=== PATIENT | male | born 1955 | race Caucasian/White ===

== ENCOUNTER → 2017-04-20 | Outpatient (CLI) | payer MEDICAID, OTHER ==
--- NOTE | 2017-04-20 14:36 | US ---
EXAMINATION TYPE: US extremity nonvasculr ltd LT DATE OF EXAM: 04/20/2017 COMPARISON: NONE CLINICAL HISTORY: Left Knee Pain R29.898. Left knee pain for a few months with posterior swelling at time 1.7cm fluid collection seen medially and deep within popiteal fossa. Not related to a vessel. May rep resent small Bakers cyst versus other free fluid etiology. IMPRESSION: Small Hernandez's cyst
--- NOTE | 2017-04-20 15:30 | XR ---
EXAMINATION TYPE: XR knee complete LT DATE OF EXAM: 04/20/2017 CLINICAL HISTORY: pain TECHNIQUE: Three views of the left knee are obtained. COMPARISON: None. FINDINGS: There is no acute fracture/dislocation. The tri-compartment joint spaces appear mildly na rrowed. The overlying soft tissue appears unremarkable. IMPRESSION: There is no acute fracture or dislocation ICD 10 NO FRACTURE, INITIAL EVALUATION
== END | disposition home or self-care (01) ==
LOC: RADUSWWP 14:06
PROVIDERS: ATTEND Family Medicine
DX: M71.22 Synovial cyst of popliteal space [Baker], left knee (principal); R29.898 Other symptoms and signs involving the musculoskeletal system

== ENCOUNTER 2017-10-29 18:01 | Inpatient (IN) | payer MEDICAID ==
[2017-10-29] MEDS ORDERED: SODIUM CHLORIDE 0.9% 1,000 ML IV STA (18:09)
--- NOTE | 2017-10-29 18:19 | ED ---
General Adult HPI - General Chief complaint: Arrhythmia/Palpitations Stated complaint: tachycardia Time Seen by Provider: 10/29/17 18:04 Source: EMS, RN notes reviewed, old records reviewed Mode of arrival: EMS Limitations: no limitations - History of Present Illness Initial comments: This is a 62-year-old male the ER for evaluation. Patient does say for evaluation regarding dizziness and lightheadedness. No prior history of similar. Patient states he had over shopping began to feel lightheaded and dizzy, he got home his symptoms worsened he did call EMS EMS came to patient's house. Per EMS patient was in SVT, as they're about to give treatment patient did convert back to normal sinus rhythm. Patient states he feels much better now recent tobacco chest pain or shortness of breath. No recent fevers. No drugs or alcohol use - Related Data Home Medications Medication Instructions Recorded Confirmed Atorvastatin [Lipitor] 40 mg PO QAM 06/19/17 10/29/17 Naproxen Sodium [Aleve] 220 - 440 mg PO Q6H PRN 06/19/17 10/29/17 Previous Rx's Medication Instructions Recorded Aspirin 81 mg PO DAILY chew 10/31/17 Nicotine 14Mg/24Hr Patch [Habitrol] 1 patch TRANSDERM Q24H #30 patch 10/31/17 Verapamil [Isoptin] 40 mg PO TID #90 tab 10/31/17 Allergies Allergy/AdvReac Type Severity Reaction Status Date / Time No Known Allergies Allergy Verified 10/29/17 18:45 Review of Systems ROS Statement: Those systems with pertinent positive or pertinent negative responses have been documented in the HPI. ROS Other: All systems not noted in ROS Statement are negative. Past Medical History Past Medical History: Hyperlipidemia, Osteoarthritis (OA) Additional Past Medical History / Comment(s): CURRENT: HAD BX @ [facility] OFFICE, HAD A CHANGE OF INSURANCE AND NOW WITH DR. DE GUZMAN. PAST HX: RENAL CALCULI, KIDNEY INFECTIONS History of Any Multi-Drug Resistant Organisms: None Reported Past Surgical History: No Surgical Hx Reported Past Anesthesia/Blood Transfusion Reactions: Motion Sickness Past Psychological History: No Psychological Hx Reported Smoking Status: Current every day smoker Past Alcohol Use History: Rare Past Drug Use History: None Reported - Past Family History Mother Family Medical History: No Reported History General Exam Limitations: no limitations General appearance: alert, in no apparent distress Head exam: Present: atraumatic, normocephalic, normal inspection Eye exam: Present: normal appearance, PERRL, EOMI. Absent: scleral icterus, conjunctival injection, periorbital swelling ENT exam: Present: normal exam, mucous membranes moist Neck exam: Present: normal inspection. Absent: tenderness, meningismus, lymphadenopathy Respiratory exam: Present: normal lung sounds bilaterally. Absent: respiratory distress, wheezes, rales, rhonchi, stridor Cardiovascular Exam: Present: regular rate, normal rhythm, normal heart sounds. Absent: systolic murmur, diastolic murmur, rubs, gallop, clicks GI/Abdominal exam: Present: soft, normal bowel sounds. Absent: distended, tenderness, guarding, rebound, rigid Extremities exam: Present: normal inspection, full ROM, normal capillary refill. Absent: tenderness, pedal edema, joint swelling, calf tenderness Back exam: Present: normal inspection Neurological exam: Present: alert, oriented X3, CN II-XII intact Psychiatric exam: Present: normal affect, normal mood Skin exam: Present: warm, dry, intact, normal color. Absent: rash Course Vital Signs 10/29/17 10/29/17 10/29/17 18:04 18:57 19:37 Temperature 98.3 F 97.5 F L Pulse Rate 92 84 83 Respiratory 16 16 16 Rate Blood Pressure 145/65 126/60 141/69 O2 Sat by Pulse 96 97 97 Oximetry 10/29/17 21:33 Temperature 97.8 F Pulse Rate 84 Respiratory 16 Rate Blood Pressure 112/54 O2 Sat by Pulse 96 Oximetry - Reevaluation(s) Reevaluation #1: 10/29/17 21:34 EMS paperwork is reviewed, patient with positive SVT EKG Findings - EKG Comments: EKG Findings:: EKG shows sinus rhythm rate of 88, AR 150, QRS 84, QTC 450 Medical Decision Making - Medical Decision Making 62 male the ER for evaluation of abnormal rhythm, patient found to be in SVT, does have history of heart disease. Patient spontaneous can be converted, patient for continued monitoring of heart rhythm and cardiology evaluation - Lab Data Result diagrams: 10/29/17 18:15 10/31/17 06:00 Lab Results 10/29/17 10/29/17 10/29/17 Range/Units 18:15 18:15 18:15 WBC 13.1 H (3.8-10.6) k/uL RBC 5.43 (4.30-5.90) m/uL Hgb 15.8 (13.0-17.5) gm/dL Hct 47.8 (39.0-53.0) % MCV 88.0 (80.0-100.0) fL MCH 29.1 (25.0-35.0) pg MCHC 33.0 (31.0-37.0) g/dL RDW 13.6 (11.5-15.5) % Plt Count 270 (150-450) k/uL Neutrophils % 45 % Lymphocytes % 41 % Monocytes % 7 % Eosinophils % 3 % Basophils % 1 % Neutrophils # 5.9 (1.3-7.7) k/uL Lymphocytes # 5.3 H (1.0-4.8) k/uL Monocytes # 0.9 (0-1.0) k/uL Eosinophils # 0.4 (0-0.7) k/uL Basophils # 0.2 (0-0.2) k/uL Manual Slide Review Performed Poikilocytosis (manual Present PT (9.0-12.0) sec INR (<1.2) APTT (22.0-30.0) sec D-Dimer (<0.60) mg/L FEU Sodium 141 (137-145) mmol/L Potassium 4.2 (3.5-5.1) mmol/L Chloride 106 (98-107) mmol/L Carbon Dioxide 21 L (22-30) mmol/L Anion Gap 14 mmol/L BUN 14 (9-20) mg/dL Creatinine 0.90 (0.66-1.25) mg/dL Est GFR (CKD-EPI)AfAm >90 (>60 ml/min/1.73 sqM) Est GFR (CKD-EPI)NonAf 90 (>60 ml/min/1.73 sqM) Glucose 101 H (74-99) mg/dL Calcium 9.0 (8.4-10.2) mg/dL Phosphorus 3.3 (2.5-4.5) mg/dL Magnesium 1.9 (1.6-2.3) mg/dL Total Bilirubin 0.3 (0.2-1.3) mg/dL AST 26 (17-59) U/L ALT 21 (21-72) U/L Alkaline Phosphatase 65 (38-126) U/L Total Creatine Kinase 151 (55-170) U/L CK-MB (CK-2) 1.5 (0.0-2.4) ng/mL CK-MB (CK-2) Rel Index 1.0 Troponin I <0.012 (0.000-0.034) ng/mL Total Protein 6.6 (6.3-8.2) g/dL Albumin 3.5 (3.5-5.0) g/dL TSH 1.030 (0.465-4.680) mIU/L 10/29/17 10/29/17 Range/Units 18:15 18:15 WBC (3.8-10.6) k/uL RBC (4.30-5.90) m/uL Hgb (13.0-17.5) gm/dL Hct (39.0-53.0) % MCV (80.0-100.0) fL MCH (25.0-35.0) pg MCHC (31.0-37.0) g/dL RDW (11.5-15.5) % Plt Count (150-450) k/uL Neutrophils % % Lymphocytes % % Monocytes % % Eosinophils % % Basophils % % Neutrophils # (1.3-7.7) k/uL Lymphocytes # (1.0-4.8) k/uL Monocytes # (0-1.0) k/uL Eosinophils # (0-0.7) k/uL Basophils # (0-0.2) k/uL Manual Slide Review Poikilocytosis (manual PT 9.5 (9.0-12.0) sec INR 1.0 (<1.2) APTT 23.2 (22.0-30.0) sec D-Dimer 0.64 H (<0.60) mg/L FEU Sodium (137-145) mmol/L Potassium (3.5-5.1) mmol/L Chloride (98-107) mmol/L Carbon Dioxide (22-30) mmol/L Anion Gap mmol/L BUN (9-20) mg/dL Creatinine (0.66-1.25) mg/dL Est GFR (CKD-EPI)AfAm (>60 ml/min/1.73 sqM) Est GFR (CKD-EPI)NonAf (>60 ml/min/1.73 sqM) Glucose (74-99) mg/dL Calcium (8.4-10.2) mg/dL Phosphorus (2.5-4.5) mg/dL Magnesium (1.6-2.3) mg/dL Total Bilirubin (0.2-1.3) mg/dL AST (17-59) U/L ALT (21-72) U/L Alkaline Phosphatase (38-126) U/L Total Creatine Kinase (55-170) U/L CK-MB (CK-2) (0.0-2.4) ng/mL CK-MB (CK-2) Rel Index Troponin I (0.000-0.034) ng/mL Total Protein (6.3-8.2) g/dL Albumin (3.5-5.0) g/dL TSH (0.465-4.680) mIU/L Critical Care Time Critical Care Time: Yes Total Critical Care Time: 31 Disposition Clinical Impression: Supraventricular tachycardia Disposition: ADMITTED IP TO THIS [facility] Condition: Stable Is patient prescribed a controlled substance at d/c from ED?: No If prescribed controlled substance>3 days was MAPS reviewed?: No When asked, does pt state using other controlled substances?: No
[2017-10-29 18:26] LABS: Basophils # (A) 0.2 k/uL (0-0.2); Basophils % (A) 1 %; Eosinophils # (A) 0.4 k/uL (0-0.7); Eosinophils % (A) 3 %; HCT 47.8 % (39.0-53.0); HGB 15.8 gm/dL (13.0-17.5); Lymphocytes % (A) 41 %; MCH 29.1 pg (25.0-35.0); Mean Platelet Volume 7.9; Monocytes # (A) 0.9 k/uL (0-1.0); Monocytes % (A) 7 %; Neutrophils # (A) 5.9 k/uL (1.3-7.7); Neutrophils % (A) 45 %; Platelet Count 270 k/uL (150-450); RBC 5.43 m/uL (4.30-5.90); RDW 13.6 % (11.5-15.5); WBC 13.1 k/uL (3.8-10.6)
[2017-10-29 18:33] LABS: Lymphocytes # (A) 5.3 k/uL (1.0-4.8); Partial Thromboplastin Time 23.2 sec (22.0-30.0); Prothrombin Time 9.5 sec (9.0-12.0)
[2017-10-29 18:47] LABS: Poikilocytosis (M) Present
[2017-10-29 19:06] LABS: Creatine Kinase 151 U/L (55-170)
[2017-10-29 19:07] LABS: ALT 21 U/L (21-72); AST 26 U/L (17-59); Albumin 3.5 g/dL (3.5-5.0); Alkaline Phosphatase 65 U/L (38-126); Anion Gap 14 mmol/L; Blood Urea Nitrogen 14 mg/dL (9-20); Carbon Dioxide 21 mmol/L (22-30); Chloride 106 mmol/L (98-107); Glucose 101 mg/dL (74-99); Magnesium 1.9 mg/dL (1.6-2.3); Phosphorus 3.3 mg/dL (2.5-4.5); Potassium 4.2 mmol/L (3.5-5.1); Sodium 141 mmol/L (137-145); Total Bilirubin 0.3 mg/dL (0.2-1.3); Total Protein 6.6 g/dL (6.3-8.2)
[2017-10-29 19:18] LABS: Creatine Kinase MB 1.5 ng/mL (0.0-2.4); Troponin I <0.012 ng/mL (0.000-0.034)
[2017-10-29] MEDS ORDERED: NITROGLYCERIN SL TABS 0.4 MG TAB SUBLINGUAL PRN (21:32)
[2017-10-29] MEDS ORDERED: SODIUM CHLORIDE 0.9% 1,000 ML IV SCH (21:45)
[2017-10-30 01:05] LABS: Creatine Kinase 127 U/L (55-170)
[2017-10-30 01:16] LABS: Creatine Kinase MB 1.3 ng/mL (0.0-2.4); Troponin I <0.012 ng/mL (0.000-0.034)
[2017-10-30 06:45] LABS: Creatine Kinase 123 U/L (55-170)
[2017-10-30 06:46] LABS: Cholesterol 152 mg/dL (<200); HDL Cholesterol 33 mg/dL (40-60); LDL Cholesterol,Calculated 84 mg/dL (0-99); Triglycerides 174 mg/dL (<150)
[2017-10-30 06:57] LABS: Creatine Kinase MB 1.3 ng/mL (0.0-2.4); Troponin I <0.012 ng/mL (0.000-0.034)
[2017-10-30] MEDS ORDERED: METOPROLOL TARTRATE 50 MG TAB PO SCH (09:00)
[2017-10-30] MEDS ORDERED: ASPIRIN 325 MG TAB PO SCH (09:00)
[2017-10-30] MEDS ORDERED: ATORVASTATIN 80 MG TAB PO SCH (09:00)
--- NOTE | 2017-10-30 10:27 | P.CRDCN ---
History of Present Illness Consult date: 10/30/17 Requesting physician: Gaudencio Gardner Reason for Consult (text): SVT Chief complaint: Dizziness and lightheadedness History of present illness: This is a pleasant 62-year-old gentleman with no prior documented history of hypertension, he does have borderline diabetes, hyperlipidemia, nicotine dependence, he states that he used to drink heavily in the past, now occasionally has a couple drinks here and there. Patient states that he drinks 3 cups of coffee in the morning and throughout the day drinks iced tea. Patient presents to the hospital with symptoms of dizziness and lightheadedness. He denies any palpitations or chest discomfort. According to the patient he has had these episodes in the past, however several months with cold bypass for he would experience it again. He states he has significantly dizzy and has to stop what he is doing, at times he takes a deep breath and patient waits for the symptoms to subside. Yesterday the patient was having symptoms of dizziness, he states that he just relaxed, subsequently the symptoms subsided. He then later on went out to his pole barn, was up on a ladder, symptoms again came on, he states that he had to hang onto the ladder and again wait for the symptoms to pass. He had a total of 4 of these episodes and became quite concerned that there may be an underlying problem and for this reason EMS was called. On EMS arrival patient was hooked up to the site monitor and found to be in a supraventricular tachycardia. Before any medication was administered, patient converted to a normal sinus rhythm and was brought to the hospital for further evaluation. Since this fourth and final episode, patient states he has had no further symptoms of dizziness. His EKG on arrival here showed a normal sinus rhythm with no acute changes. Blood pressure on arrival here 144/64 with a heart rate in the 90s, temperature 98.3 days 96% on room air. White blood cell count on admission 13.1, hemoglobin 15.8, platelet count 270. D-dimer 0.6. Sodium 141, potassium 4.2, BUN 14, creatinine 0.9. Magnesium level I.9, troponins negative 3. Cholesterol 152, LDL 84, triglycerides 174, HDL 33, TSH level I.03. At the time of my examination this morning, patient is free of any dizziness or lightheadedness, no palpitations or chest discomfort. Past Medical History Past Medical History: Diabetes Mellitus, Hyperlipidemia, Osteoarthritis (OA) Additional Past Medical History / Comment(s): CURRENT: HAD Biopsy @ [facility] OFFICE, HAD A CHANGE OF INSURANCE AND NOW WITH DR. DE GUZMAN- removal of basal cell carcinoma. PAST HX: RENAL CALCULI, KIDNEY INFECTIONS History of Any Multi-Drug Resistant Organisms: None Reported Past Surgical History: No Surgical Hx Reported Past Anesthesia/Blood Transfusion Reactions: No Reported Reaction Past Psychological History: No Psychological Hx Reported Smoking Status: Current every day smoker Past Alcohol Use History: Occasional Additional Past Alcohol Use History / Comment(s): SMOKES ABOUT half PPD, SINCE [address] DE GUZMAN ORDERED "[facility]", PT THINKS,TO HELP HIM QUIT SMOKING (INSTRUCTED TO BRING IN NAME AND DOSE OF MED). Past Drug Use History: None Reported - Past Family History Mother Family Medical History: No Reported History Medications and Allergies Home Medications Medication Instructions Recorded Confirmed Type Atorvastatin [Lipitor] 40 mg PO QAM 06/19/17 10/29/17 History Naproxen Sodium [Aleve] 220 - 440 mg PO Q6H PRN 06/19/17 10/29/17 History Allergies Allergy/AdvReac Type Severity Reaction Status Date / Time No Known Allergies Allergy Verified 10/29/17 18:45 Physical Exam Vitals: Vital Signs Temp Pulse Pulse Resp BP BP Pulse Ox 10/30/17 08:32 93 L 10/30/17 08:00 97.1 F L 76 14 125/69 93 L 10/30/17 04:00 97.3 F L 78 18 96/67 94 L 10/30/17 00:00 96.8 F L 82 18 123/65 95 10/29/17 22:25 96.8 F L 82 18 123/65 95 10/29/17 21:33 97.8 F 84 16 112/54 96 10/29/17 19:37 97.5 F L 83 16 141/69 97 10/29/17 18:57 84 16 126/60 97 10/29/17 18:04 98.3 F 92 16 145/65 96 Intake and Output 10/29/17 10/30/17 10/30/17 22:59 06:59 14:59 Intake Total 390 Output Total 0 Balance 0 390 Intake: Intake, IV Titration 150 Amount Sodium Chloride 0.9% 1, 150 000 ml @ 100 mls/hr IV . Q10H [facility] Rx#:[id number] Oral 240 Output: Urine 0 Other: Voiding Method Toilet # Voids 1 Weight 109.6 kg 109.6 kg PHYSICAL EXAMINATION: HEENT: Head is atraumatic, normocephalic. Pupils equal, round. Neck is supple. There is no elevated jugular venous pressure. HEART EXAMINATION: Heart S1, S2 normal. No murmur or gallop heard. CHEST EXAMINATION: Lungs are clear to auscultation and precussion. No chest wall tenderness is noted on palpation or with deep breathing. ABDOMEN: Soft, nontender. Bowel sounds are heard. No organomegaly noted. EXTREMITIES: 2+ peripheral pulses with no evidence of peripheral edema and no calf tenderness noted. NEUROLOGIC patient is awake, alert and oriented -3. . Results 10/29/17 18:15 10/29/17 18:15 Cardiac Enzymes 10/29/17 10/29/17 10/29/17 Range/Units 18:15 18:15 23:49 AST 26 (17-59) U/L CK-MB (CK-2) 1.5 1.3 (0.0-2.4) ng/mL Troponin I <0.012 <0.012 (0.000-0.034) ng/mL 10/30/17 Range/Units 05:56 AST (17-59) U/L CK-MB (CK-2) 1.3 (0.0-2.4) ng/mL Troponin I <0.012 (0.000-0.034) ng/mL Coagulation 10/29/17 Range/Units 18:15 PT 9.5 (9.0-12.0) sec APTT 23.2 (22.0-30.0) sec Lipids 10/30/17 Range/Units 05:56 Triglycerides 174 H (<150) mg/dL Cholesterol 152 (<200) mg/dL HDL Cholesterol 33 L (40-60) mg/dL CBC 10/29/17 Range/Units 18:15 WBC 13.1 H (3.8-10.6) k/uL RBC 5.43 (4.30-5.90) m/uL Hgb 15.8 (13.0-17.5) gm/dL Hct 47.8 (39.0-53.0) % Plt Count 270 (150-450) k/uL Comprehensive Metabolic Panel 10/29/17 Range/Units 18:15 Sodium 141 (137-145) mmol/L Potassium 4.2 (3.5-5.1) mmol/L Chloride 106 (98-107) mmol/L Carbon Dioxide 21 L (22-30) mmol/L BUN 14 (9-20) mg/dL Creatinine 0.90 (0.66-1.25) mg/dL Glucose 101 H (74-99) mg/dL Calcium 9.0 (8.4-10.2) mg/dL AST 26 (17-59) U/L ALT 21 (21-72) U/L Alkaline Phosphatase 65 (38-126) U/L Total Protein 6.6 (6.3-8.2) g/dL Albumin 3.5 (3.5-5.0) g/dL Current Medications Generic Name Dose Route Start Last Admin Trade Name Freq PRN Reason Stop Dose Admin Aspirin 325 mg 10/30/17 09:00 10/30/17 08:20 Aspirin PO 325 mg DAILY MARISA Administration Atorvastatin Calcium 80 mg 10/30/17 09:00 10/30/17 08:20 Lipitor PO 80 mg DAILY MARISA Administration Sodium Chloride 1,000 mls @ 100 mls/hr 10/29/17 21:45 10/29/17 21:44 Saline 0.9% IV 100 mls/hr .Q10H MARISA Administration Metoprolol Tartrate 50 mg 10/30/17 09:00 Lopressor PO BID MARISA Nitroglycerin 0.4 mg 10/29/17 21:32 Nitrostat SUBLINGUAL Q5M PRN Chest Pain Intake and Output 10/29/17 10/30/17 10/30/17 22:59 06:59 14:59 Intake Total 390 Output Total 0 Balance 0 390 Intake: Intake, IV Titration 150 Amount Sodium Chloride 0.9% 1, 150 000 ml @ 100 mls/hr IV . Q10H [facility]ISA Rx#:[id number] Oral 240 Output: Urine 0 Other: Voiding Method Toilet # Voids 1 Weight 109.6 kg 109.6 kg 10/29/17 18:15 10/29/17 18:15 EKG Interpretations (text) EKG on arrival shows a normal sinus rhythm with no acute changes. EMS EKG shows a supraventricular tachycardia Assessment and Plan Plan: Assessment and plan #1 supraventricular tachycardia, self converting to normal sinus rhythm. #2 borderline diabetes, diet controlled #3 hyperlipidemia #4 nicotine dependence Plan We will obtain an echocardiogram with Doppler study. Patient was initiated on aspirin as well as Lopressor in the emergency room. Lipitor was increased to 80 mg daily. Patient is quite eager to be discharged home, he states he does not like being in hospitals. Further recommendations to follow. DNP note has been reviewed, I agree with a documented findings and plan of care. Patient was seen and examined.
--- NOTE | 2017-10-30 11:26 | P.PN ---
Progress Note - Text This is an addendum to the dictated cardiology consultation. The patient presents with symptoms of dizziness and palpitations. He had the palpitations on and off for many years but had 5 episodes yesterday the last one he was on the ladder and felt quite dizzy. 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 Patient has a history of hyperlipidemia, chronic tobacco use and borderline diabetes. He is active usually without associated symptoms he has no history of CHF, PND or orthopnea. Physical examination his lungs are clear and he is in sinus mechanism with no evidence of fluid overload His EKG shows sinus mechanism with no conduction abnormalities. The patient presents with AV margaret reentry tachycardia. I would add to his regimen verapamil 40 mg 3 times a day, obtain an echocardiogram and a stress echocardiogram. We will obtain a consultation with Dr. Munroe for possible ablation as an outpatient. I discussed this finding with the patient. Thank you for this consult we will follow with you.
--- NOTE | 2017-10-30 11:33 | ECHOF ---
Referral Reason:svt MEASUREMENTS -------- HEIGHT: 175.3 cm WEIGHT: 109.3 kg BP: 125/69 IVSd: 1.3 cm (0.6 - 1.1) LVIDd: 4.4 cm (3.9 - 5.3) LVPWd: 1.4 cm (0.6 - 1.1) IVSs: 2.1 cm LVIDs: 2.2 cm LVPWs: 2.0 cm Ao Diam: 3.4 cm (2.0 - 3.7) AV Cusp: 1.9 cm (1.5 - 2.6) LA Diam: 3.6 cm (2.7 - 3.8) MV EXCURSION: 13.189 mm (> 18.000) MV EF SLOPE: 114 mm/s (70 - 150) EPSS: 0.6 cm MV E Kerwin: 0.90 m/s MV DecT: 187 ms MV A Kerwin: 0.63 m/s MV E/A Ratio: 1.44 RAP: 5.00 mmHg RVSP: 8.59 mmHg FINDINGS -------- Sinus rhythm. This was a technically good study. The left ventricular size is normal. There is mild concentric left ventricular hypertrophy. Overa ll left ventricular systolic function is normal with, an EF between 55 - 60 %. The right ventricle is normal in size and function. The left atrium is normal in size. The right atrium is normal in size. The aortic valve is trileaflet, and appears structurally normal. No aortic stenosis or regurgitation. There is trace mitral regurgitation. Mild tricuspid regurgitation present. The right ventricular systolic pressure, as measured by Doppl er, is 8.59mmHg. Pulmonic valve appears structurally normal. The aortic root size is normal. Normal inferior vena cava with normal inspiratory collapse consistent with estimated right atrial pre ssure of 5 mmHg. The pericardium is normal. CONCLUSIONS -------- 1. Sinus rhythm. 2. This was a technically good study. 3. The left ventricular size is normal. 4. There is mild concentric left ventricular hypertrophy. 5. The right ventricle is normal in size and function. 6. The left atrium is normal in size. 7. The right atrium is normal in size. 8. The aortic valve is trileaflet, and appears structurally normal. No aortic stenosis or regurgitati on. 9. There is trace mitral regurgitation. 10. Mild tricuspid regurgitation present. 11. The right ventricular systolic pressure, as measured by Doppler, is 8.59mmHg. 12. Pulmonic valve appears structurally normal. 13. The aortic root size is normal. 14. Normal inferior vena cava with normal inspiratory collapse consistent with estimated right atrial pressure of 5 mmHg. 15. The pericardium is normal. [employer] OPERATOR: Helen Ge RDCS
[2017-10-30] MEDS ORDERED: NICOTINE 14MG/24HR PATCH TRANSDERM SCH (17:00)
[2017-10-30] MEDS: VERAPAMIL 40 MG TAB PO SCH ×2 (17:37→21:34)
--- NOTE | 2017-10-30 18:52 | HP ---
HISTORY AND PHYSICAL DATE OF ADMISSION: 10/29/17. DATE OF SERVICE: 10/30/17. PRESENTING COMPLAINT: Recurrent dizzy spells. HISTORY OF PRESENTING COMPLAINT: Pleasant 62-year-old patient of Dr. Miramontes. Chronic stable medical conditions include diabetes, osteoarthritis, and nicotine dependence. The patient had about 5 dizzy spells yesterday and one of the episodes felt vein pulsating in the neck. There is some element of chest tightness and nearly passing out. No perspiration or shortness of breath. The patient in the ER. Per ER notes, the EMS found the patient to be in SVT and patient spontaneously reverted back. The patient otherwise is pretty active, does not get chest pain with activity. Admitted for further workup. REVIEW OF SYSTEMS: CONSTITUTIONAL: None. HEENT: None. RESPIRATORY: None. CARDIOVASCULAR: As above. GASTROINTESTINAL: None. GENITOURINARY: None. MUSCULOSKELETAL: Arthritic pain in the joints. DERMATOLOGICAL, HEMATOLOGIC, LYMPHATIC: None. PSYCHIATRY: None. NEUROLOGICAL: As above with no focal symptoms. PAST MEDICAL HISTORY: Hyperlipidemia, basal cell carcinoma, renal calculi. PAST SURGICAL HISTORY: None. SOCIAL HISTORY: The patient smokes about half a pack a day close to 50 years. Alcohol occasionally. 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 FAMILY HISTORY: Reviewed, noncontributory to presentation. HOME MEDICATIONS: 1. Aleve 220-440 mg q.6h p.r.n. 2. Lipitor 40 mg a day. ALLERGIES: None. PHYSICAL EXAMINATION: VITAL SIGNS ON PRESENTATION: Temperature 98.3, pulse 92, respiration 16, blood pressure 145/65, pulse ox 96% on room air. GENERAL APPEARANCE: Well built, BMI 35.9, sitting up comfortable. EYES: Pupils equal. Conjunctivae normal. HEENT: External nose and ears normal. Oral cavity normal. NECK: JVD not raised. Mass not palpable. RESPIRATORY: Effort, lungs slightly decreased breath sounds. CARDIOVASCULAR: 1st and 2nd sounds, no edema. ABDOMEN: Soft, nontender. Liver and spleen not palpable. LYMPHATIC: No lymph nodes palpable in neck or axillae. PSYCHIATRY: Alert and oriented x3. Mood and affect normal. NEUROLOGICAL: Pupils equal. Cranial nerves grossly intact. Power and sensation grossly intact. MUSCULOSKELETAL: Evidence of osteoarthritis especially hands and knees. INVESTIGATIONS: White count 13.1, hemoglobin 15.8, potassium 4.2. BUN and creatinine are normal. Troponin x3 negative. LDL 84. TSH 1.030. EKG shows normal sinus rhythm. 2D echocardiogram unremarkable. ASSESSMENT: 1. This patient has had recurrent episodes of what appears to be SVT with one episode documented with nearly passing out with some associated chest tightness. This very well may be underlying coronary ischemia. 2. Primary osteoarthritis of the hands. 3. Chronic nicotine dependence. Patient is a cigarette smoker. 4. Obesity, BMI 35.7. PLAN: Cardiology was consulted. Seen by Dr. Bojorquez. 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 Also consultation to Dr. Munroe from electrophysiology being done and patient will be undergoing a stress test. Also get a dietitian to see the patient for obesity. MMODL / IJN: [id number] /
--- NOTE | 2017-10-30 20:28 | CONS ---
CONSULTATION The patient referred by Dr. Bojorquez for evaluation and management of recurrent presyncope as well as near syncope associated with supraventricular tachycardia. This is a 62-year-old gentleman who was brought to the hospital by EMS with a diagnosis of recurrent presyncope and near syncope. Prior to admission, he was experiencing recurrent dizzy spells but for the most part he was able to sit down and the episodes would pass. However, the episodes would occur repeatedly to the point where he actually felt that he was going to pass out and he felt very hot and flushed. Before making a phone call to EMS, he actually felt a racing heart and he felt the palpitations in his neck. When EMS arrived, he was found to be in supraventricular tachycardia, which was documented on a rhythm strip. His rate was about 220 beats per minute and narrow QRS, but it terminated spontaneously. This is a regular supraventricular tachycardia almost 220 beats per minute. He denied any chest discomfort at that time. On arrival his blood pressure was 144/64 mmHg, heart rate was the 90s. He was afebrile. His white count was 13.1, hemoglobin 15.8, and platelet count 270,000. D-dimer was normal. Electrolytes were normal. Troponins x3 were negative. TSH was 1.03 and since he has been in the hospital he has been free of any symptoms. He has had no chest discomfort, no dizziness, lightheadedness or palpitations. No arrhythmias. Past history of diabetes. His hemoglobin A1c is 6.6, dyslipidemia, central obesity. He has had basal cell carcinoma removal, renal calculi, kidney infections. SOCIAL HISTORY: Current smoker. FAMILY HISTORY: Coronary artery disease. MEDICATIONS: At home: Atorvastatin and Naprosyn. ALLERGIES: No known drug allergies. REVIEW OF SYSTEMS: No fever, chills, or rigors. No cough or expectoration. No nausea, vomiting, diarrhea, hematuria, dysuria. No strokes, seizures or skin lesions. No musculoskeletal complaints. EXAMINATION: Head and neck examination is normal. Heart sounds S1, S2 were normal. No murmurs or gallops. No rub. Extremities are warm, no edema. Lungs are clear to auscultation. Central obesity is noted. Blood pressure is 126/60, 145/65 mmHg, pulse rate in the 80s. LABS: Reviewed and are documented in the chart. His echo shows normal LV size and systolic function without segmental wall motion abnormalities. Ejection fraction is normal. His 12-lead ECG at baseline in sinus rhythm shows narrow QRS. No delta waves noted. His current medications in the hospital include atorvastatin and verapamil. IMPRESSION: 1. Narrow complex supraventricular tachycardia associated with presyncope and near syncope. Spontaneous termination. Heart rate was 220 beats per minute. 2. He has had recurrent episodes of dizziness, but has never really complained of palpitations in the past, but this is the first time he has started experiencing such frequent symptoms that lasts long to the point of being near syncopal and for the first time he felt palpitations and rapid heartbeat in his neck. 3. History of current smoking. 4. Central obesity. 5. Diabetes. Hemoglobin A1c 6.6. 6. TSH is normal. 7. LV size and systolic function are normal. SUGGEST: Once his cardiac workup is complete, he should consider an EP study for evaluation of SVT. Since the ventricular rates are so fast at 220 beats per minute, if there is no evidence for AV margaret reentry or orthodromic reentry and there is no inducible atrial tachycardia, then this could represent atrial flutter with RVR and a flutter ablation will be performed in the event that no other arrhythmia is inducible. I will schedule the procedure for him. I had a detailed discussion with the patient. I explained the procedure in detail. I explained success rates, failure rates and complications to him. He understands that at least 3 days prior to the procedure he will stop his calcium channel fer. NICCI / RANGELN: [id number] /
[2017-10-30] MEDS ORDERED: MELATONIN 3 MG TABLET PO SCH (21:00)
[2017-10-31 06:53] VITALS: RESP 16
[2017-10-31 07:20] LABS: Anion Gap 10 mmol/L; Blood Urea Nitrogen 12 mg/dL (9-20); Calcium 9.1 mg/dL (8.4-10.2); Carbon Dioxide 25 mmol/L (22-30); Chloride 106 mmol/L (98-107); Glucose 126 mg/dL (74-99); Potassium 4.5 mmol/L (3.5-5.1); Sodium 141 mmol/L (137-145)
[2017-10-31 07:45] VITALS: TEMP 97.2
[2017-10-31] MEDS ORDERED: ASPIRIN 81 MG PO SCH (09:00)
[2017-10-31] MEDS ORDERED: ATORVASTATIN 40 MG TAB PO SCH (09:00)
[2017-10-31 09:54] VITALS: BMI 34.5
[2017-10-31] MEDS: VERAPAMIL 40 MG TAB PO SCH ×2 (12:13→15:37)
[2017-10-31 12:18] VITALS: BP 130/66; PULSE 86
--- NOTE | 2017-10-31 13:54 | ECHOS ---
STRESS ECHOCARDIOGRAM INDICATIONS: Chest pain. MEDICATIONS: Atorvastatin. BASELINE HEART RATE: 87 BASELINE BLOOD PRESSURE: 141/65 MAXIMUM HEART RATE: 124 MAXIMUM BLOOD PRESSURE: 168/43 85% MPHR: 133 100% MPHR: 156 METS: 4.6 MAXIMUM STAGE REACHED: I TOTAL EXERCISE TIME: 3:17 CLINICAL INFORMATION: Baseline EKG shows sinus rhythm, normal axis, normal intervals. Patient exercised on David protocol for a total of 3 minutes, achieving 4 METS, 79% of predicted maximal heart rate without chest pain. At this level of activity had [address]-segment depression and could not exercise any further. Baseline echo shows normal left ventricular size wall motion systolic function. Postexercise, I do not see any exercise induced wall motion abnormalities. CONCLUSIONS: 1. Limited exercise tolerance. 2. Abnormal stress test by EKG criteria. 3. Inconclusive stress echo due to inability to attain target heart rate. MMODL / IJN: [id number] /
--- NOTE | 2017-10-31 15:38 | P.PN ---
Subjective Progress Note Date: 10/31/17 Principal diagnosis: SVT This is a pleasant 62-year-old gentleman with no prior documented history of hypertension, he does have borderline diabetes, hyperlipidemia, nicotine dependence, he states that he used to drink heavily in the past, now occasionally has a couple drinks here and there. Patient states that he drinks 3 cups of coffee in the morning and throughout the day drinks iced tea. Patient presents to the hospital with symptoms of dizziness and lightheadedness. He denies any palpitations or chest discomfort. According to the patient he has had these episodes in the past, however several months with cold bypass for he would experience it again. He states he has significantly dizzy and has to stop what he is doing, at times he takes a deep breath and patient waits for the symptoms to subside. Yesterday the patient was having symptoms of dizziness, he states that he just relaxed, subsequently the symptoms subsided. He then later on went out to his pole barn, was up on a ladder, symptoms again came on, he states that he had to hang onto the ladder and again wait for the symptoms to pass. He had a total of 4 of these episodes and became quite concerned that there may be an underlying problem and for this reason EMS was called. On EMS arrival patient was hooked up to the equipment monitor phototypesetting and found to be in a supraventricular tachycardia. Before any medication was administered, patient converted to a normal sinus rhythm and was brought to the hospital for further evaluation. Since this fourth and final episode, patient states he has had no further symptoms of dizziness. His EKG on arrival here showed a normal sinus rhythm with no acute changes. Blood pressure on arrival here 144/64 with a heart rate in the 90s, temperature 98.3 days 96% on room air. White blood cell count on admission 13.1, hemoglobin 15.8, platelet count 270. D-dimer 0.6. Sodium 141, potassium 4.2, BUN 14, creatinine 0.9. Magnesium level I.9, troponins negative 3. Cholesterol 152, LDL 84, triglycerides 174, HDL 33, TSH level I.03. At the time of my examination this morning, patient is free of any dizziness or lightheadedness, no palpitations or chest discomfort. 10/31/2017 Patient seen and examined this morning, denies any chest pain, no palpitations, no dizziness or lightheadedness. No further episodes of tach arrhythmias have been noted on the monitor. Patient was seen by Dr. Munroe in consultation, he will be scheduled as an outpatient to undergo ablation. Patient underwent a stress echocardiographic study today to, revealed limited exercise tolerance, inconclusive stress echo due to inability to attain target heart rate. He did achieve 79% of predicted maximum heart rate with no evidence of exercise- induced wall motion abnormalities. Objective - Vital Signs Vital signs: Vital Signs Temp 97.2 F L 10/31/17 07:45 Pulse 86 10/31/17 12:00 Resp 16 10/31/17 12:00 BP 130/66 10/31/17 12:00 Pulse Ox 96 10/31/17 12:00 Intake & Output 10/30/17 10/31/17 10/31/17 18:59 06:59 18:59 Intake Total 630 200 Output Total 0 Balance 630 200 Weight 106.1 kg 106.1 kg Intake: Intake, IV Titration 150 0 Amount Sodium Chloride 0.9% 1, 150 0 000 ml @ 50 mls/hr IV . Q20H [facility] Rx#:[id number] Oral 480 200 Output: Urine 0 Other: Voiding Method Toilet Toilet # Voids 2 - Exam PHYSICAL EXAMINATION: HEENT: Head is atraumatic, normocephalic. Pupils equal, round. Neck is supple. There is no elevated jugular venous pressure. HEART EXAMINATION: Heart S1, S2 normal. No murmur or gallop heard. CHEST EXAMINATION: Lungs are clear to auscultation and precussion. No chest wall tenderness is noted on palpation or with deep breathing. ABDOMEN: Soft, nontender. Bowel sounds are heard. No organomegaly noted. EXTREMITIES: 2+ peripheral pulses with no evidence of peripheral edema and no calf tenderness noted. NEUROLOGIC patient is awake, alert and oriented -3. . - Labs CBC & Chem 7: 10/29/17 18:15 10/31/17 06:00 Labs: Abnormal Lab Results - Last 24 Hours (Table) 10/31/17 Range/Units 06:00 Glucose 126 H (74-99) mg/dL Assessment and Plan Plan: Assessment and plan #1 supraventricular tachycardia, self converting to normal sinus rhythm. #2 borderline diabetes, diet controlled #3 hyperlipidemia #4 nicotine dependence Plan Echocardiogram with Doppler study revealed a normal left ventricular systolic function. Stress echocardiographic study performed today did not reveal any evidence of reversible ischemia. No further tachycardia arrhythmias have been noted on the monitor. Patient was seen in consultation by Dr. Beaulieu. He will be scheduled for an outpatient ablation. He may be discharged home today from cardiology's perspective, we'll make him a two-week appointment with Dr. Bojorquez in the office. After that the ablation will be scheduled. DNP note has been reviewed, I agree with a documented findings and plan of care. Patient was seen and examined.
--- NOTE | 2017-10-31 23:42 | DS ---
DISCHARGE SUMMARY DATE OF ADMISSION: 10/29/2017. DATE OF DISCHARGE: 10/31/2017. FINAL DIAGNOSES: 1. 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 2. Primary osteoarthritis of the hands. 3. Chronic nicotine dependence, patient is a cigarette smoker. 4. Obesity, BMI 35.7. HOSPITAL COURSE: This patient presented with episodes of multiple near-syncope. [place] of AV margaret non- entry tachycardia. The patient did undergo stress echocardiogram and it was somewhat inconclusive. The patient was cleared by Cardiology to go home and follow with Dr. Munroe from Cardiology. Consultation with Dr. Bojorquez from Cardiology, Dr. Alf Munroe from Electrophysiology. Additionally, patient is asymptomatic at the time of discharge. EXAM: Lungs fair entry. Cardiovascular, 1st and 2nd sounds normal. DISCHARGE MEDICATIONS: 1. Lipitor 40 mg a day. 2. Aspirin 81 mg a day. 3. Nicotine patch #14. 4. Isoptin 40 mg p.o. t.i.d. FOLLOWUP: 1. Follow up with Dr. Bojorquez on 11/08/2017. 2. Follow up with Dr. Miramontes in 2 days. 3. Follow up with Dr. Munroe of Cardiology. MMODL / IJN: [id number] /
== END 2017-10-31 16:23 | disposition home or self-care (01) | DRG 310 ==
LOC: EC 18:01 → 6SEL 21:32
PROVIDERS: ADMIT Hospitalist; ATTEND Hospitalist
DX: I47.1 Supraventricular tachycardia (principal); E11.9 Type 2 diabetes mellitus without complications; E66.9 Obesity, unspecified; E78.5 Hyperlipidemia, unspecified; F17.210 Nicotine dependence, cigarettes, uncomplicated; M19.041 Primary osteoarthritis, right hand; M19.042 Primary osteoarthritis, left hand; Z68.35 Body mass index [BMI] 35.0-35.9, adult; Z79.82 Long term (current) use of aspirin; Z79.899 Other long term (current) drug therapy; Z82.49 Family history of ischemic heart disease and other diseases of the circulatory system; Z85.828 Personal history of other malignant neoplasm of skin; Z87.442 Personal history of urinary calculi; Z79.1 Long term (current) use of non-steroidal anti-inflammatories (NSAID); Z71.3 Dietary counseling and surveillance
CPT/HCPCS: 36415; 80048; 80053; 80061; 82550; 82553; 83735; 84100; 84443; 84484; 85025; 85379; 85610; 85730; 93005; 93017; 93306; 93350; 94760; 96360; 99291

== ENCOUNTER 2021-04-05 07:21 | Day surgery (SDC) | payer MEDICARE ==
[2021-03-31 15:56] VITALS: BMI 31.2
[~2021-04-05 07:21] MED LIST: ALPRAZolam 0.25 MG TAB PO PRN; ALPRAZolam 0.5 MG TAB PO PRN; ASPIRIN 325 MG TAB PO STA; HEPARIN SODIUM,PORCINE 10,000 UNIT in SODIUM CHLORIDE 0.9% 1,000 ML IRRIGATION PRN; HEPARIN SODIUM,PORCINE 2,500 UNIT in SODIUM CHLORIDE 0.9% 250 ML IRRIGATION PRN; NITROGLYCERIN SL TABS 0.4 MG TAB SUBLINGUAL PRN; SODIUM CHLORIDE 0.9% 1,000 ML in EMPTY BAG 1 BAG IV ONE
[2021-04-05 07:57] VITALS: RESP 18; TEMP 97.8
[2021-04-05 08:02] LABS: Basophils # (A) 0.1 k/uL (0-0.2); Basophils % (A) 1 %; Eosinophils # (A) 0.4 k/uL (0-0.7); Eosinophils % (A) 4 %; HCT 44.8 % (39.0-53.0); HGB 15.7 gm/dL (13.0-17.5); Lymphocytes % (A) 35 %; MCH 31.9 pg (25.0-35.0); Mean Platelet Volume 9.2; Monocytes # (A) 0.7 k/uL (0-1.0); Monocytes % (A) 6 %; Neutrophils # (A) 5.7 k/uL (1.3-7.7); Neutrophils % (A) 51 %; Platelet Count 242 k/uL (150-450); RBC 4.93 m/uL (4.30-5.90); RDW 13.7 % (11.5-15.5); WBC 11.2 k/uL (3.8-10.6)
[2021-04-05 08:14] LABS: African American GFR (CKD) >90 (>60 ml/min/1.73 sqM); Anion Gap 8 mmol/L; Blood Urea Nitrogen 14 mg/dL (9-20); Calcium 9.5 mg/dL (8.4-10.2); Carbon Dioxide 25 mmol/L (22-30); Chloride 106 mmol/L (98-107); Glucose 141 mg/dL (74-99); Non-African American GFR(CKD) >90 (>60 ml/min/1.73 sqM); Potassium 4.4 mmol/L (3.5-5.1); Sodium 139 mmol/L (137-145)
[2021-04-05] MEDS ORDERED: VERAPAMIL 2.5 MG/ML 2 ML AMP ONE (08:58)
[2021-04-05] MEDS ORDERED: LIDOCAINE 1% INJ 10MG/ML (20 ML MDV) ONE (08:58)
[2021-04-05] MEDS ORDERED: fentaNYL (PF) 50 MCG/ML 2 ML AMP ONE (09:17)
[2021-04-05] MEDS ORDERED: HEPARIN SODIUM 1,000 UN/ML (10ML VL) ONE (09:17)
[2021-04-05] MEDS ORDERED: fentaNYL (PF) 50 MCG/ML 2 ML AMP IV ONE (09:30)
[2021-04-05] MEDS ORDERED: LIDOCAINE 1% INJ 10MG/ML (20 ML MDV) SQ ONE (09:33)
[2021-04-05] MEDS ORDERED: VERAPAMIL SYRINGE (5 MG/10 ML) INTRAARTER ONE (09:36)
[2021-04-05] MEDS ORDERED: HEPARIN SODIUM 1,000 UN/ML (10ML VL) IV ONE (09:43)
[2021-04-05] MEDS ORDERED: IOPAMIDOL-370 125ML BTL INJ ONE (09:53)
[2021-04-05] MEDS ORDERED: RX INFO: IV CONTRAST WAS GIVEN 1 EACH MISC MISCELLANE PRN (10:08)
[2021-04-05] MEDS ORDERED: ISOSORBIDE MONONITRATE ER 30 MG TAB.ER.24H PO SCH (10:15)
[2021-04-05] MEDS ORDERED: SODIUM CHLORIDE 0.9% 1,000 ML IV SCH (10:15)
--- NOTE | 2021-04-05 11:01 | LTR ---
DATE OF SERVICE: 04/05/[address] Miramontes: I had the pleasure of performing cardiac catheterization on Mr. Skaggs at [facility] on April 05 and a full copy of procedure note will be forwarded to you. In brief, he was found to have chronically occluded right coronary artery with significant obstructive disease involving the LAD and the left circumflex. In view of those finding, I recommend proceeding with evaluation for coronary artery bypass grafting. I will keep you updated on his progress. Thank you again for allowing me to participate in his care. Please fee free to call for any questions. Sincerely, MMODL / IJN: [id number] /
--- NOTE | 2021-04-05 11:01 | CC ---
CARDIAC CATHETERIZATION REPORT Mr. Skaggs is a 65-year-old male with a known history of hypertension, hyperlipidemia, diabetes mellitus, chronic tobacco use, who has been complaining of exertional chest discomfort. He underwent a stress test that showed evidence of inferior wall ischemia. In view of that, recommendation was made regarding cardiac catheterization. The procedure as well as the risks and the complications were discussed with the patient who is in full understanding and agreement. PROCEDURE: Patient was brought to the cathode ray tube salvage processor in a fasting semisedated state after receiving fentanyl and Benadryl and achieving moderate conscious sedated state. Using Xylocaine anesthesia, and Seldinger technique a 6-Filipino sheath was introduced in the right radial artery. Selective right and left coronary angiography performed using 5-Filipino 3.5 bend right and left Wes catheter. Multiple views of the coronary arteries including hemiaxial views obtained. Following that a 5-Filipino tight pigtail catheter was introduced into the left ventricle and left ventricular end-diastolic pressure was calculated. Following that, catheter and sheaths were removed. Hemostasis was obtained with deployment of a TR band. There was no immediate complication. Patient was returned to his room in stable condition. Of note, the patient received 5000 units of intravenous heparin as well as intra-arterial verapamil. FINDINGS: FLUOROSCOPY: There was severe calcification involving all the coronary arteries. CORONARY ANGIOGRAPHY: 1. LEFT MAIN: This is a large-sized vessel trifurcating into left circumflex, left anterior descending artery and ramus intermedius. Left main coronary artery has a 30% to 40% plaque distally. 2. LEFT ANTERIOR DESCENDING ARTERY: This is a large-sized vessel reaching toward the apex with a wraparound apex segment giving rise to a moderately sized diagonal branch in the proximal segment. At the takeoff of the diagonal branch there is complex lesion with area of stenosis up to 90% involving the takeoff of the diagonal branch. The rest of the vessel has no high-grade stenosis. 3. RAMUS INTERMEDIUS: This is a moderately-sized vessel that has a 20% to 30% plaque proximally. 4. LEFT CIRCUMFLEX: This is a nondominant and vessel large in caliber giving rise to 3 obtuse marginal branch. The third is distal and largest in caliber. After the takeoff of the second obtuse marginal branch, there is 95% stenosis. The rest of the vessel has no high-grade stenosis. 5. RIGHT CORONARY ARTERY: This vessel is totally occluded proximally with no significant antegrade flow. 6. COLLATERALS: There are good collateral from the left coronary system toward the right PDA. LEFT VENTRICULOGRAM: Was not performed. HEMODYNAMICS: There was no gradient across the aortic valve. The left ventricular end-diastolic pressure was 20-24 mmHg. CONCLUSION: 1. Calcified coronary arteries. 2. Chronically occluded right coronary artery with collaterals from the left system. 3. Moderate left main disease. 4. Significant stenosis involving the LAD and left circumflex. RECOMMENDATIONS: In view of findings and anatomy, I recommend proceeding with evaluation for coronary artery bypass grafting in view of his multiple risk factors and the appearance of his anatomy. Those findings and recommendations were discussed with the patient his family and they are in full understanding and agreement. Duration of the sedation is 22 minutes. NICCI / RANGELN: [id number] /
--- NOTE | 2021-04-05 13:01 | XR ---
EXAMINATION TYPE: XR chest 2V DATE OF EXAM: 04/05/2021 COMPARISON: NONE TECHNIQUE: PA and lateral views submitted. HISTORY: Preop FINDINGS: The lungs are clear and there is no pneumothorax, pleural effusion, or focal pneumonia. Diffuse int erstitial pattern. Heart size normal. Biapical pleural thickening. Arthropathy of the shoulders. IMPRESSION: 1. Correlate for interstitial pneumonitis, chronic interstitial lung disease or bronchitis..
[2021-04-05 14:46] VITALS: BP 142/64; PULSE 56
--- NOTE | 2021-04-05 15:26 | US ---
EXAMINATION TYPE: US carotid duplex BILAT DATE OF EXAM: 04/05/2021 COMPARISON: US CLINICAL HISTORY: Pre-Op Cardiac Surgery,Ankle Brachial Index (ADRIÁN) . EXAM MEASUREMENTS: RIGHT: Peak Systolic Velocity (PSV) cm/sec ----- Right CCA: 66.0 ----- Right ICA: 256.4 bulb ----- Right ECA: 177.3 mid ICA/CCA ratio: 3.9 RIGHT: End Diastole cm/sec ----- Right CCA: 9.9 ----- Right ICA: 52.7 ----- Right ECA: 0.0 LEFT: Peak Systolic Velocity (PSV) cm/sec ----- Left CCA: 60.7 ----- Left ICA: 180.0 ----- Left ECA: 147.8 ICA/CCA ratio: 3.0 LEFT: End Diastole cm/sec ----- Left CCA: 21.9 ----- Left ICA: 34.1 ----- Left ECA: 0.0 VERTEBRALS (direction of flow): Right Vertebral: Antegrade Left Vertebral: Antegrade Rhythm: Normal Abnormally elevated PSV in bilateral ICA and ECA with significant wall changes noted at bifurcation b ilaterally. IMPRESSION: 1. Significant stenosis greater than 70% within the right internal carotid artery based on velocities . Stenosis between 50 and 69% is present within the left internal carotid artery. Correlate with symp toms. Criteria for Assigning % of Stenosis / Diameter reduction (Estimation based on the indirect measurements of the internal carotid artery velocities (ICA PSV). 1. Normal (no stenosis)=ICA PSV < 125 cm/s: ratio < 2.0: ICA EDV<40 cm/s. 2. Less than 50% stenosis=ICA PSV < 125 cm/s: ratio < 2.0: ICA EDV<40 cm/s. 3. 50 to 69% stenosis=ICA PSV of 125 to 230 cm/s: ration 2.0 ? 4.0: ICA EDV 40-100 cm/s. 4. Greater than 70% stenosis to near occlusion= ICA PSV > 230 cm/s: ratio > 4.0: ICA EDV > 100 cm/s. 5. Near occlusion= ICA PSV velocities may be low or undetectable: variable ratio and ICA EDV. 6. Total occlusion=unable to detect flow.
[2021-04-05 15:28] LABS: INR 0.9 (<1.2); Partial Thromboplastin Time 23.2 sec (22.0-30.0); Prothrombin Time 10.1 sec (9.0-12.0)
[2021-04-05 15:32] LABS: ALT 14 U/L (4-49); AST 20 U/L (17-59); African American GFR (CKD) >90 (>60 ml/min/1.73 sqM); Albumin 3.8 g/dL (3.5-5.0); Alkaline Phosphatase 54 U/L (38-126); Anion Gap 6 mmol/L; Blood Urea Nitrogen 13 mg/dL (9-20); Carbon Dioxide 26 mmol/L (22-30); Chloride 105 mmol/L (98-107); Glucose 130 mg/dL (74-99); Magnesium 2.1 mg/dL (1.6-2.3); Non-African American GFR(CKD) >90 (>60 ml/min/1.73 sqM); Potassium 4.4 mmol/L (3.5-5.1); Sodium 137 mmol/L (137-145); Total Bilirubin 0.4 mg/dL (0.2-1.3); Total Protein 6.6 g/dL (6.3-8.2)
--- NOTE | 2021-04-05 15:47 | P.GSCN ---
History of Present Illness Consult date: 04/05/21 Reason for Consult: Multivessel coronary artery disease. Requesting physician: Obie Bojorquez History of present illness: This is a 65-year-old gentleman who is followed by Dr. Alfred Miramontes on an outpatient basis for his primary care services. He also follows with Dr. Obie Bojorquez [facility] for [facility] care. He is a past medical history significant for hypertension, dyslipidemia, COPD, peripheral vascular disease with history of intermittent claudication, diet-controlled diabetes mellitus type 2, remote history of kidney stones, SVT, COPD, basal cell carcinoma to his nose status post resection and chronic ongoing tobacco abuse. Over the past few months the patient reports he has been having some tightness in his chest with activity, dyspnea on exertion and rare occasions of ligh theadedness with near syncope. The patient reports it has been almost a year since feeling dizzy to where he felt like he was going to pass out. He denies any recent fever, chills, nausea, vomiting, diarrhea, orthopnea, headache, edema, palpitations or syncope. Recently on an annual physical completed at his primary care office he mentioned to his primary care physician that he was having complaints of chest tightness and dyspnea on exertion. Subsequently he was sent to Dr. Bojorquez's office for further evaluation and workup. He underwent a Lexiscan stress test which showed an inferior wall reversible defect. For further evaluation he underwent a 2-D echocardiogram on 03/18/2021 which de monstrated an overall normal left ventricular size and function with an ejection fraction of 55%, moderate left ventricular hypertrophy, mild mitral valve regurgitation and mild tricuspid valve regurgitation. Due to the patient's symptoms, and stress test results he was recommended to undergo a heart catheterization which was completed today and it demonstrated a 30-40% stenosis to his left main coronary artery, a 90% stenosis involving the takeoff of the diagonal branch of the left anterior descending coronary artery, a 20-30% stenosis to his ramus intermedius coronary artery, a 95% stenosis to a circumflex coronary artery and a totally occluded right coronary artery proximally with no significant antegrade flow. It also demonstrated good collateral from the left coronary artery system toward the right PDA. The heart catheterization results were discussed with the patient,and the patient daughter present at his bedside by Dr. Bojorquez. Due to the findings on the heart catheterization a consult was placed to Dr. Salazar Menezes from cardiothoracic surgery for further evaluation and treatment recommendations including myocardial revascularization surgery. Review of Systems A 14 point review of systems was completed and was negative except as mentioned in the HPI. Past Medical History Past Medical History: Cancer, Chest Pain / Angina, COPD, GERD/Reflux, Hyperlipidemia, Hypertension, Osteoarthritis (OA), Vascular Disorder Additional Past Medical History / Comment(s): basal cell carcinoma-on nose removed PAST HX: RENAL CALCULI, KIDNEY INFECTIONS History of Any Multi-Drug Resistant Organisms: None Reported Past Surgical History: No Surgical Hx Reported Additional Past Surgical History / Comment(s): skin cancer removed from nose. sigifredo cataracts Past Anesthesia/Blood Transfusion Reactions: No Reported Reaction Past Psychological History: No Psychological Hx Reported Smoking Status: Current every day smoker Past Alcohol Use History: Rare Past Drug Use History: None Reported - Past Family History Mother Family Medical History: No Reported History Father Family Medical History: No Reported History Medications and Allergies Home Medications Medication Instructions Recorded Confirmed Type Naproxen Sodium [Aleve] 220 - 440 mg PO Q6H PRN 06/19/17 04/05/21 History Aspirin 81 mg PO DAILY chew 10/31/17 04/05/21 Rx Metoprolol Tartrate [Lopressor] 25 mg PO BID 03/31/21 04/05/21 History [place]-3 Fatty Acids [[place]-3] 1,000 mg PO DAILY 03/31/21 04/05/21 History Omeprazole 40 mg PO MOWEFR 03/31/21 04/05/21 History Plant Stanol Coty [Cholest Off] 450 mg PO DAILY 03/31/21 04/05/21 History Rosuvastatin [Crestor] 10 mg PO DAILY 03/31/21 04/05/21 History Vits A,C,E/Lutein/Minerals 1 each PO DAILY 03/31/21 04/05/21 History [Ocuvite with Lutein Tablet] Isosorbide Mononitrate ER [Imdur] 30 mg PO DAILY #30 tablet 04/05/21 Rx Nitroglycerin Sl Tabs [Nitrostat] 0.4 mg SUBLINGUAL Q5M PRN #25 tab 04/05/21 Rx Allergies Allergy/AdvReac Type Severity Reaction Status Date / Time No Known Allergies Allergy Verified 04/05/21 07:44 Surgical - Exam Vital Signs Temp Pulse Resp BP Pulse Ox 97.8 F 62 18 145/67 98 04/05/21 07:54 04/05/21 07:54 04/05/21 07:54 04/05/21 07:54 04/05/21 07:54 - General well developed, well nourished, no distress, no pain, obese - Eyes PERRL, normal ocular movement, no pale, no icteric - ENT normal pinna, normal nares, normal mucosa, no hearing loss, no congestion - Neck Neck is supple, no lymphadenopathy. no masses, no bruits, trachea midline, no venous distension - Respiratory Lung sounds essentially clear throughout. Respirations are symmetrical and Nonlabored. No wheezes, crackles or rhonchi. - Cardiovascular Regular rhythm and rate. S1 and S2 present, negative for S3, gallop or murmur. No edema present. Bedside telemetry showing sinus bradycardia heart rate 54 BPM. - Abdomen Abdomen: soft, no non tender, bowel sounds (Bowel sounds present all 4 abdominal quadrants.), no organomegaly, no surgical scars, no masses, no guarding, no rigid, no distended - Genitourinary Deferred - Rectum Deferred - Integumentary no rash, no growths, no abnormal pigmentation - Neurologic Cranial nerves II through XII intact. normal coordination, normal sensation - Musculoskeletal normal gait, normal posture - Psychiatric oriented to time, oriented to person, oriented to place, speech is normal, memory intact Results - Labs 04/05/21 07:45 04/05/21 15:14 Abnormal Lab Results - Last 24 Hours (Table) 04/05/21 04/05/21 Range/Units 07:45 07:45 WBC 11.2 H (3.8-10.6) k/uL Glucose 141 H (74-99) mg/dL Diabetes panel 04/05/21 Range/Units 07:45 Sodium 139 (137-145) mmol/L Potassium 4.4 (3.5-5.1) mmol/L Chloride 106 (98-107) mmol/L Carbon Dioxide 25 (22-30) mmol/L BUN 14 (9-20) mg/dL Creatinine 0.84 (0.66-1.25) mg/dL Glucose 141 H (74-99) mg/dL Calcium 9.5 (8.4-10.2) mg/dL Calcium panel 04/05/21 Range/Units 07:45 Calcium 9.5 (8.4-10.2) mg/dL Pituitary panel 04/05/21 Range/Units 07:45 Sodium 139 (137-145) mmol/L Potassium 4.4 (3.5-5.1) mmol/L Chloride 106 (98-107) mmol/L Carbon Dioxide 25 (22-30) mmol/L BUN 14 (9-20) mg/dL Creatinine 0.84 (0.66-1.25) mg/dL Glucose 141 H (74-99) mg/dL Calcium 9.5 (8.4-10.2) mg/dL Adrenal panel 04/05/21 Range/Units 07:45 Sodium 139 (137-145) mmol/L Potassium 4.4 (3.5-5.1) mmol/L Chloride 106 (98-107) mmol/L Carbon Dioxide 25 (22-30) mmol/L BUN 14 (9-20) mg/dL Creatinine 0.84 (0.66-1.25) mg/dL Glucose 141 H (74-99) mg/dL Calcium 9.5 (8.4-10.2) mg/dL - Imaging Additional studies: Cardiac catheterization and 2-D echocardiogram results reviewed. Assessment and Plan Assessment: 1. Multivessel coronary artery disease 2. Hypertension 3. Dyslipidemia 4. Diet-controlled diabetes mellitus type 2 5. History of SVT 6. Chronic ongoing tobacco abuse 7. Peripheral vascular disease with history of intermittent claudication to his bilateral lower extremities 8. Leukocytosis, cause unknown 9. History of COPD 10. Remote history of kidney stones Plan: The patient was seen and examined at his bedside in the extended stay unit. His chart and diagnostics were reviewed. His case was discussed in detail with Dr. Salazar Menezes from cardiothoracic surgery. Preoperative testing and preoperative teaching has been initiated. The patient's daughter is present at his bedside. Once the patient's preoperative testing has been completed an appointment will be made to see Dr. Salazar Menezes as an outpatient to discuss the findings on the cardiac catheterization films and review his preoperative teaching. Treatment recommendations will be discussed including myocardial revascularization surgery. Continue to optimize medical management with aspirin, statin and beta fer. Once his preoperative testing has been completed an STS risk score will be calculated and discussed with the patient. A 5 m walk test was completed with the patient time 1: 3.44 seconds, time 2: 2.53 seconds, time 3: 2.60 seconds. The patient will be scheduled to see Dr. Salazar Menezes on Sunday, 2020 at 2 PM. More recommendations to follow based on patient's clinical course. Thank you Dr. Bojorquez for this consult and we look for to work him into in the care of this patient. Time with Patient: Greater than 30
[2021-04-05] MEDS ORDERED: METOPROLOL TARTRATE 25 MG TAB PO SCH (21:00)
[2021-04-05 22:16] LABS: Hemoglobin A1C 6.2 % (4.0-6.0)
[2021-04-05 22:40] LABS: Hepatitis A Antibody IgM Non-Reactive (Non-Reactive); Hepatitis B Core IgM Non-Reactive (Non-Reactive); Hepatitis B Surface Antigen Non-Reactive (Non-Reactive); Hepatitis C IgG Antibody Non-Reactive (Non-Reactive)
[2021-04-06 07:15] LABS: Cholesterol 136 mg/dL (0-200)
[2021-04-06] MEDS ORDERED: PANTOPRAZOLE 40 MG TABLET PO SCH (07:30)
[2021-04-06] MEDS ORDERED: ATORVASTATIN 20 MG TAB PO SCH (09:00)
[2021-04-06] MEDS ORDERED: ASPIRIN 81 MG PO SCH (09:00)
--- NOTE | 2021-04-06 11:29 | P.VSCSTY ---
Greater Saphenous Vein Mapping This is bilateral lower extremity greater saphenous vein mapping. Date of service: 04/05/2021 Vein quality and ultrasound appearance: We see no intraluminal thrombus. There is also some intimal thickening at the area above the knee on the left.. Vein size groin right : 5.9 x 5.4 gr oin left: 6.4 x 5.3 High thigh right: 3.8 x 3.4 high thigh left: 5.2 x 4.6 Mid thigh right: 3.6 x 2.9 mid thigh left: 2.8 x 2.7 Above-knee right: 3.4 x 2.8 above- knee left: 3.6 x 3.0 Below knee right: 2.8 x 2.5 below-knee left: 3.1 x 2.8 Mid calf right: 3.2 x 2.7 mid calf left: 3.2 x 2.2 Ankle right: 2.6 x 2.0 ankle left: 3 x 2.6 Impression: Usable greater saphenous vein bilaterally with some tortuosity and branching below the knee on the right and some intimal thickening above the knee on the left..
== END 2021-04-05 15:28 | disposition home or self-care (01) ==
LOC: CATHCVL 07:21
PROVIDERS: ATTEND Internal Medicine Interventional Cardiology
DX: I25.10 Atherosclerotic heart disease of native coronary artery without angina pectoris (principal); I65.23 Occlusion and stenosis of bilateral carotid arteries
CPT/HCPCS: 93458; 93880; 94150; 80061; 80053; 80048; 80074; 84443; 83735; 85025; 85610; 85730; 87070; 83036; 87635; 71046; 93970; C1894; C1769; J2001; J3010; J1644; Q9967

== ENCOUNTER → 2021-05-05 | Outpatient (CLI) | payer MEDICARE ==
[2021-05-05 16:16] LABS: HCT 46.2 % (39.0-53.0); HGB 15.4 gm/dL (13.0-17.5); MCH 31.2 pg (25.0-35.0); MCHC 33.3 g/dL (31.0-37.0); MCV 93.9 fL (80.0-100.0); Mean Platelet Volume 8.6; Platelet Count 202 k/uL (150-450); RBC 4.92 m/uL (4.30-5.90); RDW 12.9 % (11.5-15.5); WBC 12.2 k/uL (3.8-10.6)
[2021-05-05 16:24] LABS: Appearance,Urine Clear (Clear); Bilirubin,Urine Negative (Negative); Blood,Urine Negative (Negative); Color,Urine Yellow; Glucose,Urine (UA) Negative (Negative); Ketones,Urine Negative (Negative); Leukocyte Esterase,Urine Negative (Negative); Nitrite,Urine Negative (Negative); PH, Urine 6.5 (5.0-8.0); Protein,Urine Negative (Negative); Specific Gravity,Urine 1.015 (1.001-1.035); Urobilinogen,Urine <2.0 mg/dL (<2.0)
[2021-05-05 16:25] LABS: INR 0.9 (<1.2); Prothrombin Time 9.7 sec (9.0-12.0)
[2021-05-05 16:26] LABS: ALT 16 U/L (4-49); AST 22 U/L (17-59); African American GFR (CKD) >90 (>60 ml/min/1.73 sqM); Albumin 4.2 g/dL (3.5-5.0); Alkaline Phosphatase 54 U/L (38-126); Anion Gap 8 mmol/L; Blood Urea Nitrogen 13 mg/dL (9-20); Calcium 9.7 mg/dL (8.4-10.2); Carbon Dioxide 28 mmol/L (22-30); Chloride 102 mmol/L (98-107); Glucose 91 mg/dL (74-99); Non-African American GFR(CKD) 90 (>60 ml/min/1.73 sqM); Potassium 4.6 mmol/L (3.5-5.1); Sodium 138 mmol/L (137-145); Total Bilirubin 0.3 mg/dL (0.2-1.3); Total Protein 7.1 g/dL (6.3-8.2)
--- NOTE | 2021-05-05 17:35 | XR ---
EXAMINATION TYPE: XR chest 2V DATE OF EXAM: 05/05/2021 COMPARISON: Chest x-ray 04/05/2021 HISTORY: Presurgical chest x-ray TECHNIQUE: Frontal and lateral views of the chest are obtained. FINDINGS: There is no focal air space opacity, pleural effusion, or pneumothorax seen. The cardiac silhouette size is within normal limits. The osseous structures are intact, there is thoracic spond ylosis. Prominence of pulmonary artery may be indicative of pulmonary artery hypertension. Interstiti um may be slightly improved. IMPRESSION: No acute cardiopulmonary process. Additional findings above.
== END | disposition home or self-care (01) ==
LOC: RADUSWWP 13:47
PROVIDERS: ATTEND Surgery
DX: Z01.810 Encounter for preprocedural cardiovascular examination (principal); I25.10 Atherosclerotic heart disease of native coronary artery without angina pectoris; J44.9 Chronic obstructive pulmonary disease, unspecified; K21.9 Gastro-esophageal reflux disease without esophagitis; E78.5 Hyperlipidemia, unspecified; I10 Essential (primary) hypertension; E11.9 Type 2 diabetes mellitus without complications; I49.8 Other specified cardiac arrhythmias; F17.200 Nicotine dependence, unspecified, uncomplicated; R94.31 Abnormal electrocardiogram [ECG] [EKG]; I99.9 Unspecified disorder of circulatory system; Z79.01 Long term (current) use of anticoagulants
CPT/HCPCS: 36415; 71046; 80053; 81003; 85027; 85610; 85730; 87070; 87086; 93005; 93922; 93923; 93930

== ENCOUNTER 2021-05-09 05:33 | Inpatient (IN) | payer MEDICARE ==
--- NOTE | 2021-04-19 11:36 | CONS ---
CONSULTATION DATE OF SERVICE: 04/05/21 I have seen, examined, and agree with the midlevel's findings. MMODL / IJN: [id number] /
[~2021-05-09 05:33] MED LIST changes: +ALBUMIN HUMAN 25% 50 ML IV ONE; +ALBUMIN HUMAN 5% 500 ML IVPB ONE; -ALPRAZolam 0.25 MG TAB PO PRN; -ALPRAZolam 0.5 MG TAB PO PRN; +ASPIRIN 325 MG TAB PO ONE; -ASPIRIN 325 MG TAB PO STA; +ATORVASTATIN 10 MG TAB PO ONE; +CALCIUM CHLORIDE 100 MG/ML 10 ML SYRINGE IV ONE; +CHLORHEXIDINE GLUCONATE 15 ML CUP MUCOUS MEM ONE; +CLEVIDIPINE BUTYRATE 25 MG in EMPTY BAG 1 BAG IV ONE; +DILTIAZEM 125 MG in SODIUM CHLORIDE 0.9% 100 ML IV ONE; +ELECTROLYTE-A SOLUTION 1,000 ML with POTASSIUM CHLORIDE 100 MEQ, MAGNESIUM SULFATE 16 M... IV ONE; +ELECTROLYTE-A SOLUTION 1,000 ML with POTASSIUM CHLORIDE 40 MEQ, MAGNESIUM SULFATE 16 ME... IV ONE; +HEPARIN SODIUM 1,000 UN/ML (10ML VL) IV ONE; -HEPARIN SODIUM,PORCINE 10,000 UNIT in SODIUM CHLORIDE 0.9% 1,000 ML IRRIGATION PRN; -HEPARIN SODIUM,PORCINE 2,500 UNIT in SODIUM CHLORIDE 0.9% 250 ML IRRIGATION PRN; +HEPARIN SODIUM,PORCINE 5,000 UNIT in SODIUM CHLORIDE 0.9% 500 ML 500 ML IV ONE; +INSULIN REGULAR 100 UNIT in SODIUM CHLORIDE 0.9% 100 ML IV ONE; +LACTATED RINGERS 1,000 ML IV ONE; +MAGNESIUM SULFATE 16.24 MEQ in EMPTY SYRINGE 1 SYR IV ONE; +MANNITOL 25% 12.5 GM/50 ML VIAL IV ONE; +METOPROLOL TARTRATE 12.5 MG TAB PO ONE; +NITROGLYCERIN SL TABS 0.4 MG TAB SUBLINGUAL ONE; -NITROGLYCERIN SL TABS 0.4 MG TAB SUBLINGUAL PRN; +NITROGLYCERIN-D5W PMX 25 MG/250 ML BTL IV ONE; +NITROGLYCERIN-D5W PMX 50 MG in DEXTROSE/WATER 1 250ML.BAG IV ONE; +NOREPINEPHRINE 4 MG in SODIUM CHLORIDE 0.9% 250 ML IV ONE; +PAPAVERINE 360 MG in SODIUM CHLORIDE 0.9% 90 ML IV ONE; +PHENYLEPHRINE 10 MG/ML VIAL IV ONE; +PHENYLEPHRINE 40 MG in SODIUM CHLORIDE 0.9% 250 ML IV ONE; +PROTAMINE SULFATE 10 MG/ML 25 ML VIAL IV ONE; +PROTAMINE SULFATE 250 MG in EMPTY BAG 1 BAG IV ONE; +SODIUM BICARB 8.4% 50 ML SYR (1 MEQ/ML) IV ONE; +SODIUM CHLORIDE 0.9% 1,000 ML IV ONE; -SODIUM CHLORIDE 0.9% 1,000 ML in EMPTY BAG 1 BAG IV ONE; +TRANEXAMIC ACID 2,000 MG in SODIUM CHLORIDE 0.9% 80 ML IV ONE; +ceFAZolin 1,000 MG in SODIUM CHLORIDE 0.9% IRRIGATIO 1,000 ML IRRIGATION ONE; +propofoL 1,000 MG/100 ML VIAL IV ONE
[2021-05-09] MEDS ORDERED: LACTATED RINGERS 1,000 ML IV SCH (05:41)
[2021-05-09] MEDS ORDERED: MIDAZOLAM 2 MG/2 ML VIAL IV PRN (05:41)
[2021-05-09 06:25] LABS: Glucose,Whole Blood 131 mg/dL (75-99)
[2021-05-09] MEDS ORDERED: INSULIN REGULAR 100 UNIT/ML VIAL (IV) ONE (07:29)
[2021-05-09] MEDS ORDERED: PROTAMINE SULFATE 10 MG/ML 25 ML VIAL IV ONE (07:29)
[2021-05-09] MEDS ORDERED: NITROGLYCERIN-D5W PMX 50 MG/250 ML BOTTLE IV ONE (07:29)
[2021-05-09] MEDS ORDERED: PROPOFOL 10 MG/ML 20 ML VIAL IV ONE (07:29)
[2021-05-09] MEDS ORDERED: ePHEDrine 50 MG/ML 1 ML AMP ONE (07:29)
[2021-05-09] MEDS ORDERED: SODIUM CHLORIDE 0.9% 100 ML BAG ONE (07:29)
[2021-05-09] MEDS ORDERED: fentaNYL (PF) 50 MCG/ML 50 ML VIAL ONE (07:29)
[2021-05-09] MEDS ORDERED: SODIUM CHLORIDE 0.9% 250 ML BAG ONE (07:29)
[2021-05-09] MEDS ORDERED: MIDAZOLAM 2 MG/2 ML VIAL ONE (07:29)
[2021-05-09] MEDS ORDERED: MAGNESIUM SULFATE 4 MEQ/ML 10ML VIAL ONE (07:29)
[2021-05-09] MEDS ORDERED: SODIUM CHLORIDE 0.9% IRRIG 1,000 ML BTL IRRIGATION ONE (07:29)
[2021-05-09] MEDS ORDERED: ceFAZolin 1,000 MG VIAL ONE (07:29)
[2021-05-09] MEDS ORDERED: LIDOCAINE 2% SYG (PF) 100 MG/5 ML ONE (07:29)
[2021-05-09] MEDS ORDERED: SUCCINYLCHOLINE CHLORIDE 100 MG/5 ML SYR IV ONE (07:29)
[2021-05-09] MEDS ORDERED: ELECTROLYTE-R (PH 7.4) 1,000 ML IV.SOLN IV ONE (07:29)
[2021-05-09] MEDS ORDERED: HEPARIN SODIUM,PORCINE 10,000 UNIT/ML 1 ML VIAL ONE (07:29)
[2021-05-09] MEDS ORDERED: TRANEXAMIC ACID 1,000 MG/10 ML VIAL ONE (07:29)
[2021-05-09] MEDS ORDERED: PHENYLEPHRINE-0.9% NACL SYG 1,000 MCG/10 ML SYRINGE ONE (07:29)
[2021-05-09] MEDS ORDERED: VECURONIUM 10 MG VIAL IV ONE (07:29)
[2021-05-09 08:15] LABS: ABG Glucose Whole Blood 126 mg/dL (75-99); ABG HCO3 26 mmol/L (21-25); ABG Hematocrit 46 % (34.0-46.0); ABG Ionized Calcium 4.8 mg/dL (4.5-5.3); ABG Oxygen Saturation 92.8 % (94-97); ABG PCO2 44 mmHg (35-45); ABG PH 7.37 (7.35-7.45); ABG PO2 64 mmHg (83-108); ABG Potassium Whole Blood 4.4 mmol/L (3.4-4.5); ABG Sodium Whole Blood 140 mmol/L (135-146); ABG TCO2 27 mmol/L (19-24)
--- NOTE | 2021-05-09 09:55 | P.ANPRN ---
Procedure Note - Anesthesia - Invasive Line Right Central Line Time Out Performed: Yes ([id number]) Date of Procedure: 05/09/21 Time of Procedure: 07:05 Location of Patient: Phase I Preparation: Sterile Prep, Sterile Dressing Arterial Line Location: Radial (RIGHT) Ultrasound Used: Yes Purpose - Visualization and Identification of Vasculature: Yes Needle Guage: +LOCAL +ANGIO +CVP +Jwire +uneventful dilation and introduction right IJ Image Stored and Saved: Yes Narrative: Central line placement per sterile protocol utilized.
[2021-05-09 10:48] LABS: ABG Base Excess -1.8 mmol/L; ABG Glucose Whole Blood 163 mg/dL (75-99); ABG HCO3 26 mmol/L (21-25); ABG Hematocrit 43 % (34.0-46.0); ABG Ionized Calcium 4.7 mg/dL (4.5-5.3); ABG Lactic Acid Whole Blood 0.9 mmol/L (0.5-1.6); ABG Oxygen Saturation 99.8 % (94-97); ABG PCO2 53 mmHg (35-45); ABG PH 7.29 (7.35-7.45); ABG PO2 396 mmHg (83-108); ABG Potassium Whole Blood 4.9 mmol/L (3.4-4.5); ABG Sodium Whole Blood 138 mmol/L (135-146); ABG TCO2 27 mmol/L (19-24)
[2021-05-09 11:38] LABS: ABG Base Excess -3.2 mmol/L; ABG Glucose Whole Blood 151 mg/dL (75-99); ABG HCO3 23 mmol/L (21-25); ABG Hematocrit 33 % (34.0-46.0); ABG Lactic Acid Whole Blood 1.1 mmol/L (0.5-1.6); ABG PCO2 43 mmHg (35-45); ABG PH 7.33 (7.35-7.45); ABG PO2 405 mmHg (83-108); ABG Potassium Whole Blood 4.6 mmol/L (3.4-4.5); ABG Sodium Whole Blood 133 mmol/L (135-146); ABG TCO2 24 mmol/L (19-24)
[2021-05-09 12:25] LABS: ABG Glucose Whole Blood 183 mg/dL (75-99); ABG HCO3 24 mmol/L (21-25); ABG Hematocrit 34 % (34.0-46.0); ABG Ionized Calcium 4.2 mg/dL (4.5-5.3); ABG Lactic Acid Whole Blood 1.7 mmol/L (0.5-1.6); ABG Oxygen Saturation 99.6 % (94-97); ABG PCO2 43 mmHg (35-45); ABG PH 7.35 (7.35-7.45); ABG PO2 221 mmHg (83-108); ABG Potassium Whole Blood 5.3 mmol/L (3.4-4.5); ABG Sodium Whole Blood 136 mmol/L (135-146); ABG TCO2 25 mmol/L (19-24)
[2021-05-09] MEDS ORDERED: METOCLOPRAMIDE 5 MG/ML 2 ML VIAL IVP PRN (14:42)
[2021-05-09] MEDS ORDERED: AMIODARONE 360 MG in DEXTROSE 5% IN WATER 200 ML IV PRN ×2 (14:42)
[2021-05-09] MEDS ORDERED: Phosphorus Replacement Protoco 1 EACH MISC MISCELLANE PRN (14:42)
[2021-05-09] MEDS ORDERED: Magnesium Replacement Protocol 1 EACH MISC MISCELLANE PRN (14:42)
[2021-05-09] MEDS ORDERED: CALCIUM GLUCONATE 2 GM in SODIUM CHLORIDE 0.9% 100 ML IVPB PRN (14:42)
[2021-05-09] MEDS ORDERED: ALBUMIN HUMAN 5% 250 ML in EMPTY BAG 1 BAG IVPB PRN (14:42)
[2021-05-09] MEDS ORDERED: DEXTROSE 5% IN WATER 100 ML with AMIODARONE 150 MG IV PRN (14:42)
[2021-05-09] MEDS ORDERED: IPRATROPIUM-ALBUTEROL 3 ML NEB INHALATION PRN (14:42)
[2021-05-09] MEDS ORDERED: Potassium Replacement Protocol 1 EACH MISC MISCELLANE PRN (14:42)
[2021-05-09] MEDS ORDERED: ONDANSETRON 4 MG/2 ML VIAL IVP PRN (14:42)
[2021-05-09] MEDS ORDERED: ALBUMIN HUMAN 5% 250 ML IVPB ONE (15:10)
[2021-05-09] MEDS ORDERED: CLEVIDIPINE BUTYRATE 25 MG in EMPTY BAG 1 BAG IV SCH (16:00)
[2021-05-09] MEDS ORDERED: HEPARIN SODIUM,PORCINE/PF 5,000 UNIT/0.5 ML SYRINGE SQ SCH (16:00)
[2021-05-09] MEDS ORDERED: NITROGLYCERIN-D5W PMX 50 MG in DEXTROSE/WATER 1 250ML.BAG IV SCH (16:15)
[2021-05-09 16:28] LABS: Glucose,Whole Blood 128 mg/dL (75-99)
--- NOTE | 2021-05-09 16:41 | XR ---
EXAMINATION TYPE: XR chest 1V portable DATE OF EXAM: 05/09/2021 COMPARISON: Chest x-ray 05/05/2021 HISTORY: Postop cardiac surgery TECHNIQUE: Single frontal view of the chest is obtained. FINDINGS: Patient is status post sternotomy, endotracheal tube, NG tube, right jugular central venou s catheter, left chest tube, sternal drain are overlying appropriate position. There is no sizable pn eumothorax. Minimal basilar densities present on the left with blunting of the left gastric angle. He art size is partially obscured and may appear more prominent due to rotation. Bandlike areas of incre ased attenuation present in the perihilar locations. Exam is expiratory. IMPRESSION: Expiratory rotated exam, basilar atelectasis, difficult to exclude small effusion. Overa ll satisfactory postoperative chest x-ray.
[2021-05-09 16:44] LABS: Ionized Calcium 4.9 mg/dL (4.5-5.3)
--- NOTE | 2021-05-09 16:45 | OP ---
OPERATIVE REPORT DATE OF THE SURGERY: 05/09/2021. SURGEON: Dr. Salazar Menezes. ASSISTANTS: 1. Dr. Humphrey Ross. 2. GLORIA Boateng. PREOPERATIVE DIAGNOSES: 1. Triple-vessel coronary artery disease. 2. Preserved systolic function. 3. Hyperlipidemia. 4. Diabetes. 5. Hypertension. 6. Peripheral vascular disease. 7. Chronic obstructive pulmonary disease with current tobacco abuse. POSTOPERATIVE DIAGNOSES: 1. Triple-vessel coronary artery disease. 2. Preserved systolic function. 3. Hyperlipidemia. 4. Diabetes. 5. Hypertension. 6. Peripheral vascular disease. 7. Chronic obstructive pulmonary disease with current tobacco abuse. PROCEDURE: 1. Quadruple coronary artery bypass grafting using the left internal mammary artery to the left anterior descending artery, left radial artery from the aorta to the second obtuse marginal artery, reverse saphenous vein graft from the aorta to the ramus intermedius artery, reverse saphenous vein graft from the aorta to the right coronary artery. 2. Exclusion of left atrial appendage using a 35 mm AtriClip. 3. Intraoperative graft flow measurements using the WireImage system. 4. Endoscopic harvesting of the left radial artery. 5. Endoscopic harvesting of the left greater saphenous vein. 6. Intraoperative transesophageal echocardiogram and epiaortic scanning. INDICATION FOR SURGERY: Patient is a 65-year-old gentleman who has been complaining of dyspnea on exertion. Stress test was positive for inferior ischemia. Echo showed preserved systolic function and no significant valvular abnormalities. Cardiac catheterization followed, and that showed triple-vessel disease with a totally occluded collateralized right coronary artery. Patient is a heavy smoker and he was asked to stop smoking as a prelude for surgery. The STS risk was discussed with him. He understood it and agreed to proceed. DESCRIPTION OF THE PROCEDURE: With the patient in supine position in the preoperative holding area, right internal jugular [place] catheter and right radial arterial line were placed. Patient had a cardiac index of 2.5, PA pressure of 29/11. Subsequently he was brought to the operating room, where general endotracheal anesthesia was induced uneventfully. [place] catheter was inserted. He received 2 grams of cefazolin intravenously. The chest, abdomen, both lower extremities and the left upper extremity were prepped and draped using ChloraPrep. Ioban was used to cover the skin. Transesophageal echocardiogram confirmed the preoperative finding of left ventricular hypertrophy, normal systolic function, no significant valvular abnormalities. Midline sternotomy was performed and the bone was quite dense. No bone wax was used, but only Ostene. The left hemisternum was elevated. The left internal mammary artery was harvested in a semi-skeletonized fashion. The left pleura was intentionally opened in this process and was drained with a 19-Japanese Beck drain. Patient was given 5000 units of heparin and the mammary artery was double-clipped distally and transected. There was excellent pulsatile flow in it and it was around 2 mm in diameter. In the same setting, the left radial artery was initially exposed at the wrist and a clamping trial revealed preserved signal in the left index O2 saturation probe. Subsequently the radial artery was harvested endoscopically. The forearm incisions were closed over a drain. The left radial artery was prepared by incising the fascia all along its volar aspect and clipping all its branches. It was of good quality, around 2.5 to 3 mm in diameter. Also in the same setting, the left greater saphenous vein was harvested endoscopically from groin to above ankle level. All the branches were tied. The segment of vein that we used was of good quality, around 4 mm in diameter. Ankeney retractor was used. Mediastinal fat was transected between two ties and epiaortic scanning revealed concentric intimal thickening but no protruding atheroma in the ascending aorta. Pericardium was opened in an inverted T-fashion and a pericardial cradle was created. Findings included a normal soft aorta and a hypertrophied heart. After systemic heparinization and after placement of respective pledgeted pursestrings, aortic cannulation with a 21-Japanese Soft flow cannula in the proximal arch, venous cannulation with a 3-stage 29-Japanese cannula via the right atrial appendage was performed. Antegrade as well as retrograde cardioplegia catheters were placed. Cardiopulmonary bypass was initiated and patient's temperature was allowed to drift down to 34 degrees Celsius. With the heart empty and beating, we looked at the target. It appeared that the mid to distal LAD, the ramus intermedius artery before it went into myocardial, the second obtuse marginal artery before it bifurcated, and the right coronary artery just at the takeoff of the posterior descending artery would be the sites for bypass. Aorta was clamped and during aortic clamping myocardial protection was achieved with an initial dose of 1 L of antegrade cold blood cardioplegia followed by 300 mL of retrograde cold blood cardioplegia. All subsequent doses were given retrograde at 15- to 20-minute intervals. The first distal anastomosis was between the left radial artery and the second obtuse marginal artery before it bifurcated, where it was around 2 mm in diameter, using Prolene 7-0 in continuous fashion. The second distal anastomosis was between a segment of vein and the right coronary artery, which was around 2 mm in diameter, thin- walled, using Prolene 7-0 in continuous fashion. The third distal anastomosis was between another segment of vein and the ramus intermedius artery, which was around 1.75 mm in diameter, thin-walled, before it went into myocardial using Prolene 7-0 in a continuous fashion. The anatomic configuration was not amenable to sequential RA-Ramus. The fourth and last distal anastomosis was between the left internal mammary artery that passed in a deep groove created in the left pleuropericardial fat and anastomosed to the mid to distal LAD which was around 1.5 mm in diameter using Prolene 7-0 in continuous fashion. The mammary pedicle was affixed to the epicardium with a Prolene 6-0 suture. At this point we excluded the left atrial appendage by deploying a 35 mm AtriClip at its base. Satisfied with the distal anastomoses, rewarming was started as we punched out 3 buttons of the ascending aorta and performed the 3 proximal anastomoses of the 2 vein grafts and the radial artery separately using running Prolene. Warm blood was given retrograde during the construction of the last anastomosis. Patient was given lidocaine and magnesium, was placed in Trendelenburg position, and after de- airing maneuvers were completed, the aorta was unclamped. The patient regained spontaneous sinus rhythm. All anastomoses appeared to be patent and hemostatic. After around 15 minutes of reperfusion, we were able to wean off cardiopulmonary bypass without the need of any inotropic or vasopressor support. Cardiac index was 2.4. TRINY showed good LV function. At this point we selected a 4 mm probe and proceeded with graft flow measurements using the WireImage system. The flow into the vein graft to the right coronary artery was 56 mL/minute, pulsatility index of 0.9, diastolic filling of 61%, showing an excellent functioning graft. The flow into the vein to the ramus was 28 mL/minute, pulsatility index of 2.2, diastolic filling of 70%, showing an excellent functioning graft. The flow into the radial artery to the second obtuse marginal artery was 38 mL/minute, pulsatility index of 2, diastolic filling of 60%, again showing an excellent functioning graft. The flow into the [place] to the LAD was 39 mL/minute, pulsatility index of 2.2, diastolic filling 68%, showing an excellent functioning graft. With that, all pump suckers were stopped. Test-dose, then full-dose protamine was given. Decannulation followed. The venous cannulation site was reinforced with a pledgeted 4-0 Prolene. Two monopolar atrial pacing wires were affixed to the respective pursestrings of the right atrium and no ventricular pacing wires were placed. Two 19-Japanese Beck drains were left substernally. Pericardial fat was approximated over the graft and the aorta and the heart. After ensuring adequate hemostasis and hemodynamics and after correct sponge, instrument and needle counts, the sternum was closed using 5 [id number] pionneer cables after interposing Fibrillar between the sternal edges. Thorough irrigation with cefazolin followed. The rest of the closure proceeded in layers. Skin glue was applied. Patient did not receive any blood bank product but received 700 mL of Cell Saver blood. He was transferred to the ICU on low-dose nitroglycerin with an EKG showing a sinus rhythm at 86, mean arterial pressure of 70, PA pressure of 30/14 and a cardiac index of 2.4. MMODL / IJN: [id number] / MTDD
[2021-05-09 16:46] LABS: ABG Base Excess -2.4 mmol/L; ABG HCO3 24 mmol/L (21-25); ABG Oxygen Saturation 99.2 % (94-97); ABG PCO2 53 mmHg (35-45); ABG PH 7.29 (7.35-7.45); ABG PO2 181 mmHg (83-108); Allen Test Performed? Yes
[2021-05-09 16:49] LABS: Partial Thromboplastin Time 25.3 sec (22.0-30.0); Prothrombin Time 10.8 sec (9.0-12.0)
[2021-05-09 16:51] LABS: ALT 15 U/L (4-49); AST 56 U/L (17-59); African American GFR (CKD) >90 (>60 ml/min/1.73 sqM); Albumin 2.8 g/dL (3.5-5.0); Alkaline Phosphatase 33 U/L (38-126); Anion Gap 3 mmol/L; Blood Urea Nitrogen 14 mg/dL (9-20); Carbon Dioxide 25 mmol/L (22-30); Chloride 109 mmol/L (98-107); Glucose 122 mg/dL (74-99); Magnesium 2.7 mg/dL (1.6-2.3); Non-African American GFR(CKD) >90 (>60 ml/min/1.73 sqM); Potassium 4.5 mmol/L (3.5-5.1); Sodium 137 mmol/L (137-145); Total Bilirubin 0.6 mg/dL (0.2-1.3); Total Protein 5.2 g/dL (6.3-8.2)
[2021-05-09 16:54] LABS: Basophils # (A) 0.1 k/uL (0-0.2); Basophils % (A) 0 %; Eosinophils # (A) 0.1 k/uL (0-0.7); Eosinophils % (A) 0 %; HCT 39.4 % (39.0-53.0); Lymphocytes # (A) 2.4 k/uL (1.0-4.8); Lymphocytes % (A) 10 %; MCH 30.7 pg (25.0-35.0); MCHC 32.9 g/dL (31.0-37.0); MCV 93.2 fL (80.0-100.0); Mean Platelet Volume 8.6; Monocytes # (A) 1.7 k/uL (0-1.0); Monocytes % (A) 7 %; Neutrophils # (A) 20.2 k/uL (1.3-7.7); Neutrophils % (A) 82 %; Platelet Count 145 k/uL (150-450); RBC 4.22 m/uL (4.30-5.90); RDW 13.2 % (11.5-15.5); WBC 24.6 k/uL (3.8-10.6)
[2021-05-09] MEDS ORDERED: INSULIN REGULAR 100 UNIT in SODIUM CHLORIDE 0.9% 100 ML IV SCH (17:00)
[2021-05-09] MEDS: IPRATROPIUM-ALBUTEROL 3 ML NEB INHALATION SCH ×2 (17:17→23:17)
[2021-05-09 17:26] LABS: Glucose,Whole Blood 148 mg/dL (75-99)
[2021-05-09] MEDS: HEPARIN SODIUM,PORCINE/PF 5,000 UNIT/0.5 ML SYRINGE SQ SCH ×2 (17:44→23:21)
[2021-05-09 17:56] LABS: Glucose,Whole Blood 158 mg/dL (75-99)
[2021-05-09] MEDS: ACETAMINOPHEN IV (For NPO) 1,000 MG in EMPTY BAG 1 BAG IVPB SCH ×2 (18:06→23:20)
--- NOTE | 2021-05-09 18:07 | P.CNPUL ---
History of Present Illness Consult date: 05/09/21 Requesting physician: Salazar Menezes Reason for consult: other (Status post CABG.) Chief complaint: dyspnea on exertion and chest tightness. History of present illness: This is a 65-year-old white male with history of multiple medical problems including hypertension, COPD, dyslipidemia, peripheral vessel occlusive disease, type 2 diabetes, patient was evaluated in the last few months by cardiology for intermittent episodes of dyspnea on exertion, intermittent lightheadedness and near syncope. Patient also had intermittent tightness in the chest. Patient had initially a Lexiscan stress test, which showed an inferior wall reversible defect. Echocardiogram showed normal LV function. Mild mitral valve regurgitation, and he underwent cardiac catheterization showed 90% stenosis involving the takeoff of the diagonal of the LAD coronary artery 95% stenosis of the circumflex coronary artery and a totally occluded right coronary artery. Patient underwent myocardial revascularization today, postoperatively he was on mechanical ventilation, and we were asked to see him on consultation. Patient is now on tidal volume of 500, assist control rate of 16 PEEP of 8, FiO2 of 100%. However his ABG total hip pO2 of 181 pCO2 53 pH of 7.29, and his rate was increased to 20 and his FiO2 was cut down to 50%, and chest x-ray showed basilar atelectasis, otherwise overall satisfactory postoperative chest x-ray. Review of Systems ROS unobtainable: due to endotracheal tube Past Medical History Past Medical History: Coronary Artery Disease (CAD), Cancer, Chest Pain / Angina, COPD, GERD/Reflux, Hyperlipidemia, Hypertension, Osteoarthritis (OA), Vascular Disorder Additional Past Medical History / Comment(s): basal cell carcinoma-on nose removed PAST HX: RENAL CALCULI & KIDNEY INFECTIONS 1990s History of Any Multi-Drug Resistant Organisms: None Reported Past Surgical History: Heart Catheterization Additional Past Surgical History / Comment(s): skin cancer removed from nose. sigifredo cataracts Past Anesthesia/Blood Transfusion Reactions: No Reported Reaction Smoking Status: Current every day smoker - Past Family History Mother Family Medical History: No Reported History Father Family Medical History: No Reported History Medications and Allergies Home Medications Medication Instructions Recorded Confirmed Type Naproxen Sodium [Aleve] 220 - 440 mg PO Q6H PRN 06/19/17 05/05/21 History Aspirin 81 mg PO DAILY chew 10/31/17 05/05/21 Rx Metoprolol Tartrate [Lopressor] 25 mg PO BID 03/31/21 05/05/21 History [place]-3 Fatty Acids [[place]-3] 1,000 mg PO DAILY 03/31/21 05/05/21 History Omeprazole 40 mg PO MOWEFR 03/31/21 05/05/21 History Plant Stanol Coty [Cholest Off] 450 mg PO DAILY 03/31/21 05/05/21 History Rosuvastatin [Crestor] 10 mg PO DAILY 03/31/21 05/05/21 History Vits A,C,E/Lutein/Minerals 1 each PO DAILY 03/31/21 05/05/21 History [Ocuvite with Lutein Tablet] Isosorbide Mononitrate ER [Imdur] 30 mg PO DAILY #30 tablet 04/05/21 05/05/21 Rx Nitroglycerin Sl Tabs [Nitrostat] 0.4 mg SUBLINGUAL Q5M PRN #25 tab 04/05/21 05/05/21 Rx Umeclidinium Brm/Vilanterol Tr 1 puff INHALATION HS 05/06/21 05/06/21 History [Anoro Ellipta 62.5-25 Mcg INH] Allergies Allergy/AdvReac Type Severity Reaction Status Date / Time No Known Allergies Allergy Verified 05/05/21 16:04 Physical Exam Vitals: Vital Signs Temp Pulse Pulse Pulse Resp BP BP 05/09/21 17:15 84 20 05/09/21 17:00 97.9 F 87 20 05/09/21 16:45 85 12 05/09/21 16:30 84 16 05/09/21 16:20 97.9 F 86 16 05/09/21 16:13 87 16 05/09/21 06:30 97.2 F L 49 L 63 16 111/49 129/67 Pulse Ox 05/09/21 17:15 97 05/09/21 17:00 98 05/09/21 16:45 100 05/09/21 16:30 99 05/09/21 16:20 99 05/09/21 16:13 05/09/21 06:30 96 Intake and Output 05/09/21 05/09/21 05/09/21 06:59 14:59 22:59 Intake Total 200 54 108.642 Output Total 2155 Balance 200 54 -2046.358 Intake: IV 200 54 29 .9NS Cardiac Output 20 0.9NS Pressure Bag 9 Intake, IV Titration 79.642 Amount Insulin Regular 100 unit 1.448 In Sodium Chloride 0.9% 100 ml @ Per Protocol IV .Q0M [facility] Rx#:[id number] Lactated Ringers 1,000 ml 50 @ Per Protocol IV ONCE ONE Rx#:[id number] propofoL 1,000 mg In 28.194 Empty Bag 1 bag @ Titrate IV .Q0M [facility] Rx#: [id number] Output: Chest Tube Drainage 345 Left Chest Tube 180 Mediastinal Chest Tube X 165 2 Urine 810 Estimated Blood Loss 1000 Other: Weight 99.1 kg ABP, PAP, CO, CI - Last 8 Hours Arterial Blood Pressure 105/46 Arterial Blood Pressure 126/55 Arterial Blood Pressure 111/48 Arterial Blood Pressure 110/48 Arterial Blood Pressure 123/84 Pulmonary Artery Pressure 32/15 Pulmonary Artery Pressure 33/16 Pulmonary Artery Pressure 31/15 Pulmonary Artery Pressure 29/12 Pulmonary Artery Pressure 29/12 Cardiac Output 5.7 Cardiac Output 5.7 Cardiac Output 5.7 Cardiac Index 2.6 Cardiac Index 2.6 Cardiac Index 2.6 Physical Exam: Revealed a 65-year-old white male intubated, mechanically ventilated, sedated, Head: Atraumatic, normocephalic. HEENT:[Neck is supple.] [No neck masses.] [No thyromegaly.] [No JVD.] Endotracheal tube and orogastric tubes are intact. Chest: [Symmetrical chest expansion, crackles at the bases, chest tubes were noted. Cardiac Exam: [Normal S1 and S2, no S3 gallop, no murmur. Positive pericardial rub.] Abdomen: [Soft, nontender, no megaly, no rebound, no guarding, normal bowel sounds.] Extremities: [No clubbing, no edema, no cyanosis.] Neurological Exam: Not assess, patient is sedated, this came up to the ICU from the OR. Psychiatric: Could not assess. Skin: No rashes Results - Laboratory Findings CBC and BMP: 05/09/21 16:25 05/09/21 16:25 ABG ABG pH 7.29 (7.35-7.45) L 05/09/21 16:40 ABG pCO2 53 mmHg (35-45) H 05/09/21 16:40 ABG pO2 181 mmHg (83-108) H 05/09/21 16:40 ABG O2 Saturation 99.2 % (94-97) H 05/09/21 16:40 PT/INR, D-dimer PT 10.8 sec (9.0-12.0) 05/09/21 16:25 INR 1.0 (<1.2) 05/09/21 16:25 Abnormal lab findings: Abnormal Labs 05/05/21 05/09/21 05/09/21 15:00 06:22 08:19 WBC RBC Plt Count Neutrophils # Monocytes # ABG pH ABG pCO2 ABG pO2 64 L ABG HCO3 26 H ABG Total CO2 27 H ABG O2 Saturation 92.8 L ABG Hematocrit ABG Sodium ABG Potassium ABG Ionized Calcium ABG Glucose 126 H ABG Lactic Acid Hemoglobin Chloride Glucose POC Glucose (mg/dL) 131 H Calcium Magnesium Alkaline Phosphatase Total Protein Albumin Arterial Blood Potassium Arterial Blood Glucose 126 H Crossmatch See Detail 05/09/21 05/09/21 05/09/21 10:53 11:43 12:30 WBC RBC Plt Count Neutrophils # Monocytes # ABG pH 7.29 L 7.33 L ABG pCO2 53 H ABG pO2 396 H 405 H 221 H ABG HCO3 26 H ABG Total CO2 27 H 25 H ABG O2 Saturation 99.8 H 100.0 H 99.6 H ABG Hematocrit 33 L ABG Sodium 133 L ABG Potassium 4.9 H 4.6 H 5.3 H ABG Ionized Calcium 4.0 L 4.2 L ABG Glucose 163 H 151 H 183 H ABG Lactic Acid 1.7 H Hemoglobin 10.8 L 11.0 L Chloride Glucose POC Glucose (mg/dL) Calcium Magnesium Alkaline Phosphatase Total Protein Albumin Arterial Blood Potassium 4.9 H 4.6 H 5.3 H Arterial Blood Glucose 163 H 151 H 183 H Crossmatch 05/09/21 05/09/21 05/09/21 16:21 16:25 16:25 WBC 24.6 H RBC 4.22 L Plt Count 145 L Neutrophils # 20.2 H Monocytes # 1.7 H ABG pH ABG pCO2 ABG pO2 ABG HCO3 ABG Total CO2 ABG O2 Saturation ABG Hematocrit ABG Sodium ABG Potassium ABG Ionized Calcium ABG Glucose ABG Lactic Acid Hemoglobin Chloride 109 H Glucose 122 H POC Glucose (mg/dL) 128 H Calcium 8.0 L Magnesium 2.7 H Alkaline Phosphatase 33 L Total Protein 5.2 L Albumin 2.8 L Arterial Blood Potassium Arterial Blood Glucose Crossmatch 05/09/21 05/09/21 05/09/21 16:40 17:23 17:54 WBC RBC Plt Count Neutrophils # Monocytes # ABG pH 7.29 L ABG pCO2 53 H ABG pO2 181 H ABG HCO3 ABG Total CO2 ABG O2 Saturation 99.2 H ABG Hematocrit ABG Sodium ABG Potassium ABG Ionized Calcium ABG Glucose ABG Lactic Acid Hemoglobin Chloride Glucose POC Glucose (mg/dL) 148 H 158 H Calcium Magnesium Alkaline Phosphatase Total Protein Albumin Arterial Blood Potassium Arterial Blood Glucose Crossmatch - Diagnostic Findings Chest x-ray: image reviewed (As noted in HPI.) Assessment and Plan Assessment: Impression: Status post quadruple coronary artery bypass grafting using the ARTEAGA to LAD, left radial artery to second obtuse marginal artery reverse saphenous vein graft to ramus intermedius, reverse saphenous graft to right coronary artery. Postoperative day #0. Multivessel coronary artery disease Hypertension. Dyslipidemia. Peripheral vessel occlusive disease with intermittent claudication. History of COPD. Remote history of nephrolithiasis. Recommendation: Continue present supportive care measures. Continue ventilatory support. Continue pressors, patient is on a small dose of norepinephrine at present. 0.04 mcg/kg/m. Suggested ventilator settings accordingly, repeat ABG is pending. We will address possibly weaning and extubation in the next few hours. We'll continue to follow. Time with Patient: Greater than 30
[2021-05-09] MEDS: LACTATED RINGERS 1,000 ML IV SCH (18:19)
[2021-05-09 19:00] LABS: Glucose,Whole Blood 164 mg/dL (75-99)
[2021-05-09] MEDS ORDERED: NOREPINEPHRINE 4 MG in SODIUM CHLORIDE 0.9% 250 ML IV SCH (19:00)
[2021-05-09 19:09] LABS: Basophils # (A) 0.1 k/uL (0-0.2); Basophils % (A) 0 %; Eosinophils % (A) 0 %; HGB 13.2 gm/dL (13.0-17.5); Lymphocytes # (A) 1.6 k/uL (1.0-4.8); Lymphocytes % (A) 8 %; MCH 31.8 pg (25.0-35.0); MCV 93.6 fL (80.0-100.0); Monocytes # (A) 1.3 k/uL (0-1.0); Monocytes % (A) 6 %; Neutrophils # (A) 17.3 k/uL (1.3-7.7); Neutrophils % (A) 85 %; Platelet Count 150 k/uL (150-450); RBC 4.16 m/uL (4.30-5.90); RDW 13.1 % (11.5-15.5); WBC 20.4 k/uL (3.8-10.6)
[2021-05-09 20:03] LABS: Glucose,Whole Blood 158 mg/dL (75-99)
[2021-05-09 21:04] LABS: Glucose,Whole Blood 151 mg/dL (75-99)
--- NOTE | 2021-05-09 21:14 | P.CONS ---
History of Present Illness - Reason for Consult Consult date: 05/09/21 Medical management Requesting physician: Salazar Menezes - Chief Complaint Coronary bypass - History of Present Illness This is a 65-year-old patient, follows with Dr. Miramontes. Chronic stable medical conditions include diabetes, osteoarthritis, hyperlipidemia, renal calculi, GERD, COPD. RU today patient underwent four-vessel quadruple bypass. Estimated blood loss was thousand cc with Cell Saver of 700 mL. Postprocedure patient with ICU. On the ventilator intubated. FiO2 50 and a PEEP of 8. Telemetry shows sinus rhythm. Patient has 3 chest use. 2 mediastinal and one left pleural. Current drips include norepinephrine, propofol, insulin, nitroglycerin and lactated Ringer's. Patient sedated. Stallworth catheter. Review of systems: Patient intubated Past medical history to include: Diabetes, or strep throat is, hyperlipidemia, CAD, renal calculi, COPD, GERD, Social history: Smokes half a pack a day for close to 53 years. Alcohol occasionally. CBD [employer]. 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 Family history: Reviewed, noncontributory to presentation Physical examination: VITAL SIGNS: Afebrile, 88, 19, 1 25 x 55, 99% on the ventilator GENERAL: BMI 31.3, laying in bed, intubated. 3 chest tubes Stallworth catheter. EYES: Pupils equal. Conjunctiva normal. HEENT: External appearance of nose and ears normal, oral cavity endotracheal tube. NECK: JVD unable to assess; masses not palpable. HEART: First and second heart sounds are normal; no edema. LUNGS: Respiratory rate normal; decreased breath sounds. ABDOMEN: Soft, nontender, liver spleen not palpable, no masses palpable. PSYCH: Unable to assess patient sedatedl. NEUROLOGICAL: [Cranial nerves grossly intact; no facial asymmetry, LYMPHATICS: No lymph nodes palpable in the axilla and neck INVESTIGATIONS, reviewed in the clinical context: White count 20.4 hemoglobin 13.2 platelets 150 Accu-Cheks 164, 158, 151 Labs from 05/05/2021: Hemoglobin 15.4 platelets 12.9 potassium 4.6 creatinine 0.87 Assessment and plan: -Quadruple coronary bypass Currently on norepinephrine, propofol, insulin, nitroglycerin drip. -CAD per recent cardiac catheterization triple-vessel Aspirin, Lipitor, Lopressor -Diabetes mellitus type 2 Currently on insulin drip. Follow Accu-Cheks -Primary osteoarthritis Pain medications as needed -Hyperlipidemia Lipitor 40 mg daily -COPD in a current smoker DuoNeb -Chronic debility dependence cigarette smoker Nicotine patch GERD Omeprazole Patient currently intubated on the ventilator assistance. Estimated blood loss was thousand cc with Cell Saver of 700 mL. Current drips include norepinephrine, propofol, insulin, nitroglycerin. IV fluids. Follow closely. Follow labs. Thank you Dr. Menezes Past Medical History Past Medical History: Coronary Artery Disease (CAD), Cancer, Chest Pain / Angina, COPD, GERD/Reflux, Hyperlipidemia, Hypertension, Osteoarthritis (OA), Vascular Disorder Additional Past Medical History / Comment(s): basal cell carcinoma-on nose removed PAST HX: RENAL CALCULI & KIDNEY INFECTIONS 1990s History of Any Multi-Drug Resistant Organisms: None Reported Past Surgical History: Heart Catheterization Additional Past Surgical History / Comment(s): skin cancer removed from nose. sigifredo cataracts Past Anesthesia/Blood Transfusion Reactions: No Reported Reaction Smoking Status: Current every day smoker - Past Family History Mother Family Medical History: No Reported History Father Family Medical History: No Reported History Medications and Allergies Home Medications Medication Instructions Recorded Confirmed Type Naproxen Sodium [Aleve] 220 - 440 mg PO Q6H PRN 06/19/17 05/05/21 History Aspirin 81 mg PO DAILY chew 10/31/17 05/05/21 Rx Metoprolol Tartrate [Lopressor] 25 mg PO BID 03/31/21 05/05/21 History [place]-3 Fatty Acids [[place]-3] 1,000 mg PO DAILY 03/31/21 05/05/21 History Omeprazole 40 mg PO MOWEFR 03/31/21 05/05/21 History Plant Stanol Coty [Cholest Off] 450 mg PO DAILY 03/31/21 05/05/21 History Rosuvastatin [Crestor] 10 mg PO DAILY 03/31/21 05/05/21 History Vits A,C,E/Lutein/Minerals 1 each PO DAILY 03/31/21 05/05/21 History [Ocuvite with Lutein Tablet] Isosorbide Mononitrate ER [Imdur] 30 mg PO DAILY #30 tablet 04/05/21 05/05/21 Rx Nitroglycerin Sl Tabs [Nitrostat] 0.4 mg SUBLINGUAL Q5M PRN #25 tab 04/05/21 05/05/21 Rx Umeclidinium Brm/Vilanterol Tr 1 puff INHALATION HS 05/06/21 05/06/21 History [Anoro Ellipta 62.5-25 Mcg INH] Allergies Allergy/AdvReac Type Severity Reaction Status Date / Time No Known Allergies Allergy Verified 05/05/21 16:04 Physical Exam Vitals: Vital Signs Temp Pulse Pulse Pulse Resp BP BP 05/09/21 20:00 88 19 05/09/21 19:30 87 16 05/09/21 19:00 90 23 05/09/21 18:30 90 21 05/09/21 18:00 85 20 05/09/21 17:30 87 20 05/09/21 17:15 84 20 05/09/21 17:00 97.9 F 87 20 05/09/21 16:45 85 12 05/09/21 16:30 84 16 05/09/21 16:20 97.9 F 86 16 05/09/21 16:13 87 16 05/09/21 06:30 97.2 F L 49 L 63 16 111/49 129/67 Pulse Ox 05/09/21 20:00 99 05/09/21 19:30 99 05/09/21 19:00 98 05/09/21 18:30 98 05/09/21 18:00 98 05/09/21 17:30 97 05/09/21 17:15 97 05/09/21 17:00 98 05/09/21 16:45 100 05/09/21 16:30 99 05/09/21 16:20 99 05/09/21 16:13 05/09/21 06:30 96 Intake and Output 05/09/21 05/09/21 05/09/21 06:59 14:59 22:59 Intake Total 200 54 475.158 Output Total 2481 Balance 200 54 -2005.842 Intake: IV 200 54 267.5 .9NS Cardiac Output 80 0.9NS Pressure Bag 36 ACETAMINOPHEN IV (For NPO 100 ) 1,000 mg In Empty Bag 1 bag @ 400 mls/hr IVPB Q6HR [facility] Rx#:[id number] Lactated Ringers 50 Nitroglycerine 1.5 Intake, IV Titration 207.658 Amount Insulin Regular 100 unit 13.459 In Sodium Chloride 0.9% 100 ml @ Per Protocol IV .Q0M [facility] Rx#:[id number] Lactated Ringers 1,000 ml 50 @ 50 mls/hr IV .Q20H [facility] Rx#:[id number] Lactated Ringers 1,000 ml 100 @ Per Protocol IV ONCE ONE Rx#:[id number] propofoL 1,000 mg In 44.199 Empty Bag 1 bag @ Titrate IV .Q0M [facility] Rx#: [id number] Output: Chest Tube Drainage 481 Left Chest Tube 196 Mediastinal Chest Tube X 285 2 Urine 1000 Estimated Blood Loss 1000 Other: Voiding Method Indwelling Catheter Weight 99.1 kg ABP, PAP, CO, CI - Last 8 Hours Arterial Blood Pressure 134/58 Arterial Blood Pressure 121/56 Arterial Blood Pressure 110/51 Arterial Blood Pressure 109/50 Arterial Blood Pressure 105/49 Arterial Blood Pressure 122/54 Arterial Blood Pressure 105/46 Arterial Blood Pressure 126/55 Arterial Blood Pressure 111/48 Arterial Blood Pressure 110/48 Arterial Blood Pressure 123/84 Pulmonary Artery Pressure 36/18 Pulmonary Artery Pressure 32/16 Pulmonary Artery Pressure 31/16 Pulmonary Artery Pressure 33/16 Pulmonary Artery Pressure 31/17 Pulmonary Artery Pressure 36/17 Pulmonary Artery Pressure 32/15 Pulmonary Artery Pressure 33/16 Pulmonary Artery Pressure 31/15 Pulmonary Artery Pressure 29/12 Pulmonary Artery Pressure 29/12 Cardiac Output 5.3 Cardiac Output 6.4 Cardiac Output 5.4 Cardiac Output 5.4 Cardiac Output 5.7 Cardiac Output 5.7 Cardiac Output 5.7 Cardiac Index 2.4 Cardiac Index 2.9 Cardiac Index 2.5 Cardiac Index 2.5 Cardiac Index 2.6 Cardiac Index 2.6 Cardiac Index 2.6 Results CBC & Chem 7: 05/09/21 18:57 05/09/21 16:25 Labs: Abnormal Lab Results - Last 24 Hours (Table) 05/05/21 05/09/21 05/09/21 Range/Units 15:00 06:22 08:19 WBC (3.8-10.6) k/uL RBC (4.30-5.90) m/uL Plt Count (150-450) k/uL Neutrophils # (1.3-7.7) k/uL Monocytes # (0-1.0) k/uL ABG pH (7.35-7.45) ABG pCO2 (35-45) mmHg ABG pO2 64 L (83-108) mmHg ABG HCO3 26 H (21-25) mmol/L ABG Total CO2 27 H (19-24) mmol/L ABG O2 Saturation 92.8 L (94-97) % ABG Hematocrit (34.0-46.0) % ABG Sodium (135-146) mmol/L ABG Potassium (3.4-4.5) mmol/L ABG Ionized Calcium (4.5-5.3) mg/dL ABG Glucose 126 H (75-99) mg/dL ABG Lactic Acid (0.5-1.6) mmol/L Hemoglobin (13.0-17.5) gm/dL Chloride (98-107) mmol/L Glucose (74-99) mg/dL POC Glucose (mg/dL) 131 H (75-99) mg/dL Calcium (8.4-10.2) mg/dL Magnesium (1.6-2.3) mg/dL Alkaline Phosphatase (38-126) U/L Total Protein (6.3-8.2) g/dL Albumin (3.5-5.0) g/dL Arterial Blood Potassium (3.4-4.5) mmol/L Arterial Blood Glucose 126 H (75-99) mg/dL Crossmatch See Detail 05/09/21 05/09/21 05/09/21 Range/Units 10:53 11:43 12:30 WBC (3.8-10.6) k/uL RBC (4.30-5.90) m/uL Plt Count (150-450) k/uL Neutrophils # (1.3-7.7) k/uL Monocytes # (0-1.0) k/uL ABG pH 7.29 L 7.33 L (7.35-7.45) ABG pCO2 53 H (35-45) mmHg ABG pO2 396 H 405 H 221 H (83-108) mmHg ABG HCO3 26 H (21-25) mmol/L ABG Total CO2 27 H 25 H (19-24) mmol/L ABG O2 Saturation 99.8 H 100.0 H 99.6 H (94-97) % ABG Hematocrit 33 L (34.0-46.0) % ABG Sodium 133 L (135-146) mmol/L ABG Potassium 4.9 H 4.6 H 5.3 H (3.4-4.5) mmol/L ABG Ionized Calcium 4.0 L 4.2 L (4.5-5.3) mg/dL ABG Glucose 163 H 151 H 183 H (75-99) mg/dL ABG Lactic Acid 1.7 H (0.5-1.6) mmol/L Hemoglobin 10.8 L 11.0 L (13.0-17.5) gm/dL Chloride (98-107) mmol/L Glucose (74-99) mg/dL POC Glucose (mg/dL) (75-99) mg/dL Calcium (8.4-10.2) mg/dL Magnesium (1.6-2.3) mg/dL Alkaline Phosphatase (38-126) U/L Total Protein (6.3-8.2) g/dL Albumin (3.5-5.0) g/dL Arterial Blood Potassium 4.9 H 4.6 H 5.3 H (3.4-4.5) mmol/L Arterial Blood Glucose 163 H 151 H 183 H (75-99) mg/dL Crossmatch 05/09/21 05/09/21 05/09/21 Range/Units 16:21 16:25 16:25 WBC 24.6 H (3.8-10.6) k/uL RBC 4.22 L (4.30-5.90) m/uL Plt Count 145 L (150-450) k/uL Neutrophils # 20.2 H (1.3-7.7) k/uL Monocytes # 1.7 H (0-1.0) k/uL ABG pH (7.35-7.45) ABG pCO2 (35-45) mmHg ABG pO2 (83-108) mmHg ABG HCO3 (21-25) mmol/L ABG Total CO2 (19-24) mmol/L ABG O2 Saturation (94-97) % ABG Hematocrit (34.0-46.0) % ABG Sodium (135-146) mmol/L ABG Potassium (3.4-4.5) mmol/L ABG Ionized Calcium (4.5-5.3) mg/dL ABG Glucose (75-99) mg/dL ABG Lactic Acid (0.5-1.6) mmol/L Hemoglobin (13.0-17.5) gm/dL Chloride 109 H (98-107) mmol/L Glucose 122 H (74-99) mg/dL POC Glucose (mg/dL) 128 H (75-99) mg/dL Calcium 8.0 L (8.4-10.2) mg/dL Magnesium 2.7 H (1.6-2.3) mg/dL Alkaline Phosphatase 33 L (38-126) U/L Total Protein 5.2 L (6.3-8.2) g/dL Albumin 2.8 L (3.5-5.0) g/dL Arterial Blood Potassium (3.4-4.5) mmol/L Arterial Blood Glucose (75-99) mg/dL Crossmatch 05/09/21 05/09/21 05/09/21 Range/Units 16:40 17:23 17:54 WBC (3.8-10.6) k/uL RBC (4.30-5.90) m/uL Plt Count (150-450) k/uL Neutrophils # (1.3-7.7) k/uL Monocytes # (0-1.0) k/uL ABG pH 7.29 L (7.35-7.45) ABG pCO2 53 H (35-45) mmHg ABG pO2 181 H (83-108) mmHg ABG HCO3 (21-25) mmol/L ABG Total CO2 (19-24) mmol/L ABG O2 Saturation 99.2 H (94-97) % ABG Hematocrit (34.0-46.0) % ABG Sodium (135-146) mmol/L ABG Potassium (3.4-4.5) mmol/L ABG Ionized Calcium (4.5-5.3) mg/dL ABG Glucose (75-99) mg/dL ABG Lactic Acid (0.5-1.6) mmol/L Hemoglobin (13.0-17.5) gm/dL Chloride (98-107) mmol/L Glucose (74-99) mg/dL POC Glucose (mg/dL) 148 H 158 H (75-99) mg/dL Calcium (8.4-10.2) mg/dL Magnesium (1.6-2.3) mg/dL Alkaline Phosphatase (38-126) U/L Total Protein (6.3-8.2) g/dL Albumin (3.5-5.0) g/dL Arterial Blood Potassium (3.4-4.5) mmol/L Arterial Blood Glucose (75-99) mg/dL Crossmatch 05/09/21 05/09/21 05/09/21 Range/Units 18:57 18:57 20:02 WBC 20.4 H (3.8-10.6) k/uL RBC 4.16 L (4.30-5.90) m/uL Plt Count (150-450) k/uL Neutrophils # 17.3 H (1.3-7.7) k/uL Monocytes # 1.3 H (0-1.0) k/uL ABG pH (7.35-7.45) ABG pCO2 (35-45) mmHg ABG pO2 (83-108) mmHg ABG HCO3 (21-25) mmol/L ABG Total CO2 (19-24) mmol/L ABG O2 Saturation (94-97) % ABG Hematocrit (34.0-46.0) % ABG Sodium (135-146) mmol/L ABG Potassium (3.4-4.5) mmol/L ABG Ionized Calcium (4.5-5.3) mg/dL ABG Glucose (75-99) mg/dL ABG Lactic Acid (0.5-1.6) mmol/L Hemoglobin (13.0-17.5) gm/dL Chloride (98-107) mmol/L Glucose (74-99) mg/dL POC Glucose (mg/dL) 164 H 158 H (75-99) mg/dL Calcium (8.4-10.2) mg/dL Magnesium (1.6-2.3) mg/dL Alkaline Phosphatase (38-126) U/L Total Protein (6.3-8.2) g/dL Albumin (3.5-5.0) g/dL Arterial Blood Potassium (3.4-4.5) mmol/L Arterial Blood Glucose (75-99) mg/dL Crossmatch 05/09/21 Range/Units 21:00 WBC (3.8-10.6) k/uL RBC (4.30-5.90) m/uL Plt Count (150-450) k/uL Neutrophils # (1.3-7.7) k/uL Monocytes # (0-1.0) k/uL ABG pH (7.35-7.45) ABG pCO2 (35-45) mmHg ABG pO2 (83-108) mmHg ABG HCO3 (21-25) mmol/L ABG Total CO2 (19-24) mmol/L ABG O2 Saturation (94-97) % ABG Hematocrit (34.0-46.0) % ABG Sodium (135-146) mmol/L ABG Potassium (3.4-4.5) mmol/L ABG Ionized Calcium (4.5-5.3) mg/dL ABG Glucose (75-99) mg/dL ABG Lactic Acid (0.5-1.6) mmol/L Hemoglobin (13.0-17.5) gm/dL Chloride (98-107) mmol/L Glucose (74-99) mg/dL POC Glucose (mg/dL) 151 H (75-99) mg/dL Calcium (8.4-10.2) mg/dL Magnesium (1.6-2.3) mg/dL Alkaline Phosphatase (38-126) U/L Total Protein (6.3-8.2) g/dL Albumin (3.5-5.0) g/dL Arterial Blood Potassium (3.4-4.5) mmol/L Arterial Blood Glucose (75-99) mg/dL Crossmatch
[2021-05-09] MEDS ORDERED: DEXMEDETOMIDINE/0.9% NACL(PMX) 400 MCG in EMPTY BAG 1 BAG IV SCH (21:30)
[2021-05-09 22:04] LABS: Glucose,Whole Blood 135 mg/dL (75-99)
[2021-05-09 22:12] LABS: Basophils % (A) 0 %; Eosinophils % (A) 0 %; HCT 38.1 % (39.0-53.0); HGB 12.8 gm/dL (13.0-17.5); Lymphocytes # (A) 1.7 k/uL (1.0-4.8); Lymphocytes % (A) 9 %; MCH 31.2 pg (25.0-35.0); MCHC 33.6 g/dL (31.0-37.0); Mean Platelet Volume 9.5; Monocytes % (A) 6 %; Neutrophils % (A) 84 %; Platelet Count 150 k/uL (150-450); RDW 13.1 % (11.5-15.5); WBC 17.9 k/uL (3.8-10.6)
[2021-05-09 23:01] LABS: Glucose,Whole Blood 127 mg/dL (75-99)
[2021-05-09 23:30] LABS: Allen Test Performed? Yes
[2021-05-09 23:33] LABS: ABG Base Excess -2.9 mmol/L; ABG HCO3 22 mmol/L (21-25); ABG Oxygen Saturation 97.8 % (94-97); ABG PCO2 40 mmHg (35-45); ABG PH 7.36 (7.35-7.45); ABG PO2 93 mmHg (83-108)
[2021-05-10 00:01] LABS: Glucose,Whole Blood 117 mg/dL (75-99)
[2021-05-10 01:02] LABS: Glucose,Whole Blood 120 mg/dL (75-99)
[2021-05-10 02:04] LABS: Glucose,Whole Blood 114 mg/dL (75-99)
[2021-05-10 03:11] LABS: Glucose,Whole Blood 153 mg/dL (75-99)
[2021-05-10 04:02] LABS: Glucose,Whole Blood 146 mg/dL (75-99)
[2021-05-10 04:11] LABS: Basophils % (A) 0 %; Eosinophils % (A) 0 %; HCT 36.6 % (39.0-53.0); HGB 12.2 gm/dL (13.0-17.5); Lymphocytes # (A) 1.8 k/uL (1.0-4.8); Lymphocytes % (A) 10 %; MCH 31.3 pg (25.0-35.0); MCHC 33.4 g/dL (31.0-37.0); MCV 93.5 fL (80.0-100.0); Mean Platelet Volume 9.9; Monocytes # (A) 0.9 k/uL (0-1.0); Monocytes % (A) 5 %; Neutrophils # (A) 15.8 k/uL (1.3-7.7); Neutrophils % (A) 85 %; Platelet Count 137 k/uL (150-450); RBC 3.91 m/uL (4.30-5.90); RDW 13.3 % (11.5-15.5); WBC 18.7 k/uL (3.8-10.6)
[2021-05-10 04:31] LABS: Ionized Calcium 4.8 mg/dL (4.5-5.3)
[2021-05-10] MEDS: HYDROcodone/APAP 5-325MG 1 EACH TAB PO PRN ×5 (04:41→21:12)
[2021-05-10 04:58] LABS: Glucose,Whole Blood 138 mg/dL (75-99)
[2021-05-10 06:01] LABS: Glucose,Whole Blood 129 mg/dL (75-99)
[2021-05-10 06:24] LABS: ALT 15 U/L (4-49); AST 55 U/L (17-59); African American GFR (CKD) >90 (>60 ml/min/1.73 sqM); Albumin 2.7 g/dL (3.5-5.0); Alkaline Phosphatase 36 U/L (38-126); Anion Gap 6 mmol/L; Blood Urea Nitrogen 14 mg/dL (9-20); Calcium 8.1 mg/dL (8.4-10.2); Carbon Dioxide 21 mmol/L (22-30); Chloride 109 mmol/L (98-107); Glucose 146 mg/dL (74-99); Magnesium 2.1 mg/dL (1.6-2.3); Non-African American GFR(CKD) >90 (>60 ml/min/1.73 sqM); Potassium 4.2 mmol/L (3.5-5.1); Sodium 136 mmol/L (137-145); Total Bilirubin 0.4 mg/dL (0.2-1.3); Total Protein 5.1 g/dL (6.3-8.2)
[2021-05-10 07:07] LABS: Glucose,Whole Blood 115 mg/dL (75-99)
[2021-05-10 08:06] LABS: Glucose,Whole Blood 103 mg/dL (75-99)
[2021-05-10] MEDS: KETOROLAC 15 MG/ML 1 ML VIAL IVP SCH ×4 (08:29→23:05)
[2021-05-10 08:43] LABS: Glucose,Whole Blood 111 mg/dL (75-99)
[2021-05-10] MEDS: CLOPIDOGREL 75 MG TAB PO SCH (08:48)
[2021-05-10] MEDS: ASPIRIN 325 MG TAB PO SCH (08:48)
[2021-05-10] MEDS: ATORVASTATIN 40 MG TAB PO SCH (08:48)
[2021-05-10] MEDS: HEPARIN SODIUM,PORCINE/PF 5,000 UNIT/0.5 ML SYRINGE SQ SCH ×3 (08:48→23:05)
[2021-05-10] MEDS: METOPROLOL TARTRATE 12.5 MG TAB PO SCH ×2 (08:48→21:12)
[2021-05-10] MEDS ORDERED: PANTOPRAZOLE 40 MG/10 ML VIAL IVP SCH (09:00)
[2021-05-10] MEDS ORDERED: bisacodyL 10 MG SUPP RECTAL PRN (09:00)
[2021-05-10] MEDS ORDERED: FUROSEMIDE 10 MG/ML 2 ML VIAL IV ONE (09:07)
[2021-05-10 09:11] LABS: Glucose,Whole Blood 107 mg/dL (75-99)
--- NOTE | 2021-05-10 09:26 | XR ---
EXAMINATION TYPE: XR chest 1V portable DATE OF EXAM: 05/10/2021 COMPARISON: Chest x-ray 05/09/2021 HISTORY: Postop cardiac surgery, extubated TECHNIQUE: Single frontal view of the chest is obtained. FINDINGS: Endotracheal tube and NG tube have been removed. Central venous catheter, left chest tube, median sternal drains remain in place. No evident pneumothorax. Bibasilar increased attenuation pers ists, the interstitium is increased although exam is expiratory and slightly rotated. Cardiac mediast inal silhouette also appears somewhat more prominently than on prior exam. IMPRESSION: Expiratory rotated exam, interval extubation. Difficult to exclude a component of volume overload, interstitial edema. There is likely basilar atelectasis, difficult to exclude minimal effu regino.
[2021-05-10] MEDS: IPRATROPIUM-ALBUTEROL 3 ML NEB INHALATION SCH ×4 (09:29→19:38)
--- NOTE | 2021-05-10 09:49 | P.PN ---
Subjective Progress Note Date: 05/10/21 Principal diagnosis: Triple-vessel coronary artery disease with preserved left ventricular systolic function. Past medical history significant for hypertension, hyperlipidemia, di et-controlled diabetes mellitus type 2, peripheral vascular disease with preoperative ABIs showing 0.67 on the right and 0.66 on the left, remote history of kidney stones, history of SVT, and chronic obstructive pulmonary disease with chronic ongoing tobacco abuse. POD #1 quadruple coronary artery bypass grafting using the left internal mammary artery to left anterior descending coronary artery, left radial artery from the aorta to the second obtuse marginal coronary artery, a reverse greater saphenous vein graft from the aorta to the ramus intermedius coronary artery, a reverse greater saphenous vein graft from the aorta to the right coronary artery. Exclusion of the left atrial appendage using a 35 mm Atriclip, endoscopic harvesting of the left radial artery, endoscopic harvesting of the left greater saphenous vein, intraoperative graft flow measurements using the ImmuVenstim system, intraoperative transesophageal echocardiogram and epi-aortic scanning. Postoperative acute blood loss anemia, expected due to cardiopulmonary bypass and hemodilution. The patient was seen in follow-up today 05/10/2021 at his bedside in the intensive care unit. Currently he is sitting up to the bedside chair, is awake, alert and oriented 3 and is in no acute apparent distress. This morning he de nies any complaints of shortness of breath although his complaining of some surgical type pain to his chest tube insertion sites. He is rating his pain 6 out of 10 on the pain scale at this time. He was successfully extubated at 11:43 PM last night and is currently on 5 L nasal cannula with oxygen saturations 92%. He is achieving 750 mL on his incentive spirometry with much encouragement. He remained hemodynamically stable and is currently on no inotropic or pressor support, although he was on a norepinephrine drip for blood pressure support which was shut off around 7 AM. Bedside telemetry showing normal sinus rhythm heart rate 87 BPM. Right IJ Cordis [place]-Helder catheter remains in place with current hemodynamic showing a cardiac output of 5.4, cardiac index 2.5, PA pressures 28/7 and CVP 8 mmHg. He has been afebrile since surgery. Mediastinal and left pleural chest tubes remain in place to low continuous wall suction -20 cm H2O. No air leak is present. Draining thin serosanguineous drainage. Mediastinal chest tubes drained 150 mL output in the last 8 hours and 450 mL since surgery. Left pleural chest tube drained 95 mL output in the last 8 hours and 310 mL output since surgery. Objective - Vital Signs Vital signs: Vital Signs Temp 98.4 F 05/10/21 08:00 Pulse 81 05/10/21 09:00 Resp 14 05/10/21 09:00 BP 111/49 05/09/21 06:30 Pulse Ox 91 L 05/10/21 09:00 Intake & Output 05/09/21 05/10/21 05/10/21 18:59 06:59 18:59 Intake Total 985.309 9737.206 550.434 Output Total 2355 721 185 Balance -2004.660 1089.206 365.434 Weight 102.6 kg Intake: IV 202 1424.5 511.5 .9NS Cardiac Output 30 350 40 0.9NS Pressure Bag 18 108 27 ACETAMINOPHEN IV (For NPO 100 100 ) 1,000 mg In Empty Bag 1 bag @ 400 mls/hr IVPB Q6HR MARISA Rx#:[id number] Albumin 5% 250 250 Kefzol IVPB 50 50 Lactated Ringers 550 140 Nitroglycerine 16.5 4.5 Intake, IV Titration 148.340 335.706 38.934 Amount Dexmedetomidine/0.9% NaCl 29.876 (Pmx) 400 mcg In Empty Bag 1 bag @ 0.2 MCG/KG/HR 4.955 mls/hr IV .[id number] MARISA Rx#:[id number] Insulin Regular 100 unit 4.141 43.431 18.357 In Sodium Chloride 0.9% 100 ml @ Per Protocol IV .Q0M MARISA Rx#:[id number] Lactated Ringers 1,000 ml 50 @ 50 mls/hr IV .Q20H MARISA Rx#:[id number] Lactated Ringers 1,000 ml 100 @ Per Protocol IV ONCE ONE Rx#:[id number] Norepinephrine 4 mg In 187.277 20.577 Sodium Chloride 0.9% 250 ml @ 0.03 MCG/KG/MIN 11. 327 mls/hr IV .[id number] MARSIA Rx#:[id number] propofoL 1,000 mg In 44.199 25.122 Empty Bag 1 bag @ Titrate IV .Q0M MARISA Rx#: [id number] Oral 50 Output: Chest Tube Drainage 445 306 90 Left Chest Tube 180 116 80 Mediastinal Chest Tube X 265 190 10 2 Drainage 10 Left Forearm 10 Urine 910 405 95 Estimated Blood Loss 1000 Other: Voiding Method Indwelling Catheter Indwelling Catheter ABP, PAP, CO, CI - Last Documented Arterial Blood Pressure 107/36 Pulmonary Artery Pressure 27/8 Cardiac Output 6.3 Cardiac Index 2.9 - Exam CONSTITUTIONAL: Sitting up to the bedside chair in the intensive care unit, appears comfortable, cooperative, no apparent acute distress. HEENT: Neck is supple, no JVD, no lymphadenopathy. Right IJ Cordis and [place]- Helder catheter in place and functioning. RESPIRATORY: Lungs sounds essentially clear throughout, diminished to his bilateral bases. Respirations are symmetrical and nonlabored. Currently on 5 L nasal cannula with oxygen saturations 92%. Able to achieve 750 mL on his incentive spirometry. Strong cough. CARDIOVASCULAR: Regular rhythm and rate. S1 and S2 present, negative for S3, gallop or murmur. Sternum is stable. Palpable peripheral pulses bilaterally, no edema present. No calf pain or tenderness noted. Heart hugger in place with patient demonstrating appropriate use. Knee-high REMI hose and sequential compression devices in place to his bilateral lower extremities. GASTROINTESTINAL: Abdomen soft, nontender, nondistended. Hypoactive bowel sounds present 4 quadrants. Tolerating diet. Passing flatus. No guarding or rigidity. GENITOURINARY: Stallworth present draining clear, yellow urine. Output 225 mL in the last 8 hours INTEGUMENTARY: Skin is warm and dry with no evidence of clubbing or cyanosis. Midline sternal incision clean dry and well approximated, covered with dry intact dressing. Left lower extremity EVH site well approximated without rednes s or drainage. Left arm radial artery harvest sites clean, dry and approximated. No drainage or redness is present. NEUROLOGIC: Cranial nerves II through XII intact. No focal deficits. MUSKULOSKELETAL: Able to move all extremities, strength equal bilaterally, generalized weakness. PSYCHIATRIC: Alert and oriented to person place and time, appropriate affect, intact judgment and insight. INVASIVE LINES AND TUBES: Mediastinal/left pleural chest tubes present and connected to low continuous wall suction, no air leaks present. Mediastinal tubes with 150 mL of thin serosanguineous drainage overnight, 450 mL output in the last 24 hours. Left pleural chest tube with 95 mL of thin serosanguineous drainage overnight, 310 mL output in the last 24 hours. Atrial epicardial pacemaker wires present, connected to generator, AAI backup rate 50 bpm. Right internal jugular [place]/Cordis, right radial arterial line present. Last CO 5.4, CI 2.5, PA 28/7 and CVP 8 mmHg. Left arm DANIELLE drain in place with scant thin serosanguineous drainage, 10 mL output in the last 8 hours. - Allied health notes Allied health notes reviewed: nursing - Labs CBC & Chem 7: 05/10/21 04:00 05/10/21 04:00 Labs: Abnormal Lab Results - Last 24 Hours (Table) 05/05/21 05/09/21 05/09/21 Range/Units 15:00 08:19 10:53 WBC (3.8-10.6) k/uL RBC (4.30-5.90) m/uL Hgb (13.0-17.5) gm/dL Hct (39.0-53.0) % Plt Count (150-450) k/uL Neutrophils # (1.3-7.7) k/uL Monocytes # (0-1.0) k/uL ABG pH 7.29 L (7.35-7.45) ABG pCO2 53 H (35-45) mmHg ABG pO2 64 L 396 H (83-108) mmHg ABG HCO3 26 H 26 H (21-25) mmol/L ABG Total CO2 27 H 27 H (19-24) mmol/L ABG O2 Saturation 92.8 L 99.8 H (94-97) % ABG Hematocrit (34.0-46.0) % ABG Sodium (135-146) mmol/L ABG Potassium 4.9 H (3.4-4.5) mmol/L ABG Ionized Calcium (4.5-5.3) mg/dL ABG Glucose 126 H 163 H (75-99) mg/dL ABG Lactic Acid (0.5-1.6) mmol/L Hemoglobin (13.0-17.5) gm/dL Sodium (137-145) mmol/L Chloride (98-107) mmol/L Carbon Dioxide (22-30) mmol/L Glucose (74-99) mg/dL POC Glucose (mg/dL) (75-99) mg/dL Calcium (8.4-10.2) mg/dL Magnesium (1.6-2.3) mg/dL Alkaline Phosphatase (38-126) U/L Total Protein (6.3-8.2) g/dL Albumin (3.5-5.0) g/dL Arterial Blood Potassium 4.9 H (3.4-4.5) mmol/L Arterial Blood Glucose 126 H 163 H (75-99) mg/dL Crossmatch See Detail 05/09/21 05/09/21 05/09/21 Range/Units 11:43 12:30 16:21 WBC (3.8-10.6) k/uL RBC (4.30-5.90) m/uL Hgb (13.0-17.5) gm/dL Hct (39.0-53.0) % Plt Count (150-450) k/uL Neutrophils # (1.3-7.7) k/uL Monocytes # (0-1.0) k/uL ABG pH 7.33 L (7.35-7.45) ABG pCO2 (35-45) mmHg ABG pO2 405 H 221 H (83-108) mmHg ABG HCO3 (21-25) mmol/L ABG Total CO2 25 H (19-24) mmol/L ABG O2 Saturation 100.0 H 99.6 H (94-97) % ABG Hematocrit 33 L (34.0-46.0) % ABG Sodium 133 L (135-146) mmol/L ABG Potassium 4.6 H 5.3 H (3.4-4.5) mmol/L ABG Ionized Calcium 4.0 L 4.2 L (4.5-5.3) mg/dL ABG Glucose 151 H 183 H (75-99) mg/dL ABG Lactic Acid 1.7 H (0.5-1.6) mmol/L Hemoglobin 10.8 L 11.0 L (13.0-17.5) gm/dL Sodium (137-145) mmol/L Chloride (98-107) mmol/L Carbon Dioxide (22-30) mmol/L Glucose (74-99) mg/dL POC Glucose (mg/dL) 128 H (75-99) mg/dL Calcium (8.4-10.2) mg/dL Magnesium (1.6-2.3) mg/dL Alkaline Phosphatase (38-126) U/L Total Protein (6.3-8.2) g/dL Albumin (3.5-5.0) g/dL Arterial Blood Potassium 4.6 H 5.3 H (3.4-4.5) mmol/L Arterial Blood Glucose 151 H 183 H (75-99) mg/dL Crossmatch 05/09/21 05/09/21 05/09/21 Range/Units 16:25 16:25 16:40 WBC 24.6 H (3.8-10.6) k/uL RBC 4.22 L (4.30-5.90) m/uL Hgb (13.0-17.5) gm/dL Hct (39.0-53.0) % Plt Count 145 L (150-450) k/uL Neutrophils # 20.2 H (1.3-7.7) k/uL Monocytes # 1.7 H (0-1.0) k/uL ABG pH 7.29 L (7.35-7.45) ABG pCO2 53 H (35-45) mmHg ABG pO2 181 H (83-108) mmHg ABG HCO3 (21-25) mmol/L ABG Total CO2 (19-24) mmol/L ABG O2 Saturation 99.2 H (94-97) % ABG Hematocrit (34.0-46.0) % ABG Sodium (135-146) mmol/L ABG Potassium (3.4-4.5) mmol/L ABG Ionized Calcium (4.5-5.3) mg/dL ABG Glucose (75-99) mg/dL ABG Lactic Acid (0.5-1.6) mmol/L Hemoglobin (13.0-17.5) gm/dL Sodium (137-145) mmol/L Chloride 109 H (98-107) mmol/L Carbon Dioxide (22-30) mmol/L Glucose 122 H (74-99) mg/dL POC Glucose (mg/dL) (75-99) mg/dL Calcium 8.0 L (8.4-10.2) mg/dL Magnesium 2.7 H (1.6-2.3) mg/dL Alkaline Phosphatase 33 L (38-126) U/L Total Protein 5.2 L (6.3-8.2) g/dL Albumin 2.8 L (3.5-5.0) g/dL Arterial Blood Potassium (3.4-4.5) mmol/L Arterial Blood Glucose (75-99) mg/dL Crossmatch 05/09/21 05/09/21 05/09/21 Range/Units 17:23 17:54 18:57 WBC 20.4 H (3.8-10.6) k/uL RBC 4.16 L (4.30-5.90) m/uL Hgb (13.0-17.5) gm/dL Hct (39.0-53.0) % Plt Count (150-450) k/uL Neutrophils # 17.3 H (1.3-7.7) k/uL Monocytes # 1.3 H (0-1.0) k/uL ABG pH (7.35-7.45) ABG pCO2 (35-45) mmHg ABG pO2 (83-108) mmHg ABG HCO3 (21-25) mmol/L ABG Total CO2 (19-24) mmol/L ABG O2 Saturation (94-97) % ABG Hematocrit (34.0-46.0) % ABG Sodium (135-146) mmol/L ABG Potassium (3.4-4.5) mmol/L ABG Ionized Calcium (4.5-5.3) mg/dL ABG Glucose (75-99) mg/dL ABG Lactic Acid (0.5-1.6) mmol/L Hemoglobin (13.0-17.5) gm/dL Sodium (137-145) mmol/L Chloride (98-107) mmol/L Carbon Dioxide (22-30) mmol/L Glucose (74-99) mg/dL POC Glucose (mg/dL) 148 H 158 H (75-99) mg/dL Calcium (8.4-10.2) mg/dL Magnesium (1.6-2.3) mg/dL Alkaline Phosphatase (38-126) U/L Total Protein (6.3-8.2) g/dL Albumin (3.5-5.0) g/dL Arterial Blood Potassium (3.4-4.5) mmol/L Arterial Blood Glucose (75-99) mg/dL Crossmatch 05/09/21 05/09/21 05/09/21 Range/Units 18:57 20:02 21:00 WBC (3.8-10.6) k/uL RBC (4.30-5.90) m/uL Hgb (13.0-17.5) gm/dL Hct (39.0-53.0) % Plt Count (150-450) k/uL Neutrophils # (1.3-7.7) k/uL Monocytes # (0-1.0) k/uL ABG pH (7.35-7.45) ABG pCO2 (35-45) mmHg ABG pO2 (83-108) mmHg ABG HCO3 (21-25) mmol/L ABG Total CO2 (19-24) mmol/L ABG O2 Saturation (94-97) % ABG Hematocrit (34.0-46.0) % ABG Sodium (135-146) mmol/L ABG Potassium (3.4-4.5) mmol/L ABG Ionized Calcium (4.5-5.3) mg/dL ABG Glucose (75-99) mg/dL ABG Lactic Acid (0.5-1.6) mmol/L Hemoglobin (13.0-17.5) gm/dL Sodium (137-145) mmol/L Chloride (98-107) mmol/L Carbon Dioxide (22-30) mmol/L Glucose (74-99) mg/dL POC Glucose (mg/dL) 164 H 158 H 151 H (75-99) mg/dL Calcium (8.4-10.2) mg/dL Magnesium (1.6-2.3) mg/dL Alkaline Phosphatase (38-126) U/L Total Protein (6.3-8.2) g/dL Albumin (3.5-5.0) g/dL Arterial Blood Potassium (3.4-4.5) mmol/L Arterial Blood Glucose (75-99) mg/dL Crossmatch 05/09/21 05/09/21 05/09/21 Range/Units 22:02 22:03 22:59 WBC 17.9 H (3.8-10.6) k/uL RBC 4.10 L (4.30-5.90) m/uL Hgb 12.8 L (13.0-17.5) gm/dL Hct 38.1 L (39.0-53.0) % Plt Count (150-450) k/uL Neutrophils # 15.0 H (1.3-7.7) k/uL Monocytes # (0-1.0) k/uL ABG pH (7.35-7.45) ABG pCO2 (35-45) mmHg ABG pO2 (83-108) mmHg ABG HCO3 (21-25) mmol/L ABG Total CO2 (19-24) mmol/L ABG O2 Saturation (94-97) % ABG Hematocrit (34.0-46.0) % ABG Sodium (135-146) mmol/L ABG Potassium (3.4-4.5) mmol/L ABG Ionized Calcium (4.5-5.3) mg/dL ABG Glucose (75-99) mg/dL ABG Lactic Acid (0.5-1.6) mmol/L Hemoglobin (13.0-17.5) gm/dL Sodium (137-145) mmol/L Chloride (98-107) mmol/L Carbon Dioxide (22-30) mmol/L Glucose (74-99) mg/dL POC Glucose (mg/dL) 135 H 127 H (75-99) mg/dL Calcium (8.4-10.2) mg/dL Magnesium (1.6-2.3) mg/dL Alkaline Phosphatase (38-126) U/L Total Protein (6.3-8.2) g/dL Albumin (3.5-5.0) g/dL Arterial Blood Potassium (3.4-4.5) mmol/L Arterial Blood Glucose (75-99) mg/dL Crossmatch 05/09/21 05/09/21 05/10/21 Range/Units 23:25 23:59 01:01 WBC (3.8-10.6) k/uL RBC (4.30-5.90) m/uL Hgb (13.0-17.5) gm/dL Hct (39.0-53.0) % Plt Count (150-450) k/uL Neutrophils # (1.3-7.7) k/uL Monocytes # (0-1.0) k/uL ABG pH (7.35-7.45) ABG pCO2 (35-45) mmHg ABG pO2 (83-108) mmHg ABG HCO3 (21-25) mmol/L ABG Total CO2 (19-24) mmol/L ABG O2 Saturation 97.8 H (94-97) % ABG Hematocrit (34.0-46.0) % ABG Sodium (135-146) mmol/L ABG Potassium (3.4-4.5) mmol/L ABG Ionized Calcium (4.5-5.3) mg/dL ABG Glucose (75-99) mg/dL ABG Lactic Acid (0.5-1.6) mmol/L Hemoglobin (13.0-17.5) gm/dL Sodium (137-145) mmol/L Chloride (98-107) mmol/L Carbon Dioxide (22-30) mmol/L Glucose (74-99) mg/dL POC Glucose (mg/dL) 117 H 120 H (75-99) mg/dL Calcium (8.4-10.2) mg/dL Magnesium (1.6-2.3) mg/dL Alkaline Phosphatase (38-126) U/L Total Protein (6.3-8.2) g/dL Albumin (3.5-5.0) g/dL Arterial Blood Potassium (3.4-4.5) mmol/L Arterial Blood Glucose (75-99) mg/dL Crossmatch 05/10/21 05/10/21 05/10/21 Range/Units 02:02 03:07 03:59 WBC (3.8-10.6) k/uL RBC (4.30-5.90) m/uL Hgb (13.0-17.5) gm/dL Hct (39.0-53.0) % Plt Count (150-450) k/uL Neutrophils # (1.3-7.7) k/uL Monocytes # (0-1.0) k/uL ABG pH (7.35-7.45) ABG pCO2 (35-45) mmHg ABG pO2 (83-108) mmHg ABG HCO3 (21-25) mmol/L ABG Total CO2 (19-24) mmol/L ABG O2 Saturation (94-97) % ABG Hematocrit (34.0-46.0) % ABG Sodium (135-146) mmol/L ABG Potassium (3.4-4.5) mmol/L ABG Ionized Calcium (4.5-5.3) mg/dL ABG Glucose (75-99) mg/dL ABG Lactic Acid (0.5-1.6) mmol/L Hemoglobin (13.0-17.5) gm/dL Sodium (137-145) mmol/L Chloride (98-107) mmol/L Carbon Dioxide (22-30) mmol/L Glucose (74-99) mg/dL POC Glucose (mg/dL) 114 H 153 H 146 H (75-99) mg/dL Calcium (8.4-10.2) mg/dL Magnesium (1.6-2.3) mg/dL Alkaline Phosphatase (38-126) U/L Total Protein (6.3-8.2) g/dL Albumin (3.5-5.0) g/dL Arterial Blood Potassium (3.4-4.5) mmol/L Arterial Blood Glucose (75-99) mg/dL Crossmatch 05/10/21 05/10/21 05/10/21 Range/Units 04:00 04:00 04:55 WBC 18.7 H (3.8-10.6) k/uL RBC 3.91 L (4.30-5.90) m/uL Hgb 12.2 L (13.0-17.5) gm/dL Hct 36.6 L (39.0-53.0) % Plt Count 137 L (150-450) k/uL Neutrophils # 15.8 H (1.3-7.7) k/uL Monocytes # (0-1.0) k/uL ABG pH (7.35-7.45) ABG pCO2 (35-45) mmHg ABG pO2 (83-108) mmHg ABG HCO3 (21-25) mmol/L ABG Total CO2 (19-24) mmol/L ABG O2 Saturation (94-97) % ABG Hematocrit (34.0-46.0) % ABG Sodium (135-146) mmol/L ABG Potassium (3.4-4.5) mmol/L ABG Ionized Calcium (4.5-5.3) mg/dL ABG Glucose (75-99) mg/dL ABG Lactic Acid (0.5-1.6) mmol/L Hemoglobin (13.0-17.5) gm/dL Sodium 136 L (137-145) mmol/L Chloride 109 H (98-107) mmol/L Carbon Dioxide 21 L (22-30) mmol/L Glucose 146 H (74-99) mg/dL POC Glucose (mg/dL) 138 H (75-99) mg/dL Calcium 8.1 L (8.4-10.2) mg/dL Magnesium (1.6-2.3) mg/dL Alkaline Phosphatase 36 L (38-126) U/L Total Protein 5.1 L (6.3-8.2) g/dL Albumin 2.7 L (3.5-5.0) g/dL Arterial Blood Potassium (3.4-4.5) mmol/L Arterial Blood Glucose (75-99) mg/dL Crossmatch 05/10/21 05/10/21 05/10/21 Range/Units 05:59 07:05 08:04 WBC (3.8-10.6) k/uL RBC (4.30-5.90) m/uL Hgb (13.0-17.5) gm/dL Hct (39.0-53.0) % Plt Count (150-450) k/uL Neutrophils # (1.3-7.7) k/uL Monocytes # (0-1.0) k/uL ABG pH (7.35-7.45) ABG pCO2 (35-45) mmHg ABG pO2 (83-108) mmHg ABG HCO3 (21-25) mmol/L ABG Total CO2 (19-24) mmol/L ABG O2 Saturation (94-97) % ABG Hematocrit (34.0-46.0) % ABG Sodium (135-146) mmol/L ABG Potassium (3.4-4.5) mmol/L ABG Ionized Calcium (4.5-5.3) mg/dL ABG Glucose (75-99) mg/dL ABG Lactic Acid (0.5-1.6) mmol/L Hemoglobin (13.0-17.5) gm/dL Sodium (137-145) mmol/L Chloride (98-107) mmol/L Carbon Dioxide (22-30) mmol/L Glucose (74-99) mg/dL POC Glucose (mg/dL) 129 H 115 H 103 H (75-99) mg/dL Calcium (8.4-10.2) mg/dL Magnesium (1.6-2.3) mg/dL Alkaline Phosphatase (38-126) U/L Total Protein (6.3-8.2) g/dL Albumin (3.5-5.0) g/dL Arterial Blood Potassium (3.4-4.5) mmol/L Arterial Blood Glucose (75-99) mg/dL Crossmatch 05/10/21 05/10/21 Range/Units 08:38 09:09 WBC (3.8-10.6) k/uL RBC (4.30-5.90) m/uL Hgb (13.0-17.5) gm/dL Hct (39.0-53.0) % Plt Count (150-450) k/uL Neutrophils # (1.3-7.7) k/uL Monocytes # (0-1.0) k/uL ABG pH (7.35-7.45) ABG pCO2 (35-45) mmHg ABG pO2 (83-108) mmHg ABG HCO3 (21-25) mmol/L ABG Total CO2 (19-24) mmol/L ABG O2 Saturation (94-97) % ABG Hematocrit (34.0-46.0) % ABG Sodium (135-146) mmol/L ABG Potassium (3.4-4.5) mmol/L ABG Ionized Calcium (4.5-5.3) mg/dL ABG Glucose (75-99) mg/dL ABG Lactic Acid (0.5-1.6) mmol/L Hemoglobin (13.0-17.5) gm/dL Sodium (137-145) mmol/L Chloride (98-107) mmol/L Carbon Dioxide (22-30) mmol/L Glucose (74-99) mg/dL POC Glucose (mg/dL) 111 H 107 H (75-99) mg/dL Calcium (8.4-10.2) mg/dL Magnesium (1.6-2.3) mg/dL Alkaline Phosphatase (38-126) U/L Total Protein (6.3-8.2) g/dL Albumin (3.5-5.0) g/dL Arterial Blood Potassium (3.4-4.5) mmol/L Arterial Blood Glucose (75-99) mg/dL Crossmatch - Imaging and Cardiology Chest x-ray: report reviewed, image reviewed Assessment and Plan Assessment: 1. Triple-vessel coronary artery disease with preserved left ventricular systolic function, status post quadruple coronary artery bypass grafting surgery 2. History of hypertension 3. Hyperlipidemia 4. Diet-controlled diabetes mellitus type 2 5. Peripheral vascular disease with preoperative ABIs showing 0.67 on the right and 0.66 on the left, with history of intermittent claudication 6. Remote history of kidney stones 7. History of SVT 8. Chronic obstructive pulmonary disease with chronic ongoing tobacco abuse 9. Postoperative acute blood loss anemia, expected Plan: 1. Continue aspirin, statin, Plavix, and beta fer. Will increase beta fer as tolerated. Currently on metoprolol tartrate 12.5 mg by mouth twice a day. 2. Wean O2 as tolerated. Encourage incentive spirometry 10 times every hour while awake. Bronchodilators per pulmonology management. 3. Increase activity, ambulate as tolerated. PT/OT/cardiac rehab consulted. 4. Will monitor daily labs and chest x-rays. Electrolyte replacement per protocol. 5. GI/DVT prophylaxis. 6. Insulin management per primary care service. Patient needs tight blood sugar control to promote sternal union and prevent infection, preoperative hemoglobin A1c was 6.2%. 7. Pain control is current medication regimen. Toradol 15 mg IV every 6 hours was added for additional pain control. 8. Discontinue [place] Cordis to continue CVP monitoring. 9. Lasix 20 mg IV 1 now. 10. Keep mediastinal/left pleural chest tubes for another 24 hours 11. Continue Stallworth catheter for another 24 hours for strict accurate intake and output. Daily weights 12. Start Norvasc 2.5 mg by mouth daily for radial artery spasm prophylaxis. Please do not discontinue unless speaking with cardiothoracic surgery prior. 13. Discontinue nitroglycerin drip. 14. More recommendations to follow based on the patient's clinical course. Time with Patient: Greater than 30
[2021-05-10] MEDS: amLODIPine 2.5 MG TAB PO SCH (09:51)
[2021-05-10 10:12] LABS: Glucose,Whole Blood 130 mg/dL (75-99)
[2021-05-10 11:23] LABS: Glucose,Whole Blood 122 mg/dL (75-99)
--- NOTE | 2021-05-10 11:34 | CONS ---
CONSULTATION Mr. Skaggs is a 65-year-old male who presented yesterday and underwent coronary artery bypass grafting. Last month, because of abnormal myocardial perfusion imaging and evidence of chest discomfort, he underwent cardiac catheterization. This cardiac catheterization showed calcified coronary arteries; chronically occluded right coronary artery, moderate left main disease and significant disease involving the LAD and the left circumflex. Prior to his intervention, his stress test showed an ejection fraction of 50%. The patient is extubated and sitting up in the chair. Yesterday he underwent coronary artery bypass grafting by Dr. Menezes and received a ARTEAGA to LAD, radial to obtuse marginal branch, saphenous vein graft to the ramus intermedius, saphenous vein graft to the right coronary artery with closure of the left atrial appendage. He continues to be in sinus mechanism. Hemodynamically he is stable. There is no evidence of malignant arrhythmia. His coronary risk factors are positive for hypertension, hyperlipidemia. He is a smoker. His medications as an outpatient included metoprolol tartrate 25 mg twice a day, isosorbide mononitrate 30 mg daily, rosuvastatin 10 mg daily and aspirin once a day. REVIEW OF SYSTEMS: RESPIRATORY SYSTEM: He had dyspnea on exertion. No recent wheezing. GI SYSTEM: No nausea. No vomiting. No GI bleeding. SYSTEM: No dysuria or hematuria. NERVOUS SYSTEM: No history of stroke or seizure. PHYSICAL EXAMINATION: He is a 65-year-old male, alert, sitting up in the chair. Complaining of soreness in the chest. Blood pressure running in the high 90s to 120s to 130s with a heart rate in the 70s. Afebrile. His PA pressures were running 39/19, dropped when he sat up. HEAD: Normocephalic. EYES: Sclerae anicteric. NECK: No bruit. [place] catheter noted on the right side. LUNGS: Mild decrease in breath sounds. No wheezes. HEART: Regular rate and rhythm. S1, S2. No rub appreciated. No gallop. ABDOMEN: Soft, nontender. Positive bowel sounds. No organomegaly. EXTREMITIES: No edema. Chest x-ray revealed small effusion. Lab data revealed a hemoglobin of 12.2. IMPRESSION: 1. Status post coronary artery bypass grafting, stable, with 4-way bypass. 2. History of hypertension. 3. Hyperlipidemia. 4. History of chronic tobacco use. RECOMMENDATIONS: Will continue present therapy. Continue incentive spirometry. Follow his respiratory status. Depending on his blood pressure, the dose of his beta fer will be adjusted. Thank you for this consult. Will follow with you. NICCI / JENNIFER: [id number] / [id number]
[2021-05-10 12:34] LABS: Glucose,Whole Blood 115 mg/dL (75-99)
[2021-05-10 13:13] VITALS: BMI 32.4
[2021-05-10] MEDS: INSULIN ASPART (NovoLOG) 100 UNIT/ML VIAL SQ SCH ×4 (13:37→23:02)
[2021-05-10] MEDS: INSULIN DETEMIR (LEVEMIR) 100 UNIT/ML SYR SQ SCH (13:38)
[2021-05-10] MEDS: LACTATED RINGERS 1,000 ML IV SCH (13:38)
[2021-05-10 14:04] LABS: Glucose,Whole Blood 200 mg/dL (75-99)
--- NOTE | 2021-05-10 15:16 | P.PN ---
Subjective Progress Note Date: 05/10/21 Principal diagnosis: Status post CABG, postoperative day #1 Patient was reevaluated today on 05/10/21, patient is Status post quadruple coronary artery bypass grafting using the ARTEAGA to LAD, left radial artery to second obtuse marginal artery reverse saphenous vein graft to ramus intermedius, reverse saphenous graft to right coronary artery. Postoperative day #1. Agent was extubated around midnight last night, tolerated the extubation well, he is still in the ICU today. On 5 L nasal cannula, resting at a bedside recliner, not in any distress. Patient is on IV fluid at 50 mL per hour, he is also on nitroglycerin drip. Chest x-ray this morning showed minimal basilar atelectasis which is expected. His cardiac output is 6.3, cardiac index is 2.9. CVP is 7. Continues to have his mediastinal and left pleural chest tubes. His pulmonary artery pressure 31/11. And his heart rate is 86. Clinically the patient is doing great, relatively asymptomatic. Beginning to use his incentive spirometry early this morning,Mediastinal and left pleural chest tubes remain in place to low continuous wall suction -20 cm H2O. No air leak is present. Draining thin serosanguineous drainage. Mediastinal chest tubes drained 150 mL output in the last 8 hours and 450 mL since surgery. Left pleural chest tube drained 95 mL output in the last 8 hours and 310 mL output since surgery. Objective - Vital Signs Vital signs: Vital Signs Temp 97.3 F L 05/10/21 13:00 Pulse 82 05/10/21 13:00 Resp 19 05/10/21 13:00 BP 111/49 05/09/21 06:30 Pulse Ox 92 L 05/10/21 13:00 Intake & Output 05/09/21 05/10/21 05/10/21 18:59 06:59 18:59 Intake Total 525.204 8491.206 672.215 Output Total 2355 721 570 Balance -2004.660 1089.206 102.215 Weight 102.6 kg 102.6 kg Intake: IV 202 1424.5 628.5 .9NS Cardiac Output 30 350 40 0.9NS Pressure Bag 18 108 54 ACETAMINOPHEN IV (For NPO 100 100 ) 1,000 mg In Empty Bag 1 bag @ 400 mls/hr IVPB Q6HR [facility] Rx#:[id number] Albumin 5% 250 250 Kefzol IVPB 50 50 Lactated Ringers 550 230 Nitroglycerine 16.5 4.5 Intake, IV Titration 148.340 335.706 43.715 Amount Dexmedetomidine/0.9% NaCl 29.876 (Pmx) 400 mcg In Empty Bag 1 bag @ 0.2 MCG/KG/HR 4.955 mls/hr IV .[id number] [facility] Rx#:[id number] Insulin Regular 100 unit 4.141 43.431 23.138 In Sodium Chloride 0.9% 100 ml @ Per Protocol IV .Q0M [facility] Rx#:[id number] Lactated Ringers 1,000 ml 50 @ 50 mls/hr IV .Q20H [facility] Rx#:[id number] Lactated Ringers 1,000 ml 100 @ Per Protocol IV ONCE ONE Rx#:[id number] Norepinephrine 4 mg In 187.277 20.577 Sodium Chloride 0.9% 250 ml @ 0.03 MCG/KG/MIN 11. 327 mls/hr IV .[id number] [facility] Rx#:[id number] propofoL 1,000 mg In 44.199 25.122 Empty Bag 1 bag @ Titrate IV .Q0M [facility] Rx#: [id number] Oral 50 Output: Chest Tube Drainage 445 306 140 Left Chest Tube 180 116 110 Mediastinal Chest Tube X 265 190 30 2 Drainage 10 Left Forearm 10 Urine 910 405 430 Estimated Blood Loss 1000 Other: Voiding Method Indwelling Catheter Indwelling Catheter Indwelling Catheter ABP, PAP, CO, CI - Last Documented Arterial Blood Pressure 121/45 Pulmonary Artery Pressure 33/11 Cardiac Output 6.3 Cardiac Index 2.9 - Exam General: Revealed a 65-year-old white male in no distress, on 5 L nasal cannula. HEENT: IJ Cordis is noted, otherwise negative findings. Lungs:: Symmetrical chest expansion, diminished breath sounds at the bases no rhonchi and no wheezes. CARDIOVASCULAR: Normal S1 and S2, no S3 gallop, sternum is stable. GASTROINTESTINAL: Soft nontender no megaly no rebound no guarding. INTEGUMENTARY: No rashes. NEUROLOGIC: Alert and oriented 3 no focal deficit MUSKULOSKELETAL: No deformities noted limitation range of motion. PSYCHIATRIC: Normal mood affect and normal mental status examination. - Labs CBC & Chem 7: 05/10/21 04:00 05/10/21 04:00 Labs: Abnormal Lab Results - Last 24 Hours (Table) 05/05/21 05/09/21 05/09/21 Range/Units 15:00 16:21 16:25 WBC 24.6 H (3.8-10.6) k/uL RBC 4.22 L (4.30-5.90) m/uL Hgb (13.0-17.5) gm/dL Hct (39.0-53.0) % Plt Count 145 L (150-450) k/uL Neutrophils # 20.2 H (1.3-7.7) k/uL Monocytes # 1.7 H (0-1.0) k/uL ABG pH (7.35-7.45) ABG pCO2 (35-45) mmHg ABG pO2 (83-108) mmHg ABG O2 Saturation (94-97) % Sodium (137-145) mmol/L Chloride (98-107) mmol/L Carbon Dioxide (22-30) mmol/L Glucose (74-99) mg/dL POC Glucose (mg/dL) 128 H (75-99) mg/dL Calcium (8.4-10.2) mg/dL Magnesium (1.6-2.3) mg/dL Alkaline Phosphatase (38-126) U/L Total Protein (6.3-8.2) g/dL Albumin (3.5-5.0) g/dL Crossmatch See Detail 05/09/21 05/09/21 05/09/21 Range/Units 16:25 16:40 17:23 WBC (3.8-10.6) k/uL RBC (4.30-5.90) m/uL Hgb (13.0-17.5) gm/dL Hct (39.0-53.0) % Plt Count (150-450) k/uL Neutrophils # (1.3-7.7) k/uL Monocytes # (0-1.0) k/uL ABG pH 7.29 L (7.35-7.45) ABG pCO2 53 H (35-45) mmHg ABG pO2 181 H (83-108) mmHg ABG O2 Saturation 99.2 H (94-97) % Sodium (137-145) mmol/L Chloride 109 H (98-107) mmol/L Carbon Dioxide (22-30) mmol/L Glucose 122 H (74-99) mg/dL POC Glucose (mg/dL) 148 H (75-99) mg/dL Calcium 8.0 L (8.4-10.2) mg/dL Magnesium 2.7 H (1.6-2.3) mg/dL Alkaline Phosphatase 33 L (38-126) U/L Total Protein 5.2 L (6.3-8.2) g/dL Albumin 2.8 L (3.5-5.0) g/dL Crossmatch 05/09/21 05/09/21 05/09/21 Range/Units 17:54 18:57 18:57 WBC 20.4 H (3.8-10.6) k/uL RBC 4.16 L (4.30-5.90) m/uL Hgb (13.0-17.5) gm/dL Hct (39.0-53.0) % Plt Count (150-450) k/uL Neutrophils # 17.3 H (1.3-7.7) k/uL Monocytes # 1.3 H (0-1.0) k/uL ABG pH (7.35-7.45) ABG pCO2 (35-45) mmHg ABG pO2 (83-108) mmHg ABG O2 Saturation (94-97) % Sodium (137-145) mmol/L Chloride (98-107) mmol/L Carbon Dioxide (22-30) mmol/L Glucose (74-99) mg/dL POC Glucose (mg/dL) 158 H 164 H (75-99) mg/dL Calcium (8.4-10.2) mg/dL Magnesium (1.6-2.3) mg/dL Alkaline Phosphatase (38-126) U/L Total Protein (6.3-8.2) g/dL Albumin (3.5-5.0) g/dL Crossmatch 05/09/21 05/09/21 05/09/21 Range/Units 20:02 21:00 22:02 WBC (3.8-10.6) k/uL RBC (4.30-5.90) m/uL Hgb (13.0-17.5) gm/dL Hct (39.0-53.0) % Plt Count (150-450) k/uL Neutrophils # (1.3-7.7) k/uL Monocytes # (0-1.0) k/uL ABG pH (7.35-7.45) ABG pCO2 (35-45) mmHg ABG pO2 (83-108) mmHg ABG O2 Saturation (94-97) % Sodium (137-145) mmol/L Chloride (98-107) mmol/L Carbon Dioxide (22-30) mmol/L Glucose (74-99) mg/dL POC Glucose (mg/dL) 158 H 151 H 135 H (75-99) mg/dL Calcium (8.4-10.2) mg/dL Magnesium (1.6-2.3) mg/dL Alkaline Phosphatase (38-126) U/L Total Protein (6.3-8.2) g/dL Albumin (3.5-5.0) g/dL Crossmatch 05/09/21 05/09/21 05/09/21 Range/Units 22:03 22:59 23:25 WBC 17.9 H (3.8-10.6) k/uL RBC 4.10 L (4.30-5.90) m/uL Hgb 12.8 L (13.0-17.5) gm/dL Hct 38.1 L (39.0-53.0) % Plt Count (150-450) k/uL Neutrophils # 15.0 H (1.3-7.7) k/uL Monocytes # (0-1.0) k/uL ABG pH (7.35-7.45) ABG pCO2 (35-45) mmHg ABG pO2 (83-108) mmHg ABG O2 Saturation 97.8 H (94-97) % Sodium (137-145) mmol/L Chloride (98-107) mmol/L Carbon Dioxide (22-30) mmol/L Glucose (74-99) mg/dL POC Glucose (mg/dL) 127 H (75-99) mg/dL Calcium (8.4-10.2) mg/dL Magnesium (1.6-2.3) mg/dL Alkaline Phosphatase (38-126) U/L Total Protein (6.3-8.2) g/dL Albumin (3.5-5.0) g/dL Crossmatch 05/09/21 05/10/21 05/10/21 Range/Units 23:59 01:01 02:02 WBC (3.8-10.6) k/uL RBC (4.30-5.90) m/uL Hgb (13.0-17.5) gm/dL Hct (39.0-53.0) % Plt Count (150-450) k/uL Neutrophils # (1.3-7.7) k/uL Monocytes # (0-1.0) k/uL ABG pH (7.35-7.45) ABG pCO2 (35-45) mmHg ABG pO2 (83-108) mmHg ABG O2 Saturation (94-97) % Sodium (137-145) mmol/L Chloride (98-107) mmol/L Carbon Dioxide (22-30) mmol/L Glucose (74-99) mg/dL POC Glucose (mg/dL) 117 H 120 H 114 H (75-99) mg/dL Calcium (8.4-10.2) mg/dL Magnesium (1.6-2.3) mg/dL Alkaline Phosphatase (38-126) U/L Total Protein (6.3-8.2) g/dL Albumin (3.5-5.0) g/dL Crossmatch 05/10/21 05/10/21 05/10/21 Range/Units 03:07 03:59 04:00 WBC 18.7 H (3.8-10.6) k/uL RBC 3.91 L (4.30-5.90) m/uL Hgb 12.2 L (13.0-17.5) gm/dL Hct 36.6 L (39.0-53.0) % Plt Count 137 L (150-450) k/uL Neutrophils # 15.8 H (1.3-7.7) k/uL Monocytes # (0-1.0) k/uL ABG pH (7.35-7.45) ABG pCO2 (35-45) mmHg ABG pO2 (83-108) mmHg ABG O2 Saturation (94-97) % Sodium (137-145) mmol/L Chloride (98-107) mmol/L Carbon Dioxide (22-30) mmol/L Glucose (74-99) mg/dL POC Glucose (mg/dL) 153 H 146 H (75-99) mg/dL Calcium (8.4-10.2) mg/dL Magnesium (1.6-2.3) mg/dL Alkaline Phosphatase (38-126) U/L Total Protein (6.3-8.2) g/dL Albumin (3.5-5.0) g/dL Crossmatch 05/10/21 05/10/21 05/10/21 Range/Units 04:00 04:55 05:59 WBC (3.8-10.6) k/uL RBC (4.30-5.90) m/uL Hgb (13.0-17.5) gm/dL Hct (39.0-53.0) % Plt Count (150-450) k/uL Neutrophils # (1.3-7.7) k/uL Monocytes # (0-1.0) k/uL ABG pH (7.35-7.45) ABG pCO2 (35-45) mmHg ABG pO2 (83-108) mmHg ABG O2 Saturation (94-97) % Sodium 136 L (137-145) mmol/L Chloride 109 H (98-107) mmol/L Carbon Dioxide 21 L (22-30) mmol/L Glucose 146 H (74-99) mg/dL POC Glucose (mg/dL) 138 H 129 H (75-99) mg/dL Calcium 8.1 L (8.4-10.2) mg/dL Magnesium (1.6-2.3) mg/dL Alkaline Phosphatase 36 L (38-126) U/L Total Protein 5.1 L (6.3-8.2) g/dL Albumin 2.7 L (3.5-5.0) g/dL Crossmatch 05/10/21 05/10/21 05/10/21 Range/Units 07:05 08:04 08:38 WBC (3.8-10.6) k/uL RBC (4.30-5.90) m/uL Hgb (13.0-17.5) gm/dL Hct (39.0-53.0) % Plt Count (150-450) k/uL Neutrophils # (1.3-7.7) k/uL Monocytes # (0-1.0) k/uL ABG pH (7.35-7.45) ABG pCO2 (35-45) mmHg ABG pO2 (83-108) mmHg ABG O2 Saturation (94-97) % Sodium (137-145) mmol/L Chloride (98-107) mmol/L Carbon Dioxide (22-30) mmol/L Glucose (74-99) mg/dL POC Glucose (mg/dL) 115 H 103 H 111 H (75-99) mg/dL Calcium (8.4-10.2) mg/dL Magnesium (1.6-2.3) mg/dL Alkaline Phosphatase (38-126) U/L Total Protein (6.3-8.2) g/dL Albumin (3.5-5.0) g/dL Crossmatch 05/10/21 05/10/21 05/10/21 Range/Units 09:09 10:10 11:22 WBC (3.8-10.6) k/uL RBC (4.30-5.90) m/uL Hgb (13.0-17.5) gm/dL Hct (39.0-53.0) % Plt Count (150-450) k/uL Neutrophils # (1.3-7.7) k/uL Monocytes # (0-1.0) k/uL ABG pH (7.35-7.45) ABG pCO2 (35-45) mmHg ABG pO2 (83-108) mmHg ABG O2 Saturation (94-97) % Sodium (137-145) mmol/L Chloride (98-107) mmol/L Carbon Dioxide (22-30) mmol/L Glucose (74-99) mg/dL POC Glucose (mg/dL) 107 H 130 H 122 H (75-99) mg/dL Calcium (8.4-10.2) mg/dL Magnesium (1.6-2.3) mg/dL Alkaline Phosphatase (38-126) U/L Total Protein (6.3-8.2) g/dL Albumin (3.5-5.0) g/dL Crossmatch 05/10/21 05/10/21 Range/Units 12:33 14:02 WBC (3.8-10.6) k/uL RBC (4.30-5.90) m/uL Hgb (13.0-17.5) gm/dL Hct (39.0-53.0) % Plt Count (150-450) k/uL Neutrophils # (1.3-7.7) k/uL Monocytes # (0-1.0) k/uL ABG pH (7.35-7.45) ABG pCO2 (35-45) mmHg ABG pO2 (83-108) mmHg ABG O2 Saturation (94-97) % Sodium (137-145) mmol/L Chloride (98-107) mmol/L Carbon Dioxide (22-30) mmol/L Glucose (74-99) mg/dL POC Glucose (mg/dL) 115 H 200 H (75-99) mg/dL Calcium (8.4-10.2) mg/dL Magnesium (1.6-2.3) mg/dL Alkaline Phosphatase (38-126) U/L Total Protein (6.3-8.2) g/dL Albumin (3.5-5.0) g/dL Crossmatch Assessment and Plan Assessment: Impression: Status post quadruple coronary artery bypass grafting using the ARTEAGA to LAD, left radial artery to second obtuse marginal artery reverse saphenous vein graft to ramus intermedius, reverse saphenous graft to right coronary artery. Postoperative day #1. Multivessel coronary artery disease Hypertension. Dyslipidemia. Peripheral vessel occlusive disease with intermittent claudication. History of COPD. Remote history of nephrolithiasis. Recommendation: Continue present supportive care measures. Continue aspirin statins and Plavix and beta blockers. Wean oxygen as tolerated. Increase activity as tolerated Continue GI and DVT prophylaxis. Continue insulin as per protocol. Incentive spirometry. Discontinue unnecessary catheters and lines. Wean and discontinue nitroglycerin drip. We'll continue to follow Time with Patient: Less than 30
--- NOTE | 2021-05-10 16:48 | P.PN ---
Progress Note - Text Progress Note Date: 05/10/21 - Chief Complaint Coronary bypass This is a 65-year-old patient, follows with Dr. Miramontes. Chronic stable medical conditions include diabetes, osteoarthritis, hyperlipidemia, renal calculi, GERD, COPD. RU today patient underwent four-vessel quadruple bypass. Estimated blood loss was thousand cc with Cell Saver of 700 mL. Postprocedure patient with ICU. On the ventilator intubated. FiO2 50 and a PEEP of 8. Telemetry shows sinus rhythm. Patient has 3 chest use. 2 mediastinal and one left pleural. Current drips include norepinephrine, propofol, insulin, nitroglycerin and lactated Ringer's. Patient sedated. Stallworth catheter. 05/10/2021: Sore the patient earlier today. Extubated. Awake. Tired. Sinus rhythm. On insulin drip. Chest tubes in place. Stallworth catheter. Review of systems: Was done for constitutional, cardiovascular, GI, pulmonary. relevant finding as above Active Medications Acetaminophen (Acetaminophen Tab 325 Mg Tab) 650 mg PO Q6HR PRN PRN Reason: Mild Pain or Fever > 38.3 C Hydrocodone Bitart/Acetaminophen (Hydrocodone/Apap 5-325mg 1 Each Tab) 2 each PO Q4HR PRN PRN Reason: Severe Pain Last Admin: 05/10/21 12:48 Dose: 2 each Documented by: Hydrocodone Bitart/Acetaminophen (Hydrocodone/Apap 5-325mg 1 Each Tab) 1 each PO Q4HR PRN PRN Reason: Moderate Pain Albuterol/Ipratropium (Ipratropium-Albuterol 3 Ml Neb) 3 ml INHALATION RT-Q2H PRN PRN Reason: Shortness Of Breath Or Wheezing Albuterol/Ipratropium (Ipratropium-Albuterol 3 Ml Neb) 3 ml INHALATION RT-QID [facility] Last Admin: 05/10/21 15:13 Dose: Not Given Documented by: Amlodipine Besylate (Amlodipine 2.5 Mg Tab) 2.5 mg PO DAILY [facility] Last Admin: 05/10/21 09:51 Dose: 2.5 mg Documented by: Aspirin (Aspirin 325 Mg Tab) 325 mg PO DAILY [facility] Last Admin: 05/10/21 08:48 Dose: 325 mg Documented by: Atorvastatin Calcium (Atorvastatin 40 Mg Tab) 40 mg PO DAILY [facility] Last Admin: 05/10/21 08:48 Dose: 40 mg Documented by: Bisacodyl (Bisacodyl 10 Mg Supp) 10 mg RECTAL DAILY PRN PRN Reason: Constipation Budesonide/Formoterol Fumarate (Symbicort 160-4.5 Mcg Inhaler) 2 puff INHALATION RT-BID [facility] Clopidogrel Bisulfate (Clopidogrel 75 Mg Tab) 75 mg PO DAILY [facility] Last Admin: 05/10/21 08:48 Dose: 75 mg Documented by: Heparin Sodium (Porcine) (Heparin Sodium,Porcine/Pf 5,000 Unit/0.5 Ml Syringe) 5,000 unit SQ Q8HR [facility] Last Admin: 05/10/21 16:09 Dose: 5,000 unit Documented by: Amiodarone HCl 150 mg/ (Dextrose/Water) 103 mls @ 618 mls/hr IV .Q10M PRN; Protocol PRN Reason: A.FIB/FLUTTER Amiodarone HCl 360 mg/ (Dextrose/Water) 207.2 mls @ 34.533 mls/hr IV .Q6H PRN; Protocol PRN Reason: A.FIB/FLUTTER Amiodarone HCl 450 mg/ (Dextrose/Water) 250 mls @ 16.667 mls/hr IV .Q15H PRN; Protocol PRN Reason: A.FIB/FLUTTER Albumin Human 250 ml/ IV (Solution) 250 mls @ 250 mls/hr IVPB Q1HR PRN; Protocol PRN Reason: For Volume Stop: 05/11/21 14:43 Last Admin: 05/10/21 06:00 Dose: 250 mls/hr Documented by: Lactated Ringer's (Lactated Ringers) 1,000 mls @ 20 mls/hr IV .Q24H [facility] Last Admin: 05/10/21 13:38 Dose: Not Given Documented by: Calcium Gluconate 2 gm/ Sodium (Chloride) 120 mls @ 100 mls/hr IVPB ONCE PRN PRN Reason: Ionized Calcium less than 4.4 Stop: 05/10/21 20:00 Insulin Aspart (Insulin Aspart (Novolog) 100 Unit/Ml Vial) 0 unit SQ ACHS [facility]; Protocol Last Admin: 05/10/21 14:07 Dose: 5 unit Documented by: Insulin Detemir (Insulin Detemir (Levemir) 100 Unit/Ml Syr) 15 unit SQ DAILY@0 700 [facility] Last Admin: 05/10/21 13:38 Dose: 15 unit Documented by: Ketorolac Tromethamine (Ketorolac 15 Mg/Ml 1 Ml Vial) 15 mg IVP Q6HR [facility] Stop: 05/13/21 07:59 Last Admin: 05/10/21 11:25 Dose: 15 mg Documented by: Magnesium Hydroxide (Magnesium Hydroxide 2,400 Mg/10 Ml Cup) 2,400 mg PO BID PRN PRN Reason: Constipation Metoclopramide HCl (Metoclopramide 5 Mg/Ml 2 Ml Vial) 10 mg IVP Q4H PRN PRN Reason: Nausea And Vomiting Metoprolol Tartrate (Metoprolol Tartrate 12.5 Mg Tab) 12.5 mg PO BID [facility] Last Admin: 05/10/21 08:48 Dose: 12.5 mg Documented by: Miscellaneous Information (Potassium Replacement Protocol 1 Each Misc) 1 each MISCELLANE DAILY PRN; Protocol PRN Reason: Per Protocol Miscellaneous Information (Magnesium Replacement Protocol 1 Each Misc) 1 each MISCELLANE DAILY PRN; Protocol PRN Reason: Per Protocol Miscellaneous Information (Phosphorus Replacement Protoco 1 Each Misc) 1 each MISCELLANE DAILY PRN; Protocol PRN Reason: Per Protocol Ondansetron HCl (Ondansetron 4 Mg/2 Ml Vial) 4 mg IVP Q6HR PRN PRN Reason: Nausea And Vomiting Pantoprazole Sodium (Pantoprazole 40 Mg Tablet) 40 mg PO AC-BRKFST [facility] Senna/Docusate Sodium (Sennosides-Docusate Sodium 1 Each Tab) 2 each PO HS [facility] Sodium Chloride (Sodium Chloride 0.9% Flush 10 Ml Syringe) 10 ml IV BID [facility] Last Admin: 05/10/21 09:40 Dose: 10 ml Documented by: Past medical history to include: Diabetes, or strep throat is, hyperlipidemia, CAD, renal calculi, COPD, GERD, Social history: Smokes half a pack a day for close to 53 years. Alcohol occasionally. CBD Gummi's. 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 Family history: Reviewed, noncontributory to presentation Physical examination: VITAL SIGNS: 98.5, 83, 12, 109/40, 90% on 5 L GENERAL: Laying in bed, awake, tired. Chest tubes, Stallworth catheter. EYES: Pupils equal. Conjunctiva normal. HEENT: External appearance of nose and ears normal, oral cavity dry NECK: JVD unable to assess; masses not palpable. HEART: First and second heart sounds are normal; no edema. LUNGS: Respiratory rate increased; decreased breath sounds. ABDOMEN: Soft, nontender, liver spleen not palpable, no masses palpable. PSYCH: Answering simple questions NEUROLOGICAL: [Cranial nerves grossly intact; no facial asymmetry, moving limbs INVESTIGATIONS, reviewed in the clinical context: May 10: White count 18.7 hemoglobin 12.2 platelets 137 potassium 4.2 creatinine 14 and 0.76 albumin 2.7 White count 20.4 hemoglobin 13.2 platelets 150 Accu-Cheks 164, 158, 151 Labs from 05/05/2021: Hemoglobin 15.4 platelets 12.9 potassium 4.6 creatinine 0.87 Assessment and plan: -Quadruple coronary bypass Currently on norepinephrine, propofol, insulin, nitroglycerin drip. -CAD per recent cardiac catheterization triple-vessel Aspirin, Lipitor, Lopressor -Acute postprocedure blood loss anemia, expected from surgery Follow H&H -Reactive leukocytosis from surgery regular evidence of infection -Dilutional thrombocytopenia Follow CBC -Diabetes mellitus type 2 DC insulin drip. Start Levemir 14 units.. Follow Accu-Cheks -Primary osteoarthritis Pain medications as needed -Hyperlipidemia Lipitor 40 mg daily -COPD in a current smoker DuoNeb -Chronic debility dependence cigarette smoker Nicotine patch GERD Omeprazole DC insulin drip. Start Levemir 14 units per sliding scale. Diet to be addressed with surgery. Other medications to continue. Thank you Dr. Menezes
[2021-05-10 17:08] LABS: Glucose,Whole Blood 145 mg/dL (75-99)
[2021-05-10] MEDS ORDERED: ALBUMIN HUMAN 5% 250 ML in EMPTY BAG 1 BAG IVPB ONE (19:05)
[2021-05-10] MEDS: SYMBICORT 160-4.5 MCG INHALER INHALATION SCH (19:38)
[2021-05-10] MEDS: SENNOSIDES-DOCUSATE SODIUM 1 EACH TAB PO SCH (21:12)
[2021-05-10 22:01] LABS: Glucose,Whole Blood 114 mg/dL (75-99)
[2021-05-11] MEDS: HYDROcodone/APAP 5-325MG 1 EACH TAB PO PRN ×4 (03:38→22:13)
[2021-05-11] MEDS ORDERED: HYDROmorphone 1 MG/ML 1 ML SYRINGE IVP STA (03:51)
--- NOTE | 2021-05-11 04:30 | XR ---
EXAMINATION TYPE: XR chest 1V portable DATE OF EXAM: 05/11/2021 COMPARISON: Yesterday HISTORY: Chest pain TECHNIQUE: Single view FINDINGS: There is some atelectasis and mild infiltrate left lung base. There is no gross heart failu re. There are sternal wires. There are drains over the heart. There are chest leads. IMPRESSION: There is some mild atelectasis and pleural reaction left lung base that is slightly impro malvin compared to yesterday. No heart failure seen.
[2021-05-11 04:35] LABS: Basophils # (A) 0.1 k/uL (0-0.2); Basophils % (A) 0 %; Eosinophils # (A) 0.1 k/uL (0-0.7); Eosinophils % (A) 0 %; HCT 32.1 % (39.0-53.0); HGB 10.5 gm/dL (13.0-17.5); Lymphocytes # (A) 4.2 k/uL (1.0-4.8); Lymphocytes % (A) 19 %; MCHC 32.8 g/dL (31.0-37.0); MCV 94.5 fL (80.0-100.0); Mean Platelet Volume 9.7; Monocytes # (A) 1.2 k/uL (0-1.0); Monocytes % (A) 6 %; Neutrophils # (A) 15.7 k/uL (1.3-7.7); Neutrophils % (A) 72 %; Platelet Count 118 k/uL (150-450); RDW 13.6 % (11.5-15.5); WBC 21.7 k/uL (3.8-10.6)
[2021-05-11 05:00] LABS: Ionized Calcium 4.8 mg/dL (4.5-5.3)
[2021-05-11 05:12] LABS: ALT 15 U/L (4-49); AST 47 U/L (17-59); African American GFR (CKD) >90 (>60 ml/min/1.73 sqM); Albumin 3.2 g/dL (3.5-5.0); Alkaline Phosphatase 42 U/L (38-126); Anion Gap 6 mmol/L; Blood Urea Nitrogen 18 mg/dL (9-20); Calcium 8.5 mg/dL (8.4-10.2); Carbon Dioxide 24 mmol/L (22-30); Chloride 105 mmol/L (98-107); Glucose 177 mg/dL (74-99); Non-African American GFR(CKD) >90 (>60 ml/min/1.73 sqM); Potassium 4.1 mmol/L (3.5-5.1); Sodium 135 mmol/L (137-145); Total Bilirubin 0.4 mg/dL (0.2-1.3); Total Protein 5.6 g/dL (6.3-8.2)
[2021-05-11] MEDS: KETOROLAC 15 MG/ML 1 ML VIAL IVP SCH ×3 (06:24→17:27)
[2021-05-11] MEDS: AMIODARONE 450 MG in DEXTROSE 5% IN WATER 250 ML IV PRN ×4 (06:39→17:45)
[2021-05-11] MEDS ORDERED: METOCLOPRAMIDE 5 MG/ML 2 ML VIAL IVP STA (07:28)
[2021-05-11 07:30] LABS: Glucose,Whole Blood 169 mg/dL (75-99)
[2021-05-11] MEDS: SYMBICORT 160-4.5 MCG INHALER INHALATION SCH ×2 (07:39→21:11)
[2021-05-11] MEDS: IPRATROPIUM-ALBUTEROL 3 ML NEB INHALATION SCH ×4 (07:39→21:10)
[2021-05-11] MEDS: INSULIN DETEMIR (LEVEMIR) 100 UNIT/ML SYR SQ SCH (07:59)
[2021-05-11] MEDS: INSULIN ASPART (NovoLOG) 100 UNIT/ML VIAL SQ SCH ×6 (08:00→21:05)
[2021-05-11] MEDS: PANTOPRAZOLE 40 MG TABLET PO SCH (08:01)
[2021-05-11] MEDS: CLOPIDOGREL 75 MG TAB PO SCH (08:01)
[2021-05-11] MEDS: ATORVASTATIN 40 MG TAB PO SCH (08:01)
[2021-05-11] MEDS: ASPIRIN 325 MG TAB PO SCH (08:02)
[2021-05-11] MEDS: MAGNESIUM HYDROXIDE 2,400 MG/10 ML CUP PO PRN ×2 (08:02→18:02)
[2021-05-11] MEDS: HEPARIN SODIUM,PORCINE/PF 5,000 UNIT/0.5 ML SYRINGE SQ SCH ×2 (08:02→16:07)
[2021-05-11] MEDS ORDERED: METOPROLOL TARTRATE 50 MG TAB PO SCH (09:00)
[2021-05-11] MEDS ORDERED: METOPROLOL TARTRATE 25 MG TAB PO SCH (09:00)
[2021-05-11] MEDS ORDERED: FUROSEMIDE 10 MG/ML 2 ML VIAL IV ONE (09:25)
[2021-05-11] MEDS: ACETYLCYSTEINE 800 MG/4 ML VIAL INHALATION SCH ×4 (09:29→21:04)
--- NOTE | 2021-05-11 09:35 | P.PN ---
"Subjective Progress Note Date: 05/11/21 Principal diagnosis: Triple-vessel coronary artery disease with preserved left ventricular systolic function. Previous medical history of hypertension, hyperlipidemia, diet-contro lled diabetes mellitus type 2, peripheral vascular disease, remote history of kidney stones, history of SVT, and chronic obstructive pulmonary disease with chronic ongoing tobacco abuse. POD #2 quadruple coronary artery bypass grafting using the left internal mammary artery to left anterior descending coronary artery, left radial artery from the aorta to the second obtuse marginal coronary artery, a reverse greater saphenous vein graft from the aorta to the ramus intermedius coronary artery, a reverse greater saphenous vein graft from the aorta to the right coronary artery. Exclusion of the left atrial appendage using a 35 mm Atriclip, endoscopic harvesting of the left radial artery, endoscopic harvesting of the left greater saphenous vein, intraoperative graft flow measurements using the Traveler | VIPstim system, intraoperative transesophageal echocardiogram and epi-aortic scanning. Postoperative acute blood loss anemia, expected due to cardiopulmonary bypass and hemodilution. Postoperative atrial fibrillation, known common occurrence after open heart surgery The patient was seen and examined at the bedside in the intensive care unit this morning. He did have an episode of severe abdominal pain last night, was shallow breathing due to pain, was given IV Dilaudid with some cessation of his pain. Oxygen saturation tended down in his FiO2 was increased. Patient refused to get out of bed, refused to cough and deep breathe. This morning he was strongly encouraged to get up and did quite well getting into the chair with assistance. He was noted to be in A. fib RVR this morning and started on IV amiodarone protocol. Right internal jugular Cordis, right radial arterial line, mediastinal/left pleural chest tubes all remaining in place. Remains hemodynamically stable on no inotropes or pressors. Objective - Vital Signs Vital signs: Vital Signs Temp 96.9 F L 05/11/21 08:00 Pulse 111 H 05/11/21 08:00 Resp 16 05/11/21 08:00 BP 92/53 05/10/21 17:00 Pulse Ox 94 L 05/11/21 08:00 Intake & Output 05/10/21 05/11/21 05/11/21 18:59 06:59 18:59 Intake Total 772.215 690 46 Output Total 815 765 85 Balance -42.785 -75 -39 Weight 102.6 kg 101.3 kg Intake: IV 728.5 490 46 .9NS Cardiac Output 40 0.9NS Pressure Bag 54 6 Albumin 5% 250 Albumin Human 5% 250 ml 250 In Empty Bag 1 bag @ 250 mls/hr IVPB ONCE ONE Rx#: [id number] Kefzol IVPB 50 Lactated Ringers 330 240 40 Nitroglycerine 4.5 Intake, IV Titration 43.715 Amount Insulin Regular 100 unit 23.138 In Sodium Chloride 0.9% 100 ml @ Per Protocol IV .Q0M [facility] Rx#:[id number] Norepinephrine 4 mg In 20.577 Sodium Chloride 0.9% 250 ml @ 0.03 MCG/KG/MIN 11. 327 mls/hr IV .[id number] [facility] Rx#:[id number] Oral 200 Output: Chest Tube Drainage 240 390 40 Left Chest Tube 190 370 20 Mediastinal Chest Tube X 50 20 20 2 Urine 575 375 45 Other: Voiding Method Indwelling Catheter Indwelling Catheter Indwelling Catheter ABP, PAP, CO, CI - Last Documented Arterial Blood Pressure 108/49 Pulmonary Artery Pressure 33/11 Cardiac Output 6.3 Cardiac Index 2.9 - Exam CONSTITUTIONAL: Appears cooperative, no acute distress RESPIRATORY: Lungs sounds diminished bilaterally. Respirations even, nonlabored. Currently on 15 L high flow nasal cannula with oxygen saturation 91%. Able to achieve 1000 mL on incentive spirometry. Strong cough. CARDIOVASCULAR: S1, S2 present. Irregular rate and rhythm, uncontrolled atrial fibrillation on telemetry. Sternum stable. Palpable peripheral pulses bilaterally. Trace generalized edema present. No calf pain or tenderness noted. Heart hugger in place with patient demonstrating appropriate use. Antiembolism stockings, SCDs present. GASTROINTESTINAL: Abdomen soft, nontender, nondistended. Active bowel sounds present 4 quadrants. Tolerating diet. Positive flatus GENITOURINARY: Stallworth present draining clear, yellow urine. Output overnight 20-30 mL per hour, 950 mL in the last 24 hours INTEGUMENTARY: Skin is warm and dry with evidence of good perfusion. Anterior chest incision well approximated and covered with dry intact dressing. Left lower extremity EVH site well approximated without redness or drainage. Left radial artery harvest site well approximated without redness or drainage NEUROLOGIC: Cranial nerves II through XII intact MUSKULOSKELETAL: Able to move all extremities, strength equal bilaterally, gait normal PSYCHIATRIC: Alert and oriented to person place and time, appropriate affect, intact judgment and insight INVASIVE LINES AND TUBES: Mediastinal/left pleural chest tubes present and connected to wall suction, no air leaks present. Mediastinal tube with 10 mL serosanguineous drainage overnight, 50 mL in the last 24 hours. Left pleural chest tube with 250 mL serosanguineous drainage overnight, 450 mL in the last 24 hours. A/V epicardial pacemaker wires present, connected to generator, backup rate 50 bpm. Right internal jugular Cordis, right radial arterial line present. - Allied health notes Allied health notes reviewed: nursing - Labs CBC & Chem 7: 05/11/21 04:20 05/11/21 04:20 Labs: Abnormal Lab Results - Last 24 Hours (Table) 05/10/21 05/10/21 05/10/21 Range/Units 09:09 10:10 11:22 WBC (3.8-10.6) k/uL RBC (4.30-5.90) m/uL Hgb (13.0-17.5) gm/dL Hct (39.0-53.0) % Plt Count (150-450) k/uL Neutrophils # (1.3-7.7) k/uL Monocytes # (0-1.0) k/uL Sodium (137-145) mmol/L Glucose (74-99) mg/dL POC Glucose (mg/dL) 107 H 130 H 122 H (75-99) mg/dL Total Protein (6.3-8.2) g/dL Albumin (3.5-5.0) g/dL 05/10/21 05/10/21 05/10/21 Range/Units 12:33 14:02 17:07 WBC (3.8-10.6) k/uL RBC (4.30-5.90) m/uL Hgb (13.0-17.5) gm/dL Hct (39.0-53.0) % Plt Count (150-450) k/uL Neutrophils # (1.3-7.7) k/uL Monocytes # (0-1.0) k/uL Sodium (137-145) mmol/L Glucose (74-99) mg/dL POC Glucose (mg/dL) 115 H 200 H 145 H (75-99) mg/dL Total Protein (6.3-8.2) g/dL Albumin (3.5-5.0) g/dL 05/10/21 05/11/21 05/11/21 Range/Units 21:59 04:20 04:20 WBC 21.7 H (3.8-10.6) k/uL RBC 3.40 L (4.30-5.90) m/uL Hgb 10.5 L (13.0-17.5) gm/dL Hct 32.1 L (39.0-53.0) % Plt Count 118 L (150-450) k/uL Neutrophils # 15.7 H (1.3-7.7) k/uL Monocytes # 1.2 H (0-1.0) k/uL Sodium 135 L (137-145) mmol/L Glucose 177 H (74-99) mg/dL POC Glucose (mg/dL) 114 H (75-99) mg/dL Total Protein 5.6 L (6.3-8.2) g/dL Albumin 3.2 L (3.5-5.0) g/dL 05/11/21 Range/Units 07:29 WBC (3.8-10.6) k/uL RBC (4.30-5.90) m/uL Hgb (13.0-17.5) gm/dL Hct (39.0-53.0) % Plt Count (150-450) k/uL Neutrophils # (1.3-7.7) k/uL Monocytes # (0-1.0) k/uL Sodium (137-145) mmol/L Glucose (74-99) mg/dL POC Glucose (mg/dL) 169 H (75-99) mg/dL Total Protein (6.3-8.2) g/dL Albumin (3.5-5.0) g/dL - Imaging and Cardiology Chest x-ray: report reviewed, image reviewed Assessment and Plan Assessment: 1. Triple-vessel coronary artery disease with preserved left ventricular systolic function, status post four-vessel CABG 2. History of hypertension 3. Hyperlipidemia, treated, cholesterol 136, LDL 59, triglycerides 215 4. Diet-controlled diabetes mellitus type 2, preoperative hemoglobin A1c 6.2% 5. Peripheral vascular disease, preoperative ABIs 0.67 on the right and 0.66 on the left, history of intermittent claudication 6. Bilateral carotid artery stenosis, right ICA greater than 70%, left ICA 50- 69% 7. Remote history of kidney stones 8. History of SVT 9. Moderate COPD with chronic ongoing tobacco abuse, preoperative FEV1 58% of predicted 10. Postoperative acute blood loss anemia, expected 11. Postoperative atrial fibrillation, known common occurrence after open heart surgery, status post left atrial appendage ligation Plan: 1. Continue aspirin, statin, Plavix, and beta fer. Will increase beta fer as tolerated, increased 25 mg twice daily today. Stop Norvasc, start oral Cardizem for radial artery spasm prophylaxis, do not discontinue CCB without discussed with cardiothoracic surgery 2. Continue amiodarone for A. fib prophylaxis, will transition to oral amiodarone. No anticoagulation necessary unless in atrial fibrillation greater than 24 hours 3. Wean O2 as tolerated. Encourage incentive spirometry 10 times every hour while awake. Bronchodilators per pulmonology management. 4. Increase activity, ambulate as tolerated. PT/OT/cardiac rehab following, patient needs encouragement to get up and move 5. Will monitor daily labs and chest x-rays. Electrolyte replacement per protocol. Will give 20 mg IV push Lasix today 6. GI/DVT prophylaxis. 7. Insulin management per primary care service. Patient needs tight blood sugar control to promote sternal union and prevent infection, preoperative hemoglobin A1c was 6.2%. 8. Pain control is current medication regimen. Toradol 15 mg IV every 6 hours was added for additional pain control. 9. Will discontinue mediastinal chest tube, keep left pleural chest tubes for another 24 hours 10. Discontinue Stallworth catheter after IV diuresis 11. Strict accurate intake and output. Daily weights 12. More recommendations to follow based on the patient's clinical course. Time with Patient: Greater than 30"
[2021-05-11] MEDS ORDERED: DEXTROSE 5% IN WATER 100 ML with AMIODARONE 150 MG IV ONE (10:00)
--- NOTE | 2021-05-11 11:17 | PN ---
PROGRESS NOTE Mr. Skaggs is a 65-year-old male who has undergone coronary bypass grafting with 4-way bypass. He is awake, alert, sitting up in the chair, in atrial fibrillation. He has mild dyspnea, has some soreness in the chest. He denies any dizziness. He denies any palpitations. He is in atrial fibrillation. He was started on IV amiodarone. He continues to be otherwise on amlodipine 2.5 mg daily, aspirin once a day, Lipitor 40 mg daily, Plavix 75 mg daily, metoprolol tartrate 25 mg twice a day. PHYSICAL EXAMINATION: Blood pressure is running in the 140s with a heart rate in the 110s to 120s. LUNGS: Decreased breath sounds at the bases. No wheezes. HEART: Irregularly irregular. S1, S2. No S3. No rub. ABDOMEN: Soft, nontender. EXTREMITIES: No edema. LAB DATA: BUN and creatinine of 18 and 0.84. Potassium 4.1, white blood cells of 21.7. Chest x-ray shows no infiltrate. IMPRESSION: 1. Status post coronary artery bypass grafting. 2. Atrial fibrillation postoperatively. 3. History of hypertension. 4. Hyperlipidemia. 5. History of chronic obstructive lung disease. RECOMMENDATIONS: From the cardiac standpoint, I will increase the dose of his beta fer, continue the rest of his medical regimen. Will follow his rhythm closely. If needed, anticoagulation will be initiated if he has persistent atrial fibrillation. Otherwise, depending on his progress, further recommendations will be made. MMODL / IJN: [id number] /
[2021-05-11 11:24] LABS: Glucose,Whole Blood 247 mg/dL (75-99)
[2021-05-11 11:46] LABS: Glucose,Whole Blood 229 mg/dL (75-99)
[2021-05-11] MEDS: DILTIAZEM ORAL 30 MG TAB PO SCH ×2 (11:58→17:27)
--- NOTE | 2021-05-11 15:03 | P.PN ---
Subjective Progress Note Date: 05/11/21 Principal diagnosis: Status post CABG, postoperative day #2 Patient was reevaluated today on 05/10/21, patient is Status post quadruple coronary artery bypass grafting using the ARTEAGA to LAD, left radial artery to second obtuse marginal artery reverse saphenous vein graft to ramus intermedius, reverse saphenous graft to right coronary artery. Postoperative day #1. Agent was extubated around midnight last night, tolerated the extubation well, he is still in the ICU today. On 5 L nasal cannula, resting at a bedside recliner, not in any distress. Patient is on IV fluid at 50 mL per hour, he is also on nitroglycerin drip. Chest x-ray this morning showed minimal basilar atelectasis which is expected. His cardiac output is 6.3, cardiac index is 2.9. CVP is 7. Continues to have his mediastinal and left pleural chest tubes. His pulmonary artery pressure 31/11. And his heart rate is 86. Clinically the patient is doing great, relatively asymptomatic. Beginning to use his incentive spirometry early this morning,Mediastinal and left pleural chest tubes remain in place to low continuous wall suction -20 cm H2O. No air leak is present. Draining thin serosanguineous drainage. Mediastinal chest tubes drained 150 mL output in the last 8 hours and 450 mL since surgery. Left pleural chest tube drained 95 mL output in the last 8 hours and 310 mL output since surgery. Reevaluated today on 05/11/21, patient remains in the ICU, he is however requiring more oxygen, he is now on 15 L high flow nasal cannula, his O2 sats is 93%, he is in atrial fibrillation, but seems to be better controlled with amiodarone presently at 0.5 mg/m. Patient did develop abdominal pain last night, and had some shallow breathing with the pain, given IV Dilaudid that seemed to help. Again his FiO2 requirement has increased, patient is not doing much deep coughing and deep breathing. He was encouraged to use his incentive spirometer. Mediastinal/left pleural chest tubes all remain in place, patient is not requiring any inotropes or process. He is hemodynamically stable. Chest x-ray this morning showed minimal atelectasis and pleural reaction of the left lung base, not significant explain his drop in his O2 saturation WBC count today is 21.7, hemoglobin is 10.5. Electrodes are normal renal profile is normal. And the patient is on appropriate bronchodilators for his underlying history of COPD. Objective - Vital Signs Vital signs: Vital Signs Temp 96.9 F L 05/11/21 08:00 Pulse 64 05/11/21 14:00 Resp 24 05/11/21 14:00 BP 92/53 05/10/21 17:00 Pulse Ox 95 05/11/21 14:00 Intake & Output 05/10/21 05/11/21 05/11/21 18:59 06:59 18:59 Intake Total 772.215 690 413 Output Total 815 765 438 Balance -42.785 -75 -25 Weight 102.6 kg 101.3 kg Intake: IV 728.5 490 193 .9NS Cardiac Output 40 0.9NS Pressure Bag 54 33 Albumin 5% 250 Albumin Human 5% 250 ml 250 In Empty Bag 1 bag @ 250 mls/hr IVPB ONCE ONE Rx#: [id number] Kefzol IVPB 50 Lactated Ringers 330 240 160 Nitroglycerine 4.5 Intake, IV Titration 43.715 Amount Insulin Regular 100 unit 23.138 In Sodium Chloride 0.9% 100 ml @ Per Protocol IV .Q0M [facility] Rx#:[id number] Norepinephrine 4 mg In 20.577 Sodium Chloride 0.9% 250 ml @ 0.03 MCG/KG/MIN 11. 327 mls/hr IV .[id number] [facility] Rx#:[id number] Oral 200 220 Output: Chest Tube Drainage 240 390 190 Left Chest Tube 190 370 170 Mediastinal Chest Tube X 50 20 20 2 Urine 575 375 248 Other: Voiding Method Indwelling Catheter Indwelling Catheter Indwelling Catheter ABP, PAP, CO, CI - Last Documented Arterial Blood Pressure 101/40 Pulmonary Artery Pressure 33/11 Cardiac Output 6.3 Cardiac Index 2.9 - Exam General: Revealed a 65-year-old white male in no distress, on 15 L high flow nasal cannula HEENT: Neck supple no neck masses no JVD. Lungs:: Symmetrical chest expansion, diminished breath sounds at the bases no rhonchi and no wheezes. CARDIOVASCULAR: Irregular irregular rhythm. Normal S1 and S2, no S3 gallop, sternum is stable. GASTROINTESTINAL: Soft nontender no megaly no rebound no guarding. INTEGUMENTARY: No rashes. NEUROLOGIC: Alert and oriented 3 no focal deficit MUSKULOSKELETAL: No deformities noted limitation range of motion. PSYCHIATRIC: Normal mood affect and normal mental status examination. - Labs CBC & Chem 7: 05/11/21 04:20 05/11/21 04:20 Labs: Abnormal Lab Results - Last 24 Hours (Table) 05/10/21 05/10/21 05/11/21 Range/Units 17:07 21:59 04:20 WBC 21.7 H (3.8-10.6) k/uL RBC 3.40 L (4.30-5.90) m/uL Hgb 10.5 L (13.0-17.5) gm/dL Hct 32.1 L (39.0-53.0) % Plt Count 118 L (150-450) k/uL Neutrophils # 15.7 H (1.3-7.7) k/uL Monocytes # 1.2 H (0-1.0) k/uL Sodium (137-145) mmol/L Glucose (74-99) mg/dL POC Glucose (mg/dL) 145 H 114 H (75-99) mg/dL Total Protein (6.3-8.2) g/dL Albumin (3.5-5.0) g/dL 05/11/21 05/11/21 05/11/21 Range/Units 04:20 07:29 11:22 WBC (3.8-10.6) k/uL RBC (4.30-5.90) m/uL Hgb (13.0-17.5) gm/dL Hct (39.0-53.0) % Plt Count (150-450) k/uL Neutrophils # (1.3-7.7) k/uL Monocytes # (0-1.0) k/uL Sodium 135 L (137-145) mmol/L Glucose 177 H (74-99) mg/dL POC Glucose (mg/dL) 169 H 247 H (75-99) mg/dL Total Protein 5.6 L (6.3-8.2) g/dL Albumin 3.2 L (3.5-5.0) g/dL 05/11/21 Range/Units 11:44 WBC (3.8-10.6) k/uL RBC (4.30-5.90) m/uL Hgb (13.0-17.5) gm/dL Hct (39.0-53.0) % Plt Count (150-450) k/uL Neutrophils # (1.3-7.7) k/uL Monocytes # (0-1.0) k/uL Sodium (137-145) mmol/L Glucose (74-99) mg/dL POC Glucose (mg/dL) 229 H (75-99) mg/dL Total Protein (6.3-8.2) g/dL Albumin (3.5-5.0) g/dL Assessment and Plan Assessment: Impression: Status post quadruple coronary artery bypass grafting using the ARTEAGA to LAD, left radial artery to second obtuse marginal artery reverse saphenous vein graft to ramus intermedius, reverse saphenous graft to right coronary artery. Postoperative day #2 Postoperative atelectasis, expected. Multivessel coronary artery disease Hypertension. Dyslipidemia. Peripheral vessel occlusive disease with intermittent claudication. Acute hypoxic respiratory failure, multifactorial, secondary to postoperative atelectasis which is expected, atrial fibrillation, and possibly some component of COPD exacerbation. Remote history of nephrolithiasis. Recommendation: Continue bronchodilators. Continue present supportive care measures. Continue aspirin statins and Plavix and beta blockers. Continue oxygen and titrate accordingly. Continue amiodarone. Increase activity as tolerated Continue GI and DVT prophylaxis. Incentive spirometry. We'll continue to follow Time with Patient: Less than 30
--- NOTE | 2021-05-11 15:16 | P.PN ---
Progress Note - Text Progress Note Date: 05/11/21 - Chief Complaint Coronary bypass This is a 65-year-old patient, follows with Dr. Miramontes. Chronic stable medical conditions include diabetes, osteoarthritis, hyperlipidemia, renal calculi, GERD, COPD. RU today patient underwent four-vessel quadruple bypass. Estimated blood loss was thousand cc with Cell Saver of 700 mL. Postprocedure patient with ICU. On the ventilator intubated. FiO2 50 and a PEEP of 8. Telemetry shows sinus rhythm. Patient has 3 chest use. 2 mediastinal and one left pleural. Current drips include norepinephrine, propofol, insulin, nitroglycerin and lactated Ringer's. Patient sedated. Stallworth catheter. 05/10/2021: Sore the patient earlier today. Extubated. Awake. Tired. Sinus rhythm. On insulin drip. Chest tubes in place. Stallworth catheter. 05/11/2021: Sitting up in a recliner. Breathing better. One chest tube taken out. Sinus rhythm. Accu-Cheks running a bit high. On IV amiodarone in D5. Does of Levemir increased. 3 units of NovoLog added with each meal. Discussed with patient. Started to eat better. Review of systems: Was done for constitutional, cardiovascular, GI, pulmonary. relevant finding as above Active Medications Acetaminophen (Acetaminophen Tab 325 Mg Tab) 650 mg PO Q6HR PRN PRN Reason: Mild Pain or Fever > 38.3 C Hydrocodone Bitart/Acetaminophen (Hydrocodone/Apap 5-325mg 1 Each Tab) 2 each PO Q4HR PRN PRN Reason: Severe Pain Last Admin: 05/11/21 03:38 Dose: 2 each Documented by: Hydrocodone Bitart/Acetaminophen (Hydrocodone/Apap 5-325mg 1 Each Tab) 1 each PO Q4HR PRN PRN Reason: Moderate Pain Last Admin: 05/11/21 10:19 Dose: 1 each Documented by: Acetylcysteine (Acetylcysteine 800 Mg/4 Ml Vial) 200 mg INHALATION RT-QID MARISA Last Admin: 05/11/21 15:04 Dose: 200 mg Documented by: Albuterol/Ipratropium (Ipratropium-Albuterol 3 Ml Neb) 3 ml INHALATION RT-Q2H PRN PRN Reason: Shortness Of Breath Or Wheezing Albuterol/Ipratropium (Ipratropium-Albuterol 3 Ml Neb) 3 ml INHALATION RT-QID [facility] Last Admin: 05/11/21 15:04 Dose: 3 ml Documented by: Amiodarone HCl (Amiodarone 200 Mg Tab) 400 mg PO BID [facility] Aspirin (Aspirin 325 Mg Tab) 325 mg PO DAILY [facility] Last Admin: 05/11/21 08:02 Dose: 325 mg Documented by: Atorvastatin Calcium (Atorvastatin 40 Mg Tab) 40 mg PO DAILY [facility] Last Admin: 05/11/21 08:01 Dose: 40 mg Documented by: Bisacodyl (Bisacodyl 10 Mg Supp) 10 mg RECTAL DAILY PRN PRN Reason: Constipation Budesonide/Formoterol Fumarate (Symbicort 160-4.5 Mcg Inhaler) 2 puff INHALATION RT-BID [facility] Last Admin: 05/11/21 07:39 Dose: Not Given Documented by: Clopidogrel Bisulfate (Clopidogrel 75 Mg Tab) 75 mg PO DAILY [facility] Last Admin: 05/11/21 08:01 Dose: 75 mg Documented by: Diltiazem HCl (Diltiazem Oral 30 Mg Tab) 30 mg PO Q6HR [facility] Last Admin: 05/11/21 11:58 Dose: 30 mg Documented by: Heparin Sodium (Porcine) (Heparin Sodium,Porcine/Pf 5,000 Unit/0.5 Ml Syringe) 5,000 unit SQ Q8HR [facility] Last Admin: 05/11/21 08:02 Dose: 5,000 unit Documented by: Amiodarone HCl 150 mg/ (Dextrose/Water) 103 mls @ 618 mls/hr IV .Q10M PRN; Protocol PRN Reason: A.FIB/FLUTTER Last Admin: 05/10/21 23:14 Dose: 618 mls/hr Documented by: Amiodarone HCl 450 mg/ (Dextrose/Water) 250 mls @ 16.667 mls/hr IV .Q15H PRN; Protocol PRN Reason: A.FIB/FLUTTER Last Admin: 05/11/21 06:39 Dose: 0.5 mg/min, 16.667 mls/hr Documented by: Lactated Ringer's (Lactated Ringers) 1,000 mls @ 20 mls/hr IV .Q24H [facility] Last Admin: 05/10/21 13:38 Dose: Not Given Documented by: Insulin Aspart (Insulin Aspart (Novolog) 100 Unit/Ml Vial) 0 unit SQ ACHS [facility]; Protocol Last Admin: 05/11/21 11:59 Dose: 8 unit Documented by: Insulin Aspart (Insulin Aspart (Novolog) 100 Unit/Ml Vial) 3 unit SQ AC-TID [facility] Last Admin: 05/11/21 13:09 Dose: 3 unit Documented by: Insulin Detemir (Insulin Detemir (Levemir) 100 Unit/Ml Syr) 20 unit SQ DAILY@0700 [facility] Ketorolac Tromethamine (Ketorolac 15 Mg/Ml 1 Ml Vial) 15 mg IVP Q6HR [facility] Stop: 05/13/21 07:59 Last Admin: 05/11/21 11:57 Dose: 15 mg Documented by: Magnesium Hydroxide (Magnesium Hydroxide 2,400 Mg/10 Ml Cup) 2,400 mg PO BID PRN PRN Reason: Constipation Last Admin: 05/11/21 08:02 Dose: 2,400 mg Documented by: Metoclopramide HCl (Metoclopramide 5 Mg/Ml 2 Ml Vial) 10 mg IVP Q4H PRN PRN Reason: Nausea And Vomiting Metoprolol Tartrate (Metoprolol Tartrate 25 Mg Tab) 25 mg PO BID [facility] Miscellaneous Information (Potassium Replacement Protocol 1 Each Misc) 1 each MISCELLANE DAILY PRN; Protocol PRN Reason: Per Protocol Miscellaneous Information (Magnesium Replacement Protocol 1 Each Misc) 1 each MISCELLANE DAILY PRN; Protocol PRN Reason: Per Protocol Miscellaneous Information (Phosphorus Replacement Protoco 1 Each Misc) 1 each MISCELLANE DAILY PRN; Protocol PRN Reason: Per Protocol Ondansetron HCl (Ondansetron 4 Mg/2 Ml Vial) 4 mg IVP Q6HR PRN PRN Reason: Nausea And Vomiting Pantoprazole Sodium (Pantoprazole 40 Mg Tablet) 40 mg PO AC-BRKFST [facility] Last Admin: 05/11/21 08:01 Dose: 40 mg Documented by: Senna/Docusate Sodium (Sennosides-Docusate Sodium 1 Each Tab) 2 each PO HS [facility] Last Admin: 05/10/21 21:12 Dose: 2 each Documented by: Sodium Chloride (Sodium Chloride 0.9% Flush 10 Ml Syringe) 10 ml IV BID [facility] Last Admin: 05/11/21 09:00 Dose: 10 ml Documented by: Past medical history to include: Diabetes, or strep throat is, hyperlipidemia, CAD, renal calculi, COPD, GERD, Social history: Smokes half a pack a day for close to 53 years. Alcohol occasionally. CBD Gummi's. 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 Family history: Reviewed, noncontributory to presentation Physical examination: VITAL SIGNS: 65, 16, 99/38, 92% on 10 L GENERAL: Up in a recliner, chest tubes, some shortness of breath EYES: Pupils equal. Conjunctiva normal. HEENT: External appearance of nose and ears normal, oral cavity normal NECK: JVD unable to assess; masses not palpable. HEART: First and second heart sounds are normal; no edema. LUNGS: Respiratory rate increased; decreased breath sounds. ABDOMEN: Soft, nontender, liver spleen not palpable, no masses palpable. PSYCH: AO 3, mood and affect normal NEUROLOGICAL: [Cranial nerves grossly intact; no facial asymmetry, moving limbs INVESTIGATIONS, reviewed in the clinical context: May 11: WBC 21.7 hemoglobin 10.5 platelets 118 potassium 4.1 creatinine 0.84 May 10: White count 18.7 hemoglobin 12.2 platelets 137 potassium 4.2 creatinine 14 and 0.76 albumin 2.7 White count 20.4 hemoglobin 13.2 platelets 150 Accu-Cheks 164, 158, 151 Labs from 05/05/2021: Hemoglobin 15.4 platelets 12.9 potassium 4.6 creatinine 0.87 Assessment and plan: -Quadruple coronary bypass Currently on norepinephrine, propofol, insulin, nitroglycerin drip. -CAD per recent cardiac catheterization triple-vessel Aspirin, Lipitor, Lopressor -Acute hypoxic respiratory failure, on 10 L of nasal cannula -Acute postprocedure blood loss anemia, expected from surgery Follow H&H -Reactive leukocytosis from surgery No evidence of infection -Dilutional thrombocytopenia Follow CBC -Diabetes mellitus type 2, uncontrolled with hyperglycemia. DC insulin drip. Increase Levemir to 20 units daily. Also 3 units scheduled with each meal of NovoLog. -Primary osteoarthritis Pain medications as needed -Hyperlipidemia Lipitor 40 mg daily -COPD in a current smoker DuoNeb -Chronic debility dependence cigarette smoker Nicotine patch GERD Omeprazole Increase Levemir to 20 units daily. Also 3 units of NovoLog with each meal. 2 DC the scheduled NovoLog once patient is off the D5 with amiodarone. Other medications to continue. Thank you Dr. Menezes
[2021-05-11 16:41] LABS: Glucose,Whole Blood 108 mg/dL (75-99)
[2021-05-11] MEDS: LACTATED RINGERS 1,000 ML IV SCH (20:16)
[2021-05-11 20:47] LABS: Glucose,Whole Blood 104 mg/dL (75-99)
[2021-05-11] MEDS: MELATONIN 3 MG TABLET PO SCH (21:05)
[2021-05-11] MEDS: AMIODARONE 200 MG TAB PO SCH (21:05)
[2021-05-11] MEDS: METOPROLOL TARTRATE 25 MG TAB PO SCH (21:06)
[2021-05-11] MEDS: SENNOSIDES-DOCUSATE SODIUM 1 EACH TAB PO SCH (21:06)
[2021-05-12] MEDS: KETOROLAC 15 MG/ML 1 ML VIAL IVP SCH ×5 (00:01→23:39)
[2021-05-12] MEDS: DILTIAZEM ORAL 30 MG TAB PO SCH ×5 (00:01→23:39)
[2021-05-12] MEDS: HEPARIN SODIUM,PORCINE/PF 5,000 UNIT/0.5 ML SYRINGE SQ SCH ×4 (00:02→23:39)
[2021-05-12] MEDS: HYDROcodone/APAP 5-325MG 1 EACH TAB PO PRN (04:12)
[2021-05-12 04:38] LABS: Basophils # (A) 0.1 k/uL (0-0.2); Basophils % (A) 1 %; Eosinophils # (A) 0.2 k/uL (0-0.7); Eosinophils % (A) 1 %; HCT 31.7 % (39.0-53.0); HGB 10.7 gm/dL (13.0-17.5); Lymphocytes # (A) 4.7 k/uL (1.0-4.8); Lymphocytes % (A) 25 %; MCH 31.6 pg (25.0-35.0); MCHC 33.9 g/dL (31.0-37.0); MCV 93.2 fL (80.0-100.0); Mean Platelet Volume 9.3; Monocytes % (A) 5 %; Neutrophils # (A) 12.7 k/uL (1.3-7.7); Neutrophils % (A) 67 %; Platelet Count 139 k/uL (150-450); RDW 14.1 % (11.5-15.5)
[2021-05-12 04:54] LABS: ALT 16 U/L (4-49); AST 38 U/L (17-59); African American GFR (CKD) >90 (>60 ml/min/1.73 sqM); Albumin 3.2 g/dL (3.5-5.0); Alkaline Phosphatase 39 U/L (38-126); Anion Gap 6 mmol/L; Blood Urea Nitrogen 28 mg/dL (9-20); Calcium 8.6 mg/dL (8.4-10.2); Carbon Dioxide 23 mmol/L (22-30); Chloride 103 mmol/L (98-107); Glucose 129 mg/dL (74-99); Magnesium 2.8 mg/dL (1.6-2.3); Non-African American GFR(CKD) 90 (>60 ml/min/1.73 sqM); Potassium 4.5 mmol/L (3.5-5.1); Sodium 132 mmol/L (137-145); Total Bilirubin 0.4 mg/dL (0.2-1.3); Total Protein 5.6 g/dL (6.3-8.2)
[2021-05-12 06:47] LABS: Glucose,Whole Blood 119 mg/dL (75-99)
[2021-05-12] MEDS: INSULIN ASPART (NovoLOG) 100 UNIT/ML VIAL SQ SCH ×5 (06:49→20:04)
[2021-05-12] MEDS: PANTOPRAZOLE 40 MG TABLET PO SCH (06:49)
[2021-05-12] MEDS ORDERED: INSULIN DETEMIR (LEVEMIR) 100 UNIT/ML SYR SQ SCH (07:00)
--- NOTE | 2021-05-12 08:15 | P.PN ---
Subjective Progress Note Date: 05/12/21 Principal diagnosis: Triple-vessel coronary artery disease with preserved left ventricular systolic function. Previous medical history of hypertension, hyperlipidemia, diet-contro lled diabetes mellitus type 2, peripheral vascular disease, remote history of kidney stones, history of SVT, and chronic obstructive pulmonary disease with chronic ongoing tobacco abuse. POD #3 quadruple coronary artery bypass grafting using the left internal mammary artery to left anterior descending coronary artery, left radial artery from the aorta to the second obtuse marginal coronary artery, a reverse greater saphenous vein graft from the aorta to the ramus intermedius coronary artery, a reverse greater saphenous vein graft from the aorta to the right coronary artery. Exclusion of the left atrial appendage using a 35 mm Atriclip, endoscopic harvesting of the left radial artery, endoscopic harvesting of the left greater saphenous vein, intraoperative graft flow measurements using the Modacruzstim system, intraoperative transesophageal echocardiogram and epi-aortic scanning. Postoperative acute blood loss anemia, expected due to cardiopulmonary bypass and hemodilution. Postoperative atrial fibrillation, known common occurrence after open heart surgery The patient was seen and examined at the bedside in the intensive care unit this morning. States pain is controlled on current medication regimen, does complain of shortness of breath with activity. Patient needs much encouragement to participate in his care, cough and deep breathe. Has been up in the recliner for a very short time and requesting to go back to bed to take a nap. Currently in sinus rhythm, hemodynamically stable. Right internal jugular Cordis, right radial arterial line, left pleural chest tubes all remaining in place. Objective - Vital Signs Vital signs: Vital Signs Temp 98.4 F 05/12/21 04:00 Pulse 71 05/12/21 07:00 Resp 26 H 05/12/21 07:00 BP 122/60 05/12/21 07:00 Pulse Ox 95 05/12/21 07:00 Intake & Output 05/11/21 05/12/21 05/12/21 18:59 06:59 18:59 Intake Total 720.004 366.168 26 Output Total 738 340 Balance -17.996 26.168 26 Weight 103.2 kg Intake: IV 265 312 26 0.9NS Pressure Bag 45 72 6 Lactated Ringers 220 240 20 Intake, IV Titration 185.004 54.168 Amount Amiodarone 450 mg In 185.004 54.168 Dextrose 5% in Water 250 ml @ 0.5 MG/MIN 16.667 mls/hr IV .Q15H PRN Rx#: [id number] Oral 270 Output: Chest Tube Drainage 190 90 Left Chest Tube 170 90 Mediastinal Chest Tube X 20 2 Urine 548 250 Other: Voiding Method Bedside Commode Bedside Commode Urinal Urinal # Voids 1 # Bowel Movements 1 ABP, PAP, CO, CI - Last Documented Arterial Blood Pressure 96/77 Pulmonary Artery Pressure 33/11 Cardiac Output 6.3 Cardiac Index 2.9 - Exam CONSTITUTIONAL: Appears cooperative, no acute distress RESPIRATORY: Lungs sounds diminished bilaterally. Respirations even, nonlabored. Currently on 10 L high flow nasal cannula with oxygen saturation 94%. Able to achieve 1000 mL on incentive spirometry. Strong cough. CARDIOVASCULAR: S1, S2 present. Regular rate and rhythm, sinus rhythm on telemetry. Sternum stable. Palpable peripheral pulses bilaterally. No edema present. No calf pain or tenderness noted. Heart hugger in place with patient demonstrating appropriate use. Antiembolism stockings, SCDs present. GASTROINTESTINAL: Abdomen soft, nontender, nondistended. Active bowel sounds present 4 quadrants. Tolerating diet. Positive bowel movement GENITOURINARY: Stallworth discontinued yesterday. He continues to void, 798 mL in the last 24 hours INTEGUMENTARY: Skin is warm and dry with evidence of good perfusion. Anterior chest incision well approximated and covered with dry intact dressing. Left lower extremity EVH site well approximated without redness or drainage. Left radial artery harvest site well approximated without redness or drainage NEUROLOGIC: Cranial nerves II through XII intact MUSKULOSKELETAL: Able to move all extremities, strength equal bilaterally, gait normal PSYCHIATRIC: Alert and oriented to person place and time, appropriate affect, intact judgment and insight INVASIVE LINES AND TUBES: Left pleural chest tubes present and connected to wall suction, no air leaks present, 70 mL serosanguineous drainage overnight, 600 mL in the last 24 hours. Atrial epicardial pacemaker wires present, ground. Right internal jugular Cordis, right radial arterial line present. - Allied health notes Allied health notes reviewed: nursing - Labs CBC & Chem 7: 05/12/21 04:15 05/12/21 04:15 Labs: Abnormal Lab Results - Last 24 Hours (Table) 05/11/21 05/11/21 05/11/21 Range/Units 11:22 11:44 16:40 WBC (3.8-10.6) k/uL RBC (4.30-5.90) m/uL Hgb (13.0-17.5) gm/dL Hct (39.0-53.0) % Plt Count (150-450) k/uL Neutrophils # (1.3-7.7) k/uL Sodium (137-145) mmol/L BUN (9-20) mg/dL Glucose (74-99) mg/dL POC Glucose (mg/dL) 247 H 229 H 108 H (75-99) mg/dL Magnesium (1.6-2.3) mg/dL Total Protein (6.3-8.2) g/dL Albumin (3.5-5.0) g/dL 05/11/21 05/12/21 05/12/21 Range/Units 20:45 04:15 04:15 WBC 19.0 H (3.8-10.6) k/uL RBC 3.40 L (4.30-5.90) m/uL Hgb 10.7 L (13.0-17.5) gm/dL Hct 31.7 L (39.0-53.0) % Plt Count 139 L (150-450) k/uL Neutrophils # 12.7 H (1.3-7.7) k/uL Sodium 132 L (137-145) mmol/L BUN 28 H (9-20) mg/dL Glucose 129 H (74-99) mg/dL POC Glucose (mg/dL) 104 H (75-99) mg/dL Magnesium 2.8 H (1.6-2.3) mg/dL Total Protein 5.6 L (6.3-8.2) g/dL Albumin 3.2 L (3.5-5.0) g/dL 05/12/21 Range/Units 06:46 WBC (3.8-10.6) k/uL RBC (4.30-5.90) m/uL Hgb (13.0-17.5) gm/dL Hct (39.0-53.0) % Plt Count (150-450) k/uL Neutrophils # (1.3-7.7) k/uL Sodium (137-145) mmol/L BUN (9-20) mg/dL Glucose (74-99) mg/dL POC Glucose (mg/dL) 119 H (75-99) mg/dL Magnesium (1.6-2.3) mg/dL Total Protein (6.3-8.2) g/dL Albumin (3.5-5.0) g/dL - Imaging and Cardiology Chest x-ray: image reviewed Assessment and Plan Assessment: 1. Triple-vessel coronary artery disease with preserved left ventricular systolic function, status post four-vessel CABG 2. History of hypertension 3. Hyperlipidemia, treated, cholesterol 136, LDL 59, triglycerides 215 4. Diet-controlled diabetes mellitus type 2, preoperative hemoglobin A1c 6.2% 5. Peripheral vascular disease, preoperative ABIs 0.67 on the right and 0.66 on the left, history of intermittent claudication 6. Bilateral carotid artery stenosis, right ICA greater than 70%, left ICA 50- 69% 7. Remote history of kidney stones 8. History of SVT 9. Moderate COPD with chronic ongoing tobacco abuse, preoperative FEV1 58% of predicted 10. Postoperative acute blood loss anemia, expected 11. Postoperative atrial fibrillation, known common occurrence after open heart surgery, status post left atrial appendage ligation Plan: 1. Continue aspirin, statin, Plavix, and beta fer. Will increase beta fer as tolerated. Continue oral Cardizem for radial artery spasm prophylaxis, do not discontinue CCB without discussed with cardiothoracic surgery 2. Continue amiodarone for A. fib prophylaxis. No anticoagulation necessary unless in atrial fibrillation greater than 24 hours 3. Wean O2 as tolerated. Encourage incentive spirometry 10 times every hour while awake. Bronchodilators per pulmonology management. 4. Increase activity, ambulate as tolerated. PT/OT/cardiac rehab following, patient needs encouragement to get up and move 5. Will monitor daily labs and chest x-rays. Electrolyte replacement per protocol. No Lasix today 6. GI/DVT prophylaxis. 7. Insulin management per primary care service. Patient needs tight blood sugar control to promote sternal union and prevent infection, preoperative hemoglobin A1c was 6.2%. 8. Pain control is current medication regimen. 9. Possibly will discontinue left pleural chest tubes later today dependent on drainage amount 10. Strict accurate intake and output. Daily weights 11. Discontinue Cordis. Discontinue arterial line 12. Will place transfer orders for [address] [place] [address] cardiac stepdown unit. May transfer bed available 13. More recommendations to follow based on the patient's clinical course. Time with Patient: Greater than 30
--- NOTE | 2021-05-12 08:24 | XR ---
EXAMINATION TYPE: XR chest 1V portable DATE OF EXAM: 05/12/2021 COMPARISON: Chest x-ray 05/11/2021 HISTORY: Postop cardiac surgery TECHNIQUE: Single frontal view of the chest is obtained. FINDINGS: Lung volumes are low. Patient is post median sternotomy and left atrial appendage clip ada cement. Right jugular central venous sheath is in place. Left sided chest tube is present as on prior . Median sternal drains are no longer seen. Cardiac mediastinal silhouette not significantly changed. No sizable pneumothorax or pleural effusion. Patchy groundglass opacity, prominence interstitium is noted, patchy basilar density noted. Aorta is dense. IMPRESSION: Expiratory exam. Difficult to exclude a component of interstitial edema. There is likely basilar atelectasis.
[2021-05-12] MEDS: IPRATROPIUM-ALBUTEROL 3 ML NEB INHALATION SCH ×4 (08:57→20:33)
[2021-05-12] MEDS: ACETYLCYSTEINE 800 MG/4 ML VIAL INHALATION SCH ×4 (08:57→20:32)
[2021-05-12] MEDS: SYMBICORT 160-4.5 MCG INHALER INHALATION SCH ×2 (08:59→20:33)
[2021-05-12] MEDS: AMIODARONE 200 MG TAB PO SCH ×2 (08:59→21:36)
[2021-05-12] MEDS: ASPIRIN 325 MG TAB PO SCH (08:59)
[2021-05-12] MEDS: CLOPIDOGREL 75 MG TAB PO SCH (08:59)
[2021-05-12] MEDS: ATORVASTATIN 40 MG TAB PO SCH (08:59)
[2021-05-12] MEDS: METOPROLOL TARTRATE 25 MG TAB PO SCH ×2 (09:00→19:42)
--- NOTE | 2021-05-12 10:49 | P.PN ---
Progress Note - Text Progress Note Date: 05/12/21 - Chief Complaint Coronary bypass This is a 65-year-old patient, follows with Dr. Miramontes. Chronic stable medical conditions include diabetes, osteoarthritis, hyperlipidemia, renal calculi, GERD, COPD. RU today patient underwent four-vessel quadruple bypass. Estimated blood loss was thousand cc with Cell Saver of 700 mL. Postprocedure patient with ICU. On the ventilator intubated. FiO2 50 and a PEEP of 8. Telemetry shows sinus rhythm. Patient has 3 chest use. 2 mediastinal and one left pleural. Current drips include norepinephrine, propofol, insulin, nitroglycerin and lactated Ringer's. Patient sedated. Stallworth catheter. 05/10/2021: Sore the patient earlier today. Extubated. Awake. Tired. Sinus rhythm. On insulin drip. Chest tubes in place. Stallworth catheter. 05/11/2021: Sitting up in a recliner. Breathing better. One chest tube taken out. Sinus rhythm. Accu-Cheks running a bit high. On IV amiodarone in D5. Does of Levemir increased. 3 units of NovoLog added with each meal. Discussed with patient. Started to eat better. 05/12/2021: Sitting up in a recliner. Some shortness of breath. On nasal cannula. One chest tube in place. Will be removed later this afternoon. Sinus rhythm. Changed to oral amiodarone. Scheduled NovoLog decreased. We'll cut back Levemir to 14 units. Check HbA1c. Eating about 50% Review of systems: Was done for constitutional, cardiovascular, GI, pulmonary. relevant finding as above Active Medications Acetaminophen (Acetaminophen Tab 325 Mg Tab) 650 mg PO Q6HR PRN PRN Reason: Mild Pain or Fever > 38.3 C Hydrocodone Bitart/Acetaminophen (Hydrocodone/Apap 5-325mg 1 Each Tab) 1 each PO Q4HR PRN PRN Reason: Moderate Pain Last Admin: 05/12/21 04:12 Dose: 1 each Documented by: Acetylcysteine (Acetylcysteine 800 Mg/4 Ml Vial) 200 mg INHALATION RT-QID MARISA Last Admin: 05/12/21 08:57 Dose: 200 mg Documented by: Albuterol/Ipratropium (Ipratropium-Albuterol 3 Ml Neb) 3 ml INHALATION RT-Q2H PRN PRN Reason: Shortness Of Breath Or Wheezing Albuterol/Ipratropium (Ipratropium-Albuterol 3 Ml Neb) 3 ml INHALATION RT-QID [facility] Last Admin: 05/12/21 08:57 Dose: 3 ml Documented by: Amiodarone HCl (Amiodarone 200 Mg Tab) 400 mg PO BID [facility] Last Admin: 05/12/21 08:59 Dose: 400 mg Documented by: Aspirin (Aspirin 325 Mg Tab) 325 mg PO DAILY [facility] Last Admin: 05/12/21 08:59 Dose: 325 mg Documented by: Atorvastatin Calcium (Atorvastatin 40 Mg Tab) 40 mg PO DAILY [facility] Last Admin: 05/12/21 08:59 Dose: 40 mg Documented by: Bisacodyl (Bisacodyl 10 Mg Supp) 10 mg RECTAL DAILY PRN PRN Reason: Constipation Budesonide/Formoterol Fumarate (Symbicort 160-4.5 Mcg Inhaler) 2 puff INHALATION RT-BID [facility] Last Admin: 05/12/21 08:59 Dose: 2 puff Documented by: Clopidogrel Bisulfate (Clopidogrel 75 Mg Tab) 75 mg PO DAILY [facility] Last Admin: 05/12/21 08:59 Dose: 75 mg Documented by: Diltiazem HCl (Diltiazem Oral 30 Mg Tab) 30 mg PO Q6HR [facility] Last Admin: 05/12/21 06:49 Dose: 30 mg Documented by: Heparin Sodium (Porcine) (Heparin Sodium,Porcine/Pf 5,000 Unit/0.5 Ml Syringe) 5,000 unit SQ Q8HR [facility] Last Admin: 05/12/21 08:59 Dose: 5,000 unit Documented by: Amiodarone HCl 150 mg/ (Dextrose/Water) 103 mls @ 618 mls/hr IV .Q10M PRN; Protocol PRN Reason: A.FIB/FLUTTER Last Admin: 05/10/21 23:14 Dose: 618 mls/hr Documented by: Insulin Aspart (Insulin Aspart (Novolog) 100 Unit/Ml Vial) 0 unit SQ ACHS [facility]; Protocol Last Admin: 05/12/21 06:49 Dose: Not Given Documented by: Insulin Detemir (Insulin Detemir (Levemir) 100 Unit/Ml Syr) 14 unit SQ DAILY@0700 [facility] Ketorolac Tromethamine (Ketorolac 15 Mg/Ml 1 Ml Vial) 15 mg IVP Q6HR [facility] Stop: 05/13/21 07:59 Last Admin: 05/12/21 06:49 Dose: 15 mg Documented by: Magnesium Hydroxide (Magnesium Hydroxide 2,400 Mg/10 Ml Cup) 2,400 mg PO BID PRN PRN Reason: Constipation Last Admin: 05/11/21 18:02 Dose: 2,400 mg Documented by: Melatonin (Melatonin 3 Mg Tablet) 3 mg PO HS [facility] Last Admin: 05/11/21 21:05 Dose: 3 mg Documented by: Metoclopramide HCl (Metoclopramide 5 Mg/Ml 2 Ml Vial) 10 mg IVP Q4H PRN PRN Reason: Nausea And Vomiting Last Admin: 05/11/21 18:02 Dose: 10 mg Documented by: Metoprolol Tartrate (Metoprolol Tartrate 25 Mg Tab) 25 mg PO BID [facility] Last Admin: 05/12/21 09:00 Dose: 25 mg Documented by: Miscellaneous Information (Potassium Replacement Protocol 1 Each Misc) 1 each MISCELLANE DAILY PRN; Protocol PRN Reason: Per Protocol Miscellaneous Information (Magnesium Replacement Protocol 1 Each Misc) 1 each MISCELLANE DAILY PRN; Protocol PRN Reason: Per Protocol Miscellaneous Information (Phosphorus Replacement Protoco 1 Each Misc) 1 each MISCELLANE DAILY PRN; Protocol PRN Reason: Per Protocol Ondansetron HCl (Ondansetron 4 Mg/2 Ml Vial) 4 mg IVP Q6HR PRN PRN Reason: Nausea And Vomiting Pantoprazole Sodium (Pantoprazole 40 Mg Tablet) 40 mg PO -BRKFST [facility] Last Admin: 05/12/21 06:49 Dose: 40 mg Documented by: Senna/Docusate Sodium (Sennosides-Docusate Sodium 1 Each Tab) 2 each PO HS [facility] Last Admin: 05/11/21 21:06 Dose: 2 each Documented by: Sodium Chloride (Sodium Chloride 0.9% Flush 10 Ml Syringe) 10 ml IV BID [facility] Last Admin: 05/12/21 09:00 Dose: 10 ml Documented by: Past medical history to include: Diabetes, or strep throat is, hyperlipidemia, CAD, renal calculi, COPD, GERD, Social history: Smokes half a pack a day for close to 53 years. Alcohol occasionally. CBD Gummi's. 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 Family history: Reviewed, noncontributory to presentation Physical examination: VITAL SIGNS: 98.2, 74, 22, 120/52, 93% on 10 L GENERAL: Up in a recliner, one chest tube, some shortness of breath EYES: Pupils equal. Conjunctiva normal. HEENT: External appearance of nose and ears normal, oral cavity normal NECK: JVD unable to assess; masses not palpable. HEART: First and second heart sounds are normal; no edema. LUNGS: Respiratory rate increased; decreased breath sounds. ABDOMEN: Soft, nontender, liver spleen not palpable, no masses palpable. PSYCH: AO 3, mood and affect normal NEUROLOGICAL: [Cranial nerves grossly intact; no facial asymmetry, moving limbs INVESTIGATIONS, reviewed in the clinical context: May 12: WBC 19 units globin 10.7 platelets 139 potassium 4.5 creatinine 0.87 Accu-Cheks 119 May 11: WBC 21.7 hemoglobin 10.5 platelets 118 potassium 4.1 creatinine 0.84 May 10: White count 18.7 hemoglobin 12.2 platelets 137 potassium 4.2 creatinine 14 and 0.76 albumin 2.7 White count 20.4 hemoglobin 13.2 platelets 150 Accu-Cheks 164, 158, 151 Labs from 05/05/2021: Hemoglobin 15.4 platelets 12.9 potassium 4.6 creatinine 0.87 Assessment and plan: -Quadruple coronary bypass Currently on norepinephrine, propofol, insulin, nitroglycerin drip. -CAD per cardiac catheterization triple-vessel Aspirin, Lipitor, Lopressor -Acute hypoxic respiratory failure, on 10 L of nasal cannula -Acute postprocedure blood loss anemia, expected from surgery Follow H&H -Reactive leukocytosis from surgery No evidence of infection -Dilutional thrombocytopenia Follow CBC -Diabetes mellitus type 2, uncontrolled with hyperglycemia. DC insulin drip. Decrease Levemir to 14 units daily. DC scheduled NovoLog -Primary osteoarthritis Pain medications as needed -Hyperlipidemia Lipitor 40 mg daily -COPD in a current smoker DuoNeb -Chronic debility dependence cigarette smoker Nicotine patch GERD Omeprazole Patient is off the amiodarone drip that was in D5W. Diabetic Levemir to 40 units. Stop scheduled NovoLog. Follow Accu-Cheks. Check glycosylated hemoglobin. Other medications to continue. Thank you Dr. Menezes
[2021-05-12 11:31] LABS: Glucose,Whole Blood 132 mg/dL (75-99)
--- NOTE | 2021-05-12 11:34 | PN ---
PROGRESS NOTE Mr. Skaggs is a 65-year-old male who underwent coronary artery bypass grafting. He is doing well this morning. He is back in sinus mechanism. Hemodynamically he is stable. He is on no vasopressor. He is denying any chest pain. His breathing is stable. He denies any dizziness or palpitations. He denies any nausea. He has no cough or fever. He continues to be at this time on amiodarone 400 mg orally twice a day. He is on aspirin once a day, Lipitor 40 mg daily, Plavix 75 mg daily, diltiazem 30 mg q.6 hours. His metoprolol was cut back to 25 mg twice a day because of a lower blood pressure. PHYSICAL EXAMINATION: Blood pressure today is 122/60 with a heart rate of 70. LUNGS: No wheezes appreciated. HEART: Regular rate and rhythm. S1, S2. No S3, with rub. No gallop. ABDOMEN: Soft, nontender. EXTREMITIES: No significant edema. LAB DATA: BUN and creatinine of 28 and 0.87. Potassium 4.5. Hemoglobin 10.7. IMPRESSION: 1. Status post coronary artery bypass grafting, stable. 2. Paroxysmal atrial fibrillation, back in sinus mechanism. 3. Hyperlipidemia. 4. History of chronic obstructive lung disease. 5. History of hypertension. RECOMMENDATIONS: Will continue present therapy, continue incentive spirometry, increase his physical activity. Depending on his heart rate, further adjustment of his beta fer will be done. MMODL / IJN: [id number] /
--- NOTE | 2021-05-12 14:29 | P.PN ---
Subjective Progress Note Date: 05/12/21 Principal diagnosis: Status post CABG, postoperative day #3 Patient was reevaluated today on 05/10/21, patient is Status post quadruple coronary artery bypass grafting using the ARTEAGA to LAD, left radial artery to second obtuse marginal artery reverse saphenous vein graft to ramus intermedius, reverse saphenous graft to right coronary artery. Postoperative day #1. Agent was extubated around midnight last night, tolerated the extubation well, he is still in the ICU today. On 5 L nasal cannula, resting at a bedside recliner, not in any distress. Patient is on IV fluid at 50 mL per hour, he is also on nitroglycerin drip. Chest x-ray this morning showed minimal basilar atelectasis which is expected. His cardiac output is 6.3, cardiac index is 2.9. CVP is 7. Continues to have his mediastinal and left pleural chest tubes. His pulmonary artery pressure 31/11. And his heart rate is 86. Clinically the patient is doing great, relatively asymptomatic. Beginning to use his incentive spirometry early this morning,Mediastinal and left pleural chest tubes remain in place to low continuous wall suction -20 cm H2O. No air leak is present. Draining thin serosanguineous drainage. Mediastinal chest tubes drained 150 mL output in the last 8 hours and 450 mL since surgery. Left pleural chest tube drained 95 mL output in the last 8 hours and 310 mL output since surgery. Reevaluated today on 05/11/21, patient remains in the ICU, he is however requiring more oxygen, he is now on 15 L high flow nasal cannula, his O2 sats is 93%, he is in atrial fibrillation, but seems to be better controlled with amiodarone presently at 0.5 mg/m. Patient did develop abdominal pain last night, and had some shallow breathing with the pain, given IV Dilaudid that seemed to help. Again his FiO2 requirement has increased, patient is not doing much deep coughing and deep breathing. He was encouraged to use his incentive spirometer. Mediastinal/left pleural chest tubes all remain in place, patient is not requiring any inotropes or process. He is hemodynamically stable. Chest x-ray this morning showed minimal atelectasis and pleural reaction of the left lung base, not significant explain his drop in his O2 saturation WBC count today is 21.7, hemoglobin is 10.5. Electrodes are normal renal profile is normal. And the patient is on appropriate bronchodilators for his underlying history of COPD. Reevaluated today on 05/12/21, remains in the ICU, patient is now postoperative day #3. Patient is sitting at a bedside recliner, down to 8 L nasal cannula of oxygen, O2 saturation is in the mid 90s. Patient is feeling better today, seems to be more cooperative and more active using his incentive spirometer. Pain seems to be fairly well controlled. He converted to normal sinus rhythm yesterday, continues to have right IJ Cordis, right radial arterial line and le ft pleural chest tube. Chest x-ray showed no evidence of congestive heart failure or pneumonia minimal basilar atelectasis is noted. WBC count today is 19 hemoglobin 10.7 and electrolytes are normal renal profile is normal Objective - Vital Signs Vital signs: Vital Signs Temp 98.1 F 05/12/21 12:00 Pulse 79 05/12/21 12:07 Resp 25 H 05/12/21 12:07 BP 126/62 05/12/21 12:00 Pulse Ox 97 05/12/21 12:00 Intake & Output 05/11/21 05/12/21 05/12/21 18:59 06:59 18:59 Intake Total 720.004 366.168 109 Output Total 738 340 110 Balance -17.996 26.168 -1 Weight 103.2 kg Intake: IV 265 312 49 0.9NS Pressure Bag 45 72 9 Lactated Ringers 220 240 40 Intake, IV Titration 185.004 54.168 Amount Amiodarone 450 mg In 185.004 54.168 Dextrose 5% in Water 250 ml @ 0.5 MG/MIN 16.667 mls/hr IV .Q15H PRN Rx#: [id number] Oral 270 60 Output: Chest Tube Drainage 190 90 110 Left Chest Tube 170 90 110 Mediastinal Chest Tube X 20 2 Urine 548 250 0 Other: Voiding Method Bedside Commode Bedside Commode Toilet Urinal Urinal Urinal # Voids 1 1 # Bowel Movements 1 ABP, PAP, CO, CI - Last Documented Arterial Blood Pressure 96/77 Pulmonary Artery Pressure 33/11 Cardiac Output 6.3 Cardiac Index 2.9 - Exam General: Revealed a 65-year-old white male in no distress, on 8 L nasal cannula. HEENT: Neck supple no neck masses no JVD. Lungs:: Symmetrical chest expansion, slightly diminished breath sounds at the bases CARDIOVASCULAR: Regular rate and rhythm. Normal S1 and S2, no S3 gallop, sternum is stable. GASTROINTESTINAL: Soft nontender no megaly no rebound no guarding. INTEGUMENTARY: No rashes. NEUROLOGIC: Alert and oriented 3 no focal deficit MUSKULOSKELETAL: No deformities noted limitation range of motion. PSYCHIATRIC: Normal mood affect and normal mental status examination. - Labs CBC & Chem 7: 05/12/21 04:15 05/12/21 04:15 Labs: Abnormal Lab Results - Last 24 Hours (Table) 05/11/21 05/11/21 05/12/21 Range/Units 16:40 20:45 04:15 WBC 19.0 H (3.8-10.6) k/uL RBC 3.40 L (4.30-5.90) m/uL Hgb 10.7 L (13.0-17.5) gm/dL Hct 31.7 L (39.0-53.0) % Plt Count 139 L (150-450) k/uL Neutrophils # 12.7 H (1.3-7.7) k/uL Sodium (137-145) mmol/L BUN (9-20) mg/dL Glucose (74-99) mg/dL POC Glucose (mg/dL) 108 H 104 H (75-99) mg/dL Magnesium (1.6-2.3) mg/dL Total Protein (6.3-8.2) g/dL Albumin (3.5-5.0) g/dL 05/12/21 05/12/21 05/12/21 Range/Units 04:15 06:46 11:30 WBC (3.8-10.6) k/uL RBC (4.30-5.90) m/uL Hgb (13.0-17.5) gm/dL Hct (39.0-53.0) % Plt Count (150-450) k/uL Neutrophils # (1.3-7.7) k/uL Sodium 132 L (137-145) mmol/L BUN 28 H (9-20) mg/dL Glucose 129 H (74-99) mg/dL POC Glucose (mg/dL) 119 H 132 H (75-99) mg/dL Magnesium 2.8 H (1.6-2.3) mg/dL Total Protein 5.6 L (6.3-8.2) g/dL Albumin 3.2 L (3.5-5.0) g/dL Assessment and Plan Assessment: Impression: Status post quadruple coronary artery bypass grafting using the ARTEAGA to LAD, left radial artery to second obtuse marginal artery reverse saphenous vein graft to ramus intermedius, reverse saphenous graft to right coronary artery. Postoperative day #3 Postoperative atelectasis, expected. Multivessel coronary artery disease Hypertension. Dyslipidemia. Peripheral vessel occlusive disease with intermittent claudication. Acute hypoxic respiratory failure, multifactorial, secondary to postoperative atelectasis which is expected, and some component of COPD exacerbation. Remote history of nephrolithiasis. Recommendation: Encourage ambulation. Continue bronchodilators. Continue present supportive care measures. Continue aspirin statins and Plavix and beta blockers. Continue oxygen and titrate accordingly. Continue GI and DVT prophylaxis. Incentive spirometry. We'll continue to follow Time with Patient: Less than 30
[2021-05-12 16:52] LABS: Glucose,Whole Blood 127 mg/dL (75-99)
[2021-05-12] MEDS ORDERED: DEXTROSE 5% IN WATER 100 ML with AMIODARONE 150 MG IV ONE (20:00)
[2021-05-12 20:02] LABS: Glucose,Whole Blood 143 mg/dL (75-99)
[2021-05-12] MEDS: SENNOSIDES-DOCUSATE SODIUM 1 EACH TAB PO SCH (21:36)
[2021-05-12] MEDS: MELATONIN 3 MG TABLET PO SCH (21:36)
[2021-05-13] MEDS ORDERED: DEXTROSE 5% IN WATER 100 ML with AMIODARONE 150 MG IV ONE (04:00)
[2021-05-13 06:25] LABS: HCT 29.2 % (39.0-53.0); HGB 10.4 gm/dL (13.0-17.5); MCH 33.1 pg (25.0-35.0); MCHC 35.7 g/dL (31.0-37.0); MCV 92.8 fL (80.0-100.0); Mean Platelet Volume 8.8; Platelet Count 186 k/uL (150-450); RBC 3.15 m/uL (4.30-5.90); RDW 14.1 % (11.5-15.5)
[2021-05-13] MEDS: KETOROLAC 15 MG/ML 1 ML VIAL IVP SCH (06:38)
[2021-05-13] MEDS: DILTIAZEM ORAL 30 MG TAB PO SCH ×2 (06:38→12:00)
[2021-05-13] MEDS: PANTOPRAZOLE 40 MG TABLET PO SCH (06:39)
[2021-05-13 06:53] LABS: African American GFR (CKD) >90 (>60 ml/min/1.73 sqM); Anion Gap 5 mmol/L; Blood Urea Nitrogen 21 mg/dL (9-20); Calcium 8.4 mg/dL (8.4-10.2); Carbon Dioxide 26 mmol/L (22-30); Chloride 104 mmol/L (98-107); Glucose 120 mg/dL (74-99); Non-African American GFR(CKD) >90 (>60 ml/min/1.73 sqM); Potassium 4.3 mmol/L (3.5-5.1); Sodium 135 mmol/L (137-145)
[2021-05-13] MEDS: METOPROLOL TARTRATE 50 MG TAB PO SCH ×2 (07:00→19:59)
[2021-05-13 07:07] LABS: Glucose,Whole Blood 114 mg/dL (75-99)
[2021-05-13] MEDS: INSULIN ASPART (NovoLOG) 100 UNIT/ML VIAL SQ SCH ×4 (07:07→19:51)
[2021-05-13] MEDS: SYMBICORT 160-4.5 MCG INHALER INHALATION SCH ×2 (07:28→20:06)
[2021-05-13] MEDS: ACETYLCYSTEINE 800 MG/4 ML VIAL INHALATION SCH ×4 (07:28→20:05)
[2021-05-13] MEDS: IPRATROPIUM-ALBUTEROL 3 ML NEB INHALATION SCH ×4 (07:28→20:05)
--- NOTE | 2021-05-13 08:10 | P.PN ---
Subjective Progress Note Date: 05/13/21 Principal diagnosis: Triple-vessel coronary artery disease with preserved left ventricular systolic function. Previous medical history of hypertension, hyperlipidemia, diet-contro lled diabetes mellitus type 2, peripheral vascular disease, remote history of kidney stones, history of SVT, and chronic obstructive pulmonary disease with chronic ongoing tobacco abuse. POD #4 quadruple coronary artery bypass grafting using the left internal mammary artery to left anterior descending coronary artery, left radial artery from the aorta to the second obtuse marginal coronary artery, a reverse greater saphenous vein graft from the aorta to the ramus intermedius coronary artery, a reverse greater saphenous vein graft from the aorta to the right coronary artery. Exclusion of the left atrial appendage using a 35 mm Atriclip, endoscopic harvesting of the left radial artery, endoscopic harvesting of the left greater saphenous vein, intraoperative graft flow measurements using the AgentPiggystim system, intraoperative transesophageal echocardiogram and epi-aortic scanning. Postoperative acute blood loss anemia, expected due to cardiopulmonary bypass and hemodilution. Postoperative atrial fibrillation, known common occurrence after open heart surgery The patient was seen and examined at the bedside in the intensive care unit this morning. States pain is controlled on current medication regimen, does complain of shortness of breath with activity. Patient needs much encouragement to participate in his care, cough and deep breathe. He did ambulate in the hallway yesterday with PT/OT. Went back into uncontrolled afib last night, was given 4th bolus amio and beta fer given early. Remains in afib this morning, beta fer increased, remains on oral amio and cardizem. Oxygen has been weaned down to 5 LPM NC with patient's saturations in the mid 90s. Objective - Vital Signs Vital signs: Vital Signs Temp 98 F 05/13/21 07:00 Pulse 112 H 05/13/21 07:47 Resp 23 05/13/21 07:00 BP 125/78 05/13/21 07:00 Pulse Ox 94 L 05/13/21 07:00 Intake & Output 05/12/21 05/13/21 05/13/21 18:59 06:59 18:59 Intake Total 309 Output Total 410 700 Balance -101 -700 Weight 103.7 kg Intake: IV 49 0.9NS Pressure Bag 9 Lactated Ringers 40 Oral 260 Output: Chest Tube Drainage 110 Left Chest Tube 110 Urine 300 700 Other: Voiding Method Toilet Toilet Urinal Urinal # Voids 1 1 ABP, PAP, CO, CI - Last Documented Arterial Blood Pressure 96/77 Pulmonary Artery Pressure 33/11 Cardiac Output 6.3 Cardiac Index 2.9 - Exam CONSTITUTIONAL: Appears cooperative, no acute distress RESPIRATORY: Lungs sounds diminished bilaterally. Respirations even, nonlabored. Currently on 5 L high flow nasal cannula with oxygen saturation 94%. Able to achieve 1250 mL on incentive spirometry. Strong non-productive cough. CARDIOVASCULAR: S1, S2 present. Irregular rate and rhythm, uncontrilled atrial fibrillation on telemetry. Sternum stable. Palpable peripheral pulses bilaterally. No edema present. No calf pain or tenderness noted. Heart hugger in place with patient demonstrating appropriate use. Antiembolism stockings, SCDs present. GASTROINTESTINAL: Abdomen soft, nontender, nondistended. Active bowel sounds present 4 quadrants. Tolerating diet. Positive bowel movement GENITOURINARY: Continues to void, 1000 mL in the last 24 hours INTEGUMENTARY: Skin is warm and dry with evidence of good perfusion. Anterior chest incision well approximated and covered with dry intact dressing. Left lower extremity EVH site well approximated without redness or drainage. Left radial artery harvest site well approximated without redness or drainage NEUROLOGIC: Cranial nerves II through XII intact MUSKULOSKELETAL: Able to move all extremities, strength equal bilaterally, gait normal PSYCHIATRIC: Alert and oriented to person place and time, appropriate affect, intact judgment and insight INVASIVE LINES AND TUBES: Atrial epicardial pacemaker wires present, grounded. - Allied health notes Allied health notes reviewed: nursing - Labs CBC & Chem 7: 05/13/21 05:49 05/13/21 05:49 Labs: Abnormal Lab Results - Last 24 Hours (Table) 05/12/21 05/12/21 05/12/21 Range/Units 04:15 11:30 16:50 WBC (3.8-10.6) k/uL RBC (4.30-5.90) m/uL Hgb (13.0-17.5) gm/dL Hct (39.0-53.0) % Sodium (137-145) mmol/L BUN (9-20) mg/dL Glucose (74-99) mg/dL POC Glucose (mg/dL) 132 H 127 H (75-99) mg/dL Hemoglobin A1c 6.2 H (4.0-6.0) % 05/12/21 05/13/21 05/13/21 Range/Units 20:01 05:49 05:49 WBC 13.0 H (3.8-10.6) k/uL RBC 3.15 L (4.30-5.90) m/uL Hgb 10.4 L (13.0-17.5) gm/dL Hct 29.2 L (39.0-53.0) % Sodium 135 L (137-145) mmol/L BUN 21 H (9-20) mg/dL Glucose 120 H (74-99) mg/dL POC Glucose (mg/dL) 143 H (75-99) mg/dL Hemoglobin A1c (4.0-6.0) % 05/13/21 Range/Units 07:06 WBC (3.8-10.6) k/uL RBC (4.30-5.90) m/uL Hgb (13.0-17.5) gm/dL Hct (39.0-53.0) % Sodium (137-145) mmol/L BUN (9-20) mg/dL Glucose (74-99) mg/dL POC Glucose (mg/dL) 114 H (75-99) mg/dL Hemoglobin A1c (4.0-6.0) % - Imaging and Cardiology Chest x-ray: image reviewed Assessment and Plan Assessment: 1. Triple-vessel coronary artery disease with preserved left ventricular systolic function, status post four-vessel CABG 2. History of hypertension 3. Hyperlipidemia, treated, cholesterol 136, LDL 59, triglycerides 215 4. Diet-controlled diabetes mellitus type 2, preoperative hemoglobin A1c 6.2% 5. Peripheral vascular disease, preoperative ABIs 0.67 on the right and 0.66 on the left, history of intermittent claudication 6. Bilateral carotid artery stenosis, right ICA greater than 70%, left ICA 50- 69% 7. Remote history of kidney stones 8. History of SVT 9. Moderate COPD with chronic ongoing tobacco abuse, preoperative FEV1 58% of predicted 10. Postoperative acute blood loss anemia, expected 11. Postoperative atrial fibrillation, known common occurrence after open heart surgery, status post left atrial appendage ligation Plan: 1. Continue low dose aspirin, statin, Plavix, and beta fer. Will increase beta fer as tolerated, increased to 50 mg BID today. Continue oral Cardizem for radial artery spasm prophylaxis, do not discontinue CCB without discussed with cardiothoracic surgery 2. Continue amiodarone for A. fib prophylaxis. Will start anticoagulation today after pacemaker wires discontinued 3. Wean O2 as tolerated. Encourage incentive spirometry 10 times every hour while awake. Bronchodilators per pulmonology management. 4. Increase activity, ambulate as tolerated. PT/OT/cardiac rehab following, patient needs encouragement to get up and move 5. Will monitor daily labs and chest x-rays. Electrolyte replacement per protocol. No Lasix today 6. GI/DVT prophylaxis. 7. Insulin management per primary care service. Patient needs tight blood sugar control to promote sternal union and prevent infection, preoperative hemoglobin A1c was 6.2%. 8. Pain control is current medication regimen. 9. Will discontinue epicardial pacemaker wires this morning, patient to remain on bedrest for 1 hour post wire removal 10. Strict accurate intake and output. Daily weights 11. Transfer orders placed yesterday for 3 [facility] cardiac stepdown unit, no bed available. May transfer bed available 12. More recommendations to follow based on the patient's clinical course. Time with Patient: Greater than 30
[2021-05-13] MEDS: HEPARIN SODIUM,PORCINE/PF 5,000 UNIT/0.5 ML SYRINGE SQ SCH ×2 (08:57→16:55)
[2021-05-13] MEDS: ATORVASTATIN 40 MG TAB PO SCH (08:58)
[2021-05-13] MEDS: AMIODARONE 200 MG TAB PO SCH ×2 (08:58→19:58)
[2021-05-13] MEDS: INSULIN DETEMIR (LEVEMIR) 100 UNIT/ML SYR SQ SCH (08:58)
[2021-05-13] MEDS: ASPIRIN 81 MG PO SCH (08:58)
[2021-05-13] MEDS: CLOPIDOGREL 75 MG TAB PO SCH (08:58)
--- NOTE | 2021-05-13 09:11 | XR ---
EXAMINATION TYPE: XR chest 2V DATE OF EXAM: 05/13/2021 COMPARISON: Chest x-ray 05/12/2021 HISTORY: Status post cardiac surgery TECHNIQUE: Frontal and lateral views of the chest are obtained. FINDINGS: Central venous sheath has been removed. Patient is post median sternotomy and left atrial appendage clip placement. Bibasilar patchy density persists, there are overlying artifacts. Perihilar atelectatic change suspected on the left. There is no evident pneumothorax. Left costophrenic angle is blunted. Cardiac mediastinal silhouette shows a similar appearance. Aorta is dense. IMPRESSION: Atelectatic changes, there may be minimal left pleural effusion.
[2021-05-13] MEDS ORDERED: FUROSEMIDE 10 MG/ML 2 ML VIAL IV ONE (10:30)
--- NOTE | 2021-05-13 11:41 | PN ---
PROGRESS NOTE Mr. Skaggs is a 65-year-old male who is status post coronary artery bypass grafting. He is feeling better today. He is sitting up in the chair. Hemodynamically, he is in atrial fibrillation with controlled ventricular response. He denies any chest pain. No dizziness. He is doing better with the incentive spirometry. His chest tube has been removed but he still has the atrial wire. He continues to be on amiodarone 400 mg twice a day orally, aspirin once a day, Lipitor 40 mg daily, Plavix 75 mg daily, diltiazem 30 mg q.6 hours, metoprolol tartrate 50 mg twice a day. PHYSICAL EXAMINATION: Blood pressure in the 120s with a heart rate in the 90s. LUNGS: A few crackles at the bases. No wheezes. HEART: Irregularly irregular. S1, S2. No S3. No rub appreciated, with a systolic murmur. ABDOMEN: Soft, nontender. EXTREMITIES: No significant edema. LAB DATA: BUN and creatinine 21 and 0.85. Potassium 4.3, hemoglobin 10.4. His chest x-ray shows a left pleural effusion. IMPRESSION: 1. Status post coronary artery bypass grafting. 2. Atrial fibrillation, persistent for the last almost 24 hours. 3. Hyperlipidemia. 4. History of chronic obstructive lung disease. 5. History of hypertension. RECOMMENDATIONS: Will continue present therapy. Once his wires are removed, then I will recommend to initiate treatment with anticoagulation because of the persistent atrial fibrillation; and if he remains in atrial fibrillation as an outpatient, then he can be admitted electively to undergo cardioversion. In the meantime, will continue incentive spirometry, continue to increase his level of activity, and depending on his progress, further recommendations will be made. MMODL / IJN: [id number] /
[2021-05-13 11:48] LABS: Glucose,Whole Blood 137 mg/dL (75-99)
--- NOTE | 2021-05-13 14:05 | P.PN ---
Subjective Progress Note Date: 05/13/21 Principal diagnosis: Status post CABG, postoperative day #4 Patient was reevaluated today on 05/10/21, patient is Status post quadruple coronary artery bypass grafting using the ARTEAGA to LAD, left radial artery to second obtuse marginal artery reverse saphenous vein graft to ramus intermedius, reverse saphenous graft to right coronary artery. Postoperative day #1. Agent was extubated around midnight last night, tolerated the extubation well, he is still in the ICU today. On 5 L nasal cannula, resting at a bedside recliner, not in any distress. Patient is on IV fluid at 50 mL per hour, he is also on nitroglycerin drip. Chest x-ray this morning showed minimal basilar atelectasis which is expected. His cardiac output is 6.3, cardiac index is 2.9. CVP is 7. Continues to have his mediastinal and left pleural chest tubes. His pulmonary artery pressure 31/11. And his heart rate is 86. Clinically the patient is doing great, relatively asymptomatic. Beginning to use his incentive spirometry early this morning,Mediastinal and left pleural chest tubes remain in place to low continuous wall suction -20 cm H2O. No air leak is present. Draining thin serosanguineous drainage. Mediastinal chest tubes drained 150 mL output in the last 8 hours and 450 mL since surgery. Left pleural chest tube drained 95 mL output in the last 8 hours and 310 mL output since surgery. Reevaluated today on 05/11/21, patient remains in the ICU, he is however requiring more oxygen, he is now on 15 L high flow nasal cannula, his O2 sats is 93%, he is in atrial fibrillation, but seems to be better controlled with amiodarone presently at 0.5 mg/m. Patient did develop abdominal pain last night, and had some shallow breathing with the pain, given IV Dilaudid that seemed to help. Again his FiO2 requirement has increased, patient is not doing much deep coughing and deep breathing. He was encouraged to use his incentive spirometer. Mediastinal/left pleural chest tubes all remain in place, patient is not requiring any inotropes or process. He is hemodynamically stable. Chest x-ray this morning showed minimal atelectasis and pleural reaction of the left lung base, not significant explain his drop in his O2 saturation WBC count today is 21.7, hemoglobin is 10.5. Electrodes are normal renal profile is normal. And the patient is on appropriate bronchodilators for his underlying history of COPD. Reevaluated today on 05/12/21, remains in the ICU, patient is now postoperative day #3. Patient is sitting at a bedside recliner, down to 8 L nasal cannula of oxygen, O2 saturation is in the mid 90s. Patient is feeling better today, seems to be more cooperative and more active using his incentive spirometer. Pain seems to be fairly well controlled. He converted to normal sinus rhythm yesterday, continues to have right IJ Cordis, right radial arterial line and le ft pleural chest tube. Chest x-ray showed no evidence of congestive heart failure or pneumonia minimal basilar atelectasis is noted. WBC count today is 19 hemoglobin 10.7 and electrolytes are normal renal profile is normal Reevaluated today on 05/13/21, patient is now postoperative day #4. Yesterday he was in sinus rhythm, however he is back today in atrial fibrillation, with relatively controlled rate. Otherwise the patient is doing great, asymptomatic, he is on room air, he did ambulate in the hallway yesterday with physical therapy and occupational therapy. At night he went into atrial fibrillation required amiodarone, and beta blockers given. He is in atrial fibrillation this morning, he is on amiodarone and Cardizem. Overall the patient is doing great, he chest x-ray continues to show minimal bibasilar atelectasis. Objective - Vital Signs Vital signs: Vital Signs Temp 98 F 05/13/21 07:00 Pulse 122 H 05/13/21 12:04 Resp 22 05/13/21 11:00 BP 120/87 05/13/21 11:00 Pulse Ox 92 L 05/13/21 11:00 Intake & Output 05/12/21 05/13/21 05/13/21 18:59 06:59 18:59 Intake Total 309 120 Output Total 410 700 Balance -101 -700 120 Weight 103.7 kg Intake: IV 49 0.9NS Pressure Bag 9 Lactated Ringers 40 Oral 260 120 Output: Chest Tube Drainage 110 Left Chest Tube 110 Urine 300 700 Other: Voiding Method Toilet Toilet Toilet Urinal Urinal # Voids 1 1 1 # Bowel Movements 1 ABP, PAP, CO, CI - Last Documented Arterial Blood Pressure 96/77 Pulmonary Artery Pressure 33/11 Cardiac Output 6.3 Cardiac Index 2.9 - Exam General: Revealed a 65-year-old white male in no distress, on room air. HEENT: Neck supple no neck masses no JVD. Lungs:: Symmetrical chest expansion, slightly diminished breath sounds at the bases CARDIOVASCULAR: Regular rate and rhythm. Normal S1 and S2, no S3 gallop, sternum is stable. GASTROINTESTINAL: Soft nontender no megaly no rebound no guarding. INTEGUMENTARY: No rashes. NEUROLOGIC: Alert and oriented 3 no focal deficit MUSKULOSKELETAL: No deformities noted limitation range of motion. PSYCHIATRIC: Normal mood affect and normal mental status examination. - Labs CBC & Chem 7: 05/13/21 05:49 05/13/21 05:49 Labs: Abnormal Lab Results - Last 24 Hours (Table) 05/12/21 05/12/21 05/12/21 Range/Units 04:15 16:50 20:01 WBC (3.8-10.6) k/uL RBC (4.30-5.90) m/uL Hgb (13.0-17.5) gm/dL Hct (39.0-53.0) % Sodium (137-145) mmol/L BUN (9-20) mg/dL Glucose (74-99) mg/dL POC Glucose (mg/dL) 127 H 143 H (75-99) mg/dL Hemoglobin A1c 6.2 H (4.0-6.0) % 05/13/21 05/13/21 05/13/21 Range/Units 05:49 05:49 07:06 WBC 13.0 H (3.8-10.6) k/uL RBC 3.15 L (4.30-5.90) m/uL Hgb 10.4 L (13.0-17.5) gm/dL Hct 29.2 L (39.0-53.0) % Sodium 135 L (137-145) mmol/L BUN 21 H (9-20) mg/dL Glucose 120 H (74-99) mg/dL POC Glucose (mg/dL) 114 H (75-99) mg/dL Hemoglobin A1c (4.0-6.0) % 05/13/21 Range/Units 11:46 WBC (3.8-10.6) k/uL RBC (4.30-5.90) m/uL Hgb (13.0-17.5) gm/dL Hct (39.0-53.0) % Sodium (137-145) mmol/L BUN (9-20) mg/dL Glucose (74-99) mg/dL POC Glucose (mg/dL) 137 H (75-99) mg/dL Hemoglobin A1c (4.0-6.0) % Assessment and Plan Assessment: Impression: Status post quadruple coronary artery bypass grafting using the ARTEAGA to LAD, left radial artery to second obtuse marginal artery reverse saphenous vein graft to ramus intermedius, reverse saphenous graft to right coronary artery. Po stoperative day #4 Postoperative atelectasis, expected. Atrial fibrillation with RVR, postoperative, expected Multivessel coronary artery disease Hypertension. Dyslipidemia. Peripheral vessel occlusive disease with intermittent claudication. Acute hypoxic respiratory failure, multifactorial, secondary to postoperative atelectasis which is expected, and some component of COPD exacerbation. Resolve d, patient is now on room air Remote history of nephrolithiasis. Recommendation: Encourage ambulation. Continue bronchodilators. Continue present supportive care measures. Continue aspirin statins and Plavix and beta blockers. Continue Cardizem, continue amiodarone. Continue GI and DVT prophylaxis. Incentive spirometry. We'll continue to follow Time with Patient: Less than 30
--- NOTE | 2021-05-13 16:57 | P.PN ---
Progress Note - Text Progress Note Date: 05/13/21 - Chief Complaint Coronary bypass This is a 65-year-old patient, follows with Dr. Miramontes. Chronic stable medical conditions include diabetes, osteoarthritis, hyperlipidemia, renal calculi, GERD, COPD. RU today patient underwent four-vessel quadruple bypass. Estimated blood loss was thousand cc with Cell Saver of 700 mL. Postprocedure patient with ICU. On the ventilator intubated. FiO2 50 and a PEEP of 8. Telemetry shows sinus rhythm. Patient has 3 chest use. 2 mediastinal and one left pleural. Current drips include norepinephrine, propofol, insulin, nitroglycerin and lactated Ringer's. Patient sedated. Stallworth catheter. 05/10/2021: Sore the patient earlier today. Extubated. Awake. Tired. Sinus rhythm. On insulin drip. Chest tubes in place. Stallworth catheter. 05/11/2021: Sitting up in a recliner. Breathing better. One chest tube taken out. Sinus rhythm. Accu-Cheks running a bit high. On IV amiodarone in D5. Does of Levemir increased. 3 units of NovoLog added with each meal. Discussed with patient. Started to eat better. 05/12/2021: Sitting up in a recliner. Some shortness of breath. On nasal cannula. One chest tube in place. Will be removed later this afternoon. Sinus rhythm. Changed to oral amiodarone. Scheduled NovoLog decreased. We'll cut back Levemir to 14 units. Check HbA1c. Eating about 50% 05/13/2031: Patient doing better. Oxygen requirement on room air. Oral intake improving. Did walk. Had a bowel movement. Eating Arby sandwich. Does not like hospital food. Patient has been in atrial fibrillation. Review of systems: Was done for constitutional, cardiovascular, GI, pulmonary. relevant finding as above Active Medications Acetaminophen (Acetaminophen Tab 325 Mg Tab) 650 mg PO Q6HR PRN PRN Reason: Mild Pain or Fever > 38.3 C Hydrocodone Bitart/Acetaminophen (Hydrocodone/Apap 5-325mg 1 Each Tab) 1 each PO Q4HR PRN PRN Reason: Moderate Pain Last Admin: 05/12/21 04:12 Dose: 1 each Documented by: Acetylcysteine (Acetylcysteine 800 Mg/4 Ml Vial) 200 mg INHALATION RT-QID [facility] Last Admin: 05/13/21 16:05 Dose: 200 mg Documented by: Albuterol/Ipratropium (Ipratropium-Albuterol 3 Ml Neb) 3 ml INHALATION RT-Q2H PRN PRN Reason: Shortness Of Breath Or Wheezing Albuterol/Ipratropium (Ipratropium-Albuterol 3 Ml Neb) 3 ml INHALATION RT-QID [facility] Last Admin: 05/13/21 16:05 Dose: 3 ml Documented by: Amiodarone HCl (Amiodarone 200 Mg Tab) 400 mg PO BID [facility] Last Admin: 05/13/21 08:58 Dose: 400 mg Documented by: Apixaban (Apixaban 5 Mg Tab) 5 mg PO BID [facility]; Protocol Aspirin (Aspirin 81 Mg) 81 mg PO DAILY [facility] Last Admin: 05/13/21 08:58 Dose: 81 mg Documented by: Atorvastatin Calcium (Atorvastatin 40 Mg Tab) 40 mg PO DAILY [facility] Last Admin: 05/13/21 08:58 Dose: 40 mg Documented by: Bisacodyl (Bisacodyl 10 Mg Supp) 10 mg RECTAL DAILY PRN PRN Reason: Constipation Budesonide/Formoterol Fumarate (Symbicort 160-4.5 Mcg Inhaler) 2 puff INHALATION RT-BID [facility] Last Admin: 05/13/21 07:28 Dose: 2 puff Documented by: Diltiazem HCl (Diltiazem Oral 60 Mg Tab) 60 mg PO Q8HR [facility] Heparin Sodium (Porcine) (Heparin Sodium,Porcine/Pf 5,000 Unit/0.5 Ml Syringe) 5,000 unit SQ Q8HR [facility] Stop: 05/13/21 20:00 Last Admin: 05/13/21 08:57 Dose: 5,000 unit Documented by: Amiodarone HCl 150 mg/ (Dextrose/Water) 103 mls @ 618 mls/hr IV .Q10M PRN; Protocol PRN Reason: A.FIB/FLUTTER Last Admin: 05/10/21 23:14 Dose: 618 mls/hr Documented by: Insulin Aspart (Insulin Aspart (Novolog) 100 Unit/Ml Vial) 0 unit SQ ACHS [facility]; Protocol Last Admin: 05/13/21 12:00 Dose: 1 unit Documented by: Insulin Detemir (Insulin Detemir (Levemir) 100 Unit/Ml Syr) 14 unit SQ DAILY@0700 [facility] Last Admin: 05/13/21 08:58 Dose: Not Given Documented by: Magnesium Hydroxide (Magnesium Hydroxide 2,400 Mg/10 Ml Cup) 2,400 mg PO BID PRN PRN Reason: Constipation Last Admin: 05/11/21 18:02 Dose: 2,400 mg Documented by: Melatonin (Melatonin 3 Mg Tablet) 3 mg PO [facility] Last Admin: 05/12/21 21:36 Dose: 3 mg Documented by: Metoclopramide HCl (Metoclopramide 5 Mg/Ml 2 Ml Vial) 10 mg IVP Q4H PRN PRN Reason: Nausea And Vomiting Last Admin: 05/11/21 18:02 Dose: 10 mg Documented by: Metoprolol Tartrate (Metoprolol Tartrate 50 Mg Tab) 50 mg PO BID [facility] Last Admin: 05/13/21 07:00 Dose: 50 mg Documented by: Miscellaneous Information (Potassium Replacement Protocol 1 Each Misc) 1 each MISCELLANE DAILY PRN; Protocol PRN Reason: Per Protocol Miscellaneous Information (Magnesium Replacement Protocol 1 Each Misc) 1 each MISCELLANE DAILY PRN; Protocol PRN Reason: Per Protocol Miscellaneous Information (Phosphorus Replacement Protoco 1 Each Misc) 1 each MISCELLANE DAILY PRN; Protocol PRN Reason: Per Protocol Ondansetron HCl (Ondansetron 4 Mg/2 Ml Vial) 4 mg IVP Q6HR PRN PRN Reason: Nausea And Vomiting Pantoprazole Sodium (Pantoprazole 40 Mg Tablet) 40 mg PO AC-BRKFST [facility] Last Admin: 05/13/21 06:39 Dose: 40 mg Documented by: Senna/Docusate Sodium (Sennosides-Docusate Sodium 1 Each Tab) 2 each PO HS [facility] Last Admin: 05/12/21 21:36 Dose: 2 each Documented by: Sodium Chloride (Sodium Chloride 0.9% Flush 10 Ml Syringe) 10 ml IV BID [facility] Last Admin: 05/13/21 09:02 Dose: 10 ml Documented by: Past medical history to include: Diabetes, or strep throat is, hyperlipidemia, CAD, renal calculi, COPD, GERD, Social history: Smokes half a pack a day for close to 53 years. Alcohol occasionally. CBD Gummi's. 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 Family history: Reviewed, noncontributory to presentation Physical examination: VITAL SIGNS: 98.6, 98, 11, 131/61, 92% room air GENERAL: Up in a recliner, breathing improved EYES: Pupils equal. Conjunctiva normal. HEENT: External appearance of nose and ears normal, oral cavity normal NECK: JVD unable to assess; masses not palpable. HEART: First and second heart sounds are normal; no edema. LUNGS: Respiratory rate increased; decreased breath sounds. ABDOMEN: Soft, nontender, liver spleen not palpable, no masses palpable. PSYCH: AO 3, mood and affect normal INVESTIGATIONS, reviewed in the clinical context: May 13: WBC 13 hemoglobin 10.4 potassium 4.3 creatinine 0.85 HbA1c 6.2 May 12: WBC 19 units globin 10.7 platelets 139 potassium 4.5 creatinine 0.87 Accu-Cheks 119 May 11: WBC 21.7 hemoglobin 10.5 platelets 118 potassium 4.1 creatinine 0.84 May 10: White count 18.7 hemoglobin 12.2 platelets 137 potassium 4.2 creatinine 14 and 0.76 albumin 2.7 White count 20.4 hemoglobin 13.2 platelets 150 Accu-Cheks 164, 158, 151 Labs from 05/05/2021: Hemoglobin 15.4 platelets 12.9 potassium 4.6 creatinine 0.87 Assessment and plan: -Quadruple coronary bypass Patient was on: norepinephrine, propofol, insulin, nitroglycerin drip. -CAD per cardiac catheterization triple-vessel Aspirin, Lipitor, Lopressor -Acute hypoxic respiratory failure,: Corrected -Acute postprocedure blood loss anemia, expected from surgery Follow H&H -Reactive leukocytosis from surgery No evidence of infection -Dilutional thrombocytopenia Follow CBC -Patient does not have diabetes. [ Patient's HbA1c is 6.2. Fasting glucose this morning is 119.] -Hyperglycemia, operative stress related. Continue with current Levemir and sliding scale. -Primary osteoarthritis Pain medications as needed -Hyperlipidemia Lipitor 40 mg daily -COPD in a current smoker DuoNeb -Chronic debility dependence cigarette smoker Nicotine patch GERD Omeprazole -New onset of atrial fibrillation On oral amiodarone Oral amiodarone. Continue sliding scale. Other medications to continue. Increase activity as tolerated. Thank you Dr. Menezes
[2021-05-13] MEDS: DILTIAZEM ORAL 60 MG TAB PO SCH (17:48)
[2021-05-13 17:51] LABS: Glucose,Whole Blood 165 mg/dL (75-99)
[2021-05-13 19:52] LABS: Glucose,Whole Blood 112 mg/dL (75-99)
[2021-05-13] MEDS: SENNOSIDES-DOCUSATE SODIUM 1 EACH TAB PO SCH (19:58)
[2021-05-13] MEDS: MELATONIN 3 MG TABLET PO SCH (19:58)
[2021-05-13] MEDS: APIXABAN 5 MG TAB PO SCH (19:58)
[2021-05-14] MEDS: DILTIAZEM ORAL 60 MG TAB PO SCH ×5 (00:45→23:52)
[2021-05-14 06:46] LABS: HCT 32.3 % (39.0-53.0); HGB 10.7 gm/dL (13.0-17.5); MCH 31.4 pg (25.0-35.0); MCHC 33.2 g/dL (31.0-37.0); MCV 94.8 fL (80.0-100.0); Mean Platelet Volume 8.1; Platelet Count 235 k/uL (150-450); RBC 3.41 m/uL (4.30-5.90); RDW 13.5 % (11.5-15.5); WBC 13.2 k/uL (3.8-10.6)
[2021-05-14 06:58] LABS: African American GFR (CKD) >90 (>60 ml/min/1.73 sqM); Anion Gap 7 mmol/L; Blood Urea Nitrogen 17 mg/dL (9-20); Calcium 8.5 mg/dL (8.4-10.2); Carbon Dioxide 24 mmol/L (22-30); Chloride 104 mmol/L (98-107); Glucose 145 mg/dL (74-99); Non-African American GFR(CKD) >90 (>60 ml/min/1.73 sqM); Potassium 3.8 mmol/L (3.5-5.1); Sodium 135 mmol/L (137-145)
[2021-05-14] MEDS: ACETYLCYSTEINE 800 MG/4 ML VIAL INHALATION SCH ×4 (07:23→20:04)
[2021-05-14] MEDS: IPRATROPIUM-ALBUTEROL 3 ML NEB INHALATION SCH ×4 (07:23→20:04)
[2021-05-14] MEDS: SYMBICORT 160-4.5 MCG INHALER INHALATION SCH ×2 (07:23→20:04)
[2021-05-14 07:44] LABS: Glucose,Whole Blood 188 mg/dL (75-99)
[2021-05-14] MEDS: INSULIN ASPART (NovoLOG) 100 UNIT/ML VIAL SQ SCH ×4 (07:47→21:07)
[2021-05-14] MEDS: INSULIN DETEMIR (LEVEMIR) 100 UNIT/ML SYR SQ SCH (07:47)
[2021-05-14] MEDS ORDERED: POTASSIUM CHLORIDE ER 20 MEQ TAB.ER PO SCH (08:00)
--- NOTE | 2021-05-14 08:19 | P.PN ---
Subjective Progress Note Date: 05/14/21 Principal diagnosis: Triple-vessel coronary artery disease with preserved left ventricular systolic function. Previous medical history of hypertension, hyperlipidemia, diet-contro lled diabetes mellitus type 2, peripheral vascular disease, remote history of kidney stones, history of SVT, and chronic obstructive pulmonary disease with chronic ongoing tobacco abuse. POD #5 quadruple coronary artery bypass grafting using the left internal mammary artery to left anterior descending coronary artery, left radial artery from the aorta to the second obtuse marginal coronary artery, a reverse greater saphenous vein graft from the aorta to the ramus intermedius coronary artery, a reverse greater saphenous vein graft from the aorta to the right coronary artery. Exclusion of the left atrial appendage using a 35 mm Atriclip, endoscopic harvesting of the left radial artery, endoscopic harvesting of the left greater saphenous vein, intraoperative graft flow measurements using the [email or web address] system, intraoperative transesophageal echocardiogram and epi-aortic scanning. Postoperative acute blood loss anemia, expected due to cardiopulmonary bypass and hemodilution. Postoperative atrial fibrillation, known common occurrence after open heart surgery The patient was seen and examined at the bedside in the intensive care unit this morning. States pain is controlled on current medication regimen, denies shortness of breath. Remains in persistent atrial fibrillation with heart rate in the low 100s despite escalated doses of metoprolol and cardizem, anticoagulation started yesterday. He did ambulate in the hallway yesterday with PT/OT without difficulty. Was on room air most of the day yesterday, saturations 89-91% at night so he was placed back on 2LPM NC, able to acheive 1250 mL on his incentive spirometry. Labs, CXR reviewed. Objective - Vital Signs Vital signs: Vital Signs Temp 98.7 F 05/14/21 06:00 Pulse 122 H 05/14/21 07:45 Resp 16 05/14/21 06:00 BP 127/70 05/14/21 06:00 Pulse Ox 92 L 05/14/21 06:00 Intake & Output 05/13/21 05/14/21 05/14/21 18:59 06:59 18:59 Intake Total 370 480 Output Total 1 Balance 369 480 Weight 100.4 kg Intake: Oral 120 480 Tube Feeding 250 Output: Stool 1 Other: Voiding Method Toilet # Voids 1 2 # Bowel Movements 1 2 ABP, PAP, CO, CI - Last Documented Arterial Blood Pressure 96/77 Pulmonary Artery Pressure 33/11 Cardiac Output 6.3 Cardiac Index 2.9 - Exam CONSTITUTIONAL: Appears calm, cooperative, no acute distress RESPIRATORY: Lungs sounds diminished bilaterally. Respirations even, nonlabo red. Currently on 2 L high flow nasal cannula with oxygen saturation 92%. Able to achieve 1250 mL on incentive spirometry. Strong productive cough with clear to white sputum per patient. CARDIOVASCULAR: S1, S2 present. Irregular rate and rhythm, uncontrilled atrial fibrillation on telemetry. Sternum stable. Palpable peripheral pulses bilaterally. No edema present. No calf pain or tenderness noted. Heart hugger in place with patient demonstrating appropriate use. Antiembolism stockings, SCDs present. GASTROINTESTINAL: Abdomen soft, nontender, nondistended. Active bowel sounds present 4 quadrants. Tolerating diet. Positive bowel movement GENITOURINARY: Continues to void, not using urinal INTEGUMENTARY: Skin is warm and dry with evidence of good perfusion. Anterior chest incision well approximated. Left lower extremity EVH site well approximated without redness or drainage. Left radial artery harvest site well approximated without redness or drainage NEUROLOGIC: Cranial nerves II through XII intact MUSKULOSKELETAL: Able to move all extremities, strength equal bilaterally, gait normal PSYCHIATRIC: Alert and oriented to person place and time, appropriate affect, intact judgment and insight - Allied health notes Allied health notes reviewed: nursing - Labs CBC & Chem 7: 05/14/21 06:01 05/14/21 06:01 Labs: Abnormal Lab Results - Last 24 Hours (Table) 05/13/21 05/13/21 05/13/21 Range/Units 11:46 17:50 19:50 WBC (3.8-10.6) k/uL RBC (4.30-5.90) m/uL Hgb (13.0-17.5) gm/dL Hct (39.0-53.0) % Sodium (137-145) mmol/L Glucose (74-99) mg/dL POC Glucose (mg/dL) 137 H 165 H 112 H (75-99) mg/dL 05/14/21 05/14/21 05/14/21 Range/Units 06:01 06:01 07:43 WBC 13.2 H (3.8-10.6) k/uL RBC 3.41 L (4.30-5.90) m/uL Hgb 10.7 L (13.0-17.5) gm/dL Hct 32.3 L (39.0-53.0) % Sodium 135 L (137-145) mmol/L Glucose 145 H (74-99) mg/dL POC Glucose (mg/dL) 188 H (75-99) mg/dL - Imaging and Cardiology Chest x-ray: image reviewed Assessment and Plan Assessment: 1. Triple-vessel coronary artery disease with preserved left ventricular systolic function, status post four-vessel CABG 2. History of hypertension 3. Hyperlipidemia, treated, cholesterol 136, LDL 59, triglycerides 215 4. Diet-controlled diabetes mellitus type 2, preoperative hemoglobin A1c 6.2% 5. Peripheral vascular disease, preoperative ABIs 0.67 on the right and 0.66 on the left, history of intermittent claudication 6. Bilateral carotid artery stenosis, right ICA greater than 70%, left ICA 50- 69% 7. Remote history of kidney stones 8. History of SVT 9. Moderate COPD with chronic ongoing tobacco abuse, preoperative FEV1 58% of predicted 10. Postoperative acute blood loss anemia, expected 11. Postoperative atrial fibrillation, known common occurrence after open heart surgery, status post left atrial appendage ligation Plan: 1. Continue low dose aspirin, statin, and beta fer. Will increase beta fer as tolerated. Continue oral Cardizem for radial artery spasm prophylaxis, will increase to 60 mg every 6 hours, do not discontinue CCB jasmeet womack discussed with cardiothoracic surgery 2. Continue amiodarone for A. fib prophylaxis. Continue Eliquis for anticoagulation. Consider digitalization, defer judgment to cardiology 3. Wean O2 as tolerated. Encourage incentive spirometry 10 times every hour while awake. Bronchodilators per pulmonology management. 4. Increase activity, ambulate as tolerated. PT/OT/cardiac rehab following. F irst post-op shower today 5. Will monitor daily labs and chest x-rays. Electrolyte replacement per protocol. Will give 20 mg IVP lasix today 6. GI/DVT prophylaxis. 7. Insulin management per primary care service. Patient needs tight blood sugar control to promote sternal union and prevent infection, preoperative hemoglobin A1c was 6.2%. 8. Pain control is current medication regimen. 9. Strict accurate intake and output. Daily weights 10. Transfer orders placed for [address] [place] [id number] cardiac stepdown unit. May transfer when bed available 11. More recommendations to follow based on the patient's clinical course. Time with Patient: Greater than 30
--- NOTE | 2021-05-14 08:24 | XR ---
EXAMINATION TYPE: XR chest 2V DATE OF EXAM: 05/14/2021 COMPARISON: Chest x-ray 05/13/2021 HISTORY: Post cardiac surgery TECHNIQUE: Frontal and lateral views of the chest are obtained. FINDINGS: Patient is post median sternotomy. Left atrial appendage clip placement is noted. Patchy d ensity persists within the lungs similar to prior exam. No evident pneumothorax. There is blunting th e left costophrenic angle. Cardiac mediastinal silhouette shows a stable appearance. There are overly ing artifacts. IMPRESSION: Probable postoperative atelectatic changes, there may be minimal effusion
[2021-05-14] MEDS ORDERED: FUROSEMIDE 10 MG/ML 2 ML VIAL IV ONE (08:38)
[2021-05-14] MEDS: AMIODARONE 200 MG TAB PO SCH ×2 (10:36→21:23)
[2021-05-14] MEDS: PANTOPRAZOLE 40 MG TABLET PO SCH (10:36)
[2021-05-14] MEDS: APIXABAN 5 MG TAB PO SCH ×2 (10:37→21:23)
[2021-05-14] MEDS: ASPIRIN 81 MG PO SCH (10:37)
[2021-05-14] MEDS: ATORVASTATIN 40 MG TAB PO SCH (10:37)
[2021-05-14] MEDS: METOPROLOL TARTRATE 50 MG TAB PO SCH ×4 (10:37→21:24)
--- NOTE | 2021-05-14 12:03 | PN ---
PROGRESS NOTE Mr. Skaggs is a 65-year-old male who is status post coronary artery bypass grafting. He continues to be in atrial fibrillation. Otherwise he feels well. His heart rate is rapid at times. He denies any chest pain. No dizziness. He is ambulating. He denies any nausea or cough. He continues to be on amiodarone 400 mg twice a day, Cardizem that was increased to 60 mg q.6 hours, aspirin once a day, Eliquis 5 mg twice a day, metoprolol tartrate 50 mg twice a day. PHYSICAL EXAMINATION: Blood pressure running in the 120s with a heart rate in the 110s. LUNGS: Mild decrease in the breath sounds at the bases. No wheezes. HEART: Irregularly irregular. S1, S2. No S3. No rub. ABDOMEN: Soft, nontender. EXTREMITIES: No edema. LAB DATA: Hemoglobin 10.7. BUN and creatinine 17 and 0.79. IMPRESSION: 1. Status post coronary artery bypass grafting. 2. Atrial fibrillation, persistent, with episodes of rapid ventricular response. 3. History of hypertension. 4. Hyperlipidemia. RECOMMENDATIONS: I will increase the dose of his metoprolol tartrate to 50 mg three times a day. I would not favor adding digoxin because of the fact that he is on amiodarone, which will increase his toxicity, and the benefit from the digoxin is limited. Depending on his response to the new regimen, further recommendations will be made. Thank you for this consult. Will follow with you. NICCI / RANGELN: [id number] /
[2021-05-14] MEDS: amLODIPine 2.5 MG TAB PO SCH (14:01)
[2021-05-14] MEDS: LACTATED RINGERS 1,000 ML IV SCH (14:01)
--- NOTE | 2021-05-14 15:02 | P.DS ---
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 Miramontes. Chronic stable medical conditions include diabetes, osteoarthritis, hyperlipidemia, renal calculi, GERD, COPD. RU today patient underwent four-vessel quadruple bypass. Estimated blood loss was thousand cc with Cell Saver of 700 mL. Postprocedure patient with ICU. On the ventilator intubated. FiO2 50 and a PEEP of 8. Telemetry shows sinus rhythm. Patient has 3 chest use. 2 mediastinal and one left pleural. Current drips include norepinephrine, propofol, insulin, nitroglycerin and lactated Ringer's. Patient sedated. Stallowrth catheter. 05/10/2021: Sore the patient earlier today. Extubated. Awake. Tired. Sinus rhythm. On insulin drip. Chest tubes in place. Stallworth catheter. 05/11/2021: Sitting up in a recliner. Breathing better. One chest tube taken out. Sinus rhythm. Accu-Cheks running a bit high. On IV amiodarone in D5. Does of Levemir increased. 3 units of NovoLog added with each meal. Discussed with patient. Started to eat better. 05/12/2021: Sitting up in a recliner. Some shortness of breath. On nasal cannula. One chest tube in place. Will be removed later this afternoon. Sinus rhythm. Changed to oral amiodarone. Scheduled NovoLog decreased. We'll cut back Levemir to 14 units. Check HbA1c. Eating about 50% 05/13/2031: Patient doing better. Oxygen requirement on room air. Oral intake improving. Did walk. Had a bowel movement. Eating Arby sandwich. Does not like hospital food. Patient has been in atrial fibrillation. 05/14/2021: ICU: Patient remains in atrial fibrillation. In 1 teens. Eating well. On room air. Did walk. Had a bowel movement. Good oral intake. Lopressor increased to 50 mg 3 times a day. Review of systems: Was done for constitutional, cardiovascular, GI, pulmonary. relevant finding as above Past medical history to include: Diabetes, or strep throat is, hyperlipidemia, CAD, renal calculi, COPD, GERD, Social history: Smokes half a pack a day for close to 53 years. Alcohol occasionally. CBD [employer]. 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 Family history: Reviewed, noncontributory to presentation Physical examination: VITAL SIGNS: 98.6, 98, 11, 131/61, 92% room air GENERAL: Up in a recliner, breathing improved EYES: Pupils equal. Conjunctiva normal. HEENT: External appearance of nose and ears normal, oral cavity normal NECK: JVD unable to assess; masses not palpable. HEART: First and second heart sounds are normal; no edema. LUNGS: Respiratory rate increased; decreased breath sounds. ABDOMEN: Soft, nontender, liver spleen not palpable, no masses palpable. PSYCH: AO 3, mood and affect normal INVESTIGATIONS, reviewed in the clinical context: May 14: WBC 13.2 hemoglobin 10.7 potassium 3.8 creatinine 0.79 May 13: WBC 13 hemoglobin 10.4 potassium 4.3 creatinine 0.85 HbA1c 6.2 May 12: WBC 19 units globin 10.7 platelets 139 potassium 4.5 creatinine 0.87 Accu-Cheks 119 May 11: WBC 21.7 hemoglobin 10.5 platelets 118 potassium 4.1 creatinine 0.84 May 10: White count 18.7 hemoglobin 12.2 platelets 137 potassium 4.2 creatinine 14 and 0.76 albumin 2.7 White count 20.4 hemoglobin 13.2 platelets 150 Accu-Cheks 164, 158, 151 Labs from 05/05/2021: Hemoglobin 15.4 platelets 12.9 potassium 4.6 creatinine 0.87 Assessment and plan: -Quadruple coronary bypass Patient was on: norepinephrine, propofol, insulin, nitroglycerin drip. -CAD per cardiac catheterization triple-vessel Aspirin, Lipitor, Lopressor -Acute hypoxic respiratory failure,: Corrected -Acute postprocedure blood loss anemia, expected from surgery Follow H&H -Reactive leukocytosis from surgery No evidence of infection -Dilutional thrombocytopenia Follow CBC -Patient does not have diabetes. [ Patient's HbA1c is 6.2. Fasting glucose this morning is 119.] -Hyperglycemia, operative stress related. Increase Levemir to 18 units daily. Sliding scale -Primary osteoarthritis Pain medications as needed -Hyperlipidemia Lipitor 40 mg daily -COPD in a current smoker DuoNeb 4 times a day -Chronic debility dependence cigarette smoker Nicotine patch GERD Omeprazole -New onset of atrial fibrillation, uncontrolled On oral amiodarone. Lopressor increased to 50 mg 3 times a day Oral amiodarone. Lopressor increased to 3 times a day. Decreased DuoNeb to 3 times a day. Other medications to continue.. Increase Levemir to [address] Menezes Plan - Discharge Summary Discharge Rx Participant: No New Discharge Prescriptions: No Action Naproxen Sodium [Aleve] 220 - 440 mg PO Q6H PRN PRN Reason: Pain Aspirin 81 mg PO DAILY chew Plant Stanol Coty [Cholest Off] 450 mg PO DAILY Metoprolol Tartrate [Lopressor] 25 mg PO BID [place]-3 Fatty Acids [[place]-3] 1,000 mg PO DAILY Omeprazole 40 mg PO MOWEFR Rosuvastatin [Crestor] 10 mg PO DAILY Vits A,C,E/Lutein/Minerals [Ocuvite with Lutein Tablet] 1 each PO DAILY Isosorbide Mononitrate ER [Imdur] 30 mg PO DAILY #30 tablet Nitroglycerin Sl Tabs [Nitrostat] 0.4 mg SUBLINGUAL Q5M PRN #25 tab PRN Reason: Chest Pain Umeclidinium Brm/Vilanterol Tr [Anoro Ellipta 62.5-25 Mcg INH] 1 puff INHALATION HS Discharge Medication List Naproxen Sodium [Aleve] 220 - 440 mg PO Q6H PRN 06/19/17 [History] Aspirin 81 mg PO DAILY chew 10/31/17 [Rx] Metoprolol Tartrate [Lopressor] 25 mg PO BID 03/31/21 [History] [place]-3 Fatty Acids [[place]-3] 1,000 mg PO DAILY 03/31/21 [History] Omeprazole 40 mg PO MOWEFR 03/31/21 [History] Plant Stanol Coty [Cholest Off] 450 mg PO DAILY 03/31/21 [History] Rosuvastatin [Crestor] 10 mg PO DAILY 03/31/21 [History] Vits A,C,E/Lutein/Minerals [Ocuvite with Lutein Tablet] 1 each PO DAILY 03/31/21 [History] Isosorbide Mononitrate ER [Imdur] 30 mg PO DAILY #30 tablet 04/05/21 [Rx] Nitroglycerin Sl Tabs [Nitrostat] 0.4 mg SUBLINGUAL Q5M PRN #25 tab 04/05/21 [Rx] Umeclidinium Brm/Vilanterol Tr [Anoro Ellipta 62.5-25 Mcg INH] 1 puff INHALATION HS 05/06/21 [History] Follow up Appointment(s)/Referral(s): [facility], [NON-STAFF] - 1-2 Days
--- NOTE | 2021-05-14 15:48 | P.PN ---
Subjective Progress Note Date: 05/14/21 Principal diagnosis: Status post CABG, postoperative day #5 Patient was reevaluated today on 05/10/21, patient is Status post quadruple coronary artery bypass grafting using the ARTEAGA to LAD, left radial artery to second obtuse marginal artery reverse saphenous vein graft to ramus intermedius, reverse saphenous graft to right coronary artery. Postoperative day #1. Agent was extubated around midnight last night, tolerated the extubation well, he is still in the ICU today. On 5 L nasal cannula, resting at a bedside recliner, not in any distress. Patient is on IV fluid at 50 mL per hour, he is also on nitroglycerin drip. Chest x-ray this morning showed minimal basilar atelectasis which is expected. His cardiac output is 6.3, cardiac index is 2.9. CVP is 7. Continues to have his mediastinal and left pleural chest tubes. His pulmonary artery pressure 31/11. And his heart rate is 86. Clinically the patient is doing great, relatively asymptomatic. Beginning to use his incentive spirometry early this morning,Mediastinal and left pleural chest tubes remain in place to low continuous wall suction -20 cm H2O. No air leak is present. Draining thin serosanguineous drainage. Mediastinal chest tubes drained 150 mL output in the last 8 hours and 450 mL since surgery. Left pleural chest tube drained 95 mL output in the last 8 hours and 310 mL output since surgery. Reevaluated today on 05/11/21, patient remains in the ICU, he is however requiring more oxygen, he is now on 15 L high flow nasal cannula, his O2 sats is 93%, he is in atrial fibrillation, but seems to be better controlled with amiodarone presently at 0.5 mg/m. Patient did develop abdominal pain last night, and had some shallow breathing with the pain, given IV Dilaudid that seemed to help. Again his FiO2 requirement has increased, patient is not doing much deep coughing and deep breathing. He was encouraged to use his incentive spirometer. Mediastinal/left pleural chest tubes all remain in place, patient is not requiring any inotropes or process. He is hemodynamically stable. Chest x-ray this morning showed minimal atelectasis and pleural reaction of the left lung base, not significant explain his drop in his O2 saturation WBC count today is 21.7, hemoglobin is 10.5. Electrodes are normal renal profile is normal. And the patient is on appropriate bronchodilators for his underlying history of COPD. Reevaluated today on 05/12/21, remains in the ICU, patient is now postoperative day #3. Patient is sitting at a bedside recliner, down to 8 L nasal cannula of oxygen, O2 saturation is in the mid 90s. Patient is feeling better today, seems to be more cooperative and more active using his incentive spirometer. Pain seems to be fairly well controlled. He converted to normal sinus rhythm yesterday, continues to have right IJ Cordis, right radial arterial line and le ft pleural chest tube. Chest x-ray showed no evidence of congestive heart failure or pneumonia minimal basilar atelectasis is noted. WBC count today is 19 hemoglobin 10.7 and electrolytes are normal renal profile is normal Reevaluated today on 05/13/21, patient is now postoperative day #4. Yesterday he was in sinus rhythm, however he is back today in atrial fibrillation, with relatively controlled rate. Otherwise the patient is doing great, asymptomatic, he is on room air, he did ambulate in the hallway yesterday with physical therapy and occupational therapy. At night he went into atrial fibrillation required amiodarone, and beta blockers given. He is in atrial fibrillation this morning, he is on amiodarone and Cardizem. Overall the patient is doing great, he chest x-ray continues to show minimal bibasilar atelectasis. Patient was reevaluated today on 05/14/21, he is now postoperative day #5, patient is doing well, relatively asymptomatic, no cough no wheezing no shortness of breath, he has sinus tachycardia, and beta fer dose was increased by cardiology. Pulmonary-wolf the patient is doing well, chest x-ray showed minimal atelectasis, no infiltrate, no evidence of congestive heart failure. CBC count is 13.2 hemoglobin 10.7 and lites was are normal renal profile is normal Objective - Vital Signs Vital signs: Vital Signs Temp 98.6 F 05/14/21 08:00 Pulse 114 H 05/14/21 15:30 Resp 22 05/14/21 10:00 BP 121/64 05/14/21 08:00 Pulse Ox 96 05/14/21 08:00 Intake & Output 05/13/21 05/14/21 05/14/21 18:59 06:59 18:59 Intake Total 370 480 Output Total 1 801 Balance 369 480 -801 Weight 100.4 kg Intake: Oral 120 480 Tube Feeding 250 Output: Urine 800 Stool 1 1 Other: Voiding Method Toilet Toilet # Voids 1 2 # Bowel Movements 1 2 ABP, PAP, CO, CI - Last Documented Arterial Blood Pressure 96/77 Pulmonary Artery Pressure 33/11 Cardiac Output 6.3 Cardiac Index 2.9 - Exam General: Revealed a 65-year-old white male in no distress, on room air. HEENT: Neck supple no neck masses no JVD. Lungs:: Symmetrical chest expansion, clear bilaterally. No rhonchi and no wheezes. CARDIOVASCULAR: Regular rate and rhythm. Normal S1 and S2, no S3 gallop, sternum is stable. GASTROINTESTINAL: Soft nontender no megaly no rebound no guarding. INTEGUMENTARY: No rashes. NEUROLOGIC: Alert and oriented 3 no focal deficit MUSKULOSKELETAL: No deformities noted limitation range of motion. PSYCHIATRIC: Normal mood affect and normal mental status examination. - Labs CBC & Chem 7: 05/14/21 06:01 05/14/21 06:01 Labs: Abnormal Lab Results - Last 24 Hours (Table) 05/13/21 05/13/21 05/14/21 Range/Units 17:50 19:50 06:01 WBC 13.2 H (3.8-10.6) k/uL RBC 3.41 L (4.30-5.90) m/uL Hgb 10.7 L (13.0-17.5) gm/dL Hct 32.3 L (39.0-53.0) % Sodium (137-145) mmol/L Glucose (74-99) mg/dL POC Glucose (mg/dL) 165 H 112 H (75-99) mg/dL 05/14/21 05/14/21 Range/Units 06:01 07:43 WBC (3.8-10.6) k/uL RBC (4.30-5.90) m/uL Hgb (13.0-17.5) gm/dL Hct (39.0-53.0) % Sodium 135 L (137-145) mmol/L Glucose 145 H (74-99) mg/dL POC Glucose (mg/dL) 188 H (75-99) mg/dL Microbiology - Last 24 Hours (Table) 05/14/21 08:30 Sputum Culture - Preliminary Sputum Assessment and Plan Assessment: Impression: Status post quadruple coronary artery bypass grafting using the ARTEAGA to LAD, left radial artery to second obtuse marginal artery reverse saphenous vein graft to ramus intermedius, reverse saphenous graft to right coronary artery. Postoperative day #5. Postoperative atelectasis, expected. Atrial fibrillation with RVR, postoperative, expected Multivessel coronary artery disease Hypertension. Dyslipidemia. Peripheral vessel occlusive disease with intermittent claudication. Acute hypoxic respiratory failure, multifactorial, secondary to postoperative atelectasis which is expected, and some component of COPD exacerbation. Resolved, patient is now on room air Remote history of nephrolithiasis. Recommendation: Encourage ambulation. Continue bronchodilators. Continue present supportive care measures. Continue aspirin statins and Plavix and beta blockers. Continue GI and DVT prophylaxis. Incentive spirometry. discharge planning if cleared by other consultants Follow-up on outpatient basis We'll continue to follow Time with Patient: Less than 30
[2021-05-14 17:00] LABS: Glucose,Whole Blood 117 mg/dL (75-99)
[2021-05-14 20:22] LABS: Glucose,Whole Blood 126 mg/dL (75-99)
[2021-05-14] MEDS: ACETAMINOPHEN TAB 325 MG TAB PO PRN (21:22)
[2021-05-14] MEDS: SENNOSIDES-DOCUSATE SODIUM 1 EACH TAB PO SCH (21:23)
[2021-05-14] MEDS: MELATONIN 3 MG TABLET PO SCH (21:23)
[2021-05-15 06:20] LABS: Glucose,Whole Blood 121 mg/dL (75-99)
[2021-05-15] MEDS: INSULIN ASPART (NovoLOG) 100 UNIT/ML VIAL SQ SCH ×4 (06:25→21:14)
[2021-05-15] MEDS: DILTIAZEM ORAL 60 MG TAB PO SCH ×4 (06:29→23:12)
[2021-05-15] MEDS: INSULIN DETEMIR (LEVEMIR) 100 UNIT/ML SYR SQ SCH (06:29)
[2021-05-15] MEDS: PANTOPRAZOLE 40 MG TABLET PO SCH (06:33)
[2021-05-15] MEDS: IPRATROPIUM-ALBUTEROL 3 ML NEB INHALATION SCH ×3 (07:46→19:40)
[2021-05-15] MEDS: ACETYLCYSTEINE 800 MG/4 ML VIAL INHALATION SCH ×4 (07:46→19:40)
[2021-05-15] MEDS: SYMBICORT 160-4.5 MCG INHALER INHALATION SCH ×2 (07:46→19:40)
[2021-05-15] MEDS: METOPROLOL TARTRATE 50 MG TAB PO SCH (08:10)
[2021-05-15] MEDS: AMIODARONE 200 MG TAB PO SCH ×2 (08:10→21:14)
[2021-05-15] MEDS: ATORVASTATIN 40 MG TAB PO SCH (08:10)
[2021-05-15] MEDS: ASPIRIN 81 MG PO SCH (08:10)
[2021-05-15] MEDS: APIXABAN 5 MG TAB PO SCH ×2 (08:10→21:14)
[2021-05-15 08:13] LABS: HCT 34.7 % (39.0-53.0); HGB 11.4 gm/dL (13.0-17.5); MCH 30.8 pg (25.0-35.0); MCHC 32.8 g/dL (31.0-37.0); MCV 93.7 fL (80.0-100.0); Platelet Count 303 k/uL (150-450); RBC 3.71 m/uL (4.30-5.90); RDW 13.4 % (11.5-15.5); WBC 14.8 k/uL (3.8-10.6)
[2021-05-15 08:22] LABS: African American GFR (CKD) >90 (>60 ml/min/1.73 sqM); Anion Gap 7 mmol/L; Blood Urea Nitrogen 13 mg/dL (9-20); Calcium 8.7 mg/dL (8.4-10.2); Carbon Dioxide 24 mmol/L (22-30); Chloride 105 mmol/L (98-107); Glucose 155 mg/dL (74-99); Non-African American GFR(CKD) >90 (>60 ml/min/1.73 sqM); Sodium 136 mmol/L (137-145)
--- NOTE | 2021-05-15 08:23 | XR ---
EXAMINATION TYPE: XR chest 2V DATE OF EXAM: 05/15/2021 COMPARISON: Chest x-ray 05/14/2021 HISTORY: Postop TECHNIQUE: Frontal and lateral views of the chest are obtained. FINDINGS: Findings are similar to prior exam. There is some improvement in aeration. Patient is post median sternotomy and left atrial appendage clip placement. Basilar density persists on the left. No evident pneumothorax. IMPRESSION: Some improvement in patient's atelectasis.
--- NOTE | 2021-05-15 08:47 | P.PN ---
Subjective Progress Note Date: 05/15/21 Principal diagnosis: Triple-vessel coronary artery disease with preserved left ventricular systolic function. Previous medical history of hypertension, hyperlipidemia, diet-contro lled diabetes mellitus type 2, peripheral vascular disease, remote history of kidney stones, history of SVT, and chronic obstructive pulmonary disease with chronic ongoing tobacco abuse. POD #6 quadruple coronary artery bypass grafting using the left internal mammary artery to left anterior descending coronary artery, left radial artery from the aorta to the second obtuse marginal coronary artery, a reverse greater saphenous vein graft from the aorta to the ramus intermedius coronary artery, a reverse greater saphenous vein graft from the aorta to the right coronary artery. Exclusion of the left atrial appendage using a 35 mm Atriclip, endoscopic harvesting of the left radial artery, endoscopic harvesting of the left greater saphenous vein, intraoperative graft flow measurements using the Medistim system, intraoperative transesophageal echocardiogram and epi-aortic scanning. Postoperative acute blood loss anemia, expected due to cardiopulmonary bypass and hemodilution. Postoperative atrial fibrillation, known common occurrence after open heart surgery The patient was seen and examined at the bedside on the cardiac step down unit this morning. States pain is controlled on current medication regimen, denies shortness of breath. Remains in persistent atrial fibrillation with heart rate in the low 100s-120s , despite escalated doses of metoprolol and cardizem, anticoagulation started yesterday. He has ambulated in the hallway without difficulty, received first postoperative shower yesterday. Currently on room air with oxygen saturation in the low to mid 90s, able to acheive 1000 mL on his incentive spirometry. Labs, CXR reviewed, WBC 14.8 this morning, remains afebrile, sputum culture sent yesterday, pending but preliminary gram stain reporting moderate gram negative bacilli and moderate gram positive cocci. Patient is anxious to go home. Objective - Vital Signs Vital signs: Vital Signs Temp 98.6 F 05/15/21 08:00 Pulse 122 H 05/15/21 08:00 Resp 18 05/15/21 08:00 BP 99/61 05/15/21 08:00 Pulse Ox 93 L 05/15/21 08:00 Intake & Output 05/14/21 05/15/21 05/15/21 18:59 06:59 18:59 Intake Total 180 250 Output Total 1351 Balance -1171 250 Weight 99.8 kg Intake: IV 10 Invasive Line 5 10 Oral 180 240 Output: Urine 1350 Stool 1 Other: Voiding Method Toilet Toilet Toilet # Voids 1 1 ABP, PAP, CO, CI - Last Documented Arterial Blood Pressure 96/77 Pulmonary Artery Pressure 33/11 Cardiac Output 6.3 Cardiac Index 2.9 - Exam CONSTITUTIONAL: Appears calm, cooperative, no acute distress RESPIRATORY: Lungs sounds diminished bilaterally. Respirations even, nonlabored. Currently on room air with oxygen saturation 92%. Able to achieve 1000 mL on incentive spirometry. Strong productive cough with clear to white sputum per patient. CARDIOVASCULAR: S1, S2 present. Irregular rate and rhythm, uncontrilled atrial fibrillation on telemetry. Sternum stable. Palpable peripheral pulses bilaterally. No edema present. No calf pain or tenderness noted. Heart hugger in place with patient demonstrating appropriate use. Antiembolism stockings, SCDs present. GASTROINTESTINAL: Abdomen soft, nontender, nondistended. Active bowel sounds present 4 quadrants. Tolerating diet. Positive bowel movement GENITOURINARY: Continues to void INTEGUMENTARY: Skin is warm and dry with evidence of good perfusion. Anterior chest incision well approximated. Left lower extremity EVH site well approximated without redness or drainage. Left radial artery harvest site well approximated without redness or drainage NEUROLOGIC: Cranial nerves II through XII intact MUSKULOSKELETAL: Able to move all extremities, strength equal bilaterally, gait normal PSYCHIATRIC: Alert and oriented to person place and time, appropriate affect, intact judgment and insight - Allied health notes Allied health notes reviewed: nursing - Labs CBC & Chem 7: 05/15/21 07:54 05/15/21 07:54 Labs: Abnormal Lab Results - Last 24 Hours (Table) 05/14/21 05/14/21 05/15/21 Range/Units 16:58 20:20 06:18 WBC (3.8-10.6) k/uL RBC (4.30-5.90) m/uL Hgb (13.0-17.5) gm/dL Hct (39.0-53.0) % Sodium (137-145) mmol/L Glucose (74-99) mg/dL POC Glucose (mg/dL) 117 H 126 H 121 H (75-99) mg/dL 05/15/21 05/15/21 Range/Units 07:54 07:54 WBC 14.8 H (3.8-10.6) k/uL RBC 3.71 L (4.30-5.90) m/uL Hgb 11.4 L (13.0-17.5) gm/dL Hct 34.7 L (39.0-53.0) % Sodium 136 L (137-145) mmol/L Glucose 155 H (74-99) mg/dL POC Glucose (mg/dL) (75-99) mg/dL Microbiology - Last 24 Hours (Table) 05/14/21 08:30 Sputum Culture - Preliminary Sputum - Imaging and Cardiology Chest x-ray: report reviewed, image reviewed Assessment and Plan Assessment: 1. Triple-vessel coronary artery disease with preserved left ventricular systolic function, status post four-vessel CABG 2. History of hypertension 3. Hyperlipidemia, treated, cholesterol 136, LDL 59, triglycerides 215 4. Diet-controlled diabetes mellitus type 2, preoperative hemoglobin A1c 6.2% 5. Peripheral vascular disease, preoperative ABIs 0.67 on the right and 0.66 on the left, history of intermittent claudication 6. Bilateral carotid artery stenosis, right ICA greater than 70%, left ICA 50- 69% 7. Remote history of kidney stones 8. History of SVT 9. Moderate COPD with chronic ongoing tobacco abuse, preoperative FEV1 58% of predicted 10. Postoperative acute blood loss anemia, expected 11. Postoperative atrial fibrillation, known common occurrence after open heart surgery, status post left atrial appendage ligation Plan: 1. Continue low dose aspirin, statin, and beta fer. Will increase beta fer as tolerated, increased to 50 MG TID yesterday by cardiology. Continue oral Cardizem for radial artery spasm prophylaxis, increased to 60 mg every 6 hours yesterday, do not discontinue CCB without discussed with cardiothoracic surgery 2. Continue amiodarone for A. fib prophylaxis. Continue Eliquis for anticoagulation. 3. Encourage incentive spirometry 10 times every hour while awake. Bronchodilators per pulmonology management. 4. Increase activity, ambulate as tolerated. PT/OT/cardiac rehab following. 5. Will monitor daily labs and chest x-rays. Electrolyte replacement per protocol. Will give lasix 20 mg IVP today 6. GI/DVT prophylaxis. 7. Insulin management per primary care service. Patient needs tight blood sugar control to promote sternal union and prevent infection, preoperative hemoglobin A1c was 6.2%. 8. Pain control is current medication regimen. 9. Strict accurate intake and output. Daily weights 10. Sputum culture sent, pending results, preliminary gram stain reporting moderate gram neg bacilli, moderate gram positive cocci, will defer to pulmonology for possible antibiotics 11. More recommendations to follow based on the patient's clinical course. Time with Patient: Greater than 30
[2021-05-15] MEDS ORDERED: FUROSEMIDE 10 MG/ML 2 ML VIAL IV ONE (09:47)
--- NOTE | 2021-05-15 11:13 | PN ---
PROGRESS NOTE Mr. Skaggs is a 65-year-old male who is status post coronary artery bypass grafting with postoperative atrial fibrillation. He is doing well this morning. He continues to have some episodes of atrial fibrillation. His breathing is stable. He is denying any dizziness or palpitations. He is feeling stronger overall. He denies any nausea or vomiting. He continues to be at this time on amiodarone 400 mg twice a day, Eliquis 5 mg twice a day, aspirin 81 mg daily, Lipitor 40 mg daily, diltiazem 60 mg q.6 hours and metoprolol tartrate 50 mg three times a day. PHYSICAL EXAMINATION: Blood pressure is running in the 100s with a heart rate in the low 100s. LUNGS: Mild decrease in breath sounds. No wheezes. HEART: Irregularly irregular. S1, S2. No S3. No rub. ABDOMEN: Soft, nontender. EXTREMITIES: No edema. LAB DATA: BUN and creatinine of 13 and 0.78. Potassium 4.0. IMPRESSION: 1. Status post coronary artery bypass grafting. 2. Persistent atrial fibrillation for the last 72 hours with episodes of rapid ventricular response. 3. Hyperlipidemia. 4. Hypertension. RECOMMENDATIONS: I will increase the dose of his beta fer, continue the rest of his medical regimen. If his rate is stable, he may be able to be discharged home and followed as an outpatient to see if he has persistent atrial fibrillation; then he will be readmitted in 4 to 6 weeks to undergo cardioversion with attempt to restore sinus mechanism. MMARI / RANGELN: [id number] /
[2021-05-15 12:19] LABS: Glucose,Whole Blood 105 mg/dL (75-99)
--- NOTE | 2021-05-15 14:41 | P.PN ---
Progress Note - Text Progress Note Date: 05/14/21 Hospital Course: - Chief Complaint Coronary bypass This is a 65-year-old patient, follows with Dr. Miramontes. Chronic stable medical conditions include diabetes, osteoarthritis, hyperlipidemia, renal calculi, GERD, COPD. RU today patient underwent four-vessel quadruple bypass. Estimated blood loss was thousand cc with Cell Saver of 700 mL. Postprocedure patient with ICU. On the ventilator intubated. FiO2 50 and a PEEP of 8. Telemetry shows sinus rhythm. Patient has 3 chest use. 2 mediastinal and one left pleural. Current drips include norepinephrine, propofol, insulin, nitroglycerin and lactated Ringer's. Patient sedated. Stallworth catheter. 05/10/2021: Sore the patient earlier today. Extubated. Awake. Tired. Sinus rhythm. On insulin drip. Chest tubes in place. Stallworth catheter. 05/11/2021: Sitting up in a recliner. Breathing better. One chest tube taken out. Sinus rhythm. Accu-Cheks running a bit high. On IV amiodarone in D5. Does of Levemir increased. 3 units of NovoLog added with each meal. Discussed with patient. Started to eat better. 05/12/2021: Sitting up in a recliner. Some shortness of breath. On nasal cannula. One chest tube in place. Will be removed later this afternoon. Sinus rhythm. Changed to oral amiodarone. Scheduled NovoLog decreased. We'll cut back Levemir to 14 units. Check HbA1c. Eating about 50% 05/13/2031: Patient doing better. Oxygen requirement on room air. Oral intake improving. Did walk. Had a bowel movement. Eating Arby sandwich. Does not like hospital food. Patient has been in atrial fibrillation. 05/14/2021: ICU: Patient remains in atrial fibrillation. In 1 teens. Eating well. On room air. Did walk. Had a bowel movement. Good oral intake. Lopressor increased to 50 mg 3 times a day. Review of systems: Was done for constitutional, cardiovascular, GI, pulmonary. relevant finding as above Past medical history to include: Diabetes, or strep throat is, hyperlipidemia, CAD, renal calculi, COPD, GERD, Social history: Smokes half a pack a day for close to 53 years. Alcohol occasionally. CBD Gummi's. 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 Family history: Reviewed, noncontributory to presentation Physical examination: VITAL SIGNS: 98.6, 98, 11, 131/61, 92% room air GENERAL: Up in a recliner, breathing improved EYES: Pupils equal. Conjunctiva normal. HEENT: External appearance of nose and ears normal, oral cavity normal NECK: JVD unable to assess; masses not palpable. HEART: First and second heart sounds are normal; no edema. LUNGS: Respiratory rate increased; decreased breath sounds. ABDOMEN: Soft, nontender, liver spleen not palpable, no masses palpable. PSYCH: AO 3, mood and affect normal INVESTIGATIONS, reviewed in the clinical context: May 14: WBC 13.2 hemoglobin 10.7 potassium 3.8 creatinine 0.79 May 13: WBC 13 hemoglobin 10.4 potassium 4.3 creatinine 0.85 HbA1c 6.2 May 12: WBC 19 units globin 10.7 platelets 139 potassium 4.5 creatinine 0.87 Accu-Cheks 119 May 11: WBC 21.7 hemoglobin 10.5 platelets 118 potassium 4.1 creatinine 0.84 May 10: White count 18.7 hemoglobin 12.2 platelets 137 potassium 4.2 creatinine 14 and 0.76 albumin 2.7 White count 20.4 hemoglobin 13.2 platelets 150 Accu-Cheks 164, 158, 151 Labs from 05/05/2021: Hemoglobin 15.4 platelets 12.9 potassium 4.6 creatinine 0.87 Assessment and plan: -Quadruple coronary bypass Patient was on: norepinephrine, propofol, insulin, nitroglycerin drip. -CAD per cardiac catheterization triple-vessel Aspirin, Lipitor, Lopressor -Acute hypoxic respiratory failure,: Corrected -Acute postprocedure blood loss anemia, expected from surgery Follow H&H -Reactive leukocytosis from surgery No evidence of infection -Dilutional thrombocytopenia Follow CBC -Patient does not have diabetes. [ Patient's HbA1c is 6.2. Fasting glucose this morning is 119.] -Hyperglycemia, operative stress related. Increase Levemir to 18 units daily. Sliding scale -Primary osteoarthritis Pain medications as needed -Hyperlipidemia Lipitor 40 mg daily -COPD in a current smoker DuoNeb 4 times a day -Chronic debility dependence cigarette smoker Nicotine patch GERD Omeprazole -New onset of atrial fibrillation, uncontrolled On oral amiodarone. Lopressor increased to 50 mg 3 times a day Oral amiodarone. Lopressor increased to 3 times a day. Decreased DuoNeb to 3 times a day. Other medications to continue.. Increase Levemir to [address] you [address] Menezes
--- NOTE | 2021-05-15 14:47 | P.PN ---
Progress Note - Text Progress Note Date: 05/15/21 Hospital Course: - Chief Complaint Coronary bypass This is a 65-year-old patient, follows with Dr. Miramontes. Chronic stable medical conditions include diabetes, osteoarthritis, hyperlipidemia, renal calculi, GERD, COPD. RU today patient underwent four-vessel quadruple bypass. Estimated blood loss was thousand cc with Cell Saver of 700 mL. Postprocedure patient with ICU. On the ventilator intubated. FiO2 50 and a PEEP of 8. Telemetry shows sinus rhythm. Patient has 3 chest use. 2 mediastinal and one left pleural. Current drips include norepinephrine, propofol, insulin, nitroglycerin and lactated Ringer's. Patient sedated. Stallworth catheter. 05/10/2021: Sore the patient earlier today. Extubated. Awake. Tired. Sinus rhythm. On insulin drip. Chest tubes in place. Stallworth catheter. 05/11/2021: Sitting up in a recliner. Breathing better. One chest tube taken out. Sinus rhythm. Accu-Cheks running a bit high. On IV amiodarone in D5. Does of Levemir increased. 3 units of NovoLog added with each meal. Discussed with patient. Started to eat better. 05/12/2021: Sitting up in a recliner. Some shortness of breath. On nasal cannula. One chest tube in place. Will be removed later this afternoon. Sinus rhythm. Changed to oral amiodarone. Scheduled NovoLog decreased. We'll cut back Levemir to 14 units. Check HbA1c. Eating about 50% 05/13/2031: Patient doing better. Oxygen requirement on room air. Oral intake improving. Did walk. Had a bowel movement. Eating Arby sandwich. Does not like hospital food. Patient has been in atrial fibrillation. 05/14/2021: ICU: Patient remains in atrial fibrillation. In 1 teens. Eating well. On room air. Did walk. Had a bowel movement. Good oral intake. Lopressor increased to 50 mg 3 times a day. 05/15/2021: We'll Dr. the telemetry floor. Atrial fibrillation. Rate and 1 teens. Oral intake code. Had a bowel movement. Breathing stable. present. Some yellow-brown sputum Review of systems: Was done for constitutional, cardiovascular, GI, pulmonary. relevant finding as above Active Medications Acetaminophen (Acetaminophen Tab 325 Mg Tab) 650 mg PO Q6HR PRN PRN Reason: Mild Pain or Fever > 38.3 C Last Admin: 05/14/21 21:22 Dose: 650 mg Documented by: Acetylcysteine (Acetylcysteine 800 Mg/4 Ml Vial) 200 mg INHALATION RT-QID [facility] Last Admin: 05/15/21 11:17 Dose: 200 mg Documented by: Albuterol/Ipratropium (Ipratropium-Albuterol 3 Ml Neb) 3 ml INHALATION RT-Q2H PRN PRN Reason: Shortness Of Breath Or Wheezing Albuterol/Ipratropium (Ipratropium-Albuterol 3 Ml Neb) 3 ml INHALATION TID [facility] Last Admin: 05/15/21 11:17 Dose: 3 ml Documented by: Amiodarone HCl (Amiodarone 200 Mg Tab) 400 mg PO BID [facility] Last Admin: 05/15/21 08:10 Dose: 400 mg Documented by: Apixaban (Apixaban 5 Mg Tab) 5 mg PO BID [facility]; Protocol Last Admin: 05/15/21 08:10 Dose: 5 mg Documented by: Aspirin (Aspirin 81 Mg) 81 mg PO DAILY [facility] Last Admin: 05/15/21 08:10 Dose: 81 mg Documented by: Atorvastatin Calcium (Atorvastatin 40 Mg Tab) 40 mg PO DAILY [facility] Last Admin: 05/15/21 08:10 Dose: 40 mg Documented by: Bisacodyl (Bisacodyl 10 Mg Supp) 10 mg RECTAL DAILY PRN PRN Reason: Constipation Budesonide/Formoterol Fumarate (Symbicort 160-4.5 Mcg Inhaler) 2 puff INHALATION RT-BID [facility] Last Admin: 05/15/21 07:46 Dose: Not Given Documented by: Diltiazem HCl (Diltiazem Oral 60 Mg Tab) 60 mg PO Q6HR [facility] Last Admin: 05/15/21 12:24 Dose: 60 mg Documented by: Insulin Aspart (Insulin Aspart (Novolog) 100 Unit/Ml Vial) 0 unit SQ [facility]; Protocol Last Admin: 05/15/21 12:24 Dose: Not Given Documented by: Insulin Detemir (Insulin Detemir (Levemir) 100 Unit/Ml Syr) 18 unit SQ DAILY@0700 [facility] Last Admin: 05/15/21 06:29 Dose: 18 unit Documented by: Magnesium Hydroxide (Magnesium Hydroxide 2,400 Mg/10 Ml Cup) 2,400 mg PO BID PRN PRN Reason: Constipation Last Admin: 05/11/21 18:02 Dose: 2,400 mg Documented by: Melatonin (Melatonin 3 Mg Tablet) 3 mg PO [facility] Last Admin: 05/14/21 21:23 Dose: 3 mg Documented by: Metoclopramide HCl (Metoclopramide 5 Mg/Ml 2 Ml Vial) 10 mg IVP Q4H PRN PRN Reason: Nausea And Vomiting Last Admin: 05/11/21 18:02 Dose: 10 mg Documented by: Metoprolol Tartrate (Metoprolol Tartrate 25 Mg Tab) 75 mg PO TID [facility] Miscellaneous Information (Potassium Replacement Protocol 1 Each Misc) 1 each MISCELLANE DAILY PRN; Protocol PRN Reason: Per Protocol Miscellaneous Information (Magnesium Replacement Protocol 1 Each Misc) 1 each MISCELLANE DAILY PRN; Protocol PRN Reason: Per Protocol Miscellaneous Information (Phosphorus Replacement Protoco 1 Each Misc) 1 each MISCELLANE DAILY PRN; Protocol PRN Reason: Per Protocol Ondansetron HCl (Ondansetron 4 Mg/2 Ml Vial) 4 mg IVP Q6HR PRN PRN Reason: Nausea And Vomiting Pantoprazole Sodium (Pantoprazole 40 Mg Tablet) 40 mg PO -BRKT [facility] Last Admin: 05/15/21 06:33 Dose: 40 mg Documented by: Senna/Docusate Sodium (Sennosides-Docusate Sodium 1 Each Tab) 2 each PO [facility] Last Admin: 05/14/21 21:23 Dose: 2 each Documented by: Sodium Chloride (Sodium Chloride 0.9% Flush 10 Ml Syringe) 10 ml IV BID [facility] Last Admin: 05/15/21 08:10 Dose: 10 ml Documented by: Past medical history to include: Diabetes, or strep throat is, hyperlipidemia, CAD, renal calculi, COPD, GERD, Social history: Smokes half a pack a day for close to 53 years. Alcohol occasionally. CBD Gummi's. 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 Family history: Reviewed, noncontributory to presentation Physical examination: VITAL SIGNS: 98, 115, 18, 120/70, 96% room air GENERAL: Up in a recliner, comfortable EYES: Pupils equal. Conjunctiva normal. HEENT: External appearance of nose and ears normal, oral cavity normal NECK: JVD unable to assess; masses not palpable. HEART: Heart sounds irregular; no edema. LUNGS: Respiratory rate increased; decreased breath sounds. ABDOMEN: Soft, nontender, liver spleen not palpable, no masses palpable. PSYCH: AO 3, mood and affect normal INVESTIGATIONS, reviewed in the clinical context: May 15: White count 14.8 hemoglobin 11.4 platelets 303 potassium 4 creatinine 0.78 Chest x-ray film personally reviewed by me-left basal infiltrate May 14: WBC 13.2 hemoglobin 10.7 potassium 3.8 creatinine 0.79 May 13: WBC 13 hemoglobin 10.4 potassium 4.3 creatinine 0.85 HbA1c 6.2 May 12: WBC 19 units globin 10.7 platelets 139 potassium 4.5 creatinine 0.87 Accu-Cheks 119 May 11: WBC 21.7 hemoglobin 10.5 platelets 118 potassium 4.1 creatinine 0.84 May 10: White count 18.7 hemoglobin 12.2 platelets 137 potassium 4.2 creatinine 14 and 0.76 albumin 2.7 White count 20.4 hemoglobin 13.2 platelets 150 Accu-Cheks 164, 158, 151 Labs from 05/05/2021: Hemoglobin 15.4 platelets 12.9 potassium 4.6 creatinine 0.87 Assessment and plan: -Quadruple coronary bypass Patient was on: norepinephrine, propofol, insulin, nitroglycerin drip. -CAD per cardiac catheterization triple-vessel Aspirin, Lipitor, Lopressor -Acute hypoxic respiratory failure,: Corrected -Acute postprocedure blood loss anemia, expected from surgery Follow H&H -Reactive leukocytosis from surgery No evidence of infection -Dilutional thrombocytopenia Follow CBC -Patient does not have diabetes. [ Patient's HbA1c is 6.2. Fasting glucose this morning is 119.] -Hyperglycemia, operative stress related. Increase Levemir to 18 units daily. Sliding scale -Primary osteoarthritis Pain medications as needed -Hyperlipidemia Lipitor 40 mg daily -COPD in a current smoker DuoNeb 4 times a day -Chronic debility dependence cigarette smoker Nicotine patch GERD Omeprazole -New onset of atrial fibrillation, uncontrolled On oral amiodarone. Lopressor increased to 75 mg 3 times a day. Cardizem 60 mg every 6 Continue current medication treatment plan. No antibiotics per pulmonary. Increase activity as tolerated. Lopressor increased to [address] you [address] Menezes
[2021-05-15] MEDS: METOPROLOL TARTRATE 25 MG TAB PO SCH ×2 (16:35→21:15)
[2021-05-15 17:01] LABS: Glucose,Whole Blood 111 mg/dL (75-99)
[2021-05-15 20:16] LABS: Glucose,Whole Blood 132 mg/dL (75-99)
[2021-05-15] MEDS: SENNOSIDES-DOCUSATE SODIUM 1 EACH TAB PO SCH (21:14)
[2021-05-15] MEDS: ZOLPIDEM 5 MG TAB PO PRN (21:15)
[2021-05-16 06:13] LABS: Glucose,Whole Blood 94 mg/dL (75-99)
[2021-05-16] MEDS: INSULIN ASPART (NovoLOG) 100 UNIT/ML VIAL SQ SCH ×4 (06:23→21:06)
[2021-05-16] MEDS: DILTIAZEM ORAL 60 MG TAB PO SCH ×4 (06:30→23:13)
[2021-05-16] MEDS: PANTOPRAZOLE 40 MG TABLET PO SCH (06:30)
[2021-05-16] MEDS: INSULIN DETEMIR (LEVEMIR) 100 UNIT/ML SYR SQ SCH (07:04)
[2021-05-16 07:25] LABS: HGB 11.1 gm/dL (13.0-17.5); MCH 31.1 pg (25.0-35.0); MCHC 32.7 g/dL (31.0-37.0); MCV 94.9 fL (80.0-100.0); Mean Platelet Volume 7.8; Platelet Count 338 k/uL (150-450); RBC 3.58 m/uL (4.30-5.90); RDW 13.4 % (11.5-15.5); WBC 16.6 k/uL (3.8-10.6)
[2021-05-16 07:37] LABS: African American GFR (CKD) >90 (>60 ml/min/1.73 sqM); Anion Gap 8 mmol/L; Blood Urea Nitrogen 14 mg/dL (9-20); Calcium 8.8 mg/dL (8.4-10.2); Carbon Dioxide 25 mmol/L (22-30); Chloride 103 mmol/L (98-107); Glucose 91 mg/dL (74-99); Magnesium 2.1 mg/dL (1.6-2.3); Non-African American GFR(CKD) 89 (>60 ml/min/1.73 sqM); Potassium 4.2 mmol/L (3.5-5.1); Sodium 136 mmol/L (137-145)
[2021-05-16] MEDS ORDERED: FUROSEMIDE 10 MG/ML 2 ML VIAL IV ONE (08:00)
[2021-05-16] MEDS: IPRATROPIUM-ALBUTEROL 3 ML NEB INHALATION SCH ×3 (08:20→20:36)
[2021-05-16] MEDS: SYMBICORT 160-4.5 MCG INHALER INHALATION SCH ×2 (08:20→20:36)
[2021-05-16] MEDS: ACETYLCYSTEINE 800 MG/4 ML VIAL INHALATION SCH ×4 (08:20→20:36)
--- NOTE | 2021-05-16 08:31 | XR ---
EXAMINATION TYPE: XR chest 2V DATE OF EXAM: 05/16/2021 COMPARISON: 05/15/2020 TECHNIQUE: PA and lateral views submitted. HISTORY: Postop FINDINGS: Left-sided consolidation pleural effusion with postsurgical change. No pneumothorax. Right lung clear . Mild interstitial prominence and cardiomegaly. IMPRESSION: 1. Left lower lobe infiltrate and small effusion correlate for mild central venous congestion.
--- NOTE | 2021-05-16 08:55 | P.PN ---
Subjective Progress Note Date: 05/16/21 Principal diagnosis: Triple-vessel coronary artery disease with preserved left ventricular systolic function. Previous medical history of hypertension, hyperlipidemia, diet-contro lled diabetes mellitus type 2, peripheral vascular disease, remote history of kidney stones, history of SVT, and chronic obstructive pulmonary disease with chronic ongoing tobacco abuse. POD #7 quadruple coronary artery bypass grafting using the left internal mammary artery to left anterior descending coronary artery, left radial artery from the aorta to the second obtuse marginal coronary artery, a reverse greater saphenous vein graft from the aorta to the ramus intermedius coronary artery, a reverse greater saphenous vein graft from the aorta to the right coronary artery. Exclusion of the left atrial appendage using a 35 mm Atriclip, endoscopic harvesting of the left radial artery, endoscopic harvesting of the left greater saphenous vein, intraoperative graft flow measurements using the Medistim system, intraoperative transesophageal echocardiogram and epi-aortic scanning. Postoperative acute blood loss anemia, expected due to cardiopulmonary bypass and hemodilution. Postoperative atrial fibrillation, known common occurrence after open heart surgery The patient was seen and examined at the bedside on the cardiac step down unit this morning. States pain is controlled on current medication regimen, denies shortness of breath. Remains in persistent atrial fibrillation with heart rate in the low 100s-120s despite escalated doses of metoprolol and cardizem, anticoagulation continues with Eliquis. He has ambulated in the hallway without difficulty, showers daily without difficulty. Remains on room air with oxygen saturation in the mid 90s, able to acheive 1250 mL on his incentive spirometry. Labs, CXR reviewed, WBC 16.6 this morning, was 14.8 yesterday, remains afebrile, sputum culture sent yesterday, pending but preliminary gram stain reporting moderate gram negative bacilli and moderate gram positive cocci. Patient is anxious to go home, understands waiting for heart rate to be better controlled. Objective - Vital Signs Vital signs: Vital Signs Temp 98 F 05/16/21 03:13 Pulse 110 H 05/16/21 08:32 Resp 18 05/16/21 03:13 BP 131/66 05/16/21 03:13 Pulse Ox 93 L 05/16/21 08:21 Intake & Output 05/15/21 05/16/21 05/16/21 18:59 06:59 18:59 Intake Total 610 120 240 Output Total 275 1235 Balance 335 -1115 240 Weight 100.1 kg Intake: IV 10 20 Invasive Line 5 10 20 Oral 600 100 240 Output: Urine 275 1235 Other: Voiding Method Toilet Toilet # Voids 1 3 ABP, PAP, CO, CI - Last Documented Arterial Blood Pressure 96/77 Pulmonary Artery Pressure 33/11 Cardiac Output 6.3 Cardiac Index 2.9 - Exam CONSTITUTIONAL: Appears calm, cooperative, no acute distress RESPIRATORY: Lungs sounds diminished in the bases bilaterally. Respirations even, nonlabored. Currently on room air with oxygen saturation 96%. Able to achieve 1250 mL on incentive spirometry. Strong productive cough. CARDIOVASCULAR: S1, S2 present. Irregular rate and rhythm, uncontrilled atrial fibrillation on telemetry. Sternum stable. Palpable peripheral pulses sigifredo aterally. No edema present. No calf pain or tenderness noted. Heart hugger in place with patient demonstrating appropriate use. Antiembolism stockings, SCDs present. GASTROINTESTINAL: Abdomen soft, nontender, nondistended. Active bowel sounds present 4 quadrants. Tolerating diet. Positive bowel movement GENITOURINARY: Continues to void INTEGUMENTARY: Skin is warm and dry with evidence of good perfusion. Anterior chest incision well approximated. Left lower extremity EVH site well ap proximated without redness or drainage. Left radial artery harvest site well approximated without redness or drainage NEUROLOGIC: Cranial nerves II through XII intact MUSKULOSKELETAL: Able to move all extremities, strength equal bilaterally, gait normal PSYCHIATRIC: Alert and oriented to person place and time, appropriate affect, intact judgment and insight - Allied health notes Allied health notes reviewed: nursing - Labs CBC & Chem 7: 05/16/21 06:06 05/16/21 06:06 Labs: Abnormal Lab Results - Last 24 Hours (Table) 05/15/21 05/15/21 05/15/21 Range/Units 12:17 16:58 20:15 WBC (3.8-10.6) k/uL RBC (4.30-5.90) m/uL Hgb (13.0-17.5) gm/dL Hct (39.0-53.0) % Sodium (137-145) mmol/L POC Glucose (mg/dL) 105 H 111 H 132 H (75-99) mg/dL 05/16/21 05/16/21 Range/Units 06:06 06:06 WBC 16.6 H (3.8-10.6) k/uL RBC 3.58 L (4.30-5.90) m/uL Hgb 11.1 L (13.0-17.5) gm/dL Hct 34.0 L (39.0-53.0) % Sodium 136 L (137-145) mmol/L POC Glucose (mg/dL) (75-99) mg/dL Microbiology - Last 24 Hours (Table) 05/14/21 08:30 Gram Stain - Preliminary Sputum Sputum Culture - Preliminary - Imaging and Cardiology Chest x-ray: report reviewed, image reviewed Assessment and Plan Assessment: 1. Triple-vessel coronary artery disease with preserved left ventricular systolic function, status post four-vessel CABG 2. History of hypertension 3. Hyperlipidemia, treated, cholesterol 136, LDL 59, triglycerides 215 4. Diet-controlled diabetes mellitus type 2, preoperative hemoglobin A1c 6.2% 5. Peripheral vascular disease, preoperative ABIs 0.67 on the right and 0.66 on the left, history of intermittent claudication 6. Bilateral carotid artery stenosis, right ICA greater than 70%, left ICA 50- 69% 7. Remote history of kidney stones 8. History of SVT 9. Moderate COPD with chronic ongoing tobacco abuse, preoperative FEV1 58% of predicted 10. Postoperative acute blood loss anemia, expected 11. Postoperative atrial fibrillation, known common occurrence after open heart surgery, status post left atrial appendage ligation Plan: 1. Continue low dose aspirin, statin, and beta fer. Will increase beta fer as tolerated, increased to 75 MG TID yesterday by cardiology. Continue oral Cardizem for radial artery spasm prophylaxis, do not discontinue CCB without discussed with cardiothoracic surgery 2. Continue amiodarone for A. fib prophylaxis, will taper dose on discharge. Continue Eliquis for anticoagulation. 3. Encourage incentive spirometry 10 times every hour while awake. Bronchodilators per pulmonology management. 4. Increase activity, ambulate as tolerated. PT/OT/cardiac rehab following. 5. Will monitor daily labs and chest x-rays. Electrolyte replacement per protocol. Will give lasix 20 mg IVP today 6. GI/DVT prophylaxis. 7. Insulin management per primary care service. Patient needs tight blood sugar control to promote sternal union and prevent infection, preoperative hemoglobin A1c was 6.2%. 8. Pain control is current medication regimen. 9. Strict accurate intake and output. Daily weights 10. Sputum culture sent, pending results, preliminary gram stain reporting moderate gram neg bacilli, moderate gram positive cocci, will defer to pulmonology for possible antibiotics 11. Discharge planning in progress. Anticipate discharge to home with home care soon. Awaiting for heart rate to be better controlled 12. More recommendations to follow based on the patient's clinical course. Time with Patient: Greater than 30
[2021-05-16] MEDS: ATORVASTATIN 40 MG TAB PO SCH (09:34)
[2021-05-16] MEDS: METOPROLOL TARTRATE 25 MG TAB PO SCH ×3 (09:34→20:16)
[2021-05-16] MEDS: ASPIRIN 81 MG PO SCH (09:34)
[2021-05-16] MEDS: APIXABAN 5 MG TAB PO SCH ×2 (09:35→20:16)
[2021-05-16] MEDS: AMIODARONE 200 MG TAB PO SCH ×2 (09:35→20:16)
[2021-05-16 11:49] LABS: Glucose,Whole Blood 108 mg/dL (75-99)
--- NOTE | 2021-05-16 14:30 | P.PN ---
Subjective Progress Note Date: 05/16/21 HISTORY OF PRESENT ILLNESS: This is a 65-year-old male, patient of Dr. Bojorquez, who underwent CABG 4. Patient developed atrial fibrillation postoperatively. Patient remains in atria l fibrillation with a heart rate ranging between [id number]. Patient's blood pressures have been on the lower side with systolic near 100. He denies chest pain or pressure. He denies shortness of breath. He is anxious to be discharged home. PHYSICAL EXAM: VITAL SIGNS: Reviewed. GENERAL: Well-developed in no acute distress. NECK: Supple. No JVD or thyromegaly LUNGS: Respirations even and unlabored. Lungs diminished to auscultation bilaterally. HEART: Tachycardic. Irregular rate and rhythm. S1 and S2 heard. Heart hugger noted. EXTREMITIES: Normal range of motion. No clubbing or cyanosis. Peripheral pulses intact. No lower extremity edema ASSESSMENT: Coronary artery disease, s/p CABG x 4 Postoperative persistent atrial fibrillation, with uncontrolled ventricular rates Hypertension Hyperlipidemia Diabetes mellitus Peripheral vascular disease Bilateral carotid artery stenosis History of SVT COPD PLAN: Continue current cardiac medications including amiodarone 400 mg twice a day, metoprolol tartrate 75 mg 3 times a day, and Cardizem 60 mg every 6 hours Continue Eliquis, aspirin, Lipitor Monitor blood pressure Possible TE/CV tomorrow Further recommendations pending patient course Nurse practitioner note has been reviewed by physician. Signing provider agrees with the documented findings, assessment, and plan of care. Objective - Vital Signs Vital signs: Vital Signs Temp 98.3 F 05/16/21 11:04 Pulse 111 H 05/16/21 11:37 Resp 18 05/16/21 11:04 BP 95/57 05/16/21 11:04 Pulse Ox 96 05/16/21 11:04 Intake & Output 05/15/21 05/16/21 05/16/21 18:59 06:59 18:59 Intake Total 610 120 490 Output Total 275 1235 Balance 335 -1115 490 Weight 100.1 kg Intake: IV 10 20 10 Invasive Line 5 10 20 10 Oral 600 100 480 Output: Urine 275 1235 Other: Voiding Method Toilet Toilet Toilet # Voids 1 3 ABP, PAP, CO, CI - Last Documented Arterial Blood Pressure 96/77 Pulmonary Artery Pressure 33/11 Cardiac Output 6.3 Cardiac Index 2.9 - Labs CBC & Chem 7: 05/16/21 06:06 05/16/21 06:06 Labs: Abnormal Lab Results - Last 24 Hours (Table) 05/15/21 05/15/21 05/16/21 Range/Units 16:58 20:15 06:06 WBC 16.6 H (3.8-10.6) k/uL RBC 3.58 L (4.30-5.90) m/uL Hgb 11.1 L (13.0-17.5) gm/dL Hct 34.0 L (39.0-53.0) % Sodium (137-145) mmol/L POC Glucose (mg/dL) 111 H 132 H (75-99) mg/dL 05/16/21 05/16/21 Range/Units 06:06 11:46 WBC (3.8-10.6) k/uL RBC (4.30-5.90) m/uL Hgb (13.0-17.5) gm/dL Hct (39.0-53.0) % Sodium 136 L (137-145) mmol/L POC Glucose (mg/dL) 108 H (75-99) mg/dL Microbiology - Last 24 Hours (Table) 05/14/21 08:30 Gram Stain - Final Sputum Sputum Culture - Final
[2021-05-16 16:57] LABS: Glucose,Whole Blood 158 mg/dL (75-99)
[2021-05-16] MEDS: LACTATED RINGERS 1,000 ML IV SCH (16:59)
--- NOTE | 2021-05-16 19:05 | P.PN ---
Progress Note - Text Progress Note Date: 05/16/21 - Chief Complaint Coronary bypass This is a 65-year-old patient, follows with Dr. Miramontes. Chronic stable medical conditions include diabetes, osteoarthritis, hyperlipidemia, renal calculi, GERD, COPD. RU today patient underwent four-vessel quadruple bypass. Estimated blood loss was thousand cc with Cell Saver of 700 mL. Postprocedure patient with ICU. On the ventilator intubated. FiO2 50 and a PEEP of 8. Telemetry shows sinus rhythm. Patient has 3 chest use. 2 mediastinal and one left pleural. Current drips include norepinephrine, propofol, insulin, nitroglycerin and lactated Ringer's. Patient sedated. Stallworth catheter. 05/10/2021: Sore the patient earlier today. Extubated. Awake. Tired. Sinus rhythm. On insulin drip. Chest tubes in place. Stallworth catheter. 05/11/2021: Sitting up in a recliner. Breathing better. One chest tube taken out. Sinus rhythm. Accu-Cheks running a bit high. On IV amiodarone in D5. Does of Levemir increased. 3 units of NovoLog added with each meal. Discussed with patient. Started to eat better. 05/12/2021: Sitting up in a recliner. Some shortness of breath. On nasal cannula. One chest tube in place. Will be removed later this afternoon. Sinus rhythm. Changed to oral amiodarone. Scheduled NovoLog decreased. We'll cut back Levemir to 14 units. Check HbA1c. Eating about 50% 05/13/2031: Patient doing better. Oxygen requirement on room air. Oral intake improving. Did walk. Had a bowel movement. Eating [employer] sandwich. Does not like hospital food. Patient has been in atrial fibrillation. 05/14/2021: ICU: Patient remains in atrial fibrillation. In 1 teens. Eating well. On room air. Did walk. Had a bowel movement. Good oral intake. Lopressor increased to 50 mg 3 times a day. 05/15/2021: We'll Dr. the telemetry floor. Atrial fibrillation. Rate and 1 teens. Oral intake code. Had a bowel movement. Breathing stable. present. Some yellow-brown sputum 05/16/2021: Sitting up. Feeling well. Atrial fibrillation controlled. Up and about. Had a bowel movement. Patient received 1 dose of IV Lasix 20 mg one year. Review of systems: Was done for constitutional, cardiovascular, GI, pulmonary. relevant finding as above Active Medications Acetaminophen (Acetaminophen Tab 325 Mg Tab) 650 mg PO Q6HR PRN PRN Reason: Mild Pain or Fever > 38.3 C Last Admin: 05/14/21 21:22 Dose: 650 mg Documented by: Acetylcysteine (Acetylcysteine 800 Mg/4 Ml Vial) 200 mg INHALATION RT-QID [facility] Last Admin: 05/16/21 16:32 Dose: Not Given Documented by: Albuterol/Ipratropium (Ipratropium-Albuterol 3 Ml Neb) 3 ml INHALATION RT-Q2H PRN PRN Reason: Shortness Of Breath Or Wheezing Last Admin: 05/16/21 11:24 Dose: 3 ml Documented by: Albuterol/Ipratropium (Ipratropium-Albuterol 3 Ml Neb) 3 ml INHALATION TID [facility] Last Admin: 05/16/21 16:32 Dose: Not Given Documented by: Amiodarone HCl (Amiodarone 200 Mg Tab) 400 mg PO BID [facility] Last Admin: 05/16/21 09:35 Dose: 400 mg Documented by: Apixaban (Apixaban 5 Mg Tab) 5 mg PO BID [facility]; Protocol Last Admin: 05/16/21 09:35 Dose: 5 mg Documented by: Aspirin (Aspirin 81 Mg) 81 mg PO DAILY [facility] Last Admin: 05/16/21 09:34 Dose: 81 mg Documented by: Atorvastatin Calcium (Atorvastatin 40 Mg Tab) 40 mg PO DAILY [facility] Last Admin: 05/16/21 09:34 Dose: 40 mg Documented by: Bisacodyl (Bisacodyl 10 Mg Supp) 10 mg RECTAL DAILY PRN PRN Reason: Constipation Budesonide/Formoterol Fumarate (Symbicort 160-4.5 Mcg Inhaler) 2 puff INHALATION RT-BID [facility] Last Admin: 05/16/21 08:20 Dose: 2 puff Documented by: Diltiazem HCl (Diltiazem Oral 60 Mg Tab) 60 mg PO Q6HR [facility] Last Admin: 05/16/21 16:44 Dose: 60 mg Documented by: Lactated Ringer's (Lactated Ringers) 1,000 mls @ 20 mls/hr IV .Q24H [facility] Last Admin: 05/16/21 16:59 Dose: Not Given Documented by: Insulin Aspart (Insulin Aspart (Novolog) 100 Unit/Ml Vial) 0 unit SQ ACHS [facility]; Protocol Last Admin: 05/16/21 16:44 Dose: 3 unit Documented by: Insulin Detemir (Insulin Detemir (Levemir) 100 Unit/Ml Syr) 18 unit SQ DAILY @0700 [facility] Last Admin: 05/16/21 07:04 Dose: 18 unit Documented by: Magnesium Hydroxide (Magnesium Hydroxide 2,400 Mg/10 Ml Cup) 2,400 mg PO BID PRN PRN Reason: Constipation Last Admin: 05/11/21 18:02 Dose: 2,400 mg Documented by: Metoclopramide HCl (Metoclopramide 5 Mg/Ml 2 Ml Vial) 10 mg IVP Q4H PRN PRN Reason: Nausea And Vomiting Last Admin: 05/11/21 18:02 Dose: 10 mg Documented by: Metoprolol Tartrate (Metoprolol Tartrate 25 Mg Tab) 75 mg PO TID [facility] Last Admin: 05/16/21 16:44 Dose: 75 mg Documented by: Miscellaneous Information (Potassium Replacement Protocol 1 Each Misc) 1 each MISCELLANE DAILY PRN; Protocol PRN Reason: Per Protocol Miscellaneous Information (Magnesium Replacement Protocol 1 Each Misc) 1 each MISCELLANE DAILY PRN; Protocol PRN Reason: Per Protocol Miscellaneous Information (Phosphorus Replacement Protoco 1 Each Misc) 1 each MISCELLANE DAILY PRN; Protocol PRN Reason: Per Protocol Ondansetron HCl (Ondansetron 4 Mg/2 Ml Vial) 4 mg IVP Q6HR PRN PRN Reason: Nausea And Vomiting Pantoprazole Sodium (Pantoprazole 40 Mg Tablet) 40 mg PO AC-BRKFST [facility] Last Admin: 05/16/21 06:30 Dose: 40 mg Documented by: Senna/Docusate Sodium (Sennosides-Docusate Sodium 1 Each Tab) 2 each PO HS [facility] Last Admin: 05/15/21 21:14 Dose: 2 each Documented by: Sodium Chloride (Sodium Chloride 0.9% Flush 10 Ml Syringe) 10 ml IV BID [facility] Last Admin: 05/16/21 09:35 Dose: 10 ml Documented by: Zolpidem Tartrate (Zolpidem 5 Mg Tab) 5 mg PO HS PRN PRN Reason: Insomnia Last Admin: 05/15/21 21:15 Dose: 5 mg Documented by: Past medical history to include: Diabetes, or strep throat is, hyperlipidemia, CAD, renal calculi, COPD, GERD, Social history: Smokes half a pack a day for close to 53 years. Alcohol occasionally. CBD Gummi's. Retired from [employer] and [employer]. Family history: Reviewed, noncontributory to presentation Physical examination: VITAL SIGNS: 98.3, 106, 18, 95/57, 96% room air GENERAL: Sitting up, eating, comfortable EYES: Pupils equal. Conjunctiva normal. HEENT: External appearance of nose and ears normal, oral cavity normal NECK: JVD unable to assess; masses not palpable. HEART: Heart sounds irregular; no edema. LUNGS: Respiratory rate normal; decreased breath sounds. ABDOMEN: Soft, nontender, liver spleen not palpable, no masses palpable. PSYCH: AO 3, mood and affect normal INVESTIGATIONS, reviewed in the clinical context: May 16: White count is 16.6 hemoglobin 11.1 platelets 338 potassium 4.2 creatinine 0.88 May 15: White count 14.8 hemoglobin 11.4 platelets 303 potassium 4 creatinine 0.78 Chest x-ray film personally reviewed by me-left basal infiltrate May 14: WBC 13.2 hemoglobin 10.7 potassium 3.8 creatinine 0.79 May 13: WBC 13 hemoglobin 10.4 potassium 4.3 creatinine 0.85 HbA1c 6.2 May 12: WBC 19 units globin 10.7 platelets 139 potassium 4.5 creatinine 0.87 Accu-Cheks 119 May 11: WBC 21.7 hemoglobin 10.5 platelets 118 potassium 4.1 creatinine 0.84 May 10: White count 18.7 hemoglobin 12.2 platelets 137 potassium 4.2 creatinine 14 and 0.76 albumin 2.7 White count 20.4 hemoglobin 13.2 platelets 150 Accu-Cheks 164, 158, 151 Labs from 05/05/2021: Hemoglobin 15.4 platelets 12.9 potassium 4.6 creatinine 0.87 Assessment and plan: -Quadruple coronary bypass Patient was on: norepinephrine, propofol, insulin, nitroglycerin drip. -CAD per cardiac catheterization triple-vessel Aspirin, Lipitor, Lopressor -Acute hypoxic respiratory failure,: Corrected -Acute postprocedure blood loss anemia, expected from surgery Follow H&H -Dilutional thrombocytopenia Follow CBC -Patient does not have diabetes. [ Patient's HbA1c is 6.2. Fasting glucose this morning is 119.] -Hyperglycemia, operative stress related. Increase Levemir to 18 units daily. Sliding scale -Primary osteoarthritis Pain medications as needed -Hyperlipidemia Lipitor 40 mg daily -COPD in a current smoker DuoNeb 4 times a day -Chronic debility dependence cigarette smoker Nicotine patch GERD Omeprazole -New onset of atrial fibrillation, On oral amiodarone. Lopressor increased to 75 mg 3 times a day. Cardizem 60 mg every 6. Eliquis -Left lower lobe infiltrate with leukocytosis. No antibiotic per pulmonary. Continue current medication treatment plan. Activity as tolerated. discussed with the patient. Thank you Dr. Menezes
[2021-05-16] MEDS: SENNOSIDES-DOCUSATE SODIUM 1 EACH TAB PO SCH (20:16)
[2021-05-16 20:30] LABS: Glucose,Whole Blood 120 mg/dL (75-99)
[2021-05-16] MEDS: ZOLPIDEM 5 MG TAB PO PRN (23:13)
[2021-05-17 06:03] LABS: Glucose,Whole Blood 98 mg/dL (75-99)
[2021-05-17 06:22] LABS: Basophils # (A) 0.1 k/uL (0-0.2); Basophils % (A) 1 %; Eosinophils # (A) 0.3 k/uL (0-0.7); Eosinophils % (A) 2 %; HCT 33.1 % (39.0-53.0); HGB 10.9 gm/dL (13.0-17.5); Lymphocytes # (A) 4.4 k/uL (1.0-4.8); Lymphocytes % (A) 26 %; MCHC 32.8 g/dL (31.0-37.0); MCV 94.7 fL (80.0-100.0); Mean Platelet Volume 7.7; Monocytes # (A) 1.2 k/uL (0-1.0); Monocytes % (A) 7 %; Neutrophils # (A) 10.7 k/uL (1.3-7.7); Neutrophils % (A) 63 %; Platelet Count 377 k/uL (150-450); RDW 13.7 % (11.5-15.5)
[2021-05-17] MEDS: INSULIN ASPART (NovoLOG) 100 UNIT/ML VIAL SQ SCH ×4 (06:22→22:56)
[2021-05-17] MEDS: PANTOPRAZOLE 40 MG TABLET PO SCH (06:24)
[2021-05-17] MEDS: DILTIAZEM ORAL 60 MG TAB PO SCH ×4 (06:24→22:55)
[2021-05-17 06:36] LABS: African American GFR (CKD) >90 (>60 ml/min/1.73 sqM); Anion Gap 4 mmol/L; Blood Urea Nitrogen 14 mg/dL (9-20); Calcium 8.6 mg/dL (8.4-10.2); Carbon Dioxide 27 mmol/L (22-30); Chloride 104 mmol/L (98-107); Glucose 97 mg/dL (74-99); Magnesium 2.1 mg/dL (1.6-2.3); Non-African American GFR(CKD) 88 (>60 ml/min/1.73 sqM); Sodium 135 mmol/L (137-145)
[2021-05-17] MEDS: ACETYLCYSTEINE 800 MG/4 ML VIAL INHALATION SCH ×4 (07:51→22:01)
[2021-05-17] MEDS: IPRATROPIUM-ALBUTEROL 3 ML NEB INHALATION SCH ×3 (07:52→22:01)
[2021-05-17] MEDS: SYMBICORT 160-4.5 MCG INHALER INHALATION SCH ×2 (07:52→22:01)
--- NOTE | 2021-05-17 07:59 | P.PN ---
Subjective Progress Note Date: 05/17/21 Principal diagnosis: Triple-vessel coronary artery disease with preserved left ventricular systolic function. Previous medical history of hypertension, hyperlipidemia, diet-contro lled diabetes mellitus type 2, peripheral vascular disease, remote history of kidney stones, history of SVT, and chronic obstructive pulmonary disease with chronic ongoing tobacco abuse. POD #8 quadruple coronary artery bypass grafting using the left internal mammary artery to left anterior descending coronary artery, left radial artery from the aorta to the second obtuse marginal coronary artery, a reverse greater saphenous vein graft from the aorta to the ramus intermedius coronary artery, a reverse greater saphenous vein graft from the aorta to the right coronary artery. Exclusion of the left atrial appendage using a 35 mm Atriclip, endoscopic harvesting of the left radial artery, endoscopic harvesting of the left greater saphenous vein, intraoperative graft flow measurements using the HiMomstim system, intraoperative transesophageal echocardiogram and epi-aortic scanning. Postoperative acute blood loss anemia, expected due to cardiopulmonary bypass and hemodilution. Postoperative atrial fibrillation, known common occurrence after open heart surgery The patient was seen and examined at the bedside on the cardiac step down unit this morning. States pain is controlled on current medication regimen, denies shortness of breath. Remains in persistent atrial fibrillation with heart rate in the low 100s-120s. He has ambulated in the hallway without difficulty, showers daily without difficulty. Remains on room air with oxygen saturation in the mid 90s, able to acheive 1250 mL on his incentive spirometry. Labs, CXR reviewed, WBC 17.0 this morning, was 16.6 yesterday, remains afebrile, sputum culture finalized as negative for any growth. TRINY and cardioversion planned for today. Patient is anxious to go home. Objective - Vital Signs Vital signs: Vital Signs Temp 98.2 F 05/17/21 03:46 Pulse 115 H 05/17/21 03:46 Resp 16 05/17/21 03:46 BP 113/66 05/17/21 03:46 Pulse Ox 92 L 05/17/21 03:46 Intake & Output 05/16/21 05/17/21 05/17/21 18:59 06:59 18:59 Intake Total 730 240 Output Total 710 Balance 730 -470 Weight 97.3 kg Intake: IV 10 Invasive Line 5 10 Oral 720 240 Output: Urine 710 Other: Voiding Method Toilet Toilet Urinal # Voids 1 1 ABP, PAP, CO, CI - Last Documented Arterial Blood Pressure 96/77 Pulmonary Artery Pressure 33/11 Cardiac Output 6.3 Cardiac Index 2.9 - Exam CONSTITUTIONAL: Appears calm, cooperative, no acute distress RESPIRATORY: Lungs sounds diminished in the bases bilaterally. Respirations even, nonlabored. Currently on room air with oxygen saturation 92%. Able to achieve 1250 mL on incentive spirometry. Strong productive cough. CARDIOVASCULAR: S1, S2 present. Irregular rate and rhythm, uncontrilled atrial fibrillation on telemetry. Sternum stable. Palpable peripheral pulses bilaterally. No edema present. No calf pain or tenderness noted. Heart hugger in place with patient demonstrating appropriate use. Antiembolism stockings, SCDs present. GASTROINTESTINAL: Abdomen soft, nontender, nondistended. Active bowel sounds present 4 quadrants. Tolerating diet. Positive bowel movement GENITOURINARY: Continues to void INTEGUMENTARY: Skin is warm and dry with evidence of good perfusion. Anterior chest incision well approximated. Left lower extremity EVH site well approximated without redness or drainage. Left radial artery harvest site well approximated without redness or drainage NEUROLOGIC: Cranial nerves II through XII intact MUSKULOSKELETAL: Able to move all extremities, strength equal bilaterally, gait normal PSYCHIATRIC: Alert and oriented to person place and time, appropriate affect, intact judgment and insight - Allied health notes Allied health notes reviewed: nursing - Labs CBC & Chem 7: 05/17/21 05:45 05/17/21 05:45 Labs: Abnormal Lab Results - Last 24 Hours (Table) 05/16/21 05/16/21 05/16/21 Range/Units 11:46 16:42 20:29 WBC (3.8-10.6) k/uL RBC (4.30-5.90) m/uL Hgb (13.0-17.5) gm/dL Hct (39.0-53.0) % Neutrophils # (1.3-7.7) k/uL Monocytes # (0-1.0) k/uL Sodium (137-145) mmol/L POC Glucose (mg/dL) 108 H 158 H 120 H (75-99) mg/dL 05/17/21 05/17/21 Range/Units 05:45 05:45 WBC 17.0 H (3.8-10.6) k/uL RBC 3.50 L (4.30-5.90) m/uL Hgb 10.9 L (13.0-17.5) gm/dL Hct 33.1 L (39.0-53.0) % Neutrophils # 10.7 H (1.3-7.7) k/uL Monocytes # 1.2 H (0-1.0) k/uL Sodium 135 L (137-145) mmol/L POC Glucose (mg/dL) (75-99) mg/dL Microbiology - Last 24 Hours (Table) 05/14/21 08:30 Gram Stain - Final Sputum Sputum Culture - Final - Imaging and Cardiology Chest x-ray: image reviewed Assessment and Plan Assessment: 1. Triple-vessel coronary artery disease with preserved left ventricular systolic function, status post four-vessel CABG 2. History of hypertension 3. Hyperlipidemia, treated, cholesterol 136, LDL 59, triglycerides 215 4. Diet-controlled diabetes mellitus type 2, preoperative hemoglobin A1c 6.2% 5. Peripheral vascular disease, preoperative ABIs 0.67 on the right and 0.66 on the left, history of intermittent claudication 6. Bilateral carotid artery stenosis, right ICA greater than 70%, left ICA 50- 69% 7. Remote history of kidney stones 8. History of SVT 9. Moderate COPD, restrictive lung disease with chronic ongoing tobacco abuse, preoperative FEV1 58% of predicted 10. Postoperative acute blood loss anemia, expected 11. Postoperative atrial fibrillation, known common occurrence after open heart surgery, status post left atrial appendage ligation Plan: 1. Continue low dose aspirin, statin, and beta fer. Continue oral Cardizem for radial artery spasm prophylaxis, do not discontinue CCB without discussed with cardiothoracic surgery 2. Continue amiodarone for A. fib prophylaxis, will taper dose on discharge. Continue Eliquis for anticoagulation. 3. Patient is currently NPO for TRINY and cardioversion this morning 4. Encourage incentive spirometry 10 times every hour while awake. Bronchodilators per pulmonology management. 5. Increase activity, ambulate as tolerated. PT/OT/cardiac rehab following. 6. Will monitor daily labs and chest x-rays. Electrolyte replacement per protocol. Will give lasix 20 mg IVP today 7. GI/DVT prophylaxis. 8. Insulin management per primary care service. Patient needs tight blood sugar control to promote sternal union and prevent infection, preoperative hemoglobin A1c was 6.2%. 9. Pain control is current medication regimen. 10. Strict accurate intake and output. Daily weights 11. Sputum culture sent, results finalized as negative for growth 12. Discharge planning in progress. Anticipate discharge to home with home care soon 13. More recommendations to follow based on the patient's clinical course. Time with Patient: Greater than 30
[2021-05-17] MEDS ORDERED: FUROSEMIDE 10 MG/ML 2 ML VIAL IV ONE (08:42)
--- NOTE | 2021-05-17 09:08 | XR ---
EXAMINATION TYPE: XR chest 2V DATE OF EXAM: 05/17/2021 COMPARISON: Chest x-ray 05/16/2021 HISTORY: Status post cardiac surgery, abnormal chest x-ray TECHNIQUE: Frontal and lateral views of the chest are obtained. FINDINGS: Patient is post median sternotomy. Basilar density persists with obscured left hemidiaphra gm. No evident pneumothorax. There are overlying artifacts. Cardiac mediastinal silhouette is unchang ed. Patient is post left atrial appendage clip placement. IMPRESSION: Findings are similar to prior exam. Basilar atelectasis versus edema or pneumonia and as sociated effusion. Stable heart.
[2021-05-17 11:37] LABS: Glucose,Whole Blood 115 mg/dL (75-99)
[2021-05-17] MEDS: AMIODARONE 200 MG TAB PO SCH ×2 (11:44→14:02)
[2021-05-17] MEDS: METOPROLOL TARTRATE 25 MG TAB PO SCH (11:44)
--- NOTE | 2021-05-17 12:15 | P.PN ---
Progress Note - Text Progress Note Date: 05/17/21 - Chief Complaint Coronary bypass This is a 65-year-old patient, follows with Dr. Miramontes. Chronic stable medical conditions include diabetes, osteoarthritis, hyperlipidemia, renal calculi, GERD, COPD. RU today patient underwent four-vessel quadruple bypass. Estimated blood loss was thousand cc with Cell Saver of 700 mL. Postprocedure patient with ICU. On the ventilator intubated. FiO2 50 and a PEEP of 8. Telemetry shows sinus rhythm. Patient has 3 chest use. 2 mediastinal and one left pleural. Current drips include norepinephrine, propofol, insulin, nitroglycerin and lactated Ringer's. Patient sedated. Stallworth catheter. 05/10/2021: Sore the patient earlier today. Extubated. Awake. Tired. Sinus rhythm. On insulin drip. Chest tubes in place. Stallworth catheter. 05/11/2021: Sitting up in a recliner. Breathing better. One chest tube taken out. Sinus rhythm. Accu-Cheks running a bit high. On IV amiodarone in D5. Does of Levemir increased. 3 units of NovoLog added with each meal. Discussed with patient. Started to eat better. 05/12/2021: Sitting up in a recliner. Some shortness of breath. On nasal cannula. One chest tube in place. Will be removed later this afternoon. Sinus rhythm. Changed to oral amiodarone. Scheduled NovoLog decreased. We'll cut back Levemir to 14 units. Check HbA1c. Eating about 50% 05/13/2031: Patient doing better. Oxygen requirement on room air. Oral intake improving. Did walk. Had a bowel movement. Eating Ar[employer] sandwich. Does not like hospital food. Patient has been in atrial fibrillation. 05/14/2021: ICU: Patient remains in atrial fibrillation. In 1 teens. Eating well. On room air. Did walk. Had a bowel movement. Good oral intake. Lopressor increased to 50 mg 3 times a day. 05/15/2021: We'll Dr. the telemetry floor. Atrial fibrillation. Rate and 1 teens. Oral intake code. Had a bowel movement. Breathing stable. present. Some yellow-brown sputum 05/16/2021: Sitting up. Feeling well. Atrial fibrillation controlled. Up and about. Had a bowel movement. Patient received 1 dose of IV Lasix 20 mg one year. 05/17/2021: Sitting up in a chair. Comfortable. Pending TRINY and cardioversion. Bringing up some yellow-brown sputum. Being followed by pulmonary. Remains in A. fib. Rate around 120s. Review of systems: Was done for constitutional, cardiovascular, GI, pulmonary. relevant finding as above Active Medications Acetaminophen (Acetaminophen Tab 325 Mg Tab) 650 mg PO Q6HR PRN PRN Reason: Mild Pain or Fever > 38.3 C Last Admin: 05/14/21 21:22 Dose: 650 mg Documented by: Acetylcysteine (Acetylcysteine 800 Mg/4 Ml Vial) 200 mg INHALATION RT-QID [facility] Last Admin: 05/17/21 11:09 Dose: Not Given Documented by: Albuterol/Ipratropium (Ipratropium-Albuterol 3 Ml Neb) 3 ml INHALATION RT-Q2H PRN PRN Reason: Shortness Of Breath Or Wheezing Last Admin: 05/16/21 11:24 Dose: 3 ml Documented by: Albuterol/Ipratropium (Ipratropium-Albuterol 3 Ml Neb) 3 ml INHALATION TID [facility] Last Admin: 05/17/21 07:52 Dose: Not Given Documented by: Amiodarone HCl (Amiodarone 200 Mg Tab) 400 mg PO BID [facility] Last Admin: 05/17/21 11:44 Dose: Not Given Documented by: Apixaban (Apixaban 5 Mg Tab) 5 mg PO BID [facility]; Protocol Last Admin: 05/16/21 20:16 Dose: 5 mg Documented by: Aspirin (Aspirin 81 Mg) 81 mg PO DAILY [facility] Last Admin: 05/16/21 09:34 Dose: 81 mg Documented by: Atorvastatin Calcium (Atorvastatin 40 Mg Tab) 40 mg PO DAILY [facility] Last Admin: 05/16/21 09:34 Dose: 40 mg Documented by: Bisacodyl (Bisacodyl 10 Mg Supp) 10 mg RECTAL DAILY PRN PRN Reason: Constipation Budesonide/Formoterol Fumarate (Symbicort 160-4.5 Mcg Inhaler) 2 puff INHALATION RT-BID [facility] Last Admin: 05/17/21 07:52 Dose: Not Given Documented by: Diltiazem HCl (Diltiazem Oral 60 Mg Tab) 60 mg PO Q6HR [facility] Last Admin: 05/17/21 11:44 Dose: Not Given Documented by: Lactated Ringer's (Lactated Ringers) 1,000 mls @ 20 mls/hr IV .Q24H [facility] Last Admin: 05/16/21 16:59 Dose: Not Given Documented by: Insulin Aspart (Insulin Aspart (Novolog) 100 Unit/Ml Vial) 0 unit SQ ACHS [facility]; Protocol Last Admin: 05/17/21 11:43 Dose: Not Given Documented by: Insulin Detemir (Insulin Detemir (Levemir) 100 Unit/Ml Syr) 18 unit SQ NAVDEEP LY@0700 [facility] Last Admin: 05/16/21 07:04 Dose: 18 unit Documented by: Magnesium Hydroxide (Magnesium Hydroxide 2,400 Mg/10 Ml Cup) 2,400 mg PO BID PRN PRN Reason: Constipation Last Admin: 05/11/21 18:02 Dose: 2,400 mg Documented by: Metoclopramide HCl (Metoclopramide 5 Mg/Ml 2 Ml Vial) 10 mg IVP Q4H PRN PRN Reason: Nausea And Vomiting Last Admin: 05/11/21 18:02 Dose: 10 mg Documented by: Metoprolol Tartrate (Metoprolol Tartrate 25 Mg Tab) 75 mg PO TID [facility] Last Admin: 05/17/21 11:44 Dose: Not Given Documented by: Miscellaneous Information (Potassium Replacement Protocol 1 Each Misc) 1 each MISCELLANE DAILY PRN; Protocol PRN Reason: Per Protocol Miscellaneous Information (Magnesium Replacement Protocol 1 Each Misc) 1 each MISCELLANE DAILY PRN; Protocol PRN Reason: Per Protocol Miscellaneous Information (Phosphorus Replacement Protoco 1 Each Misc) 1 each MISCELLANE DAILY PRN; Protocol PRN Reason: Per Protocol Ondansetron HCl (Ondansetron 4 Mg/2 Ml Vial) 4 mg IVP Q6HR PRN PRN Reason: Nausea And Vomiting Pantoprazole Sodium (Pantoprazole 40 Mg Tablet) 40 mg PO -BRKFST [facility] Last Admin: 05/17/21 06:24 Dose: 40 mg Documented by: Senna/Docusate Sodium (Sennosides-Docusate Sodium 1 Each Tab) 2 each PO HS [facility] Last Admin: 05/16/21 20:16 Dose: 2 each Documented by: Sodium Chloride (Sodium Chloride 0.9% Flush 10 Ml Syringe) 10 ml IV BID [facility] Last Admin: 05/16/21 20:17 Dose: 10 ml Documented by: Zolpidem Tartrate (Zolpidem 5 Mg Tab) 5 mg PO HS PRN PRN Reason: Insomnia Last Admin: 05/16/21 23:13 Dose: 5 mg Documented by: Past medical history to include: Diabetes, or strep throat is, hyperlipidemia, CAD, renal calculi, COPD, GERD, Social history: Smokes half a pack a day for close to 53 years. Alcohol occasionally. CBD Gummi's. Retired from [employer] and [employer]. Family history: Reviewed, noncontributory to presentation Physical examination: VITAL SIGNS: 98.1, 1:30, 18, 95/56, 93% room air GENERAL: Sitting up, eating, comfortable EYES: Pupils equal. Conjunctiva normal. HEENT: External appearance of nose and ears normal, oral cavity normal NECK: JVD unable to assess; masses not palpable. HEART: Heart sounds irregular; no edema. LUNGS: Respiratory rate normal; decreased breath sounds. ABDOMEN: Soft, nontender, liver spleen not palpable, no masses palpable. PSYCH: AO 3, mood and affect normal INVESTIGATIONS, reviewed in the clinical context: May 17: White count 17 hemoglobin 10.9 potassium 4 creatinine 0.9 May 16: White count is 16.6 hemoglobin 11.1 platelets 338 potassium 4.2 creatinine 0.88 May 15: White count 14.8 hemoglobin 11.4 platelets 303 potassium 4 creatinine 0.78 Chest x-ray film personally reviewed by de-left basal infiltrate May 14: WBC 13.2 hemoglobin 10.7 potassium 3.8 creatinine 0.79 May 13: WBC 13 hemoglobin 10.4 potassium 4.3 creatinine 0.85 HbA1c 6.2 May 12: WBC 19 units globin 10.7 platelets 139 potassium 4.5 creatinine 0.87 Accu-Cheks 119 May 11: WBC 21.7 hemoglobin 10.5 platelets 118 potassium 4.1 creatinine 0.84 May 10: White count 18.7 hemoglobin 12.2 platelets 137 potassium 4.2 creatinine 14 and 0.76 albumin 2.7 White count 20.4 hemoglobin 13.2 platelets 150 Accu-Cheks 164, 158, 151 Labs from 05/05/2021: Hemoglobin 15.4 platelets 12.9 potassium 4.6 creatinine 0.87 Assessment and plan: -Quadruple coronary bypass Patient was on: norepinephrine, propofol, insulin, nitroglycerin drip. -CAD per cardiac catheterization triple-vessel Aspirin, Lipitor, Lopressor -Acute hypoxic respiratory failure,: Corrected -Acute postprocedure blood loss anemia, expected from surgery Follow H&H -Dilutional thrombocytopenia Follow CBC -Patient does not have diabetes. [ Patient's HbA1c is 6.2. Fasting glucose this morning is 119.] -Hyperglycemia, operative stress related. Increase Levemir to 18 units daily. Sliding scale -Primary osteoarthritis Pain medications as needed -Hyperlipidemia Lipitor 40 mg daily -COPD in a current smoker DuoNeb 4 times a day -Chronic debility dependence cigarette smoker Nicotine patch GERD Omeprazole -Persistent atrial fibrillation, remains uncontrolled On oral amiodarone. Lopressor 75 mg 3 times a day. Cardizem 60 mg every 6. Eliquis. TRINY and cardioversion today. -Left lower lobe infiltrate with leukocytosis. Antibiotics decisions per pulmonary. Continue current medications. Nothing by mouth. Pending TRINY and cardioversion today. Thank you Dr. Menezes
[2021-05-17] MEDS ORDERED: SODIUM CHLORIDE 0.9% 500 ML 500 ML IV ONE (12:52)
[2021-05-17] MEDS ORDERED: PHENYLEPHRINE-0.9% NACL SYG 1,000 MCG/10 ML SYRINGE ONE (12:53)
[2021-05-17] MEDS ORDERED: PROPOFOL 10 MG/ML 20 ML VIAL IV ONE ×2 (12:53→15:03)
[2021-05-17] MEDS ORDERED: BENZOCAINE SPRAY 1 CAN MUCOUS MEM ONE (12:56)
[2021-05-17] MEDS ORDERED: SODIUM CHLORIDE 0.9% 1,000 ML IV SCH (13:15)
[2021-05-17] MEDS: INSULIN DETEMIR (LEVEMIR) 100 UNIT/ML SYR SQ SCH (14:01)
[2021-05-17] MEDS: ATORVASTATIN 40 MG TAB PO SCH (14:02)
[2021-05-17] MEDS: APIXABAN 5 MG TAB PO SCH ×2 (14:02→22:55)
[2021-05-17] MEDS: ASPIRIN 81 MG PO SCH (14:02)
--- NOTE | 2021-05-17 14:33 | US ---
EXAMINATION TYPE: US chest DATE OF EXAM: 05/17/2021 COMPARISON: NONE CLINICAL HISTORY: pleural effusion. TECHNIQUE: Targeted ultrasound of the posterior lower bilateral hemithoraces EXAM MEASUREMENTS: Right Pleural Effusion pocket size: 2.2 cm Right skin surface to fluid distance: 2.9 cm Left Pleural Effusion pocket size: 2.1 cm Left skin surface to fluid distance: 3.8 cm Right side marked for possible thoracentesis outside the dept. Left side marked for possible thoracentesis outside the dept. Pulmonologists are able to review the images in the patient?s EMR. IMPRESSIONS: 1. Small bilateral pleural effusions
[2021-05-17] MEDS: LACTATED RINGERS 1,000 ML IV SCH (14:44)
[2021-05-17] MEDS: METOPROLOL TARTRATE 50 MG TAB PO SCH (14:44)
[2021-05-17] MEDS ORDERED: MIDAZOLAM 2 MG/2 ML VIAL ONE (15:03)
--- NOTE | 2021-05-17 15:07 | PCN ---
PROCEDURE NOTE PROCEDURE PERFORMED: Cardioversion. INDICATIONS: Atrial fibrillation. PROCEDURE DETAILS: After explaining the procedure to the patient, its risks and the complications, after obtaining transesophageal echocardiogram, a synchronized biphasic cardioversion using 75 joules was successful in restoring sinus mechanism. Shortly after, the patient went in to what appears to be atrial flutter with 2:1 conduction. He underwent cardioversion with 100 joules with hoahaoism of normal sinus rhythm. There was no immediate complication. MMODL / IJN: [id number] /
--- NOTE | 2021-05-17 15:39 | ECHOT ---
TRANSESOPHAGEAL ECHOCARDIOGRAM INDICATION: Atrial fibrillation. PROCEDURE: After explaining the procedure to the patient, its risks and complication, his blood pressure, heart rate, O2 saturation was monitored. The throat was sprayed with Cetacaine. He received sedation per Anesthesia Department. The probe was introduced in the esophagus without difficulty. Images were obtained. Following that, the probe was removed. There were no immediate complications. FINDINGS: Left atrial size is mildly dilated. Left atrial appendage is occluded. The left ventricular size and systolic function is normal. The aortic valve, mitral valve and tricuspid valve are normal. Descending thoracic aorta appears to be normal. No pericardial effusion was noted. Contrast bubble study revealed no evidence of shunting across the interatrial septum. Pulse wave and color Doppler obtained. Revealed mild mitral and tricuspid regurgitation. There was no shunting by color Doppler study. CONCLUSION: 1. Normal left ventricular size and systolic function. 2. Mildly dilated left atrium with occlusion of the left atrial appendage. 3. Mild mitral and tricuspid regurgitation. 4. No shunting across the interatrial septum. 5. Normal appearance of the descending thoracic aorta. MMODL / IJN: [id number] /
--- NOTE | 2021-05-17 15:56 | P.GSCN ---
History of Present Illness Consult date: 05/17/21 Reason for Consult: pleural effusions ordered u/s imaging showing small pockets of fluid, defer drainage due to anticoagulation and limited percutaneous access, small effusions Past Medical History Past Medical History: Coronary Artery Disease (CAD), Cancer, Chest Pain / Angina, COPD, GERD/Reflux, Hyperlipidemia, Hypertension, Osteoarthritis (OA), Vascular Disorder Additional Past Medical History / Comment(s): basal cell carcinoma-on nose removed PAST HX: RENAL CALCULI & KIDNEY INFECTIONS 1990s History of Any Multi-Drug Resistant Organisms: None Reported Past Surgical History: Heart Catheterization Additional Past Surgical History / Comment(s): skin cancer removed from nose. sigifredo cataracts Past Anesthesia/Blood Transfusion Reactions: No Reported Reaction Smoking Status: Current every day smoker - Past Family History Mother Family Medical History: No Reported History Father Family Medical History: No Reported History Medications and Allergies Home Medications Medication Instructions Recorded Confirmed Type Naproxen Sodium [Aleve] 220 - 440 mg PO Q6H PRN 06/19/17 05/05/21 History Aspirin 81 mg PO DAILY chew 10/31/17 05/05/21 Rx Metoprolol Tartrate [Lopressor] 25 mg PO BID 03/31/21 05/05/21 History [place]-3 Fatty Acids [[place]-3] 1,000 mg PO DAILY 03/31/21 05/05/21 History Omeprazole 40 mg PO MOWEFR 03/31/21 05/05/21 History Plant Stanol Coty [Cholest Off] 450 mg PO DAILY 03/31/21 05/05/21 History Rosuvastatin [Crestor] 10 mg PO DAILY 03/31/21 05/05/21 History Vits A,C,E/Lutein/Minerals 1 each PO DAILY 03/31/21 05/05/21 History [Ocuvite with Lutein Tablet] Isosorbide Mononitrate ER [Imdur] 30 mg PO DAILY #30 tablet 04/05/21 05/05/21 Rx Nitroglycerin Sl Tabs [Nitrostat] 0.4 mg SUBLINGUAL Q5M PRN #25 tab 04/05/21 05/05/21 Rx Umeclidinium Brm/Vilanterol Tr 1 puff INHALATION HS 05/06/21 05/06/21 History [Anoro Ellipta 62.5-25 Mcg INH] Apixaban [Eliquis] 5 mg PO BID #60 tab 05/16/21 Rx Allergies Allergy/AdvReac Type Severity Reaction Status Date / Time No Known Allergies Allergy Verified 05/05/21 16:04 Surgical - Exam Vital Signs Temp Pulse Resp BP Pulse Ox 97.2 F L 49 L 16 111/49 96 05/09/21 06:30 05/09/21 06:30 05/09/21 06:30 05/09/21 06:30 05/09/21 06:30 Results - Labs 05/17/21 05:45 05/17/21 05:45 Abnormal Lab Results - Last 24 Hours (Table) 05/16/21 05/16/21 05/17/21 Range/Units 16:42 20:29 05:45 WBC 17.0 H (3.8-10.6) k/uL RBC 3.50 L (4.30-5.90) m/uL Hgb 10.9 L (13.0-17.5) gm/dL Hct 33.1 L (39.0-53.0) % Neutrophils # 10.7 H (1.3-7.7) k/uL Monocytes # 1.2 H (0-1.0) k/uL Sodium (137-145) mmol/L POC Glucose (mg/dL) 158 H 120 H (75-99) mg/dL 05/17/21 05/17/21 Range/Units 05:45 11:35 WBC (3.8-10.6) k/uL RBC (4.30-5.90) m/uL Hgb (13.0-17.5) gm/dL Hct (39.0-53.0) % Neutrophils # (1.3-7.7) k/uL Monocytes # (0-1.0) k/uL Sodium 135 L (137-145) mmol/L POC Glucose (mg/dL) 115 H (75-99) mg/dL Microbiology - Last 24 Hours (Table) 05/14/21 08:30 Gram Stain - Final Sputum Sputum Culture - Final Diabetes panel 05/17/21 Range/Units 05:45 Sodium 135 L (137-145) mmol/L Potassium 4.0 (3.5-5.1) mmol/L Chloride 104 (98-107) mmol/L Carbon Dioxide 27 (22-30) mmol/L BUN 14 (9-20) mg/dL Creatinine 0.90 (0.66-1.25) mg/dL Glucose 97 (74-99) mg/dL Calcium 8.6 (8.4-10.2) mg/dL Calcium panel 05/17/21 Range/Units 05:45 Calcium 8.6 (8.4-10.2) mg/dL Pituitary panel 05/17/21 Range/Units 05:45 Sodium 135 L (137-145) mmol/L Potassium 4.0 (3.5-5.1) mmol/L Chloride 104 (98-107) mmol/L Carbon Dioxide 27 (22-30) mmol/L BUN 14 (9-20) mg/dL Creatinine 0.90 (0.66-1.25) mg/dL Glucose 97 (74-99) mg/dL Calcium 8.6 (8.4-10.2) mg/dL Adrenal panel 05/17/21 Range/Units 05:45 Sodium 135 L (137-145) mmol/L Potassium 4.0 (3.5-5.1) mmol/L Chloride 104 (98-107) mmol/L Carbon Dioxide 27 (22-30) mmol/L BUN 14 (9-20) mg/dL Creatinine 0.90 (0.66-1.25) mg/dL Glucose 97 (74-99) mg/dL Calcium 8.6 (8.4-10.2) mg/dL
[2021-05-17 16:17] LABS: Prothrombin Time 10.5 sec (9.0-12.0)
[2021-05-17 16:55] LABS: Glucose,Whole Blood 190 mg/dL (75-99)
[2021-05-17 19:48] LABS: Glucose,Whole Blood 128 mg/dL (75-99)
[2021-05-17] MEDS: SENNOSIDES-DOCUSATE SODIUM 1 EACH TAB PO SCH (22:54)
[2021-05-18 06:02] LABS: Glucose,Whole Blood 110 mg/dL (75-99)
[2021-05-18] MEDS: AMIODARONE 200 MG TAB PO SCH ×3 (06:40→19:36)
[2021-05-18 06:56] LABS: HCT 32.2 % (39.0-53.0); HGB 10.5 gm/dL (13.0-17.5); MCH 30.9 pg (25.0-35.0); MCHC 32.5 g/dL (31.0-37.0); MCV 95.2 fL (80.0-100.0); Mean Platelet Volume 7.8; Platelet Count 430 k/uL (150-450); RBC 3.38 m/uL (4.30-5.90); RDW 13.7 % (11.5-15.5); WBC 17.5 k/uL (3.8-10.6)
[2021-05-18] MEDS: INSULIN DETEMIR (LEVEMIR) 100 UNIT/ML SYR SQ SCH (06:58)
[2021-05-18] MEDS: PANTOPRAZOLE 40 MG TABLET PO SCH (06:59)
[2021-05-18 07:04] LABS: Calcium 8.8 mg/dL (8.4-10.2); Potassium 4.2 mmol/L (3.5-5.1)
[2021-05-18] MEDS: INSULIN ASPART (NovoLOG) 100 UNIT/ML VIAL SQ SCH ×4 (07:52→20:58)
[2021-05-18] MEDS: IPRATROPIUM-ALBUTEROL 3 ML NEB INHALATION SCH ×3 (08:01→20:47)
[2021-05-18] MEDS: SYMBICORT 160-4.5 MCG INHALER INHALATION SCH ×2 (08:01→20:46)
[2021-05-18] MEDS: ACETYLCYSTEINE 800 MG/4 ML VIAL INHALATION SCH ×4 (08:01→20:46)
--- NOTE | 2021-05-18 08:43 | XR ---
EXAMINATION TYPE: XR chest 2V DATE OF EXAM: 05/18/2021 COMPARISON: Chest x-ray 05/17/2021 HISTORY: Status post cardiac surgery TECHNIQUE: Frontal and lateral views of the chest are obtained. FINDINGS: Patient is post median sternotomy, there are overlying artifacts. No evident pneumothorax. Basilar density is present on the left obscuring the left hemidiaphragm, this blunting of left costo phrenic angle. Cardiac mediastinal silhouette shows a similar appearance, patient is post left atrial appendage clip placement. IMPRESSION: Findings are similar to prior exam. Left lower lobe atelectasis and possible effusion
[2021-05-18] MEDS: METOPROLOL TARTRATE 50 MG TAB PO SCH ×2 (09:05→19:36)
[2021-05-18] MEDS: APIXABAN 5 MG TAB PO SCH ×2 (09:06→19:36)
[2021-05-18] MEDS: ASPIRIN 81 MG PO SCH (09:06)
[2021-05-18] MEDS: ATORVASTATIN 40 MG TAB PO SCH (09:06)
[2021-05-18] MEDS: DILTIAZEM ORAL 60 MG TAB PO SCH (09:06)
--- NOTE | 2021-05-18 10:21 | P.PN ---
Subjective Progress Note Date: 05/18/21 Principal diagnosis: Triple-vessel coronary artery disease with preserved left ventricular systolic function. Past medical history significant for hypertension, hyperlipidemia, di et-controlled diabetes mellitus type 2, peripheral vascular disease with preoperative ABIs showing 0.67 on the right and 0.66 on the left, remote history of kidney stones, history of SVT, history of leukocytosis which is followed by Dr. Farrell from hematology and chronic obstructive pulmonary disease with chronic ongoing tobacco abuse. POD #9 quadruple coronary artery bypass grafting using the left internal mammary artery to left anterior descending coronary artery, left radial artery from the aorta to the second obtuse marginal coronary artery, a reverse greater saphenous vein graft from the aorta to the ramus intermedius coronary artery, a reverse greater saphenous vein graft from the aorta to the right coronary artery. Exclusion of the left atrial appendage using a 35 mm Atriclip, endoscopic harvesting of the left radial artery, endoscopic harvesting of the left greater saphenous vein, intraoperative graft flow measurements using the StudioSnapsstim system, intraoperative transesophageal echocardiogram and epi-aortic scanning. Postoperative acute blood loss anemia, expected due to cardiopulmonary bypass and hemodilution. Postoperative atrial fibrillation, known common occurrence after open heart surgery. The patient is seen in follow-up today 05/18/2021 at his bedside on the cardiac stepdown unit. Currently sitting up to the chair, is alert and oriented 3 and is in no acute apparent distress. Denies any complaints of pain or shortness of breath this time and is anxious to be discharged home. Yesterday 05/17/2021 he underwent a TRINY with cardioversion performed by Dr. Bojorquez. Remote telemetry issues showing normal sinus rhythm heart rate 61 BPM. No further episodes of atrial fibrillation reported. Oxygen saturations are 94% on room air and he is achieving 1250 mL on his incentive spirometry with encouragement. Laboratory results this morning show a WBC count of 17.5, hemoglobin 10.5, hematocrit 32.2, platelets 430, sodium 135, potassium 4.2, BUN 19, creatinine 1.09 and glucose 112. He has been afebrile last 24 hours, remained hemodynamically stable and is currently on no inotropic or pressor support. Objective - Vital Signs Vital signs: Vital Signs Temp 98.3 F 05/18/21 08:00 Pulse 61 05/18/21 08:00 Resp 18 05/18/21 08:00 BP 132/65 05/18/21 08:00 Pulse Ox 94 L 05/18/21 08:00 Intake & Output 05/17/21 05/18/21 05/18/21 18:59 06:59 18:59 Intake Total 450 Output Total 475 2 Balance -25 -2 Weight 97.1 kg Intake: IV 210 Invasive Line 5 10 Oral 240 Output: Urine 475 Stool 2 Other: Voiding Method Toilet Toilet Urinal Urinal # Voids 1 # Bowel Movements 1 ABP, PAP, CO, CI - Last Documented Arterial Blood Pressure 96/77 Pulmonary Artery Pressure 33/11 Cardiac Output 6.3 Cardiac Index 2.9 - Exam CONSTITUTIONAL: Sitting up to the bedside chair on the cardiac stepdown unit, appears comfortable, cooperative, no apparent acute distress. HEENT: Neck is supple, no JVD, no lymphadenopathy. RESPIRATORY: Lungs sounds essentially clear throughout, diminished to his bilateral bases. Respirations are symmetrical and nonlabored. Currently on room air with oxygen saturations 94%. Able to achieve 1250 mL on his incentive spirometry. Strong cough. CARDIOVASCULAR: Regular rhythm and rate. S1 and S2 present, negative for S3, gallop or murmur. Sternum is stable. Palpable peripheral pulses bilaterally, no edema present. No calf pain or tenderness noted. Heart hugger in place with patient demonstrating appropriate use. Knee-high REMI hose and sequential compression devices in place to his bilateral lower extremities. GASTROINTESTINAL: Abdomen soft, nontender, nondistended. Active bowel sounds present 4 quadrants. Tolerating diet. Passing flatus. No guarding or rigidity. GENITOURINARY: Continues to void. INTEGUMENTARY: Skin is warm and dry with no evidence of clubbing or cyanosis. Midline sternal incision clean dry and well approximated, covered with dry intact dressing. Left lower extremity EVH site well approximated without redness or drainage. Left arm radial artery harvest sites clean, dry and approximated. No drainage or redness is present. NEUROLOGIC: Cranial nerves II through XII intact. No focal deficits. MUSKULOSKELETAL: Able to move all extremities, strength equal bilaterally. PSYCHIATRIC: Alert and oriented to person place and time, appropriate affect, intact judgment and insight. - Allied health notes Allied health notes reviewed: nursing - Labs CBC & Chem 7: 05/18/21 06:38 05/18/21 06:38 Labs: Abnormal Lab Results - Last 24 Hours (Table) 05/17/21 05/17/21 05/17/21 Range/Units 11:35 16:53 19:46 WBC (3.8-10.6) k/uL RBC (4.30-5.90) m/uL Hgb (13.0-17.5) gm/dL Hct (39.0-53.0) % Sodium (137-145) mmol/L Glucose (74-99) mg/dL POC Glucose (mg/dL) 115 H 190 H 128 H (75-99) mg/dL 05/18/21 05/18/21 05/18/21 Range/Units 06:01 06:38 06:38 WBC 17.5 H (3.8-10.6) k/uL RBC 3.38 L (4.30-5.90) m/uL Hgb 10.5 L (13.0-17.5) gm/dL Hct 32.2 L (39.0-53.0) % Sodium 135 L (137-145) mmol/L Glucose 112 H (74-99) mg/dL POC Glucose (mg/dL) 110 H (75-99) mg/dL - Imaging and Cardiology Chest x-ray: report reviewed, image reviewed Assessment and Plan Assessment: 1. Triple-vessel coronary artery disease with preserved left ventricular systolic function, status post quadruple coronary artery bypass grafting surgery 2. History of hypertension 3. Hyperlipidemia 4. Diet-controlled diabetes mellitus type 2, with a preoperative hemoglobin A1c 6.2% 5. Peripheral vascular disease with preoperative ABIs showing 0.67 on the right and 0.66 on the left, with history of intermittent claudication 6. Remote history of kidney stones 7. History of SVT 8. Chronic obstructive pulmonary disease with chronic ongoing tobacco abuse, with a preoperative FEV1 58% of predicted value 9. Bilateral carotid artery stenosis, right ICA greater than 70%, left ICA 50- 69%. 10. Leukocytosis, chronic in nature, follows with Dr. Farrell from hematology who feels it is reactive from smoking 11. Postoperative acute blood loss anemia, expected 12. Postoperative atrial fibrillation, known common occurrence after open heart surgery, status post left atrial appendage ligation, status post TRINY with cardioversion Plan: 1. Continue low dose aspirin, statin, and beta fer. Will decrease metoprolol tartrate to 50 mg by mouth twice a day. 2. Encourage incentive spirometry 10 times every hour while awake. Bronchodilators per pulmonology management. 3. Increase activity, ambulate as tolerated. PT/OT/cardiac rehab following. 4. Will monitor daily labs and chest x-rays. Electrolyte replacement per protocol. 5. GI/DVT prophylaxis. 6. Insulin management per primary care service. Patient needs tight blood sugar control to promote sternal union and prevent infection, preoperative hemoglobin A1c was 6.2%. 7. Pain control is current medication regimen. 8. Continue Cardizem by mouth for radial artery spasm prophylaxis, please do not discontinue calcium channel fer without discussing with cardiothoracic surgery. No change to Cardizem CD 180 mg by mouth daily. 9. Lasix 20 mg by mouth daily 5 days. 10. Continue amiodarone for atrial fibrillation prophylaxis. Amiodarone decreased to 200 mg by mouth twice a day, continue the amiodarone 200 mg by mouth twice a day 1 week, then decreased amiodarone 200 mg by mouth daily 1 week then discontinue. 11. Continue strict inaccurate I's and O's. Daily weights. 12. Continue Eliquis 5 mg by mouth twice a day for anticoagulation. 13. Discharge planning in place, anticipate discharge home with home health care within the next 24 hours. 14. More recommendations to follow based on the patient's clinical course. Time with Patient: Greater than 30
[2021-05-18] MEDS: FUROSEMIDE 20 MG TAB PO SCH (11:31)
[2021-05-18 11:42] LABS: Glucose,Whole Blood 127 mg/dL (75-99)
--- NOTE | 2021-05-18 13:40 | P.PN ---
Subjective Progress Note Date: 05/18/21 HISTORY OF PRESENT ILLNESS: This is a 65-year-old male, patient of Dr. Bojorquez, who underwent CABG 4. Patient developed atrial fibrillation postoperatively. Patient remains in atria l fibrillation with a heart rate ranging between [id number]. Patient's blood pressures have been on the lower side with systolic near 100. He denies chest pain or pressure. He denies shortness of breath. He is anxious to be discharged home. 05/18/2021 Patient is status post TRINY and cardioversion yesterday with Dr. Bojorquez. Patient is maintaining sinus mechanism today. His beta fer was decreased per cardiothoracic surgery. His amiodarone was also decreased. He denies chest pain or pressure. Denies shortness of breath. Vital signs are stable. PHYSICAL EXAM: VITAL SIGNS: Reviewed. GENERAL: Well-developed in no acute distress. NECK: Supple. No JVD or thyromegaly LUNGS: Respirations even and unlabored. Lungs diminished to auscultation bilaterally. HEART: regular rate and rhythm. S1 and S2 heard. Heart hugger noted. EXTREMITIES: Normal range of motion. No clubbing or cyanosis. Peripheral pulses intact. No lower extremity edema ASSESSMENT: Coronary artery disease, s/p CABG x 4 Postoperative persistent atrial fibrillation, with uncontrolled ventricular rates, status post TRINY and cardioversion Hypertension Hyperlipidemia Diabetes mellitus Peripheral vascular disease Bilateral carotid artery stenosis History of SVT COPD PLAN: Continue current cardiac medications Patient's amiodarone and metoprolol were decreased today by cardiothoracic surgery Discontinue short acting Cardizem. Begin Cardizem CD 180 mg daily Patient is stable for discharge from a cardiac standpoint Nurse practitioner note has been reviewed by physician. Signing provider agrees with the documented findings, assessment, and plan of care. Objective - Vital Signs Vital signs: Vital Signs Temp 98.9 F 05/18/21 11:09 Pulse 57 L 05/18/21 11:09 Resp 17 05/18/21 11:09 BP 94/51 05/18/21 11:09 Pulse Ox 95 05/18/21 11:09 Intake & Output 05/17/21 05/18/21 05/18/21 18:59 06:59 18:59 Intake Total 450 240 Output Total 475 2 1 Balance -25 -2 239 Weight 97.1 kg Intake: IV 210 Invasive Line 5 10 Oral 240 240 Output: Urine 475 Stool 2 1 Other: Voiding Method Toilet Toilet Toilet Urinal Urinal Urinal # Voids 1 # Bowel Movements 1 ABP, PAP, CO, CI - Last Documented Arterial Blood Pressure 96/77 Pulmonary Artery Pressure 33/11 Cardiac Output 6.3 Cardiac Index 2.9 - Labs CBC & Chem 7: 05/18/21 06:38 05/18/21 06:38 Labs: Abnormal Lab Results - Last 24 Hours (Table) 05/17/21 05/17/21 05/18/21 Range/Units 16:53 19:46 06:01 WBC (3.8-10.6) k/uL RBC (4.30-5.90) m/uL Hgb (13.0-17.5) gm/dL Hct (39.0-53.0) % Sodium (137-145) mmol/L Glucose (74-99) mg/dL POC Glucose (mg/dL) 190 H 128 H 110 H (75-99) mg/dL 05/18/21 05/18/21 05/18/21 Range/Units 06:38 06:38 11:41 WBC 17.5 H (3.8-10.6) k/uL RBC 3.38 L (4.30-5.90) m/uL Hgb 10.5 L (13.0-17.5) gm/dL Hct 32.2 L (39.0-53.0) % Sodium 135 L (137-145) mmol/L Glucose 112 H (74-99) mg/dL POC Glucose (mg/dL) 127 H (75-99) mg/dL
[2021-05-18] MEDS: DILTIAZEM CD 180 MG CAP.ER.24H PO SCH (14:15)
[2021-05-18 16:44] LABS: Glucose,Whole Blood 104 mg/dL (75-99)
[2021-05-18] MEDS: SENNOSIDES-DOCUSATE SODIUM 1 EACH TAB PO SCH (19:36)
[2021-05-18] MEDS: ACETAMINOPHEN TAB 325 MG TAB PO PRN (19:36)
--- NOTE | 2021-05-18 19:56 | P.PN ---
Progress Note - Text Progress Note Date: 05/18/21 - Chief Complaint Coronary bypass This is a 65-year-old patient, follows with Dr. Miramontes. Chronic stable medical conditions include diabetes, osteoarthritis, hyperlipidemia, renal calculi, GERD, COPD. RU today patient underwent four-vessel quadruple bypass. Estimated blood loss was thousand cc with Cell Saver of 700 mL. Postprocedure patient with ICU. On the ventilator intubated. FiO2 50 and a PEEP of 8. Telemetry shows sinus rhythm. Patient has 3 chest use. 2 mediastinal and one left pleural. Current drips include norepinephrine, propofol, insulin, nitroglycerin and lactated Ringer's. Patient sedated. Stallworth catheter. 05/10/2021: Sore the patient earlier today. Extubated. Awake. Tired. Sinus rhythm. On insulin drip. Chest tubes in place. Stallworth catheter. 05/11/2021: Sitting up in a recliner. Breathing better. One chest tube taken out. Sinus rhythm. Accu-Cheks running a bit high. On IV amiodarone in D5. Does of Levemir increased. 3 units of NovoLog added with each meal. Discussed with patient. Started to eat better. 05/12/2021: Sitting up in a recliner. Some shortness of breath. On nasal cannula. One chest tube in place. Will be removed later this afternoon. Sinus rhythm. Changed to oral amiodarone. Scheduled NovoLog decreased. We'll cut back Levemir to 14 units. Check HbA1c. Eating about 50% 05/13/2031: Patient doing better. Oxygen requirement on room air. Oral intake improving. Did walk. Had a bowel movement. Eating [employer] sandwich. Does not like hospital food. Patient has been in atrial fibrillation. 05/14/2021: ICU: Patient remains in atrial fibrillation. In 1 teens. Eating well. On room air. Did walk. Had a bowel movement. Good oral intake. Lopressor increased to 50 mg 3 times a day. 05/15/2021: We'll Dr. the telemetry floor. Atrial fibrillation. Rate and 1 teens. Oral intake code. Had a bowel movement. Breathing stable. present. Some yellow-brown sputum 05/16/2021: Sitting up. Feeling well. Atrial fibrillation controlled. Up and about. Had a bowel movement. Patient received 1 dose of IV Lasix 20 mg one year. 05/17/2021: Sitting up in a chair. Comfortable. Pending TRINY and cardioversion. Bringing up some yellow-brown sputum. Being followed by pulmonary. Remains in A. fib. Rate around 120s. 05/18/2021: Patient underwent TRINY yesterday. successfully cardioverted. Earlier today patient reports she went back into atrial flutter. Then went back into sinus rhythm. Discussed with HOWIE Guzmán from cardiothoracic that patient not be requiring any oral hypoglycemic upon discharge. Patient still bringing up some little yellow-brown sputum. Patient does have chronically elevated CBC as outpatient. Changed over to Cardizem CD 180 mg daily. Amiodarone cut back to 200 mg twice a day. Lopressor 50 mg twice a day. Blood pressure running on the lower side. Review of systems: Was done for constitutional, cardiovascular, GI, pulmonary. relevant finding as above Active Medications Acetaminophen (Acetaminophen Tab 325 Mg Tab) 650 mg PO Q6HR PRN PRN Reason: Mild Pain or Fever > 38.3 C Last Admin: 05/18/21 19:36 Dose: 650 mg Documented by: Acetylcysteine (Acetylcysteine 800 Mg/4 Ml Vial) 200 mg INHALATION RT-QID [facility] Last Admin: 05/18/21 16:24 Dose: Not Given Documented by: Albuterol/Ipratropium (Ipratropium-Albuterol 3 Ml Neb) 3 ml INHALATION RT-Q2H PRN PRN Reason: Shortness Of Breath Or Wheezing Last Admin: 05/16/21 11:24 Dose: 3 ml Documented by: Albuterol/Ipratropium (Ipratropium-Albuterol 3 Ml Neb) 3 ml INHALATION TID [facility] Last Admin: 05/18/21 16:25 Dose: Not Given Documented by: Amiodarone HCl (Amiodarone 200 Mg Tab) 200 mg PO BID [facility] Last Admin: 05/18/21 19:36 Dose: 200 mg Documented by: Apixaban (Apixaban 5 Mg Tab) 5 mg PO BID [facility]; Protocol Last Admin: 05/18/21 19:36 Dose: 5 mg Documented by: Aspirin (Aspirin 81 Mg) 81 mg PO DAILY [facility] Last Admin: 05/18/21 09:06 Dose: 81 mg Documented by: Atorvastatin Calcium (Atorvastatin 40 Mg Tab) 40 mg PO DAILY [facility] Last Admin: 05/18/21 09:06 Dose: 40 mg Documented by: Bisacodyl (Bisacodyl 10 Mg Supp) 10 mg RECTAL DAILY PRN PRN Reason: Constipation Budesonide/Formoterol Fumarate (Symbicort 160-4.5 Mcg Inhaler) 2 puff INHA LATION RT-BID [facility] Last Admin: 05/18/21 08:01 Dose: Not Given Documented by: Diltiazem HCl (Diltiazem Cd 180 Mg Cap.Er.24h) 180 mg PO DAILY [facility] Last Admin: 05/18/21 14:15 Dose: Not Given Documented by: Furosemide (Furosemide 20 Mg Tab) 20 mg PO DAILY [facility] Last Admin: 05/18/21 11:31 Dose: 20 mg Documented by: Insulin Aspart (Insulin Aspart (Novolog) 100 Unit/Ml Vial) 0 unit SQ ACHS [facility]; Protocol Last Admin: 05/18/21 16:47 Dose: Not Given Documented by: Insulin Detemir (Insulin Detemir (Levemir) 100 Unit/Ml Syr) 18 unit SQ DAILY@0700 [facility] Last Admin: 05/18/21 06:58 Dose: 18 unit Documented by: Magnesium Hydroxide (Magnesium Hydroxide 2,400 Mg/10 Ml Cup) 2,400 mg PO BID PRN PRN Reason: Constipation Last Admin: 05/11/21 18:02 Dose: 2,400 mg Documented by: Metoclopramide HCl (Metoclopramide 5 Mg/Ml 2 Ml Vial) 10 mg IVP Q4H PRN PRN Reason: Nausea And Vomiting Last Admin: 05/11/21 18:02 Dose: 10 mg Documented by: Metoprolol Tartrate (Metoprolol Tartrate 50 Mg Tab) 50 mg PO BID [facility] Last Admin: 05/18/21 19:36 Dose: 50 mg Documented by: Miscellaneous Information (Potassium Replacement Protocol 1 Each Misc) 1 each MISCELLANE DAILY PRN; Protocol PRN Reason: Per Protocol Miscellaneous Information (Magnesium Replacement Protocol 1 Each Misc) 1 each MISCELLANE DAILY PRN; Protocol PRN Reason: Per Protocol Miscellaneous Information (Phosphorus Replacement Protoco 1 Each Misc) 1 each MISCELLANE DAILY PRN; Protocol PRN Reason: Per Protocol Ondansetron HCl (Ondansetron 4 Mg/2 Ml Vial) 4 mg IVP Q6HR PRN PRN Reason: Nausea And Vomiting Pantoprazole Sodium (Pantoprazole 40 Mg Tablet) 40 mg PO AC-BRKFST [facility] Last Admin: 05/18/21 06:59 Dose: 40 mg Documented by: Senna/Docusate Sodium (Sennosides-Docusate Sodium 1 Each Tab) 2 each PO HS [facility] Last Admin: 05/18/21 19:36 Dose: 2 each Documented by: Sodium Chloride (Sodium Chloride 0.9% Flush 10 Ml Syringe) 10 ml IV BID [facility] Last Admin: 05/18/21 19:38 Dose: 10 ml Documented by: Zolpidem Tartrate (Zolpidem 5 Mg Tab) 5 mg PO HS PRN PRN Reason: Insomnia Last Admin: 05/16/21 23:13 Dose: 5 mg Documented by: Past medical history to include: Diabetes, or strep throat is, hyperlipidemia, CAD, renal calculi, COPD, GERD, Social history: Smokes half a pack a day for close to 53 years. Alcohol occasionally. CBD Gummi's. Retired from [employer] and [employer]. Family history: Reviewed, noncontributory to presentation Physical examination: VITAL SIGNS: 98.8, 66, 16, 98/54, 95% room air GENERAL: Sitting up, , comfortable EYES: Pupils equal. Conjunctiva normal. HEENT: External appearance of nose and ears normal, oral cavity normal NECK: JVD unable to assess; masses not palpable. HEART: First second sounds normal; no edema. LUNGS: Respiratory rate normal; decreased breath sounds. ABDOMEN: Soft, nontender, liver spleen not palpable, no masses palpable. PSYCH: AO 3, mood and affect normal INVESTIGATIONS, reviewed in the clinical context: May 18: WBC 100.5 hemoglobin 10.5 potassium 4.2 creatinine 1.09 May 17: White count 17 hemoglobin 10.9 potassium 4 creatinine 0.9 May 16: White count is 16.6 hemoglobin 11.1 platelets 338 potassium 4.2 creatinine 0.88 May 15: White count 14.8 hemoglobin 11.4 platelets 303 potassium 4 creatinine 0.78 Chest x-ray film personally reviewed by me-left basal infiltrate May 14: WBC 13.2 hemoglobin 10.7 potassium 3.8 creatinine 0.79 May 13: WBC 13 hemoglobin 10.4 potassium 4.3 creatinine 0.85 HbA1c 6.2 May 12: WBC 19 units globin 10.7 platelets 139 potassium 4.5 creatinine 0.87 Accu-Cheks 119 May 11: WBC 21.7 hemoglobin 10.5 platelets 118 potassium 4.1 creatinine 0.84 May 10: White count 18.7 hemoglobin 12.2 platelets 137 potassium 4.2 creatinine 14 and 0.76 albumin 2.7 White count 20.4 hemoglobin 13.2 platelets 150 Accu-Cheks 164, 158, 151 Labs from 05/05/2021: Hemoglobin 15.4 platelets 12.9 potassium 4.6 creatinine 0.87 Assessment and plan: -Quadruple coronary bypass Patient was on: norepinephrine, propofol, insulin, nitroglycerin drip. -CAD per cardiac catheterization triple-vessel Aspirin, Lipitor, Lopressor -Acute hypoxic respiratory failure,: Corrected -Acute postprocedure blood loss anemia, expected from surgery Follow H&H -Dilutional thrombocytopenia Follow CBC -Patient does not have diabetes. [ Patient's HbA1c is 6.2. Fasting glucose this morning is 119.] -Hyperglycemia, operative stress related. Increase Levemir to 18 units daily. Sliding scale -Primary osteoarthritis Pain medications as needed -Hyperlipidemia Lipitor 40 mg daily -COPD in a current smoker DuoNeb 4 times a day -Chronic debility dependence cigarette smoker Nicotine patch GERD Omeprazole -Persistent atrial fibrillation, remains uncontrolled. Cardioverted on May 18, sinus rhythm On oral amiodarone. Lopressor 50 mg 3 times a day. Cardizem CD 180 mg daily Eliquis. -Left lower lobe infiltrate with leukocytosis. Antibiotics decisions per pulmonary. -Chronic leukocytosis outpatient felt to be from smoking Cardizem CD 180 mg daily. Amiodarone dose cut back. Lopressor 50 mg daily. Antibiotic decision per pulmonary. Elevated white count of the clinical context discussed with Ramirez DENISE from [facility]. Thank you Dr. Menezes
[2021-05-18 20:09] LABS: Glucose,Whole Blood 169 mg/dL (75-99)
[2021-05-18] MEDS: ZOLPIDEM 5 MG TAB PO PRN (22:54)
[2021-05-19 06:08] LABS: Glucose,Whole Blood 151 mg/dL (75-99)
[2021-05-19] MEDS: INSULIN ASPART (NovoLOG) 100 UNIT/ML VIAL SQ SCH ×2 (06:14→11:59)
[2021-05-19] MEDS: INSULIN DETEMIR (LEVEMIR) 100 UNIT/ML SYR SQ SCH (06:15)
[2021-05-19] MEDS: PANTOPRAZOLE 40 MG TABLET PO SCH (06:15)
[2021-05-19] MEDS: IPRATROPIUM-ALBUTEROL 3 ML NEB INHALATION SCH (07:47)
[2021-05-19] MEDS: SYMBICORT 160-4.5 MCG INHALER INHALATION SCH (07:47)
[2021-05-19] MEDS: ACETYLCYSTEINE 800 MG/4 ML VIAL INHALATION SCH ×2 (07:47→11:03)
--- NOTE | 2021-05-19 08:06 | XR ---
EXAMINATION TYPE: XR chest 1V portable DATE OF EXAM: 05/19/2021 COMPARISON: 05/18/2020 HISTORY: Postop CABG TECHNIQUE: Single frontal view of the chest is obtained. FINDINGS: Cardiomegaly and postsurgical changes seen left-sided consolidation and small pleural effu regino. Tiny right pleural effusion. No overt failure or pneumothorax IMPRESSION: Stable left-sided consolidation and pleural effusion.
[2021-05-19] MEDS: METOPROLOL TARTRATE 50 MG TAB PO SCH (08:45)
[2021-05-19] MEDS: AMIODARONE 200 MG TAB PO SCH (08:45)
[2021-05-19] MEDS: ATORVASTATIN 40 MG TAB PO SCH (08:45)
[2021-05-19] MEDS: DILTIAZEM CD 180 MG CAP.ER.24H PO SCH (08:45)
[2021-05-19] MEDS: APIXABAN 5 MG TAB PO SCH (08:45)
[2021-05-19] MEDS: ASPIRIN 81 MG PO SCH (08:45)
[2021-05-19] MEDS: FUROSEMIDE 20 MG TAB PO SCH (08:46)
[2021-05-19 09:12] LABS: Basophils # (A) 0.1 k/uL (0-0.2); Basophils % (A) 1 %; Eosinophils # (A) 0.2 k/uL (0-0.7); Eosinophils % (A) 1 %; HCT 32.2 % (39.0-53.0); HGB 10.7 gm/dL (13.0-17.5); Lymphocytes # (A) 3.1 k/uL (1.0-4.8); Lymphocytes % (A) 20 %; MCH 31.1 pg (25.0-35.0); MCHC 33.3 g/dL (31.0-37.0); MCV 93.4 fL (80.0-100.0); Mean Platelet Volume 7.8; Monocytes # (A) 0.9 k/uL (0-1.0); Monocytes % (A) 5 %; Neutrophils # (A) 11.1 k/uL (1.3-7.7); Neutrophils % (A) 71 %; Platelet Count 488 k/uL (150-450); RBC 3.45 m/uL (4.30-5.90); RDW 14.4 % (11.5-15.5); WBC 15.7 k/uL (3.8-10.6)
--- NOTE | 2021-05-19 09:19 | P.PN ---
Subjective Progress Note Date: 05/19/21 Principal diagnosis: Triple-vessel coronary artery disease with preserved left ventricular systolic function. Previous medical history of hypertension, hyperlipidemia, diet-contro lled diabetes mellitus type 2, peripheral vascular disease, remote history of kidney stones, history of SVT, and chronic obstructive pulmonary disease with chronic ongoing tobacco abuse, preoperative persistent leukocytosis followed by Dr. Farrell. POD #10 quadruple coronary artery bypass grafting using the left internal mammary artery to left anterior descending coronary artery, left radial artery from the aorta to the second obtuse marginal coronary artery, a reverse greater saphenous vein graft from the aorta to the ramus intermedius coronary artery, a reverse greater saphenous vein graft from the aorta to the right coronary artery. Exclusion of the left atrial appendage using a 35 mm Atriclip, endoscopic harvesting of the left radial artery, endoscopic harvesting of the left greater saphenous vein, intraoperative graft flow measurements using the BetterPetstim system, intraoperative transesophageal echocardiogram and epi-aortic scanning. Postoperative acute blood loss anemia, expected due to cardiopulmonary bypass and hemodilution. Postoperative atrial fibrillation, known common occurrence after open heart surgery, status post TRINY/cardioversion with return to normal sinus rhythm The patient was seen and examined at the bedside on the cardiac step down unit this morning. States pain is controlled on current medication regimen, denies shortness of breath. Remains in sinus rhythm. He has ambulated in the hallway without difficulty, showers daily without difficulty. Remains on room air with oxygen saturation in the mid 90s, able to acheive 1250 mL on his incentive spirometry. Labs, CXR reviewed. Patient is anxious to go home, frustrated that he still here. Objective - Vital Signs Vital signs: Vital Signs Temp 98.4 F 05/19/21 08:00 Pulse 71 05/19/21 08:00 Resp 17 05/19/21 08:00 BP 116/64 05/19/21 08:00 Pulse Ox 95 05/19/21 08:00 Intake & Output 05/18/21 05/19/21 05/19/21 18:59 06:59 18:59 Intake Total 660 Output Total 1 Balance 660 -1 Weight 99.5 kg Intake: Oral 660 Output: Stool 1 Other: Voiding Method Toilet Toilet Toilet Urinal Urinal Urinal # Voids 2 1 ABP, PAP, CO, CI - Last Documented Arterial Blood Pressure 96/77 Pulmonary Artery Pressure 33/11 Cardiac Output 6.3 Cardiac Index 2.9 - Exam CONSTITUTIONAL: Appears calm, cooperative, no acute distress RESPIRATORY: Lungs sounds diminished in the bases bilaterally. Respirations e magda, nonlabored. Currently on room air with oxygen saturation 92%. Able to achieve 1250 mL on incentive spirometry. Strong productive cough. CARDIOVASCULAR: S1, S2 present. Regular rate and rhythm, sinus rhythm on telemetry with heart rate in the 70s. Sternum stable. Palpable peripheral pu lses bilaterally. No edema present. No calf pain or tenderness noted. Heart hugger in place with patient demonstrating appropriate use. Antiembolism stockings, SCDs present. GASTROINTESTINAL: Abdomen soft, nontender, nondistended. Active bowel sounds present 4 quadrants. Tolerating diet. Positive bowel movement GENITOURINARY: Continues to void INTEGUMENTARY: Skin is warm and dry with evidence of good perfusion. Anterior chest incision well approximated. Left lower extremity EVH site well approximated without redness or drainage. Left radial artery harvest site well approximated without redness or drainage NEUROLOGIC: Cranial nerves II through XII intact MUSKULOSKELETAL: Able to move all extremities, strength equal bilaterally, gait normal PSYCHIATRIC: Alert and oriented to person place and time, appropriate affect, intact judgment and insight - Allied health notes Allied health notes reviewed: nursing - Labs CBC & Chem 7: 05/19/21 08:46 05/18/21 06:38 Labs: Abnormal Lab Results - Last 24 Hours (Table) 05/18/21 05/18/21 05/18/21 Range/Units 11:41 16:43 20:07 WBC (3.8-10.6) k/uL RBC (4.30-5.90) m/uL Hgb (13.0-17.5) gm/dL Hct (39.0-53.0) % Plt Count (150-450) k/uL Neutrophils # (1.3-7.7) k/uL POC Glucose (mg/dL) 127 H 104 H 169 H (75-99) mg/dL 05/19/21 05/19/21 Range/Units 06:04 08:46 WBC 15.7 H (3.8-10.6) k/uL RBC 3.45 L (4.30-5.90) m/uL Hgb 10.7 L (13.0-17.5) gm/dL Hct 32.2 L (39.0-53.0) % Plt Count 488 H (150-450) k/uL Neutrophils # 11.1 H (1.3-7.7) k/uL POC Glucose (mg/dL) 151 H (75-99) mg/dL - Imaging and Cardiology Chest x-ray: report reviewed, image reviewed Assessment and Plan Assessment: 1. Triple-vessel coronary artery disease with preserved left ventricular systolic function, status post four-vessel CABG 2. History of hypertension 3. Hyperlipidemia, treated, cholesterol 136, LDL 59, triglycerides 215 4. Diet-controlled diabetes mellitus type 2, preoperative hemoglobin A1c 6.2% 5. Peripheral vascular disease, preoperative ABIs 0.67 on the right and 0.66 on the left, history of intermittent claudication 6. Bilateral carotid artery stenosis, right ICA greater than 70%, left ICA 50- 69% 7. Remote history of kidney stones 8. History of SVT 9. Moderate COPD, restrictive lung disease with chronic ongoing tobacco abuse, preoperative FEV1 58% of predicted 10. Postoperative acute blood loss anemia, expected 11. Postoperative atrial fibrillation, known common occurrence after open heart surgery, status post left atrial appendage ligation, status post TRINY/cardioversion Plan: 1. Continue low dose aspirin, statin, and beta fer. Continue oral Cardizem for radial artery spasm prophylaxis, do not discontinue CCB without discussed with cardiothoracic surgery 2. Continue amiodarone for A. fib prophylaxis. Continue Eliquis for anticoagulation. 3. Encourage incentive spirometry 10 times every hour while awake. Bronchodilators per pulmonology management. 4. Increase activity, ambulate as tolerated. PT/OT/cardiac rehab following. 5. Will monitor daily labs and chest x-rays. Electrolyte replacement per protocol. 6. GI/DVT prophylaxis. 7. Insulin management per primary care service. Patient needs tight blood sugar control to promote sternal union and prevent infection, preoperative hemoglobin A1c was 6.2%. 8. Pain control is current medication regimen. 9. Strict accurate intake and output. Daily weights 10. Discharge planning in progress. Anticipate discharge to home with home care this afternoon as long as heart rate remains stable on current medication regimen 11. More recommendations to follow based on the patient's clinical course. Time with Patient: Greater than 30
[2021-05-19 09:28] LABS: African American GFR (CKD) >90 (>60 ml/min/1.73 sqM); Anion Gap 6 mmol/L; Blood Urea Nitrogen 14 mg/dL (9-20); Calcium 8.6 mg/dL (8.4-10.2); Carbon Dioxide 26 mmol/L (22-30); Chloride 103 mmol/L (98-107); Glucose 129 mg/dL (74-99); Non-African American GFR(CKD) 81 (>60 ml/min/1.73 sqM); Potassium 3.8 mmol/L (3.5-5.1); Sodium 135 mmol/L (137-145)
[2021-05-19 11:55] LABS: Glucose,Whole Blood 102 mg/dL (75-99)
[2021-05-19 12:07] VITALS: BP 104/64; PULSE 59; RESP 18; TEMP 98.7
--- NOTE | 2021-05-19 12:43 | P.PN ---
Progress Note - Text Progress Note Date: 05/19/21 - Chief Complaint Coronary bypass This is a 65-year-old patient, follows with Dr. Miramontes. Chronic stable medical conditions include diabetes, osteoarthritis, hyperlipidemia, renal calculi, GERD, COPD. RU today patient underwent four-vessel quadruple bypass. Estimated blood loss was thousand cc with Cell Saver of 700 mL. Postprocedure patient with ICU. On the ventilator intubated. FiO2 50 and a PEEP of 8. Telemetry shows sinus rhythm. Patient has 3 chest use. 2 mediastinal and one left pleural. Current drips include norepinephrine, propofol, insulin, nitroglycerin and lactated Ringer's. Patient sedated. Stallworth catheter. 05/10/2021: Sore the patient earlier today. Extubated. Awake. Tired. Sinus rhythm. On insulin drip. Chest tubes in place. Stallworth catheter. 05/11/2021: Sitting up in a recliner. Breathing better. One chest tube taken out. Sinus rhythm. Accu-Cheks running a bit high. On IV amiodarone in D5. Does of Levemir increased. 3 units of NovoLog added with each meal. Discussed with patient. Started to eat better. 05/12/2021: Sitting up in a recliner. Some shortness of breath. On nasal cannula. One chest tube in place. Will be removed later this afternoon. Sinus rhythm. Changed to oral amiodarone. Scheduled NovoLog decreased. We'll cut back Levemir to 14 units. Check HbA1c. Eating about 50% 05/13/2031: Patient doing better. Oxygen requirement on room air. Oral intake improving. Did walk. Had a bowel movement. Eating [employer] sandwich. Does not like hospital food. Patient has been in atrial fibrillation. 05/14/2021: ICU: Patient remains in atrial fibrillation. In 1 teens. Eating well. On room air. Did walk. Had a bowel movement. Good oral intake. Lopressor increased to 50 mg 3 times a day. 05/15/2021: We'll Dr. the telemetry floor. Atrial fibrillation. Rate and 1 teens. Oral intake code. Had a bowel movement. Breathing stable. present. Some yellow-brown sputum 05/16/2021: Sitting up. Feeling well. Atrial fibrillation controlled. Up and about. Had a bowel movement. Patient received 1 dose of IV Lasix 20 mg one year. 05/17/2021: Sitting up in a chair. Comfortable. Pending TRINY and cardioversion. Bringing up some yellow-brown sputum. Being followed by pulmonary. Remains in A. fib. Rate around 120s. 05/18/2021: Patient underwent TRINY yesterday. successfully cardioverted. Earlier today patient reports she went back into atrial flutter. Then went back into sinus rhythm. Discussed with HOWIE Guzmán from cardiothoracic that patient not be requiring any oral hypoglycemic upon discharge. Patient still bringing up some little yellow-brown sputum. Patient does have chronically elevated CBC as outpatient. Changed over to Cardizem CD 180 mg daily. Amiodarone cut back to 200 mg twice a day. Lopressor 50 mg twice a day. Blood pressure running on the lower side. 05/19/2021: Feeling good. Breathing stable. No new issues. Up and about. Remains in sinus rhythm. Review of systems: Was done for constitutional, cardiovascular, GI, pulmonary. relevant finding as above Active Medications Acetaminophen (Acetaminophen Tab 325 Mg Tab) 650 mg PO Q6HR PRN PRN Reason: Mild Pain or Fever > 38.3 C Last Admin: 05/18/21 19:36 Dose: 650 mg Documented by: Acetylcysteine (Acetylcysteine 800 Mg/4 Ml Vial) 200 mg INHALATION RT-QID [facility] Last Admin: 05/19/21 11:03 Dose: Not Given Documented by: Albuterol/Ipratropium (Ipratropium-Albuterol 3 Ml Neb) 3 ml INHALATION RT-Q2H PRN PRN Reason: Shortness Of Breath Or Wheezing Last Admin: 05/16/21 11:24 Dose: 3 ml Documented by: Albuterol/Ipratropium (Ipratropium-Albuterol 3 Ml Neb) 3 ml INHALATION TID [facility] Last Admin: 05/19/21 07:47 Dose: Not Given Documented by: Amiodarone HCl (Amiodarone 200 Mg Tab) 200 mg PO BID [facility] Last Admin: 05/19/21 08:45 Dose: 200 mg Documented by: Apixaban (Apixaban 5 Mg Tab) 5 mg PO BID [facility]; Protocol Last Admin: 05/19/21 08:45 Dose: 5 mg Documented by: Aspirin (Aspirin 81 Mg) 81 mg PO DAILY [facility] Last Admin: 05/19/21 08:45 Dose: 81 mg Documented by: Atorvastatin Calcium (Atorvastatin 40 Mg Tab) 40 mg PO DAILY [facility] Last Admin: 05/19/21 08:45 Dose: 40 mg Documented by: Bisacodyl (Bisacodyl 10 Mg Supp) 10 mg RECTAL DAILY PRN PRN Reason: Constipation Budesonide/Formoterol Fumarate (Symbicort 160-4.5 Mcg Inhaler) 2 puff INHALATION RT-BID [facility] Last Admin: 05/19/21 07:47 Dose: Not Given Documented by: Diltiazem HCl (Diltiazem Cd 180 Mg Cap.Er.24h) 180 mg PO DAILY [facility] Last Admin: 05/19/21 08:45 Dose: 180 mg Documented by: Furosemide (Furosemide 20 Mg Tab) 20 mg PO DAILY [facility] Last Admin: 05/19/21 08:46 Dose: 20 mg Documented by: Insulin Aspart (Insulin Aspart (Novolog) 100 Unit/Ml Vial) 0 unit SQ [facility]; Protocol Last Admin: 05/19/21 11:59 Dose: Not Given Documented by: Insulin Detemir (Insulin Detemir (Levemir) 100 Unit/Ml Syr) 18 unit SQ DAILY@0700 [facility] Last Admin: 05/19/21 06:15 Dose: 18 unit Documented by: Magnesium Hydroxide (Magnesium Hydroxide 2,400 Mg/10 Ml Cup) 2,400 mg PO BID PRN PRN Reason: Constipation Last Admin: 05/11/21 18:02 Dose: 2,400 mg Documented by: Metoclopramide HCl (Metoclopramide 5 Mg/Ml 2 Ml Vial) 10 mg IVP Q4H PRN PRN Reason: Nausea And Vomiting Last Admin: 05/11/21 18:02 Dose: 10 mg Documented by: Metoprolol Tartrate (Metoprolol Tartrate 50 Mg Tab) 50 mg PO BID [facility] Last Admin: 05/19/21 08:45 Dose: 50 mg Documented by: Miscellaneous Information (Potassium Replacement Protocol 1 Each Misc) 1 each MISCELLANE DAILY PRN; Protocol PRN Reason: Per Protocol Miscellaneous Information (Magnesium Replacement Protocol 1 Each Misc) 1 each MISCELLANE DAILY PRN; Protocol PRN Reason: Per Protocol Miscellaneous Information (Phosphorus Replacement Protoco 1 Each Misc) 1 each MISCELLANE DAILY PRN; Protocol PRN Reason: Per Protocol Ondansetron HCl (Ondansetron 4 Mg/2 Ml Vial) 4 mg IVP Q6HR PRN PRN Reason: Nausea And Vomiting Pantoprazole Sodium (Pantoprazole 40 Mg Tablet) 40 mg PO AC-BRKFST [facility] Last Admin: 05/19/21 06:15 Dose: 40 mg Documented by: Senna/Docusate Sodium (Sennosides-Docusate Sodium 1 Each Tab) 2 each PO HS [facility] Last Admin: 05/18/21 19:36 Dose: 2 each Documented by: Sodium Chloride (Sodium Chloride 0.9% Flush 10 Ml Syringe) 10 ml IV BID [facility] Last Admin: 05/19/21 08:45 Dose: 10 ml Documented by: Zolpidem Tartrate (Zolpidem 5 Mg Tab) 5 mg PO HS PRN PRN Reason: Insomnia Last Admin: 05/18/21 22:54 Dose: 5 mg Documented by: Past medical history to include: Diabetes, or strep throat is, hyperlipidemia, CAD, renal calculi, COPD, GERD, Social history: Smokes half a pack a day for close to 53 years. Alcohol occasionally. CBD [employer]. Retired from [employer] and [employer]. Family history: Reviewed, noncontributory to presentation Physical examination: VITAL SIGNS: 98.7, 59, 18, 104/64, 96% room air GENERAL: Sitting up, , comfortable EYES: Pupils equal. Conjunctiva normal. HEENT: External appearance of nose and ears normal, oral cavity normal NECK: JVD unable to assess; masses not palpable. HEART: First second sounds normal; no edema. LUNGS: Respiratory rate normal; decreased breath sounds. ABDOMEN: Soft, nontender, liver spleen not palpable, no masses palpable. PSYCH: AO 3, mood and affect normal INVESTIGATIONS, reviewed in the clinical context: May 19: WBC 15.7 hemoglobin 10.7 potassium 3.8 creatinine 0.97. Accu-Cheks 102 May 18: WBC 100.5 hemoglobin 10.5 potassium 4.2 creatinine 1.09 May 17: White count 17 hemoglobin 10.9 potassium 4 creatinine 0.9 May 16: White count is 16.6 hemoglobin 11.1 platelets 338 potassium 4.2 creatinine 0.88 May 15: White count 14.8 hemoglobin 11.4 platelets 303 potassium 4 creatinine 0.78 Chest x-ray film personally reviewed by me-left basal infiltrate May 14: WBC 13.2 hemoglobin 10.7 potassium 3.8 creatinine 0.79 May 13: WBC 13 hemoglobin 10.4 potassium 4.3 creatinine 0.85 HbA1c 6.2 May 12: WBC 19 units globin 10.7 platelets 139 potassium 4.5 creatinine 0.87 Accu-Cheks 119 May 11: WBC 21.7 hemoglobin 10.5 platelets 118 potassium 4.1 creatinine 0.84 May 10: White count 18.7 hemoglobin 12.2 platelets 137 potassium 4.2 creatinine 14 and 0.76 albumin 2.7 White count 20.4 hemoglobin 13.2 platelets 150 Accu-Cheks 164, 158, 151 Labs from 05/05/2021: Hemoglobin 15.4 platelets 12.9 potassium 4.6 creatinine 0.87 Assessment and plan: -Quadruple coronary bypass Patient was on: norepinephrine, propofol, insulin, nitroglycerin drip. -CAD per cardiac catheterization triple-vessel Aspirin, Lipitor, Lopressor -Acute hypoxic respiratory failure,: Corrected -Acute postprocedure blood loss anemia, expected from surgery Follow H&H -Dilutional thrombocytopenia Follow CBC -Patient does not have diabetes. [ Patient's HbA1c is 6.2. Fasting glucose this morning is 119.] -Hyperglycemia, operative stress related. Increase Levemir to 18 units daily. Sliding scale -Primary osteoarthritis Pain medications as needed -Hyperlipidemia Lipitor 40 mg daily -COPD in a current smoker DuoNeb 4 times a day -Chronic debility dependence cigarette smoker Nicotine patch GERD Omeprazole -Persistent atrial fibrillation, remains uncontrolled. Cardioverted on May 18, sinus rhythm On oral amiodarone. Lopressor 50 mg 3 times a day. Cardizem CD 180 mg daily Eliquis. -Left lower lobe infiltrate with leukocytosis. Antibiotics decisions per pulmonary. -Chronic leukocytosis outpatient felt to be from smoking Was followed by hematology as outpatient Stable. Continue current medication treatment plan. Discussed with the patient. Thank you Dr. Menezes
--- NOTE | 2021-05-19 13:09 | P.DS ---
Providers Date of admission: 05/09/21 05:33 Expected date of discharge: 05/19/21 Attending physician: Salazar Menezes Consults: 05/09/21 14:42 Consult Physician Routine Consulting Provider: Deisi Alas Consult Reason/Comments: Dial Painter Consult: post cardiac surgery Do you want consulting provider notified?: Yes Consult Physician Routine Consulting Provider: Gaudencio Gardner Consult Reason/Comments: medical management Do you want consulting provider notified?: Yes Consult Physician Routine Consulting Provider: Obie Bojorquez Consult Reason/Comments: Diabetes Education Coordinator Consult: post cardiac surgery Do you want consulting provider notified?: Yes Primary care physician: [facility] Course: FINAL DIAGNOSIS: 1. Triple-vessel coronary artery disease with preserved left ventricular systolic function 2. Hypertension 3. Hyperlipidemia, treated, cholesterol 136, LDL 89, triglycerides 250 4. Diet controlled diabetes mellitus type 2, preoperative hemoglobin A1c 6.2% 5. Peripheral vascular disease, preoperative ABIs 0.67 on the right and 0.66 on the left, history of intermittent claudication 6. Bilateral carotid artery stenosis, right ICA greater than 70%, left ICA 50- 69% 7. Remote history of kidney stones 8. History of SVT 9. Moderate COPD, restrictive lung disease with chronic ongoing tobacco abuse, preoperative FEV1 58% of predicted 10. Postoperative acute blood loss anemia, expected 11. Postoperative atrial fibrillation, known common occurrence after open heart surgery PRINCIPAL PROCEDURE: 1. Quadruple coronary artery bypass grafting using the left internal mammary artery to the left anterior descending coronary artery, left radial artery from the aorta to second obtuse marginal coronary artery, reverse greater saphenous vein graft from the aorta to the ramus intermedius coronary artery, reverse greater saphenous vein graft from the aorta to the right coronary artery 2. Exclusion of the left atrial appendage using a 35 mm AtriClip 3. Endoscopic harvesting of the left radial artery 4. Endoscopic harvesting of the left greater saphenous vein 5. Intraoperative graft flow measurements using the [employer] system 6. Intraoperative transesophageal echocardiogram and epi-aortic scanning 7. TRINY/cardioversion with return to normal sinus rhythm HISTORY OF PRESENT ILLNESS: This is a 62-year-old gentleman who follows on an outpatient basis with Dr. Miramontes for primary care and Dr. Bojorquez for cardiology. Over the previous few months the patient has had complaints of tightness in his chest with activity, dyspnea on exertion, and rare occasions of lightheadedness with near syncope. He underwent stress testing which was abnormal and was recommended to undergo heart catheterization. Catheterization revealed 30-40% stenosis to the left main coronary artery, 90% stenosis involving the takeoff of the diagonal branch of the left anterior descending artery, 20-30% stenosis to the ramus intermedius coronary artery, 95% stenosis of the circumflex coronary artery, and totally occluded right coronary artery proximally with no significant antegrade flow, however he had good collateral from the left coronary system towards the right PDA. In addition he had a 2-D echocardiogram demonstrating normal left ventricular size and function with ejection fraction 55%, mild mitral regurgitation and mild tricuspid regurgitation. Consultation was placed to Dr. Menezes from cardiothoracic surgery. He was recommended to undergo coronary artery bypass surgery. The usual perioperative course was discussed in detail with the patient and his family, all risks and benefits were explained, all questions were answered, and consent was obtained to proceed with surgery. The patient was discharged to home on maximal medical therapy to return as an outpatient for surgery. HOSPITAL COURSE: The patient was brought to the hospital on 05/09/2021, taken to the preoperative area, prepared in the usual fashion, and subsequently taken to the operating room where Dr. Menezes performed four-vessel CABG. Upon completion of surgery the patient was transferred to the cardiovascular intensive care unit where he was recovered and monitored hemodynamically. He was extubated, all lines, tubes, and drips were discontinued when appropriate, and he was transferred to 3 S. cardiac stepdown unit for further monitoring and rehabilitation. He did experience atrial fibrillation, was placed on anticoagulation, but despite escalation of medication continue to remain in uncontrolled atrial fibrillation and subsequently underwent TRINY and cardioversion with return to normal sinus rhythm. His oxygen was titrated down, he continued to work with physical and occupational therapy, he was tolerating oral diet, his pain was controlled, and he was ready to be discharged to home with [facility] on postoperative day #10. He received written and verbal instruction regarding his medications, activity restrictions, signs and symptoms requiring physician notification, and follow-up appointments. Patient Condition at Discharge: Stable Plan - Discharge Summary Discharge Rx Participant: No New Discharge Prescriptions: New Apixaban [Eliquis] 5 mg PO BID #60 tab Amiodarone [Cordarone] 200 mg PO BID #20 tab Furosemide [Lasix] 20 mg PO DAILY #5 tab Metoprolol Tartrate [Lopressor] 50 mg PO BID #60 tab Pantoprazole [Protonix] 40 mg PO AC-BRKFST #30 tab Diltiazem Cd [Cardizem CD] 180 mg PO DAILY #30 capsule Sennosides-Docusate Sodium [Senokot-S] 2 each PO HS PRN tab PRN Reason: Constipation Acetaminophen Tab [Tylenol] 650 mg PO Q6HR PRN tab PRN Reason: Mild Pain or Fever > 38.3 C Continue Rosuvastatin [Crestor] 10 mg PO DAILY #30 tab Millwood-3 Fatty Acids [Millwood-3] 1,000 mg PO DAILY Vits A,C,E/Lutein/Minerals [Ocuvite with Lutein Tablet] 1 each PO DAILY Umeclidinium Brm/Vilanterol Tr [Anoro Ellipta 62.5-25 Mcg INH] 1 puff INHALATION HS Aspirin 81 mg PO DAILY #30 tab Discontinued Naproxen Sodium [Aleve] 220 - 440 mg PO Q6H PRN PRN Reason: Pain Plant Stanol Coty [Cholest Off] 450 mg PO DAILY Metoprolol Tartrate [Lopressor] 25 mg PO BID Omeprazole 40 mg PO MOWEFR Isosorbide Mononitrate ER [Imdur] 30 mg PO DAILY #30 tablet Nitroglycerin Sl Tabs [Nitrostat] 0.4 mg SUBLINGUAL Q5M PRN #25 tab PRN Reason: Chest Pain Discharge Medication List Millwood-3 Fatty Acids [Millwood-3] 1,000 mg PO DAILY 03/31/21 [History] Vits A,C,E/Lutein/Minerals [Ocuvite with Lutein Tablet] 1 each PO DAILY 03/31/21 [History] Umeclidinium Brm/Vilanterol Tr [Anoro Ellipta 62.5-25 Mcg INH] 1 puff INHALATION HS 05/06/21 [History] Apixaban [Eliquis] 5 mg PO BID #60 tab 05/16/21 [Rx] Acetaminophen Tab [Tylenol] 650 mg PO Q6HR PRN tab 05/19/21 [Rx] Amiodarone [Cordarone] 200 mg PO BID #20 tab 05/19/21 [Rx] Aspirin 81 mg PO DAILY #30 tab 05/19/21 [Rx] Diltiazem Cd [Cardizem CD] 180 mg PO DAILY #30 capsule 05/19/21 [Rx] Furosemide [Lasix] 20 mg PO DAILY #5 tab 05/19/21 [Rx] Metoprolol Tartrate [Lopressor] 50 mg PO BID #60 tab 05/19/21 [Rx] Pantoprazole [Protonix] 40 mg PO AC-BRKFST #30 tab 05/19/21 [Rx] Rosuvastatin [Crestor] 10 mg PO DAILY #30 tab 05/19/21 [Rx] Sennosides-Docusate Sodium [Senokot-S] 2 each PO HS PRN tab 05/19/21 [Rx] Follow up Appointment(s)/Referral(s): Helen Samson NPC [Nurse Practitioner] - 05/25/21 11:00 am (You will be seen in the surgeon's office behind the hospital in [facility], [address], [address]) Obie Bojorquez MD [STAFF PHYSICIAN] - 06/06/21 3:00 pm [facility] [NON-STAFF] - 4 Weeks (You will be called in approximately 4-6 weeks after surgery for evaluation for cardiac rehab) Alfred Miramontes DO [Primary Care Provider] - 2 Weeks (Office will call with appointment) Salazar Menezes MD [STAFF PHYSICIAN] - 06/17/21 10:15 am Dany Hamilton DO [Doctor of Osteopathic Medicine] - 06/01/21 1:30 pm [facility], [NON-STAFF] - 1-2 Days Ambulatory/Diagnostic Orders: Complete Blood Count w/diff [LAB.AMB] Time Frame: 3 Days, Location: None Selected Comprehensive Metabolic Panel [LAB.AMB] Time Frame: 3 Days, Location: None Selected Activity/Diet/Wound Care/Special Instructions: DISCHARGE INSTRUCTIONS: 1. No driving for 4 weeks, or until physician gives their ok. 2. The patient should sleep in their own bed, no medical bed needed. 3. Stairs are not an issue. If the bedroom is upstairs, it is advised that the patient go up at night and down in the morning for the first week. Go slowly, using handrail and take 1 step at a time. 4. REMI hose are to be worn for 30 days or until physician discontinues. 5. Heart hugger is to be worn 100% of the time until physician discontinues.(except when showering) 6. No lifting, pushing, or pulling more than 10 pounds for 12 weeks. The physician will advise of any restriction changes. 7. The patient is expected to continue the prescribed walking program. 8. Continue pain control per as needed orders. 9. Continue with incentive spirometry and splinting/heart hugger until otherwise directed by the physician. 10. Must shower daily using liquid antibacterial soap and a separate white washcloth for each individual incision. 11. Routine sternal incision care. No powders, lotions, ointments on incisions. No dressings are necessary on incisions unless they are draining. Dermabond tape is to remain on sternal incision until surgeon follow-up. 12. Please call surgeon/MERGERS AND ACQUISITIONS CONSULTANT for temp greater than 101 F or purulent drainage from incisions. 13. All prescriptions given by surgeon for 30 days. Refills need to be filled through phlebotomy support tech/primary care physician. 14. A Red armband has been placed on the patient. It should be worn for 30 days post surgery and will be removed by the cardiac surgeons. If an ER visit is necessary, please make sure the number on the Red armband is called. 17. You have been referred to and are expected to begin Cardiac Rehab in approximately 4-6 weeks. HOME HEALTH SERVICES TO PROVIDE: RN SKILLED HOME CARE SERVICES FOR POST-OP SURGICAL PATIENTS WITH THE FOLLOWING: Coronary Artery Bypass Surgery (CABG), Mitral Valve Replacement/Repair ( MVR), Aortic Valve Replacement/Repair (AVR) RN TO CONTINUE EDUCATION FROM ``ROAD TO A HEALTH HEART PATIENT EDUCATION MANUAL (GIVEN TO PATIENT IN THE HOSPITAL) MEDICATION RECONCILIATION WITH EDUCATION NEEDED ON FIRST HOME VISIT EMPHASIZE IMPORTANCE OF WEARING BREAST SUPPORT/HEART HUGGER ENCOURAGE USE OF INCENTIVE SPIROMETER 10 X EVERY HOUR WHILE AWAKE ENCOURAGE UTILIZATION OF LOWER EXTREMITY COMPRESSION STOCKINGS/REMI HOSE and ELEVATE LEGS ABOVE LEVEL OF HEART WHILE AT REST. ENCOURAGE AMBULATION 3-5x/day INCREASING TOLERATES, WHILE AVOIDING EXTREMES IN TEMPERATURE FREQUENCY: RN TO OPEN THE PATIENT WITHIN 24 HOURS OF DISCHARGE FROM THE HOSPITAL WITH TELEHEALTH INSTALLED AT [facility] [place], RN TO VISIT 2-3 X A WEEK FOR 4 WEEKS ESTABLISHED BY PATIENT NEEDS. LABORATORY: CBC, CMP TO BE DRAWN ON THE THIRD DAY HOME, (RAN STAT) FAX RESULTS TO [phone]. TELEHEALTH PARAMETERS: WEIGHT: NOTIFY MD OF WEIGHT GAIN OF 2 LBS IN 24 HOURS OR 5 LBS IN ONE WEEK HR: NOTIFY MD OF HR <55 BPM OR HR>100 BPM BP: NOTIFY MD IF BP <90/55 OR BP>140/100 O2 SAT: NOTIFY MD IF PO2<93% ON ROOM AIR SEND TELEHEALTH REPORT TO [facility] ROOM AND CARDIOVASCULAR SURGEON THE FIRST WEEK OF CARE AND THEN BI-WEEKLY. PLEASE ADDITIONALLY COMMUNICATE ANY ABNORMALS AND NEW FINDINGS TO THE SURGEONS OFFICE. Discharge Disposition: HOME WITH HOME HEALTH SERVICES
--- NOTE | 2021-05-19 13:25 | P.PN ---
Subjective Progress Note Date: 05/19/21 HISTORY OF PRESENT ILLNESS: This is a 65-year-old male, patient of Dr. Bojorquez, who underwent CABG 4. Patient developed atrial fibrillation postoperatively. Patient remains in atria l fibrillation with a heart rate ranging between [id number]. Patient's blood pressures have been on the lower side with systolic near 100. He denies chest pain or pressure. He denies shortness of breath. He is anxious to be discharged home. 05/18/2021 Patient is status post TRINY and cardioversion yesterday with Dr. Bojorquez. Patient is maintaining sinus mechanism today. His beta fer was decreased per cardiothoracic surgery. His amiodarone was also decreased. He denies chest pain or pressure. Denies shortness of breath. Vital signs are stable. 05/19/2021 Patient examined this morning at the bedside. Patient denies chest pain or pressure. He denies shortness of breath. He is maintaining sinus mechanism with a heart rate ranging from 5070. He is actually anxious to be discharged home today. PHYSICAL EXAM: VITAL SIGNS: Reviewed. GENERAL: Well-developed in no acute distress. NECK: Supple. No JVD or thyromegaly LUNGS: Respirations even and unlabored. Lungs diminished to auscultation bilaterally. HEART: regular rate and rhythm. S1 and S2 heard. Heart hugger noted. EXTREMITIES: Normal range of motion. No clubbing or cyanosis. Peripheral pulses intact. No lower extremity edema ASSESSMENT: Coronary artery disease, s/p CABG x 4 Postoperative persistent atrial fibrillation, with uncontrolled ventricular rates, status post TRINY and cardioversion Hypertension Hyperlipidemia Diabetes mellitus Peripheral vascular disease Bilateral carotid artery stenosis History of SVT COPD PLAN: Continue current cardiac medications Patient is stable for discharge from a cardiac standpoint Nurse practitioner note has been reviewed by physician. Signing provider agrees with the documented findings, assessment, and plan of care. Objective - Vital Signs Vital signs: Vital Signs Temp 98.7 F 05/19/21 12:00 Pulse 59 L 05/19/21 12:00 Resp 18 05/19/21 12:00 BP 104/64 05/19/21 12:00 Pulse Ox 96 05/19/21 12:00 Intake & Output 05/18/21 05/19/21 05/19/21 18:59 06:59 18:59 Intake Total 660 Output Total 1 Balance 660 -1 Weight 99.5 kg Intake: Oral 660 Output: Stool 1 Other: Voiding Method Toilet Toilet Toilet Urinal Urinal Urinal # Voids 2 1 ABP, PAP, CO, CI - Last Documented Arterial Blood Pressure 96/77 Pulmonary Artery Pressure 33/11 Cardiac Output 6.3 Cardiac Index 2.9 - Labs CBC & Chem 7: 05/19/21 08:46 05/19/21 08:46 Labs: Abnormal Lab Results - Last 24 Hours (Table) 05/18/21 05/18/21 05/19/21 Range/Units 16:43 20:07 06:04 WBC (3.8-10.6) k/uL RBC (4.30-5.90) m/uL Hgb (13.0-17.5) gm/dL Hct (39.0-53.0) % Plt Count (150-450) k/uL Neutrophils # (1.3-7.7) k/uL Sodium (137-145) mmol/L Glucose (74-99) mg/dL POC Glucose (mg/dL) 104 H 169 H 151 H (75-99) mg/dL 05/19/21 05/19/21 05/19/21 Range/Units 08:46 08:46 11:44 WBC 15.7 H (3.8-10.6) k/uL RBC 3.45 L (4.30-5.90) m/uL Hgb 10.7 L (13.0-17.5) gm/dL Hct 32.2 L (39.0-53.0) % Plt Count 488 H (150-450) k/uL Neutrophils # 11.1 H (1.3-7.7) k/uL Sodium 135 L (137-145) mmol/L Glucose 129 H (74-99) mg/dL POC Glucose (mg/dL) 102 H (75-99) mg/dL
== END 2021-05-19 13:17 | disposition home health service (06) | DRG 235 ==
LOC: 2ORMAIN 05:33 → 2SICU 16:07 → 3SCARD 05-14 14:28
PROVIDERS: ADMIT Surgery; ATTEND Surgery
PROC: 06BQ4ZZ Excision of Left Saphenous Vein, Percutaneous Endoscopic Approach (ICD-10-PCS; principal; 2021-05-09 08:00)
PROC: 02100AW Bypass Coronary Artery, One Artery from Aorta with Autologous Arterial Tissue, Open Approach (ICD-10-PCS; principal; 2021-05-09 08:00)
PROC: 5A1221Z Performance of Cardiac Output, Continuous (ICD-10-PCS; principal; 2021-05-09 08:00)
PROC: 03BC4ZZ Excision of Left Radial Artery, Percutaneous Endoscopic Approach (ICD-10-PCS; principal; 2021-05-09 08:00)
PROC: 02L70CK Occlusion of Left Atrial Appendage with Extraluminal Device, Open Approach (ICD-10-PCS; principal; 2021-05-09 08:00)
PROC: 4A0305C Measurement of Arterial Flow, Coronary, Open Approach (ICD-10-PCS; principal; 2021-05-09 08:00)
PROC: 02100Z9 Bypass Coronary Artery, One Artery from Left Internal Mammary, Open Approach (ICD-10-PCS; principal; 2021-05-09 08:00)
PROC: 021109W Bypass Coronary Artery, Two Arteries from Aorta with Autologous Venous Tissue, Open Approach (ICD-10-PCS; principal; 2021-05-09 08:00)
PROC: B24BZZ4 Ultrasonography of Heart with Aorta, Transesophageal (ICD-10-PCS; principal; 2021-05-09 08:00)
PROC: 5A2204Z Restoration of Cardiac Rhythm, Single (ICD-10-PCS; 2021-05-17)
PROC: B24BZZ4 Ultrasonography of Heart with Aorta, Transesophageal (ICD-10-PCS; 2021-05-17)
DX: I25.10 Atherosclerotic heart disease of native coronary artery without angina pectoris (principal); J96.01 Acute respiratory failure with hypoxia; J44.1 Chronic obstructive pulmonary disease with (acute) exacerbation; D62 Acute posthemorrhagic anemia; I48.19 Other persistent atrial fibrillation; J98.11 Atelectasis; J90 Pleural effusion, not elsewhere classified; I48.92 Unspecified atrial flutter; E11.51 Type 2 diabetes mellitus with diabetic peripheral angiopathy without gangrene; D69.59 Other secondary thrombocytopenia; D72.828 Other elevated white blood cell count; I70.212 Atherosclerosis of native arteries of extremities with intermittent claudication, left leg; E11.65 Type 2 diabetes mellitus with hyperglycemia; I25.82 Chronic total occlusion of coronary artery; I08.1 Rheumatic disorders of both mitral and tricuspid valves; I65.23 Occlusion and stenosis of bilateral carotid arteries; E78.5 Hyperlipidemia, unspecified; I10 Essential (primary) hypertension; K21.9 Gastro-esophageal reflux disease without esophagitis; M19.91 Primary osteoarthritis, unspecified site; F17.210 Nicotine dependence, cigarettes, uncomplicated; Z71.6 Tobacco abuse counseling; Z79.82 Long term (current) use of aspirin; Z79.02 Long term (current) use of antithrombotics/antiplatelets; Z79.899 Other long term (current) drug therapy; Z85.828 Personal history of other malignant neoplasm of skin; Z87.442 Personal history of urinary calculi; Z87.440 Personal history of urinary (tract) infections; Z86.79 Personal history of other diseases of the circulatory system; Z98.42 Cataract extraction status, left eye; Z98.41 Cataract extraction status, right eye; Z98.890 Other specified postprocedural states; Z71.3 Dietary counseling and surveillance
CPT/HCPCS: 71045; 71046; 76604; 80048; 80053; 82330; 82805; 83036; 83735; 84145; 85025; 85027; 85520; 85610; 85730; 86850; 86891; 86900; 86901; 86920; 87070; 87205; 92960; 93005; 93312; 93320; 93325; 94002; 94640; 94760

== ENCOUNTER → 2021-06-01 | Outpatient (CLI) | payer MEDICARE ==
--- NOTE | 2021-06-01 16:29 | US ---
EXAMINATION TYPE: US chest DATE OF EXAM: 06/01/2021 COMPARISON: Radiograph same day CLINICAL HISTORY: 65-year-old male J90 Pleural effusion. Left pleural effusion TECHNIQUE: Targeted ultrasound of the posterior lower Left FINDINGS: EXAM MEASUREMENTS: Left Pleural Effusion pocket size: 9.5 cm Left skin surface to fluid distance: 3.5 cm Left side marked for possible thoracentesis outside the dept. Pulmonologists are able to review the images in the patient?s EMR. IMPRESSIONS: Small to moderate left pleural effusion with adjacent atelectasis.
== END | disposition home or self-care (01) ==
LOC: RADUSWWP 14:26
PROVIDERS: ATTEND Internal Medicine Critical Care Medicine
DX: J90 Pleural effusion, not elsewhere classified (principal); J98.11 Atelectasis
CPT/HCPCS: 76604

== ENCOUNTER → 2021-06-06 | Day surgery (SDC) | payer MEDICARE ==
[2021-06-06 12:37] VITALS: BP 118/68; PULSE 48; RESP 18
[2021-06-06 12:39] VITALS: TEMP 97.4
--- NOTE | 2021-06-06 13:43 | XR ---
EXAMINATION TYPE: XR chest 1V portable DATE OF EXAM: 06/06/2021 COMPARISON: Chest x-ray 05/19/2021, 06/01/2021 HISTORY: Abnormal chest x-ray, status post coronary artery bypass graft TECHNIQUE: Single frontal view of the chest is obtained. FINDINGS: Patient is status post median sternotomy and left atrial appendage clip placement. Lung vo lumes are low. The abnormal density at the left lung base obscuring the left hemidiaphragm is again s een. There is no evident pneumothorax. Interstitium is increased. Cardiomediastinal silhouette is wid ened. IMPRESSION: Correlate for interstitial edema, possible left lower lobe atelectasis versus edema, ass ociated effusion. There is cardiomegaly. Widening of the mediastinum may be technical, postoperative.
--- NOTE | 2021-06-06 17:49 | PCN ---
PROCEDURE NOTE PROCEDURE: Left thoracentesis. PREOPERATIVE DIAGNOSIS: Left pleural effusion. POSTOPERATIVE DIAGNOSIS: Left pleural effusion. DENTAL LABORATORY TECHNICIAN: Dr. Hamilton. There was informed consent. PROCEDURE DESCRIPTION: A time-out was completed verifying correct patient, procedure, site, positioning , and implant (s) or special equipment if applicable. Ultrasound guidance was used patricia the posterior chest and appropriate fluid pocket was identified and marked. Patient was positioned, prepped and draped in usual sterile fashion. Lidocaine was used to anesthetize the area. A thoracentesis catheter was introduced into the pleural space and fluid was removed. Blood loss was none. A chest x-ray was ordered to evaluate for pneumothorax. Total Fluid Removed: 600 mL Color of Fluid: Dark brown Fluid was sent for appropriate laboratory tests, including cytology, microbiology and chemistry. Patient tolerated the procedure well and there were no immediate complications. MMODL / IJN: [id number] /
[2021-06-06 20:41] LABS: Appearance,BF Hazy; Color,BF Orange; Nucleated Cells, Body Fluid 350 /uL; RBC, Body Fluid 6350 /uL
[2021-06-06 20:52] LABS: Mononuclear WBC,Body Fluid 98 %; Polynuclear WBC,Body Fluid 2 %; Total Cells Counted,Body Fluid 100
[2021-06-07 03:38] LABS: Glucose, BF Source Pleural Fluid; Glucose, Body Fluid 158 mg/dL; LDH, Body Fluid Source Pleural Fluid; Total Protein, Body Fluid 4330 mg/dL
== END ==
LOC: PROCWHC3 11:53 → EDSTATUS 12:15
PROVIDERS: ATTEND Internal Medicine Critical Care Medicine
DX: J90 Pleural effusion, not elsewhere classified (principal); E78.5 Hyperlipidemia, unspecified; I10 Essential (primary) hypertension; I25.10 Atherosclerotic heart disease of native coronary artery without angina pectoris; E11.9 Type 2 diabetes mellitus without complications; I73.9 Peripheral vascular disease, unspecified; J44.9 Chronic obstructive pulmonary disease, unspecified; F17.200 Nicotine dependence, unspecified, uncomplicated
CPT/HCPCS: 32554; 71045; 82945; 83615; 84157; 87070; 87102; 87116; 87205; 87206; 87252; 89050

== ENCOUNTER 2021-06-21 12:21 | Observation (INO) | payer MEDICARE ==
--- NOTE | 2021-06-21 12:58 | XR ---
EXAMINATION TYPE: XR chest 2V DATE OF EXAM: 06/21/2021 COMPARISON: Chest x-ray June 06, 2021 HISTORY: Dysrhythmia. TECHNIQUE: Frontal and lateral views of the chest are obtained. FINDINGS: Overlying sternal wires and mediastinal clips along with left atrial appendage clip are al l redemonstrated. There is slightly larger small to moderate size left pleural effusion with associat ed compressive atelectasis. Right lung remains grossly clear. Cardiac silhouette size is stable and l ikely upper limits of normal. Osseous structures are intact. IMPRESSION: Chronic changes with small to moderate size left pleural effusion and associated fartun sive atelectasis. Effusion slightly larger from most recent x-ray.
[2021-06-21 13:12] LABS: Partial Thromboplastin Time 24.1 sec (22.0-30.0); Prothrombin Time 10.4 sec (9.0-12.0)
[2021-06-21 13:14] LABS: ALT 10 U/L (4-49); AST 27 U/L (17-59); African American GFR (CKD) >90 (>60 ml/min/1.73 sqM); Alkaline Phosphatase 75 U/L (38-126); Anion Gap 9 mmol/L; Blood Urea Nitrogen 16 mg/dL (9-20); Calcium 9.4 mg/dL (8.4-10.2); Carbon Dioxide 26 mmol/L (22-30); Chloride 102 mmol/L (98-107); Glucose 126 mg/dL (74-99); Magnesium 2.1 mg/dL (1.6-2.3); Non-African American GFR(CKD) 81 (>60 ml/min/1.73 sqM); Sodium 137 mmol/L (137-145); Total Bilirubin 0.5 mg/dL (0.2-1.3); Total Protein 7.4 g/dL (6.3-8.2)
[2021-06-21 13:19] LABS: Potassium 5.1 mmol/L (3.5-5.1)
[2021-06-21 13:21] LABS: Basophils # (A) 0.1 k/uL (0-0.2); Basophils % (A) 1 %; Eosinophils # (A) 0.3 k/uL (0-0.7); Eosinophils % (A) 2 %; HCT 41.9 % (39.0-53.0); Hypochromasia Marked; Lymphocytes # (A) 3.2 k/uL (1.0-4.8); Lymphocytes % (A) 24 %; MCH 28.8 pg (25.0-35.0); MCV 92.9 fL (80.0-100.0); Mean Platelet Volume 7.8; Monocytes # (A) 1.2 k/uL (0-1.0); Monocytes % (A) 9 %; Neutrophils # (A) 8.6 k/uL (1.3-7.7); Neutrophils % (A) 63 %; Platelet Count 417 k/uL (150-450); Poikilocytosis Slight; RBC 4.51 m/uL (4.30-5.90); RDW 13.6 % (11.5-15.5); WBC 13.7 k/uL (3.8-10.6)
--- NOTE | 2021-06-21 15:43 | ED ---
General Adult HPI - General Chief complaint: Arrhythmia/Palpitations Stated complaint: high HR Time Seen by Provider: 06/21/21 14:26 Source: patient Mode of arrival: wheelchair Limitations: no limitations - History of Present Illness Initial comments: 65-year-old male with a past medical history of quadruple bypass on 05/09/2021 presents to the emergency department for a chief complaint of rapid heart rate. Patient states that since his surgery he had had episodes of atrial fibrillation. He has been started on medications for this and does take an ticoagulation. Patient states this morning he had a heart rate higher than 150 sustained for 3 hours. He decided to come to the hospital. On his way he felt to go back to normal. Given his recent history of quadruple bypass patient wished to be evaluated. States his manager process improvement is Dr. Bojorquez.Patient has no other complaints at this time including shortness of breath, chest pain, abdominal pain, nausea or vomiting, headache, or visual changes. - Related Data Home Medications Medication Instructions Recorded Confirmed [place]-3 Fatty Acids [[place]-3] 1,000 mg PO DAILY 03/31/21 06/06/21 Vits A,C,E/Lutein/Minerals 1 each PO DAILY 03/31/21 06/06/21 [Ocuvite with Lutein Tablet] Umeclidinium Brm/Vilanterol Tr 1 puff INHALATION HS 05/06/21 06/06/21 [Anoro Ellipta 62.5-25 Mcg INH] Previous Rx's Medication Instructions Recorded Apixaban [Eliquis] 5 mg PO BID #60 tab 05/16/21 Acetaminophen Tab [Tylenol] 650 mg PO Q6HR PRN tab 05/19/21 Amiodarone [Cordarone] 200 mg PO BID #20 tab 05/19/21 Aspirin 81 mg PO DAILY #30 tab 05/19/21 Diltiazem Cd [Cardizem CD] 180 mg PO DAILY #30 capsule 05/19/21 Metoprolol Tartrate [Lopressor] 50 mg PO BID #60 tab 05/19/21 Pantoprazole [Protonix] 40 mg PO AC-BRKFST #30 tab 05/19/21 Rosuvastatin [Crestor] 10 mg PO DAILY #30 tab 05/19/21 Sennosides-Docusate Sodium 2 each PO HS PRN tab 05/19/21 [Senokot-S] Allergies Allergy/AdvReac Type Severity Reaction Status Date / Time No Known Allergies Allergy Verified 06/06/21 12:39 Review of Systems ROS Statement: Those systems with pertinent positive or pertinent negative responses have been documented in the HPI. ROS Other: All systems not noted in ROS Statement are negative. Past Medical History Past Medical History: Cancer, Chest Pain / Angina, COPD, GERD/Reflux, Hyperlipidemia, Hypertension, Osteoarthritis (OA), Vascular Disorder Additional Past Medical History / Comment(s): basal cell carcinoma-on nose removed PAST HX: RENAL CALCULI, KIDNEY INFECTIONS History of Any Multi-Drug Resistant Organisms: None Reported Past Surgical History: No Surgical Hx Reported, Coronary Bypass/CABG Additional Past Surgical History / Comment(s): skin cancer removed from nose. sigifredo cataracts Past Anesthesia/Blood Transfusion Reactions: No Reported Reaction Past Psychological History: No Psychological Hx Reported Smoking Status: Former smoker Past Alcohol Use History: None Reported Past Drug Use History: None Reported - Past Family History Mother Family Medical History: No Reported History Father Family Medical History: No Reported History General Exam Limitations: no limitations General appearance: alert, in no apparent distress Head exam: Present: atraumatic Eye exam: Present: normal appearance, PERRL, EOMI. Absent: scleral icterus, conjunctival injection ENT exam: Present: normal exam, mucous membranes moist Neck exam: Present: normal inspection, full ROM. Absent: tenderness Respiratory exam: Present: normal lung sounds bilaterally. Absent: respiratory distress, wheezes Cardiovascular Exam: Present: regular rate, normal rhythm, normal heart sounds GI/Abdominal exam: Present: soft, normal bowel sounds. Absent: distended, tenderness Neurological exam: Present: alert Course Vital Signs 06/21/21 12:22 Temperature 98.0 F Pulse Rate 72 Respiratory 19 Rate Blood Pressure 111/52 O2 Sat by Pulse 97 Oximetry EKG Findings - EKG Comments: EKG Findings:: Normal sinus rhythm, ventricular rate 70, [place] interval 132, QTc 464 Medical Decision Making - Medical Decision Making Vitals are stable. EKG shows a normal sinus rhythm. CBC and CMP are unremarkable. Troponin negative. Chest x-ray does show a pleural effusion which patient is aware of and has been following with pulmonology for. Given patient's recent quadruple bypass Dr. Rodriguez and myself felt patient would sarah efit from admission to observation for cardiac monitoring and cardiology consultation. - Lab Data Result diagrams: 06/21/21 12:47 12 12:47 Lab Results 06/21/21 1206/21/21 Range/Units 12:47 12:47 12:47 WBC 13.7 H (3.8-10.6) k/uL RBC 4.51 (4.30-5.90) m/uL Hgb 13.0 (13.0-17.5) gm/dL Hct 41.9 (39.0-53.0) % MCV 92.9 (80.0-100.0) fL MCH 28.8 (25.0-35.0) pg MCHC 31.0 (31.0-37.0) g/dL RDW 13.6 (11.5-15.5) % Plt Count 417 (150-450) k/uL MPV 7.8 Neutrophils % 63 % Lymphocytes % 24 % Monocytes % 9 % Eosinophils % 2 % Basophils % 1 % Neutrophils # 8.6 H (1.3-7.7) k/uL Lymphocytes # 3.2 (1.0-4.8) k/uL Monocytes # 1.2 H (0-1.0) k/uL Eosinophils # 0.3 (0-0.7) k/uL Basophils # 0.1 (0-0.2) k/uL Hypochromasia Marked Poikilocytosis Slight PT 10.4 (9.0-12.0) sec INR 1.0 (<1.2) APTT 24.1 (22.0-30.0) sec Sodium 137 (137-145) mmol/L Potassium 5.1 (3.5-5.1) mmol/L Chloride 102 (98-107) mmol/L Carbon Dioxide 26 (22-30) mmol/L Anion Gap 9 mmol/L BUN 16 (9-20) mg/dL Creatinine 0.97 (0.66-1.25) mg/dL Est GFR (CKD-EPI)AfAm >90 (>60 ml/min/1.73 sqM) Est GFR (CKD-EPI)NonAf 81 (>60 ml/min/1.73 sqM) Glucose 126 H (74-99) mg/dL Calcium 9.4 (8.4-10.2) mg/dL Magnesium 2.1 (1.6-2.3) mg/dL Total Bilirubin 0.5 (0.2-1.3) mg/dL AST 27 (17-59) U/L ALT 10 (4-49) U/L Alkaline Phosphatase 75 (38-126) U/L Troponin I (0.000-0.034) ng/mL Total Protein 7.4 (6.3-8.2) g/dL Albumin 4.0 (3.5-5.0) g/dL 06/21/21 Range/Units 12:47 WBC (3.8-10.6) k/uL RBC (4.30-5.90) m/uL Hgb (13.0-17.5) gm/dL Hct (39.0-53.0) % MCV (80.0-100.0) fL MCH (25.0-35.0) pg MCHC (31.0-37.0) g/dL RDW (11.5-15.5) % Plt Count (150-450) k/uL MPV Neutrophils % % Lymphocytes % % Monocytes % % Eosinophils % % Basophils % % Neutrophils # (1.3-7.7) k/uL Lymphocytes # (1.0-4.8) k/uL Monocytes # (0-1.0) k/uL Eosinophils # (0-0.7) k/uL Basophils # (0-0.2) k/uL Hypochromasia Poikilocytosis PT (9.0-12.0) sec INR (<1.2) APTT (22.0-30.0) sec Sodium (137-145) mmol/L Potassium (3.5-5.1) mmol/L Chloride (98-107) mmol/L Carbon Dioxide (22-30) mmol/L Anion Gap mmol/L BUN (9-20) mg/dL Creatinine (0.66-1.25) mg/dL Est GFR (CKD-EPI)AfAm (>60 ml/min/1.73 sqM) Est GFR (CKD-EPI)NonAf (>60 ml/min/1.73 sqM) Glucose (74-99) mg/dL Calcium (8.4-10.2) mg/dL Magnesium (1.6-2.3) mg/dL Total Bilirubin (0.2-1.3) mg/dL AST (17-59) U/L ALT (4-49) U/L Alkaline Phosphatase (38-126) U/L Troponin I <0.012 (0.000-0.034) ng/mL Total Protein (6.3-8.2) g/dL Albumin (3.5-5.0) g/dL Disposition Clinical Impression: Palpitations Narrative: history of quadruple bypass Disposition: ADMITTED IP TO THIS HOSP Is patient prescribed a controlled substance at d/c from ED?: No Referrals: Alfred Miramontes DO [Primary Care Provider] - 1-2 days Time of Disposition: 15:43
[2021-06-21] MEDS ORDERED: ZOLPIDEM 5 MG TAB PO PRN (18:04)
[2021-06-21] MEDS ORDERED: NITROGLYCERIN SL TABS 0.4 MG TAB SUBLINGUAL PRN (18:04)
[2021-06-21] MEDS ORDERED: ACETAMINOPHEN TAB 500 MG TAB PO PRN (18:04)
[2021-06-21] MEDS ORDERED: NALOXONE 0.4 MG/ML 1 ML VIAL IV PRN (18:05)
[2021-06-21] MEDS ORDERED: CALCIUM CARBONATE 500 MG CHEWABLE PO PRN (18:05)
[2021-06-21] MEDS ORDERED: LORazepam 0.5 MG TAB PO PRN (18:05)
[2021-06-21] MEDS ORDERED: MELATONIN 3 MG TABLET PO PRN (18:05)
[2021-06-21] MEDS ORDERED: LACTULOSE 20 GM/30 ML CUP PO PRN (18:05)
[2021-06-21] MEDS: PANTOPRAZOLE 40 MG TABLET PO SCH (18:40)
[2021-06-21] MEDS: FORMOTEROL FUMARATE 20 MCG/2 ML NEBU INHALATION SCH (19:58)
[2021-06-21] MEDS: IPRATROPIUM 0.5 MG/2.5 ML NEBU INHALATION SCH (19:58)
[2021-06-21] MEDS ORDERED: ATORVASTATIN 20 MG TAB PO SCH (21:00)
[2021-06-21] MEDS: APIXABAN 5 MG TAB PO SCH (21:05)
[2021-06-21] MEDS: METOPROLOL TARTRATE 50 MG TAB PO SCH (21:05)
[2021-06-21 21:56] VITALS: RESP 16
[2021-06-22 08:02] VITALS: BP 128/67; TEMP 99.2
[2021-06-22] MEDS: IPRATROPIUM 0.5 MG/2.5 ML NEBU INHALATION SCH ×2 (08:07→11:54)
[2021-06-22] MEDS: FORMOTEROL FUMARATE 20 MCG/2 ML NEBU INHALATION SCH (08:07)
[2021-06-22 08:19] VITALS: PULSE 76
[2021-06-22] MEDS: METOPROLOL TARTRATE 50 MG TAB PO SCH (08:28)
[2021-06-22] MEDS: PANTOPRAZOLE 40 MG TABLET PO SCH (08:28)
[2021-06-22] MEDS: APIXABAN 5 MG TAB PO SCH (08:28)
[2021-06-22] MEDS ORDERED: ASPIRIN 81 MG PO SCH (09:00)
[2021-06-22] MEDS ORDERED: DILTIAZEM CD 180 MG CAP.ER.24H PO SCH (09:00)
--- NOTE | 2021-06-22 10:11 | P.CRDCN ---
History of Present Illness History of present illness: HISTORY OF PRESENTING ILLNESS This is a pleasant 65-year-old male past medical history significant for coronary artery disease s/p 4 vessel CABG ([place]-LAD, Radial-OM2, VG-RI, VG-RCA) on 05/09/21, paroxysmal atrial fibrillation s/p TRINY cardioversion, hypertension, hyperlipidemia, type 2 diabetes, peripheral vascular disease, SVT, COPD, chronic nicotine dependence. He follows in the office with Dr. Bojorquez. We have been asked to see in consultation for palpitations. Patient is seen and examined at bedside. Presents with an episode of palpitations yesterday morning. He was getting up in the morning getting coffee. He states he noticed his heart rate racing, HR was in the 150s at home. It lasted for about 3 hours. He decided to present to the emergency department for further evaluation. He denies any chest pain, shortness of breath, lightheadedness, dizziness, syncope or near syncope. He states that he has an event monitor that was ordered by Dr. Bojorquez. He states he already picked up the heart monitor and has had it since this weekend but has not put it on yet. DIAGNOSTICS EKG reveals sinus rhythm, heart rate 70, nonspecific ST-T wave abnormalities. Prior EKGs with similar findings. Telemetry tracings indicate sinus rhythm, heart rate 6070s, occasional PACS. No evidence of atrial fibrillation or tachycardia. Chest xray chronic changes, small to moderate-sized left pleural effusion. Effusion slightly larger from most recent x-ray. Laboratory reviewed, WBC 13.7, hemoglobin 13, platelets 417, sodium 137, potassium 5.0, BUN 16, serum creatinine 0.9, magnesium 2.1, troponin negative 3, covid 19 PCR negative Current home medications includeaspirin 81 mg daily, Eliquis 5 mg twice a day, metoprolol titrate 50 mg twice a day, rosuvastatin 10mg nightly, PRN nitro, a mbien, protonix, Cardizem 180mg daily TRINY 05/2021- normal LV systolic function, mild mitral and mild tricuspid regurgitation, no shunting across the anterolateral septum, mildly dilated left atrium with occlusion of the left atrial appendage. REVIEW OF SYSTEMS At the time of my exam: CONSTITUTIONAL: Denies fever or chills. CARDIOVASCULAR: +palpitations Denies chest pain, shortness of breath, orthopnea, PND RESPIRATORY: Denies cough. GASTROINTESTINAL: Denies abdominal pain, diarrhea, constipation, nausea or vomiting. MUSCULOSKELETAL: Denies myalgias. NEUROLOGIC: Denies numbness, tingling, headache or weakness. ENDOCRINE: Denies fatigue, weight change, polydipsia or polyurina. GENITOURINARY: Denies burning, hematuria or urgency with micturation. HEMATOLOGIC: Denies history of anemia or bleeding. PHYSICAL EXAMINATION Blood pressure 120/67, heart rate 80, afebrile, oxygen saturations 91% on room air CONSTITUTIONAL: No apparent distress. HEENT: Head is normocephalic. Pupils are equal, round. Sclerae anicteric. Mucous membranes of the mouth are moist. No JVD. No carotid bruit. CHEST EXAMINATION: Lungs are clear to auscultation. No chest wall tenderness is noted on palpation or with deep breathing. HEART EXAMINATION: Regular rate and rhythm. S1, S2 heard. No murmurs, gallops or rub. ABDOMEN: Soft, nontender. Positive bowel sounds. EXTREMITIES: 2+ peripheral pulses, no lower extremity edema and no calf tenderness. SKIN: warm, dry NEUROLOGIC EXAMINATION: Patient is awake, alert and oriented x3. ASSESSMENT Palpitations Coronary artery disease s/p 4 vessel CABG ([place]-LAD, Radial-OM2, VG-RI, VG-RCA) Paroxysmal atrial fibrillation s/p TRINY cardioversion Hypertension Hyperlipidemia Type 2 diabetes Peripheral vascular disease History of SVT COPD Chronic nicotine dependence. PLAN -Palpitations possibly related to atrial fibrillation with RVR, however, patient is not wearing his heart monitor as an outpatient. No arrythmias or tachycardia noted on cardiac telemetry past 24 hours. Recommend patient put heart monitor on that he has at home in order to have formal diagnosis. -Continue home cardiac medications -From a cardiology perspective, patient can be discharged home, place heart monitor on that he has from Dr. Giordano office -Follow up with Dr. Bojorquez -Smoking cessation discussed and highly recommended. Thank you kindly for this consultation. Nurse Practitioner note has been reviewed, I agree with a documented findings and plan of care. Patient was seen and examined. Past Medical History Past Medical History: Cancer, Chest Pain / Angina, COPD, GERD/Reflux, Hyperlipidemia, Hypertension, Osteoarthritis (OA), Vascular Disorder Additional Past Medical History / Comment(s): basal cell carcinoma-on nose removed PAST HX: RENAL CALCULI, KIDNEY INFECTIONS History of Any Multi-Drug Resistant Organisms: None Reported Past Surgical History: No Surgical Hx Reported, Coronary Bypass/CABG Additional Past Surgical History / Comment(s): skin cancer removed from nose. sigifredo cataracts Past Anesthesia/Blood Transfusion Reactions: No Reported Reaction Past Psychological History: No Psychological Hx Reported Smoking Status: Former smoker Past Alcohol Use History: None Reported Additional Past Alcohol Use History / Comment(s): SMOKES ABOUT half PPD, SINCE 13 YRS OLD. Past Drug Use History: None Reported Additional Drug Use History / Comment(s): cbd gummies - Past Family History Mother Family Medical History: No Reported History Father Family Medical History: No Reported History Medications and Allergies Home Medications Medication Instructions Recorded Confirmed Type [place]-3 Fatty Acids [[place]-3] 1,000 mg PO DAILY 03/31/21 06/21/21 History Umeclidinium Brm/Vilanterol Tr 1 puff INHALATION RT-HS 05/06/21 06/21/21 History [Anoro Ellipta 62.5-25 Mcg INH] Apixaban [Eliquis] 5 mg PO BID #60 tab 05/16/21 06/21/21 Rx Aspirin 81 mg PO DAILY #30 tab 05/19/21 06/21/21 Rx Diltiazem Cd [Cardizem CD] 180 mg PO DAILY #30 capsule 05/19/21 06/21/21 Rx Metoprolol Tartrate [Lopressor] 50 mg PO BID #60 tab 05/19/21 06/21/21 Rx Acetaminophen Tab [Tylenol Tab] 1,000 mg PO Q6HR PRN 06/21/21 06/21/21 History Ibuprofen [Motrin Ib] 800 mg PO Q8H PRN 06/21/21 06/21/21 History Nitroglycerin Sl Tabs [Nitrostat] 0.4 mg SUBLINGUAL Q5M PRN 06/21/21 06/21/21 History Pantoprazole [Protonix] 40 mg PO AC-BID 06/21/21 06/21/21 History Rosuvastatin [Crestor] 10 mg PO HS 06/21/21 06/21/21 History Super C Supplement 1 tab PO DAILY 06/21/21 06/21/21 History Zolpidem [Ambien] 5 mg PO HS PRN 06/21/21 06/21/21 History Allergies Allergy/AdvReac Type Severity Reaction Status Date / Time No Known Allergies Allergy Verified 06/21/21 15:44 Physical Exam Vitals: Vital Signs Temp Pulse Pulse Resp BP BP Pulse Ox 06/22/21 08:19 76 06/22/21 08:17 76 06/22/21 08:07 80 06/22/21 07:30 99.2 F 74 16 128/67 91 L 06/22/21 01:34 98.7 F 72 16 134/56 92 L 06/21/21 20:50 98.4 F 72 16 120/67 95 06/21/21 20:10 72 06/21/21 20:01 71 06/21/21 19:27 98.2 F 71 20 136/68 95 06/21/21 18:30 80 20 137/88 95 06/21/21 16:30 76 20 133/65 95 06/21/21 15:30 98.2 F 82 20 147/78 95 06/21/21 12:22 98.0 F 72 19 111/52 97 Intake and Output 06/21/21 06/22/21 06/22/21 22:59 06:59 14:59 Output Total 0 0 Balance 0 0 Output: Emesis 0 0 Other: Weight 96.162 kg Results 06/21/21 12:47 06/21/21 12:47 Cardiac Enzymes 06/21/21 06/21/21 06/21/21 Range/Units 12:47 12:47 16:19 AST 27 (17-59) U/L Troponin I <0.012 <0.012 (0.000-0.034) ng/mL 06/21/21 Range/Units 19:24 AST (17-59) U/L Troponin I <0.012 (0.000-0.034) ng/mL Coagulation 06/21/21 Range/Units 12:47 PT 10.4 (9.0-12.0) sec APTT 24.1 (22.0-30.0) sec CBC 06/21/21 Range/Units 12:47 WBC 13.7 H (3.8-10.6) k/uL RBC 4.51 (4.30-5.90) m/uL Hgb 13.0 (13.0-17.5) gm/dL Hct 41.9 (39.0-53.0) % Plt Count 417 (150-450) k/uL Comprehensive Metabolic Panel 06/21/21 Range/Units 12:47 Sodium 137 (137-145) mmol/L Potassium 5.1 (3.5-5.1) mmol/L Chloride 102 (98-107) mmol/L Carbon Dioxide 26 (22-30) mmol/L BUN 16 (9-20) mg/dL Creatinine 0.97 (0.66-1.25) mg/dL Glucose 126 H (74-99) mg/dL Calcium 9.4 (8.4-10.2) mg/dL AST 27 (17-59) U/L ALT 10 (4-49) U/L Alkaline Phosphatase 75 (38-126) U/L Total Protein 7.4 (6.3-8.2) g/dL Albumin 4.0 (3.5-5.0) g/dL Current Medications Generic Name Dose Route Start Last Admin Trade Name Freq PRN Reason Stop Dose Admin Acetaminophen 1,000 mg 06/21/21 18:04 Acetaminophen Tab 500 Mg Tab PO Q6HR PRN Pain or Fever > 100.5 Apixaban 5 mg 06/21/21 21:00 06/21/21 21:05 Apixaban 5 Mg Tab PO 5 mg BID MARISA Administration Protocol Aspirin 81 mg 06/22/21 09:00 Aspirin 81 Mg PO DAILY MARISA Atorvastatin Calcium 20 mg 06/21/21 21:00 06/21/21 21:04 Atorvastatin 20 Mg Tab PO 20 mg HS MARISA Administration Calcium Carbonate/Glycine 1,000 mg 06/21/21 18:05 Calcium Carbonate 500 Mg Chewable PO Q4HR PRN Dyspepsia Diltiazem HCl 180 mg 06/22/21 09:00 Diltiazem Cd 180 Mg Cap.Er.24h PO DAILY MARISA Formoterol Fumarate 20 mcg 06/21/21 20:00 06/22/21 08:07 Formoterol Fumarate 20 Mcg/2 Ml Nebu INHALATION 20 mcg RT-BID MARISA Administration Ipratropium [place] 0.5 mg 06/21/21 20:00 06/22/21 08:07 Ipratropium 0.5 Mg/2.5 Ml Nebu INHALATION 0.5 mg RT-QID MARISA Administration Lactulose 20 gm 06/21/21 18:05 Lactulose 20 Gm/30 Ml Cup PO DAILY PRN Constipation Lorazepam 0.5 mg 06/21/21 18:05 Lorazepam 0.5 Mg Tab PO Q6HR PRN Anxiety Melatonin 3 mg 06/21/21 18:05 Melatonin 3 Mg Tablet PO HS PRN Insomnia Metoprolol Tartrate 50 mg 06/21/21 21:00 06/21/21 21:05 Metoprolol Tartrate 50 Mg Tab PO 50 mg BID MARISA Administration Naloxone HCl 0.2 mg 06/21/21 18:05 Naloxone 0.4 Mg/Ml 1 Ml Vial IV Q2M PRN Opioid Reversal Nitroglycerin 0.4 mg 06/21/21 18:04 Nitroglycerin Sl Tabs 0.4 Mg Tab SUBLINGUAL Q5M PRN Chest Pain Pantoprazole Sodium 40 mg 06/21/21 18:15 06/21/21 18:40 Pantoprazole 40 Mg Tablet PO 40 mg AC-BID MARISA Administration Zolpidem Tartrate 5 mg 06/21/21 18:04 Zolpidem 5 Mg Tab PO HS PRN Insomnia Intake and Output 06/21/21 06/22/21 06/22/21 22:59 06:59 14:59 Output Total 0 0 Balance 0 0 Output: Emesis 0 0 Other: Weight 96.162 kg 06/21/21 12:47 06/21/21 12:47
--- NOTE | 2021-06-22 10:50 | P.HPIM ---
History of Present Illness H&P Date: 06/21/21 Chief Complaint: Palpitation History of presenting complaint This is a 65-year-old patient, follows with Dr. Miramontes. Chronic stable medical conditions include diabetes, osteoarthritis, hyperlipidemia, renal calculi, GERD, COPD, CAD. Patient was here in April for a coronary bypass. Patient did go into atrial fibrillation. Had to be cardioverted. I saw the patient in the ER. Since discharge patient been doing well. In fact stop smoking also. No guarding symptoms. Patient presents for about 3 hours of his heart racing. She had a pulse ox meter at home which are the heart or to be 150s. No dizziness nor lightheadedness no chest pain simply heart racing. Carlos ded to come in. When he got to even back in a sinus rhythm. She was concerned about the presentation has decided to come in for observation. Otherwise patient got a good exercise tolerance. Review of systems: GEN.: None EYES: None HEENT: None NECK: None RESPIRATORY: None CARDIOVASCULAR: As above GASTROINTESTINAL: None GENITOURINARY: None MUSCULOSKELETAL: None LYMPHATICS: None HEMATOLOGICAL: None PSYCHIATRY: None NEUROLOGICAL: None Past medical history to include: ,, hyperlipidemia, CAD with bypass, renal calculi, COPD, GERD, paroxysmal atrial fibrillation Social history: Smokes half a pack a day for close to 53 years. Stopped in April 2021 Alcohol occasionally. [employer]. 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 Family history: Reviewed, noncontributory to presentation Physical examination: VITAL SIGNS: 98, 72, 19, 147/78, 95% room air GENERAL: BMI 31.3, sitting on bed, awake, comfortable EYES: Pupils equal. Conjunctiva normal. HEENT: External appearance of nose and ears normal, oral cavity grossly normal. NECK: JVD not raised; masses not palpable. HEART: First and second heart sounds are normal; no edema. LUNGS: Respiratory rate normal; decreased breath sounds. ABDOMEN: Soft, nontender, liver spleen not palpable, no masses palpable. PSYCH: Alert and oriented x3; mood and affect normal. NEUROLOGICAL: Cranial nerves grossly intact; no facial asymmetry, power and sensation grossly intact. LYMPHATICS: No lymph nodes palpable in the axilla and neck INVESTIGATIONS, reviewed in the clinical context: White count 13.7 hemoglobin 13 platelets 417 sodium 137 potassium 5.1 creatinine 0.97 Troponin I 3 negative Coronavirus [PCR]: Not detected EKG tracing personally reviewed by me-normal sinus rhythm. Some flipped T waves in anterior lateral leads. Chest x-ray film personally reviewed by me-left pleural effusion Assessment and plan: -Paroxysmal atrial fibrillation with rapid ventricular rate lasting about 3 hours. Patient back into sinus rhythm. Back in April patient was in atrial fibrillation following coronary bypass. Had to be cardioverted. Telemetry. Consult cardiology. Continue current medications. Cardizem CD 180 mg daily. Lopressor 50 mg twice a day. Eliquis 5 mg twice a day -CAD with coronary bypass in April 2021 Aspirin, Lipitor, Lopressor -Primary osteoarthritis Pain medications as needed -Hyperlipidemia Lipitor 40 mg daily -COPD in a current smoker anoro-ellipta GERD Protonix 40 mg twice a day -Left l pleural effusion. Consult pulmonary. -Chronic leukocytosis felt to be as from smoking worked up by hematology as an outpatient. Care was discussed with the patient and at the bedside. Being admitted. Telemetry. Activity as tolerated. Cardiology and pulmonary consultation. Past Medical History Past Medical History: Cancer, Chest Pain / Angina, COPD, GERD/Reflux, Hyperlipidemia, Hypertension, Osteoarthritis (OA), Vascular Disorder Additional Past Medical History / Comment(s): basal cell carcinoma-on nose remov ed PAST HX: RENAL CALCULI, KIDNEY INFECTIONS History of Any Multi-Drug Resistant Organisms: None Reported Past Surgical History: No Surgical Hx Reported, Coronary Bypass/CABG Additional Past Surgical History / Comment(s): skin cancer removed from nose. sigifredo cataracts Past Anesthesia/Blood Transfusion Reactions: No Reported Reaction Past Psychological History: No Psychological Hx Reported Smoking Status: Former smoker Past Alcohol Use History: None Reported Additional Past Alcohol Use History / Comment(s): SMOKES ABOUT half PPD, SINCE 13 YRS OLD. Past Drug Use History: None Reported Additional Drug Use History / Comment(s): cbd gummies - Past Family History Mother Family Medical History: No Reported History Father Family Medical History: No Reported History Medications and Allergies Home Medications Medication Instructions Recorded Confirmed Type [place]-3 Fatty Acids [[place]-3] 1,000 mg PO DAILY 03/31/21 06/21/21 History Umeclidinium Brm/Vilanterol Tr 1 puff INHALATION RT-HS 05/06/21 06/21/21 History [Anoro Ellipta 62.5-25 Mcg INH] Apixaban [Eliquis] 5 mg PO BID #60 tab 05/16/21 06/21/21 Rx Aspirin 81 mg PO DAILY #30 tab 05/19/21 06/21/21 Rx Diltiazem Cd [Cardizem CD] 180 mg PO DAILY #30 capsule 05/19/21 06/21/21 Rx Metoprolol Tartrate [Lopressor] 50 mg PO BID #60 tab 05/19/21 06/21/21 Rx Acetaminophen Tab [Tylenol Tab] 1,000 mg PO Q6HR PRN 06/21/21 06/21/21 History Ibuprofen [Motrin Ib] 800 mg PO Q8H PRN 06/21/21 06/21/21 History Nitroglycerin Sl Tabs [Nitrostat] 0.4 mg SUBLINGUAL Q5M PRN 06/21/21 06/21/21 History Pantoprazole [Protonix] 40 mg PO AC-BID 06/21/21 06/21/21 History Rosuvastatin [Crestor] 10 mg PO HS 06/21/21 06/21/21 History Super C Supplement 1 tab PO DAILY 06/21/21 06/21/21 History Zolpidem [Ambien] 5 mg PO HS PRN 06/21/21 06/21/21 History Allergies Allergy/AdvReac Type Severity Reaction Status Date / Time No Known Allergies Allergy Verified 06/21/21 15:44 Physical Exam Vitals: Vital Signs Temp Pulse Pulse Resp BP BP Pulse Ox 06/22/21 08:28 76 06/22/21 08:19 76 06/22/21 08:17 76 06/22/21 08:07 80 06/22/21 07:30 99.2 F 74 16 128/67 91 L 06/22/21 01:34 98.7 F 72 16 134/56 92 L 06/21/21 20:50 98.4 F 72 16 120/67 95 06/21/21 20:10 72 06/21/21 20:01 71 06/21/21 19:27 98.2 F 71 20 136/68 95 06/21/21 18:30 80 20 137/88 95 06/21/21 16:30 76 20 133/65 95 06/21/21 15:30 98.2 F 82 20 147/78 95 06/21/21 12:22 98.0 F 72 19 111/52 97 Intake and Output 06/21/21 06/22/21 06/22/21 22:59 06:59 14:59 Output Total 0 0 Balance 0 0 Output: Emesis 0 0 Other: Weight 96.162 kg Results CBC & Chem 7: 06/21/21 12:47 06/21/21 12:47 Labs: Abnormal Lab Results - Last 24 Hours (Table) 06/21/21 06/21/21 Range/Units 12:47 12:47 WBC 13.7 H (3.8-10.6) k/uL Neutrophils # 8.6 H (1.3-7.7) k/uL Monocytes # 1.2 H (0-1.0) k/uL Glucose 126 H (74-99) mg/dL Thrombosis Risk Factor Assmnt - Choose All That Apply Each Factor Represents 1 point: Abnormal pulmonary function (COPD), Obesity (BMI >25) Each Risk Factor Represents 2 Points: Age 61-74 years Thrombosis Risk Factor Assessment Total Risk Factor Score: 4 Thrombosis Risk Factor Assessment Level: Moderate Risk
--- NOTE | 2021-06-22 12:08 | US ---
EXAMINATION TYPE: US chest DATE OF EXAM: 06/22/2021 COMPARISON: 06/01/2021 CLINICAL HISTORY: Left pleural effusion. TECHNIQUE: Targeted ultrasound of the posterior lower left hemithorax EXAM MEASUREMENTS: Left side NOT marked for possible thoracentesis outside the dept due to anterior lay of lung tissue i n fluid pocket. Pulmonologists are able to review the images in the patient?s EMR. IMPRESSIONS: Small left pleural effusion.
--- NOTE | 2021-06-22 14:06 | P.CNPUL ---
History of Present Illness Consult date: 06/22/21 Requesting physician: Gaudencio Gardner Reason for consult: abnormal CXR/CT Chief complaint: Palpitation History of present illness: This is a very pleasant 65-year-old male patient with a history of chronic obstructive pulmonary disease with FEV1 58% of predicted with chronic and ongoing tobacco dependence, nephrolithiasis, carotid stenosis, peripheral vascular disease, diabetes mellitus type 2, hyperlipidemia, hypertension. He was also recently found to have coronary artery disease and had undergone coronary artery bypass grafting on 05/09/2021. He was discharged home on 05/19/2021. He did have postoperative pleural effusion and on 06/06/2021 had undergone a left-sided thoracentesis by Dr. Hamilton was 600 ML's of fluid removed. Last evening he developed palpitations and presented to the emergency room. EKG at that time revealed a normal sinus rhythm. X-ray revealed chronic changes with small to moderate size left pleural effusion and compressive atelectasis. [place] to be somewhat increased and he was kept overnight for possible thoracentesis today. Ultrasound of the chest revealed small effusion with some lung tissue within it. No plans for thoracentesis. He is seen today in consultation on the regular medical floor. He sitting up in bed. In no acute distress. He denies any worsening shortness of breath, cough or congestion. No chest pain or palpitations. He is maintaining good O2 saturations in the 90s on room air. Heart rate in the 70s. He is hoping to go home. Review of Systems REVIEW OF SYSTEMS: CONSTITUTIONAL: Denies any recent significant weight loss or weight gain. EYES: Denies change in vision. EARS, NOSE, MOUTH, THROAT: Denies headaches, denies sore throat. CARDIOVASCULAR: Positive for palpitations, no chest pain or syncopal episodes. RESPIRATORY: Denies shortness of breath, cough, congestion or hemoptysis. GASTROINTESTINAL: Denies change in appetite, denies abdominal pain GENITOURINARY: Denies hematuria, denies infections. MUSKULOSKELETAL: Denies pain, denies swelling. INTEGUMENTARY: Denies rash, denies eczema. NEUROLOGICAL: Denies recent memory loss, no recent seizure activity. PSYCHIATRIC: Denies anxiety, denies depression. HEMATOLOGIC/LYMPHATIC: Denies anemia, denies enlarged lymph nodes. Past Medical History Past Medical History: Cancer, Chest Pain / Angina, COPD, GERD/Reflux, Hyperlipidemia, Hypertension, Osteoarthritis (OA), Vascular Disorder Additional Past Medical History / Comment(s): basal cell carcinoma-on nose removed PAST HX: RENAL CALCULI, KIDNEY INFECTIONS History of Any Multi-Drug Resistant Organisms: None Reported Past Surgical History: No Surgical Hx Reported, Coronary Bypass/CABG Additional Past Surgical History / Comment(s): skin cancer removed from nose. sigifredo cataracts Past Anesthesia/Blood Transfusion Reactions: No Reported Reaction Past Psychological History: No Psychological Hx Reported Smoking Status: Former smoker Past Alcohol Use History: None Reported Additional Past Alcohol Use History / Comment(s): SMOKES ABOUT half PPD, SINCE 13 YRS OLD. Past Drug Use History: None Reported Additional Drug Use History / Comment(s): cbd gummies - Past Family History Mother Family Medical History: No Reported History Father Family Medical History: No Reported History Medications and Allergies Home Medications Medication Instructions Recorded Confirmed Type [place]-3 Fatty Acids [[place]-3] 1,000 mg PO DAILY 03/31/21 06/21/21 History Umeclidinium Brm/Vilanterol Tr 1 puff INHALATION RT-HS 05/06/21 06/21/21 History [Anoro Ellipta 62.5-25 Mcg INH] Apixaban [Eliquis] 5 mg PO BID #60 tab 05/16/21 06/21/21 Rx Aspirin 81 mg PO DAILY #30 tab 05/19/21 06/21/21 Rx Diltiazem Cd [Cardizem CD] 180 mg PO DAILY #30 capsule 05/19/21 06/21/21 Rx Metoprolol Tartrate [Lopressor] 50 mg PO BID #60 tab 05/19/21 06/21/21 Rx Acetaminophen Tab [Tylenol] 1,000 mg PO Q6HR PRN 06/21/21 06/21/21 History Ibuprofen [Motrin Ib] 800 mg PO Q8H PRN 06/21/21 06/21/21 History Nitroglycerin Sl Tabs [Nitrostat] 0.4 mg SUBLINGUAL Q5M PRN 06/21/21 06/21/21 History Pantoprazole [Protonix] 40 mg PO AC-BID 06/21/21 06/21/21 History Rosuvastatin [Crestor] 10 mg PO HS 06/21/21 06/21/21 History Super C Supplement 1 tab PO DAILY 06/21/21 06/21/21 History Zolpidem [Ambien] 5 mg PO HS PRN 06/21/21 06/21/21 History Allergies Allergy/AdvReac Type Severity Reaction Status Date / Time No Known Allergies Allergy Verified 06/21/21 15:44 Physical Exam Vitals: Vital Signs Temp Pulse Pulse Resp BP BP Pulse Ox 06/22/21 08:28 76 06/22/21 08:19 76 06/22/21 08:17 76 06/22/21 08:07 80 06/22/21 07:30 99.2 F 74 16 128/67 91 L 06/22/21 01:34 98.7 F 72 16 134/56 92 L 06/21/21 20:50 98.4 F 72 16 120/67 95 06/21/21 20:10 72 06/21/21 20:01 71 06/21/21 19:27 98.2 F 71 20 136/68 95 06/21/21 18:30 80 20 137/88 95 06/21/21 16:30 76 20 133/65 95 06/21/21 15:30 98.2 F 82 20 147/78 95 Intake and Output 06/21/21 06/22/21 06/22/21 22:59 06:59 14:59 Output Total 0 0 Balance 0 0 Output: Emesis 0 0 Other: Weight 96.162 kg GENERAL EXAM: Alert, active, pleasant, obese 65 year old gentleman, on room air comfortable in no apparent distress. HEAD: Normocephalic. EYES: Normal reaction of pupils, equal size. NOSE: Clear with pink turbinates. THROAT: No erythema or exudates. NECK: No masses, no JVD. CHEST: No chest wall deformity. LUNGS: Equal air entry with crackles in the left lung base, diminished. CVS: S1 and S2 normal with no audible murmur, regular rhythm. ABDOMEN: No hepatosplenomegaly, normal bowel sounds, no guarding or rigidity. SPINE: No scoliosis or deformity SKIN: No rashes CENTRAL NERVOUS SYSTEM: No focal deficits, tone is normal in all 4 extremities. EXTREMITIES: There is no peripheral edema. No clubbing, no cyanosis. Peripheral pulses are intact. Results - Laboratory Findings CBC and BMP: 06/21/21 12:47 12/07/21 12:47 PT/INR, D-dimer PT 10.4 sec (9.0-12.0) 06/21/21 12:47 INR 1.0 (<1.2) 06/21/21 12:47 Abnormal lab findings: Abnormal Labs 06/21/21 06/21/21 12:47 12:47 WBC 13.7 H Neutrophils # 8.6 H Monocytes # 1.2 H Glucose 126 H - Diagnostic Findings Chest x-ray: image reviewed Assessment and Plan Assessment: 1 Palpitations currently in normal sinus rhythm 2 Left-sided pleural effusion, no significant fluid and lung tissue is noted within the fluid on ultrasound today. No plans for thoracentesis 3 Severe left-sided pleural effusion with previous left-sided thoracentesis on 06/06/2021 with 600 ML's of fluid removed 4 Recent coronary artery bypass surgery in April 2021 5 Paroxysmal atrial fibrillation 6 Chronic obstructive pulmonary disease 7 Chronic tobacco dependence 8 Morbid obesity 9 Diabetes mellitus 10 Gastroesophageal reflux disease 11 Hyperlipidemia 12 Hypertension Plan: The patient was seen and evaluated X-ray, labs and ultrasound was reviewed No plans for thoracentesis today Cleared for discharge from the pulmonary standpoint Follow up with Dr. Hamilton as scheduled I, the cosigning physician, performed a history & physical examination of the patient. Lungs sounds with crackles, diminished in the left lung base. Lobo feliz good O2 saturations in the 90s on room air. I discussed the assessment and plan of care with my nurse practitioner, Tamara Zhang. I attest to the above infiltration as dictated by her. Time with Patient: Greater than 30
--- NOTE | 2021-06-22 21:37 | P.DS ---
Providers Date of admission: 06/21/21 15:45 Expected date of discharge: 06/22/21 Attending physician: Gaudencio Gardner Consults: 06/21/21 15:43 Consult Physician Routine Consulting Provider: [facility] Consult Reason/Comments: palpitations, recent quadruple bypass Do you want consulting provider notified?: Yes 06/22/21 10:47 Consult Physician Routine Consulting Provider: Deisi Alas Reason/Comments: Left pleural effusion Do you want consulting provider notified?: Yes Primary care physician: [facility] Course: Chief Complaint: Palpitation History of presenting complaint This is a 65-year-old patient, follows with Dr. Miramontes. Chronic stable medical conditions include diabetes, osteoarthritis, hyperlipidemia, renal calculi, GERD, COPD, CAD. Patient was here in April for a coronary bypass. Patient did go into atrial fibrillation. Had to be cardioverted. I saw the patient in the ER. Since discharge patient been doing well. In fact stop smoking also. No guarding symptoms. Patient presents for about 3 hours of his heart racing. She had a pulse ox meter at home which are the heart or to be 150s. No dizziness nor lightheadedness no chest pain simply heart racing. Decided to come in. When he got to even back in a sinus rhythm. She was concerned about the presentation has decided to come in for observation. Otherwise patient got a good exercise tolerance. Today: Patient remained in sinus rhythm. Up and about. No cardiopulmonary symptoms. Seen by cardiology. Okay for discharge. Discussed with patient and . Chest ultrasound showed minimal left-sided pleural effusion. Seen by Dr. Alas. No further intervention. Discussion and discharge planning more than 35 minutes Consultation: Dr. Alf Munroe from cardiology Past medical history to include: ,, hyperlipidemia, CAD with bypass, renal calculi, COPD, GERD, paroxysmal atrial fibrillation Social history: Smokes half a pack a day for close to 53 years. Stopped in April 2021 Alcohol occasionally. CBD [employer]. 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 Family history: Reviewed, noncontributory to presentation Physical examination: VITAL SIGNS: 99.2, 74, 16, 128 with 67, 91% room air GENERAL: sitting on bed, awake, comfortable EYES: Pupils equal. Conjunctiva normal. HEENT: External appearance of nose and ears normal, oral cavity grossly normal. NECK: JVD not raised; masses not palpable. HEART: First and second heart sounds are normal; no edema. LUNGS: Respiratory rate normal; decreased breath sounds. ABDOMEN: Soft, nontender, liver spleen not palpable, no masses palpable. PSYCH: Alert and oriented x3; mood and affect normal. INVESTIGATIONS, reviewed in the clinical context: White count 13.7 hemoglobin 13 platelets 417 sodium 137 potassium 5.1 creatinine 0.97 Troponin I 3 negative Coronavirus [PCR]: Not detected EKG tracing personally reviewed by me-normal sinus rhythm. Some flipped T waves in anterior lateral leads. Chest x-ray film personally reviewed by me-left pleural effusion Assessment and plan: -Paroxysmal atrial fibrillation with rapid ventricular rate lasting about 3 hours. Patient back into sinus rhythm. Back in April patient was in atrial fibrillation following coronary bypass. Had to be cardioverted. Continue current medications. Cardizem CD 180 mg daily. Lopressor 50 mg twice a day. Eliquis 5 mg twice a day -CAD with coronary bypass in April 2021 Aspirin, Lipitor, Lopressor -Primary osteoarthritis Pain medications as needed -Hyperlipidemia Lipitor 40 mg daily -COPD in a current smoker anoro-ellipta GERD Protonix 40 mg twice a day -Left l pleural effusion. Chest ultrasound did not show much fluid. Seen by Dr. Alas. Talked any further intervention. Patient does follow with Dr. Christie. -Chronic leukocytosis felt to be as from smoking worked up by hematology as an outpatient. Disposition: Home Plan - Discharge Summary New Discharge Prescriptions: Continue Apixaban [Eliquis] 5 mg PO BID #60 tab Metoprolol Tartrate [Lopressor] 50 mg PO BID #60 tab Pantoprazole [Protonix] 40 mg PO AC-BID [place]-3 Fatty Acids [[place]-3] 1,000 mg PO DAILY Umeclidinium Brm/Vilanterol Tr [Anoro Ellipta 62.5-25 Mcg INH] 1 puff INHALATION RT-HS Diltiazem Cd [Cardizem CD] 180 mg PO DAILY #30 capsule Aspirin 81 mg PO DAILY #30 tab Rosuvastatin [Crestor] 10 mg PO HS Super C Supplement 1 tab PO DAILY Nitroglycerin Sl Tabs [Nitrostat] 0.4 mg SUBLINGUAL Q5M PRN PRN Reason: Chest Pain Acetaminophen Tab [Tylenol] 1,000 mg PO Q6HR PRN PRN Reason: Pain Or Fever > 100.5 Ibuprofen [Motrin Ib] 800 mg PO Q8H PRN PRN Reason: Pain Or Fever > 100.5 Zolpidem [Ambien] 5 mg PO HS PRN PRN Reason: Insomnia Discharge Medication List [place]-3 Fatty Acids [[place]-3] 1,000 mg PO DAILY 03/31/21 [History] Umeclidinium Brm/Vilanterol Tr [Anoro Ellipta 62.5-25 Mcg INH] 1 puff INHALATION RT-HS 05/06/21 [History] Apixaban [Eliquis] 5 mg PO BID #60 tab 05/16/21 [Rx] Aspirin 81 mg PO DAILY #30 tab 05/19/21 [Rx] Diltiazem Cd [Cardizem CD] 180 mg PO DAILY #30 capsule 05/19/21 [Rx] Metoprolol Tartrate [Lopressor] 50 mg PO BID #60 tab 05/19/21 [Rx] Acetaminophen Tab [Tylenol] 1,000 mg PO Q6HR PRN 06/21/21 [History] Ibuprofen [Motrin Ib] 800 mg PO Q8H PRN 06/21/21 [History] Nitroglycerin Sl Tabs [Nitrostat] 0.4 mg SUBLINGUAL Q5M PRN 06/21/21 [History] Pantoprazole [Protonix] 40 mg PO AC-BID 06/21/21 [History] Rosuvastatin [Crestor] 10 mg PO HS 06/21/21 [History] Super C Supplement 1 tab PO DAILY 06/21/21 [History] Zolpidem [Ambien] 5 mg PO HS PRN 06/21/21 [History] Follow up Appointment(s)/Referral(s): Obie Bojorquez MD [STAFF PHYSICIAN] - 07/05/21 1:45 pm Alfred Miramontes DO [Primary Care Provider] - 1-2 days Discharge Disposition: HOME SELF-CARE
== END 2021-06-22 14:12 | disposition home or self-care (01) ==
LOC: EC 12:21 → 6NMEDSUR 15:45
PROVIDERS: ADMIT Hospitalist; ATTEND Hospitalist
DX: I48.0 Paroxysmal atrial fibrillation (principal); I25.10 Atherosclerotic heart disease of native coronary artery without angina pectoris; R00.2 Palpitations; R00.0 Tachycardia, unspecified; J90 Pleural effusion, not elsewhere classified; I10 Essential (primary) hypertension; F17.210 Nicotine dependence, cigarettes, uncomplicated; J98.11 Atelectasis; Z20.822 Contact with and (suspected) exposure to COVID-19; M19.91 Primary osteoarthritis, unspecified site; E78.5 Hyperlipidemia, unspecified; J44.9 Chronic obstructive pulmonary disease, unspecified; K21.9 Gastro-esophageal reflux disease without esophagitis; D72.829 Elevated white blood cell count, unspecified; E11.51 Type 2 diabetes mellitus with diabetic peripheral angiopathy without gangrene; G47.00 Insomnia, unspecified; E66.01 Morbid (severe) obesity due to excess calories; Z68.31 Body mass index [BMI] 31.0-31.9, adult; Z98.41 Cataract extraction status, right eye; Z79.899 Other long term (current) drug therapy; Z79.82 Long term (current) use of aspirin; Z79.01 Long term (current) use of anticoagulants; Z71.6 Tobacco abuse counseling; Z98.42 Cataract extraction status, left eye; Z96.1 Presence of intraocular lens; Z95.1 Presence of aortocoronary bypass graft; Z85.828 Personal history of other malignant neoplasm of skin; Z87.442 Personal history of urinary calculi; Z87.440 Personal history of urinary (tract) infections; I65.29 Occlusion and stenosis of unspecified carotid artery
CPT/HCPCS: 99285; 36415; 94640 ×3; 93005; 80053; 83735; 84484; 85025; 85610; 85730; 87635; 71046; 76604; G0378 ×2

== ENCOUNTER 2021-08-15 17:23 | Observation (INO) | payer MEDICARE ==
[2021-08-15 19:33] LABS: Basophils # (A) 0.1 k/uL (0-0.2); Basophils % (A) 1 %; Eosinophils # (A) 0.6 k/uL (0-0.7); Eosinophils % (A) 4 %; HGB 13.3 gm/dL (13.0-17.5); Hypochromasia Slight; Lymphocytes % (A) 39 %; MCH 27.6 pg (25.0-35.0); MCHC 31.8 g/dL (31.0-37.0); Mean Platelet Volume 8.8; Monocytes # (A) 0.8 k/uL (0-1.0); Monocytes % (A) 6 %; Neutrophils # (A) 5.9 k/uL (1.3-7.7); Neutrophils % (A) 46 %; Platelet Count 255 k/uL (150-450); RBC 4.83 m/uL (4.30-5.90); RDW 15.2 % (11.5-15.5); WBC 12.9 k/uL (3.8-10.6)
[2021-08-15 19:35] LABS: INR 0.9 (<1.2); Partial Thromboplastin Time 23.8 sec (22.0-30.0)
--- NOTE | 2021-08-15 19:37 | XR ---
EXAMINATION TYPE: XR chest 2V DATE OF EXAM: 08/15/2021 COMPARISON: 06/21/2021 HISTORY: Dysrhythmia TECHNIQUE: FINDINGS: Heart is normal. Lungs are clear of consolidation. There are no hilar masses. There are fito rnal wires. Bony thorax is intact. IMPRESSION: No active cardiopulmonary disease. There is clearing of the pleural fluid and infiltrate left lung base compared to the old exam.
[2021-08-15 19:40] LABS: ALT 11 U/L (4-49); AST 21 U/L (17-59); African American GFR (CKD) >90 (>60 ml/min/1.73 sqM); Albumin 4.1 g/dL (3.5-5.0); Alkaline Phosphatase 62 U/L (38-126); Anion Gap 8 mmol/L; Blood Urea Nitrogen 17 mg/dL (9-20); Calcium 9.3 mg/dL (8.4-10.2); Carbon Dioxide 24 mmol/L (22-30); Chloride 104 mmol/L (98-107); Glucose 86 mg/dL (74-99); Non-African American GFR(CKD) 85 (>60 ml/min/1.73 sqM); Potassium 4.3 mmol/L (3.5-5.1); Sodium 136 mmol/L (137-145); Total Bilirubin 0.3 mg/dL (0.2-1.3); Total Protein 7.4 g/dL (6.3-8.2)
[2021-08-15] MEDS ORDERED: NALOXONE 0.4 MG/ML 1 ML VIAL IV PRN (20:45)
--- NOTE | 2021-08-15 20:45 | ED ---
General Adult HPI - General Chief complaint: Recheck/Abnormal Lab/Rx Stated complaint: Low B/P, PCP sent in Source: patient Mode of arrival: ambulatory Limitations: no limitations - History of Present Illness Initial comments: Patient is a 66-year-old male with past medical history of coronary artery bypass grafting, A. fib, hypertension. Patient follows with Dr. Menezes and Dr. Bojorquez. Patient states that ever since he had bypass grafting he has had issues with intermittent A. fib. He is on Lopressor 50 mg twice daily, Cardizem 180 mg daily and Eliquis 5 mg twice daily. States he has been taking his medications without any missed doses. He did have some palpitations yesterday and went into Dr. Bojorquez's office. Dr. Bojorquez was going to place him on amiodarone however the patient converted in his office and he recommended that they continue to watch his rhythm. Patient was at work today when he began having palpitations again. He made an appointment with Dr. Miramontes and in office Dr. Miramontes was able to capture A. fib with RVR. He recommended he come in to the emergency room immediately for evaluation. He denies cough, fevers or chills. No ripping or tearing sensation to his back. No other alleviating, precipitating or modifying factors - Related Data Home Medications Medication Instructions Recorded Confirmed [place]-3 Fatty Acids [[place]-3] 1,000 mg PO HS 03/31/21 08/15/21 Umeclidinium Brm/Vilanterol Tr 1 puff INHALATION RT-HS 05/06/21 08/15/21 [Anoro Ellipta 62.5-25 Mcg INH] Acetaminophen Tab [Tylenol] 1,000 mg PO Q6HR PRN 06/21/21 08/15/21 Ibuprofen [Motrin Ib] 800 mg PO Q8H PRN 06/21/21 08/15/21 Nitroglycerin Sl Tabs [Nitrostat] 0.4 mg SUBLINGUAL Q5M PRN 06/21/21 08/15/21 Pantoprazole [Protonix] 40 mg PO AC-BID 06/21/21 08/15/21 Rosuvastatin [Crestor] 10 mg PO HS 06/21/21 08/15/21 Super C Supplement 1 tab PO DAILY 06/21/21 08/15/21 Zolpidem [Ambien] 5 mg PO HS PRN 06/21/21 08/15/21 Previous Rx's Medication Instructions Recorded Apixaban [Eliquis] 5 mg PO BID #60 tab 05/16/21 Aspirin 81 mg PO DAILY #30 tab 05/19/21 Diltiazem Cd [Cardizem CD] 180 mg PO DAILY #30 capsule 05/19/21 Metoprolol Tartrate [Lopressor] 50 mg PO BID #60 tab 05/19/21 Allergies Allergy/AdvReac Type Severity Reaction Status Date / Time No Known Allergies Allergy Verified 08/15/21 18:53 Review of Systems ROS Statement: Those systems with pertinent positive or pertinent negative responses have been documented in the HPI. ROS Other: All systems not noted in ROS Statement are negative. Past Medical History Past Medical History: Cancer, Chest Pain / Angina, COPD, GERD/Reflux, Hyperlipidemia, Hypertension, Osteoarthritis (OA), Vascular Disorder Additional Past Medical History / Comment(s): basal cell carcinoma-on nose removed PAST HX: RENAL CALCULI, KIDNEY INFECTIONS History of Any Multi-Drug Resistant Organisms: None Reported Past Surgical History: No Surgical Hx Reported, Coronary Bypass/CABG Additional Past Surgical History / Comment(s): skin cancer removed from nose. sigifredo cataracts Past Anesthesia/Blood Transfusion Reactions: No Reported Reaction Past Psychological History: No Psychological Hx Reported Smoking Status: Former smoker Past Alcohol Use History: None Reported Past Drug Use History: None Reported - Past Family History Mother Family Medical History: No Reported History Father Family Medical History: No Reported History General Exam Limitations: no limitations Course Vital Signs 08/15/21 08/15/21 08/15/21 17:36 18:13 20:42 Temperature 98.4 F Pulse Rate 142 H 68 158 H Respiratory 16 20 20 Rate Blood Pressure 131/74 139/80 121/76 O2 Sat by Pulse 100 96 95 Oximetry 08/15/21 08/15/21 21:32 22:20 Temperature 98.0 F Pulse Rate 122 H 106 H Respiratory 20 20 Rate Blood Pressure 121/67 124/99 O2 Sat by Pulse 95 94 L Oximetry EKG Findings - EKG Comments: EKG Findings:: EKG completed at 1802 demonstrates normal sinus rhythm with a ventricular rate of 68. HI interval 164. QRS 84. QTC of 399. No acute ST segment elevations or depressions. EKG completed at 1844 demonstrates A. fib with a rate of 142. HI interval 184. QRS 84. QTC of 406. Mild ST depression in V4 through V6. No acute ST segment elevations Medical Decision Making - Medical Decision Making Upon arrival patient was placed into room 21. Patient is triaged with a heart rate of 140. By the time the patient makes her back to the room and is hooked up to continuous pulse ox and cardiac monitoring he has converted to normal sinus rhythm. 12-lead EKG is originally obtained which demonstrates a rate of 68. Patient does flipped into A. fib with RVR which we are able to capture on EKG. Patient does not sustainable rhythm for very long before he converts back to normal sinus rhythm. Laboratory says her conducted. Chest x-rays performed which demonstrates clearing of a previous pleural effusion. I did recommend admission for cardiology consultation for patient did agree to. Spoke with Dr. Gardner who agreed to admit the patient. - Lab Data Result diagrams: 08/15/21 19:10 08/15/21 19:10 Lab Results 08/15/21 08/15/21 08/15/21 Range/Units 19:10 19:10 19:10 WBC 12.9 H (3.8-10.6) k/uL RBC 4.83 (4.30-5.90) m/uL Hgb 13.3 (13.0-17.5) gm/dL Hct 42.0 (39.0-53.0) % MCV 87.0 D (80.0-100.0) fL MCH 27.6 (25.0-35.0) pg MCHC 31.8 (31.0-37.0) g/dL RDW 15.2 (11.5-15.5) % Plt Count 255 (150-450) k/uL MPV 8.8 Neutrophils % 46 % Lymphocytes % 39 % Monocytes % 6 % Eosinophils % 4 % Basophils % 1 % Neutrophils # 5.9 (1.3-7.7) k/uL Lymphocytes # 5.0 H (1.0-4.8) k/uL Monocytes # 0.8 (0-1.0) k/uL Eosinophils # 0.6 (0-0.7) k/uL Basophils # 0.1 (0-0.2) k/uL Hypochromasia Slight PT 10.0 (9.0-12.0) sec INR 0.9 (<1.2) APTT 23.8 (22.0-30.0) sec Sodium 136 L (137-145) mmol/L Potassium 4.3 (3.5-5.1) mmol/L Chloride 104 (98-107) mmol/L Carbon Dioxide 24 (22-30) mmol/L Anion Gap 8 mmol/L BUN 17 (9-20) mg/dL Creatinine 0.92 (0.66-1.25) mg/dL Est GFR (CKD-EPI)AfAm >90 (>60 ml/min/1.73 sqM) Est GFR (CKD-EPI)NonAf 85 (>60 ml/min/1.73 sqM) Glucose 86 (74-99) mg/dL Calcium 9.3 (8.4-10.2) mg/dL Magnesium 2.0 (1.6-2.3) mg/dL Total Bilirubin 0.3 (0.2-1.3) mg/dL AST 21 (17-59) U/L ALT 11 (4-49) U/L Alkaline Phosphatase 62 (38-126) U/L Troponin I (0.000-0.034) ng/mL Total Protein 7.4 (6.3-8.2) g/dL Albumin 4.1 (3.5-5.0) g/dL TSH 1.540 (0.465-4.680) mIU/L 08/15/21 Range/Units 19:10 WBC (3.8-10.6) k/uL RBC (4.30-5.90) m/uL Hgb (13.0-17.5) gm/dL Hct (39.0-53.0) % MCV (80.0-100.0) fL MCH (25.0-35.0) pg MCHC (31.0-37.0) g/dL RDW (11.5-15.5) % Plt Count (150-450) k/uL MPV Neutrophils % % Lymphocytes % % Monocytes % % Eosinophils % % Basophils % % Neutrophils # (1.3-7.7) k/uL Lymphocytes # (1.0-4.8) k/uL Monocytes # (0-1.0) k/uL Eosinophils # (0-0.7) k/uL Basophils # (0-0.2) k/uL Hypochromasia PT (9.0-12.0) sec INR (<1.2) APTT (22.0-30.0) sec Sodium (137-145) mmol/L Potassium (3.5-5.1) mmol/L Chloride (98-107) mmol/L Carbon Dioxide (22-30) mmol/L Anion Gap mmol/L BUN (9-20) mg/dL Creatinine (0.66-1.25) mg/dL Est GFR (CKD-EPI)AfAm (>60 ml/min/1.73 sqM) Est GFR (CKD-EPI)NonAf (>60 ml/min/1.73 sqM) Glucose (74-99) mg/dL Calcium (8.4-10.2) mg/dL Magnesium (1.6-2.3) mg/dL Total Bilirubin (0.2-1.3) mg/dL AST (17-59) U/L ALT (4-49) U/L Alkaline Phosphatase (38-126) U/L Troponin I <0.012 (0.000-0.034) ng/mL Total Protein (6.3-8.2) g/dL Albumin (3.5-5.0) g/dL TSH (0.465-4.680) mIU/L Disposition Clinical Impression: Atrial fibrillation with RVR Disposition: ADMITTED IP TO THIS HOSP Condition: Stable Is patient prescribed a controlled substance at d/c from ED?: No Decision to Admit Reason: Admit from EC Decision Date: 08/15/21 Decision Time: 20:45
[2021-08-15] MEDS ORDERED: ZOLPIDEM 5 MG TAB PO PRN (20:50)
[2021-08-15] MEDS ORDERED: ACETAMINOPHEN TAB 500 MG TAB PO PRN (20:50)
[2021-08-15] MEDS ORDERED: NON FORMULARY DRUG (Omega-3 Fatty Acids [Omega-3] 1,000 MG Capsule) PO SCH (21:00)
[2021-08-15] MEDS: APIXABAN 5 MG TAB PO SCH (21:31)
[2021-08-15] MEDS: ATORVASTATIN 20 MG TAB PO SCH (21:31)
[2021-08-15] MEDS: PANTOPRAZOLE 40 MG TABLET PO SCH (21:31)
[2021-08-15] MEDS: METOPROLOL TARTRATE 50 MG TAB PO SCH (21:31)
[2021-08-16 05:35] LABS: Basophils # (A) 0.2 k/uL (0-0.2); Basophils % (A) 1 %; Eosinophils # (A) 0.8 k/uL (0-0.7); Eosinophils % (A) 7 %; HCT 42.1 % (39.0-53.0); HGB 13.2 gm/dL (13.0-17.5); Lymphocytes # (A) 4.3 k/uL (1.0-4.8); Lymphocytes % (A) 37 %; MCH 27.2 pg (25.0-35.0); MCHC 31.3 g/dL (31.0-37.0); MCV 86.8 fL (80.0-100.0); Mean Platelet Volume 8.3; Monocytes % (A) 8 %; Neutrophils # (A) 5.3 k/uL (1.3-7.7); Neutrophils % (A) 45 %; Platelet Count 228 k/uL (150-450); RBC 4.86 m/uL (4.30-5.90); RDW 14.9 % (11.5-15.5); WBC 11.8 k/uL (3.8-10.6)
[2021-08-16 05:50] LABS: African American GFR (CKD) >90 (>60 ml/min/1.73 sqM); Anion Gap 7 mmol/L; Blood Urea Nitrogen 13 mg/dL (9-20); Carbon Dioxide 25 mmol/L (22-30); Chloride 105 mmol/L (98-107); Glucose 115 mg/dL (74-99); Non-African American GFR(CKD) 80 (>60 ml/min/1.73 sqM); Potassium 4.1 mmol/L (3.5-5.1); Sodium 137 mmol/L (137-145)
[2021-08-16] MEDS: FORMOTEROL FUMARATE 20 MCG/2 ML NEBU INHALATION SCH ×2 (07:39→19:47)
[2021-08-16] MEDS: IPRATROPIUM 0.5 MG/2.5 ML NEBU INHALATION SCH ×4 (07:40→19:47)
[2021-08-16] MEDS ORDERED: DILTIAZEM DRIP BOLUS FROM BAG 1 MG SOLN IV ONE (07:54)
[2021-08-16] MEDS ORDERED: DILTIAZEM 125 MG in SODIUM CHLORIDE 0.9% 100 ML IV SCH (08:00)
[2021-08-16] MEDS ORDERED: DILTIAZEM CD 180 MG CAP.ER.24H PO SCH (09:00)
[2021-08-16] MEDS: PANTOPRAZOLE 40 MG TABLET PO SCH ×2 (10:22→17:05)
[2021-08-16] MEDS: DILTIAZEM CD 180 MG CAP.ER.24H PO SCH (10:22)
[2021-08-16] MEDS: APIXABAN 5 MG TAB PO SCH ×2 (10:22→19:09)
[2021-08-16] MEDS: ASPIRIN 81 MG PO SCH (10:22)
[2021-08-16] MEDS: METOPROLOL TARTRATE 50 MG TAB PO SCH ×2 (10:22→19:09)
--- NOTE | 2021-08-16 11:38 | P.CRDCN ---
History of Present Illness Consult date: 08/16/21 History of present illness: Known coronary artery disease status post CABG postop atrial fibrillation status post cardioversion and intermittent episodes of paroxysmal SVT comes to Hospital complaining of sudden onset sustained palpitations. He was found to be in SVT converted to sinus rhythm and subsequently developed SVT again his heart rate is around 145 bpm. At the time of my evaluation in the emergency room he appears comfortable at rest denies chest pain difficulty in breathing dizziness or syncope. Patient had an episode of SVT recently and was in the emergency room and one episode happened while he was in the cardiothoracic surgeons office and converted to sinus rhythm following carotid sinus massage. He was started on amiodarone which has since been stopped by an reworker who has seen the patient The plan at this stage is to perform an SVT ablation over the next several weeks I'm going to start the patient on intravenous Cardizem and hopefully he will convert to sinus rhythm there is no history of focal neurological deficits . Patient is hemodynamically stable. I will obtain a 2-D echo to evaluate his LV function. Constitutional: Denies chills. Denies fever. Eyes: Denies blurred vision. Denies pain. Ears, nose, mouth and throat: Denies headache. Denies sore throat. Cardiovascular: Denies chest pain. Denies shortness of breath. Significant for palpitations Respiratory: Denies cough. Gastrointestinal: Denies abdominal pain. Denies diarrhea. Denies nausea. Denies vomiting. Musculoskeletal: Denies myalgias. Integumentary: Denies pruritus. Denies rash. Neurological: Denies numbness. Denies weakness. Psychiatric: Denies anxiety. Denies depression. Endocrine: Denies fatigue. Denies weight change. Genitourinary: Denies burning, hematuria, frequency of urination. Hematological: No anemia or excess bleeding. General: The patient is awake and alert, in no distress, and does not appear acutely ill. Skin: Skin is warm and dry and no rashes or lesions are noted. Eye: Pupils are equal, round and reactive to light, extra-ocular movements are intact; there is normal conjunctiva bilaterally. Ears, nose, mouth and throat: There are moist mucous membranes and no oral lesions. Neck: The neck is supple, there is no tenderness or JVD. Cardiovascular: There is a regular rate and rhythm. No murmur, rub or gallop is appreciated. Respiratory: Lungs are clear to auscultation, respirations are non-labored, breath sounds are equal. Gastrointestinal: Soft, non-distended, non-tender abdomen without masses or or ganomegaly noted. There is no rebound or guarding present. Bowel sounds are unremarkable. Back: There is no tenderness to palpation in the midline. There is no obvious deformity. Musculoskeletal: Normal ROM, no tenderness, There is no pedal edema. There is no calf tenderness or swelling. Extremities: No edema. Vascular: Femoral pulse is normal. Posterior tibial pulses are normal .Dorsalis pedis is palpable. Neurological: CN II-XII intact. There are no obvious motor or sensory deficits. Speech is normal. Psychiatric: Cooperative, appropriate mood & affect, normal judgment. Assessment and plan: Paroxysmal SVT Paroxysmal atrial fibrillation Coronary artery disease status post CABG I will check an echocardiogram Start the patient on intravenous Cardizem Once he converted to sinus rhythm we should be able to discharge him home and arrange outpatient follow-up for possible SVT ablation Past Medical History Past Medical History: Atrial Fibrillation, Coronary Artery Disease (CAD), Cancer, Chest Pain / Angina, COPD, Eye Disorder, GERD/Reflux, Hyperlipidemia, Hypertension, Osteoarthritis (OA), Pneumonia, Supraventricular Tachycardia (SV T), Vascular Disorder Additional Past Medical History / Comment(s): 05/09/21 4 vessel CABG with postop AFib and L pleural effusion and pt states bilateral hand fingers numbnes s/tingling. Other hx: PVD/intermittent claudication of legs, caratid artery disease, diet controlled diabetes, chronic leukocytosis, SVT about 4 years ago, skin cancer removal (basal), kidney stone with kidney infection, R eye lazy. History of Any Multi-Drug Resistant Organisms: None Reported Past Surgical History: Coronary Bypass/CABG, Heart Catheterization Additional Past Surgical History / Comment(s): 05/09/21 CABG 4 vessel, TRINY/cardioversion, skin cancer with removal from nose, colonoscopy. Past Anesthesia/Blood Transfusion Reactions: No Reported Reaction Smoking Status: Former smoker - Past Family History Mother Family Medical History: Dementia Father History Unknown: Yes Family Medical History: No Reported History Medications and Allergies Home Medications Medication Instructions Recorded Confirmed Type [place]-3 Fatty Acids [[place]-3] 1,000 mg PO HS 03/31/21 08/15/21 History Umeclidinium Brm/Vilanterol Tr 1 puff INHALATION RT-HS 05/06/21 08/15/21 History [Anoro Ellipta 62.5-25 Mcg INH] Apixaban [Eliquis] 5 mg PO BID #60 tab 05/16/21 08/15/21 Rx Aspirin 81 mg PO DAILY #30 tab 05/19/21 08/15/21 Rx Diltiazem Cd [Cardizem CD] 180 mg PO DAILY #30 capsule 05/19/21 08/15/21 Rx Metoprolol Tartrate [Lopressor] 50 mg PO BID #60 tab 05/19/21 08/15/21 Rx Acetaminophen Tab [Tylenol] 1,000 mg PO Q6HR PRN 06/21/21 08/15/21 History Ibuprofen [Motrin Ib] 800 mg PO Q8H PRN 06/21/21 08/15/21 History Nitroglycerin Sl Tabs [Nitrostat] 0.4 mg SUBLINGUAL Q5M PRN 06/21/21 08/15/21 History Pantoprazole [Protonix] 40 mg PO AC-BID 06/21/21 08/15/21 History Rosuvastatin [Crestor] 10 mg PO HS 06/21/21 08/15/21 History Super C Supplement 1 tab PO DAILY 06/21/21 08/15/21 History Zolpidem [Ambien] 5 mg PO HS PRN 06/21/21 08/15/21 History Allergies Allergy/AdvReac Type Severity Reaction Status Date / Time No Known Allergies Allergy Verified 08/15/21 18:53 Physical Exam Vitals: Vital Signs Temp Pulse Pulse Resp BP BP Pulse Ox 08/16/21 11:31 60 08/16/21 11:21 60 08/16/21 09:05 133 H 98/67 97 08/16/21 09:00 136 H 100/67 97 08/16/21 08:49 144 H 107/71 08/16/21 08:05 98.2 F 141 H 18 102/70 97 08/16/21 04:00 125 H 20 144/93 95 08/16/21 02:00 112 H 20 128/87 95 08/15/21 23:35 113 H 20 132/79 97 08/15/21 22:20 106 H 20 124/99 94 L 08/15/21 21:32 98.0 F 122 H 20 121/67 95 08/15/21 20:42 158 H 20 121/76 95 08/15/21 18:13 68 20 139/80 96 08/15/21 17:36 98.4 F 142 H 16 131/74 100 Intake and Output 08/15/21 08/16/21 08/16/21 22:59 06:59 14:59 Intake Total 1.667 Balance 1.667 Intake: Intake, IV Titration 1.667 Amount Diltiazem 125 mg In 1.667 Sodium Chloride 0.9% 100 ml @ 5 MG/HR 5 mls/hr IV .Q24H [facility] Rx#:[id number] Other: Weight 97.976 kg 97.976 kg Results 08/16/21 05:18 08/16/21 05:18 Cardiac Enzymes 08/15/21 08/15/21 08/15/21 Range/Units 19:10 19:10 21:18 AST 21 (17-59) U/L Troponin I <0.012 <0.012 (0.000-0.034) ng/mL 08/16/21 Range/Units 00:07 AST (17-59) U/L Troponin I <0.012 (0.000-0.034) ng/mL Coagulation 08/15/21 Range/Units 19:10 PT 10.0 (9.0-12.0) sec APTT 23.8 (22.0-30.0) sec CBC 08/15/21 08/16/21 Range/Units 19:10 05:18 WBC 12.9 H 11.8 H (3.8-10.6) k/uL RBC 4.83 4.86 (4.30-5.90) m/uL Hgb 13.3 13.2 (13.0-17.5) gm/dL Hct 42.0 42.1 (39.0-53.0) % Plt Count 255 228 (150-450) k/uL Comprehensive Metabolic Panel 08/15/21 08/16/21 Range/Units 19:10 05:18 Sodium 136 L 137 (137-145) mmol/L Potassium 4.3 4.1 (3.5-5.1) mmol/L Chloride 104 105 (98-107) mmol/L Carbon Dioxide 24 25 (22-30) mmol/L BUN 17 13 (9-20) mg/dL Creatinine 0.92 0.98 (0.66-1.25) mg/dL Glucose 86 115 H (74-99) mg/dL Calcium 9.3 9.0 (8.4-10.2) mg/dL AST 21 (17-59) U/L ALT 11 (4-49) U/L Alkaline Phosphatase 62 (38-126) U/L Total Protein 7.4 (6.3-8.2) g/dL Albumin 4.1 (3.5-5.0) g/dL Current Medications Generic Name Dose Route Start Last Admin Trade Name Freq PRN Reason Stop Dose Admin Acetaminophen 1,000 mg 08/15/21 20:50 Acetaminophen Tab 500 Mg Tab PO Q6HR PRN Pain or Fever > 100.5 Apixaban 5 mg 08/15/21 21:00 08/16/21 10:22 Apixaban 5 Mg Tab PO 5 mg BID MARISA Administration Protocol Aspirin 81 mg 08/16/21 09:00 08/16/21 10:22 Aspirin 81 Mg PO 81 mg DAILY MARISA Administration Atorvastatin Calcium 20 mg 08/15/21 21:00 08/15/21 21:31 Atorvastatin 20 Mg Tab PO 20 mg HS MARISA Administration Diltiazem HCl 180 mg 08/16/21 09:45 08/16/21 10:22 Diltiazem Cd 180 Mg Cap.Er.24h PO 180 mg DAILY MARISA Administration Formoterol Fumarate 20 mcg 08/16/21 08:00 08/16/21 07:39 Formoterol Fumarate 20 Mcg/2 Ml Nebu INHALATION Not Given RT-BID MARISA Ipratropium Melcroft 0.5 mg 08/16/21 08:00 08/16/21 11:21 Ipratropium 0.5 Mg/2.5 Ml Nebu INHALATION 0.5 mg RT-QID MARISA Administration Metoprolol Tartrate 50 mg 08/15/21 21:00 08/16/21 10:22 Metoprolol Tartrate 50 Mg Tab PO 50 mg BID MARISA Administration Naloxone HCl 0.2 mg 08/15/21 20:45 Naloxone 0.4 Mg/Ml 1 Ml Vial IV Q2M PRN Opioid Reversal Pantoprazole Sodium 40 mg 08/15/21 21:00 08/16/21 10:22 Pantoprazole 40 Mg Tablet PO 40 mg AC-BID MARISA Administration Zolpidem Tartrate 5 mg 08/15/21 20:50 Zolpidem 5 Mg Tab PO HS PRN Insomnia Intake and Output 08/15/21 08/16/21 08/16/21 22:59 06:59 14:59 Intake Total 1.667 Balance 1.667 Intake: Intake, IV Titration 1.667 Amount Diltiazem 125 mg In 1.667 Sodium Chloride 0.9% 100 ml @ 5 MG/HR 5 mls/hr IV .Q24H [facility] Rx#:[id number] Other: Weight 97.976 kg 97.976 kg Patient Weight 08/17/21 06:59 Weight 97.976 kg 08/16/21 05:18 08/16/21 05:18
[2021-08-16 16:21] VITALS: RESP 16
--- NOTE | 2021-08-16 16:32 | P.HPIM ---
History of Present Illness H&P Date: 08/16/21 Chief Complaint: Heart racing History of presenting complaint This is a 66-year-old patient, follows with Dr. Miramontes. Chronic stable medical conditions include diabetes, osteoarthritis, hyperlipidemia, renal calculi, GERD, COPD, CAD. 2020-coronary bypass. Had paroxysmal atrial fibrillation. Had to be cardioverted. Patient otherwise has been doing well. Patient presents with his recurrent episodes of /SVT. He feels a fluttering sensation across the chest. And feels like a panic attack. No chest pressure. No dizziness or lightheadedness. No shortness of breath. He was at his family doctors yesterday and had an episode SVT with a rapid ventricular rate.. Hence he was sent in here. Patient is put on a Cardizem drip. Patient was previously on amiodarone and was seen by nutritionists and amiodarone was discontinued. Since presentation year patient is at least 2 or 3 episodes of being in and out. Symptomatic with the same.. Review of systems: GEN.: Tired EYES: None HEENT: None NECK: None RESPIRATORY: None CARDIOVASCULAR: As above GASTROINTESTINAL: None GENITOURINARY: None MUSCULOSKELETAL: None LYMPHATICS: None HEMATOLOGICAL: None PSYCHIATRY: None NEUROLOGICAL: None Past medical history to include: hyperlipidemia, CAD with bypass, renal calculi, COPD, GERD, paroxysmal atrial fibrillation Social history: Smokes half a pack a day for close to 53 years. Stopped-April 2021 Alcohol occasionally. CBD [employer]. 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 Family history: Reviewed, noncontributory to presentation Physical examination: VITAL SIGNS: 98.2, 141, 18, 102/70, 97% on room air GENERAL: BMI 31, reclining in a chair,, comfortable]. EYES: Pupils equal. Conjunctiva normal. HEENT: External appearance of nose and ears normal, oral cavity grossly normal. NECK: JVD not raised; masses not palpable. HEART: First and second heart sounds are normal; no edema. LUNGS: Respiratory rate normal; decreased breath sound. ABDOMEN: Soft, nontender, liver spleen not palpable, no masses palpable. PSYCH: Alert and oriented x3; mood and affect normal. MUSCULOSKELETAL:No Clubbing/cyanosis;muscles-grossly intact NEUROLOGICAL: Cranial nerves grossly intact; no facial asymmetry, power and sensation grossly intact. LYMPHATICS: No lymph nodes palpable in the axilla and neck INVESTIGATIONS, reviewed in the clinical context: White count 11.8 hemoglobin 13.2 platelets 228 potassium 4.1 creatinine 0.98 Troponin I 3: Negative TSH 1.5 Coronavirus [PCR]: Not detected EKG tracing personally reviewed by me-ST-T wave changes., Junctional tachycardia Chest x-ray film personally reviewed by me-possible atelectasis Assessment and plan: -Paroxysmal SVT with rapid ventricular rate, recurrent, symptomatic. [Patient has been seen by nutritionists as outpatient. Amiodarone was discontinued. Supposed to have EP study for the same.] Cardizem CD 180 mg daily. Lopressor 50 mg twice a day. Eliquis 5 mg twice a day. Dr. Alf Munroe consulted -CAD with coronary bypass in April 2021 Aspirin, Lipitor, Lopressor -Primary osteoarthritis Pain medications as needed -Hyperlipidemia Lipitor 40 mg daily -COPD in a current smoker anoro-ellipta GERD Protonix 40 mg twice a day -Chronic leukocytosis felt to be as from smoking worked up by hematology as an outpatient. -Obesity BMI 31 Weight loss measures Patient was earlier post on Cardizem drip. The patient went back into sinus rhythm. Cardizem drip discontinued. Home medications resumed. Will consult Dr. Alf Munroe. Discussed with patient. Past Medical History Past Medical History: Atrial Fibrillation, Coronary Artery Disease (CAD), Cancer, Chest Pain / Angina, COPD, Eye Disorder, GERD/Reflux, Hyperlipidemia, Hypertension, Osteoarthritis (OA), Pneumonia, Supraventricular Tachycardia (SVT), Vascular Disorder Additional Past Medical History / Comment(s): 05/09/21 4 vessel CABG with postop AFib and L pleural effusion and pt states bilateral hand fingers numbness/tin gling. Other hx: PVD/intermittent claudication of legs, caratid artery disease, diet controlled diabetes, chronic leukocytosis, SVT about 4 years ago, skin cancer removal (basal), kidney stone with kidney infection, R eye lazy. History of Any Multi-Drug Resistant Organisms: None Reported Past Surgical History: Coronary Bypass/CABG, Heart Catheterization Additional Past Surgical History / Comment(s): 05/09/21 CABG 4 vessel, TRINY/cardioversion, skin cancer with removal from nose, colonoscopy. Past Anesthesia/Blood Transfusion Reactions: No Reported Reaction Smoking Status: Former smoker - Past Family History Mother Family Medical History: Dementia Father History Unknown: Yes Family Medical History: No Reported History Medications and Allergies Home Medications Medication Instructions Recorded Confirmed Type [place]-3 Fatty Acids [[place]-3] 1,000 mg PO HS 03/31/21 08/15/21 History Umeclidinium Brm/Vilanterol Tr 1 puff INHALATION RT-HS 05/06/21 08/15/21 History [Anoro Ellipta 62.5-25 Mcg INH] Apixaban [Eliquis] 5 mg PO BID #60 tab 05/16/21 08/15/21 Rx Aspirin 81 mg PO DAILY #30 tab 05/19/21 08/15/21 Rx Diltiazem Cd [Cardizem CD] 180 mg PO DAILY #30 capsule 05/19/21 08/15/21 Rx Metoprolol Tartrate [Lopressor] 50 mg PO BID #60 tab 05/19/21 08/15/21 Rx Acetaminophen Tab [Tylenol] 1,000 mg PO Q6HR PRN 06/21/21 08/15/21 History Ibuprofen [Motrin Ib] 800 mg PO Q8H PRN 06/21/21 08/15/21 History Nitroglycerin Sl Tabs [Nitrostat] 0.4 mg SUBLINGUAL Q5M PRN 06/21/21 08/15/21 History Pantoprazole [Protonix] 40 mg PO AC-BID 06/21/21 08/15/21 History Rosuvastatin [Crestor] 10 mg PO HS 06/21/21 08/15/21 History Super C Supplement 1 tab PO DAILY 06/21/21 08/15/21 History Zolpidem [Ambien] 5 mg PO HS PRN 06/21/21 08/15/21 History Allergies Allergy/AdvReac Type Severity Reaction Status Date / Time No Known Allergies Allergy Verified 08/15/21 18:53 Physical Exam Vitals: Vital Signs Temp Pulse Pulse Resp BP BP Pulse Ox 08/16/21 09:05 133 H 98/67 97 08/16/21 09:00 136 H 100/67 97 08/16/21 08:49 144 H 107/71 08/16/21 08:05 98.2 F 141 H 18 102/70 97 08/16/21 04:00 125 H 20 144/93 95 02/01/22 02:00 112 H 20 128/87 95 08/15/21 23:35 113 H 20 132/79 97 08/15/21 22:20 106 H 20 124/99 94 L 08/15/21 21:32 98.0 F 122 H 20 121/67 95 08/15/21 20:42 158 H 20 121/76 95 08/15/21 18:13 68 20 139/80 96 08/15/21 17:36 98.4 F 142 H 16 131/74 100 Intake and Output 08/15/21 08/16/21 08/16/21 22:59 06:59 14:59 Intake Total 1.667 Balance 1.667 Intake: Intake, IV Titration 1.667 Amount Diltiazem 125 mg In 1.667 Sodium Chloride 0.9% 100 ml @ 5 MG/HR 5 mls/hr IV .Q24H [facility] Rx#:[id number] Other: Weight 97.976 kg 97.976 kg Results CBC & Chem 7: 08/16/21 05:18 08/16/21 05:18 Labs: Abnormal Lab Results - Last 24 Hours (Table) 08/15/21 08/15/21 08/16/21 Range/Units 19:10 19:10 05:18 WBC 12.9 H 11.8 H (3.8-10.6) k/uL Lymphocytes # 5.0 H (1.0-4.8) k/uL Eosinophils # 0.8 H (0-0.7) k/uL Sodium 136 L (137-145) mmol/L Glucose (74-99) mg/dL 08/16/21 Range/Units 05:18 WBC (3.8-10.6) k/uL Lymphocytes # (1.0-4.8) k/uL Eosinophils # (0-0.7) k/uL Sodium (137-145) mmol/L Glucose 115 H (74-99) mg/dL Thrombosis Risk Factor Assmnt - Choose All That Apply Any of the Below Risk Factors Present?: Yes Each Factor Represents 1 point: Obesity (BMI >25) Other Risk Factors: Yes Each Risk Factor Represents 2 Points: Age 61-74 years Other congenital or acquired thrombophilia - If yes, enter type in comment: No Thrombosis Risk Factor Assessment Total Risk Factor Score: 3 Thrombosis Risk Factor Assessment Level: Moderate Risk
[2021-08-16] MEDS: ATORVASTATIN 20 MG TAB PO SCH (19:09)
[2021-08-17 02:36] VITALS: TEMP 97.8
[2021-08-17] MEDS: FORMOTEROL FUMARATE 20 MCG/2 ML NEBU INHALATION SCH (07:42)
[2021-08-17] MEDS: IPRATROPIUM 0.5 MG/2.5 ML NEBU INHALATION SCH ×2 (07:42→11:19)
[2021-08-17] MEDS: PANTOPRAZOLE 40 MG TABLET PO SCH (07:57)
[2021-08-17] MEDS: ASPIRIN 81 MG PO SCH (07:57)
[2021-08-17] MEDS: METOPROLOL TARTRATE 50 MG TAB PO SCH (07:57)
[2021-08-17] MEDS: APIXABAN 5 MG TAB PO SCH (07:57)
[2021-08-17] MEDS: DILTIAZEM CD 180 MG CAP.ER.24H PO SCH (07:57)
[2021-08-17 08:03] VITALS: BP 130/71; PULSE 60
[2021-08-17] MEDS ORDERED: AMIODARONE 200 MG TAB PO SCH (09:00)
--- NOTE | 2021-08-17 09:53 | P.PN ---
Subjective This is a 66 year old male with a past medical history of known coronary artery disease status post 4 vessel CABG (ARTEAGA-LAD, Radial-OM2, VG-RI, VG-RCA) on 05/09/2021, postop paroxysmal atrial fibrillation status post cardioversion, dyslipidemia, Peripheral vascular disease, hypertension, type 2 diabetes, former smoker and intermittent episodes of paroxysmal SVT. Patient follows in the office with Dr. Bojorquez. Patient presented to the Hospital on 08/15/21 night, complaining of sudden onset sustained palpitations. Recently outpatient, patient had an episode of SVT recently while he was in the cardiothoracic surgeons office and converted to sinus rhythm following carotid sinus massage. He was started on amiodarone which has since been stopped by an figure model who has seen the patient. The plan at this stage is to perform an SVT ablation over the next several weeks. In the emergency department he was found to be in SVT converted to sinus rhythm and subsequently developed SVT again his heart rate is around 145 bpm. Patient was given IV Cardizem 10mg Bolus and started on IV Cardizem drip at 5mg/hr. Patient converted back to sinus mechanism shortly after starting IV Cardizem drip. 08/17/2021 Patient seen and examined at bedside, no acute distress. Telemetry reviewed, patient in sinus mechanism HR 55-70s, episode of brief SVT yesterday night at 6pm HR 130s, patient given his scheduled medication and it quickly resolved Echocardiogram pending.Patient currently maintained on aspirin 81 mg daily, El iquis 5 mg twice a day, atorvastatin 20 mg nightly, Cardizem 180 mg daily, metoprolol tatrate 50 mg twice a day. Amiodarone 200mg daily started by Dr. Munroe Labs reviewed, TSH within normal limits. GENERAL: Well-appearing, well-nourished and in no acute distress. NECK: Supple without JVD or thyromegaly. LUNGS: Breath sounds clear to auscultation bilaterally. Respiration equal and unlabored. No wheezes, rales or rhonchi. HEART: Regular rate and rhythm without murmurs, rubs or gallops. S1 and S2 heard. EXTREMITIES: Normal range of motion, no edema. No clubbing or cyanosis. Peripheral pulses intact. ASSESSMENT Paroxysmal supraventricular tachycardia Paroxysmal atrial fibrillation, post op after CABG s/p cardioversion, [id number] score 4, on Eliquis Coronary artery disease status post 4 vessel CABG (ARTEAGA-LAD, Radial-OM2, VG-RI, VG-RCA) on 05/09/2021 Dyslipidemia Peripheral vascular disease Hypertension Type 2 diabetes Former smoker PLAN From a cardiology perspective, patient is stable to be discharged home today. Dr. Munroe evaluated the patient. Recommend follow up outpatient for SVT/Afib ablation with Dr. Munroe Start amiodarone 200 mg daily Continue Eliquis 5 mg twice a day, metoprolol tartrate, Cardizem, aspirin, rosuvastatin Follow up with patient's primary hazard mitigation officer, Dr. Bojorquez Nurse Practitioner note has been reviewed, I agree with a documented findings and plan of care. Patient was seen and examined. Objective - Vital Signs Vital signs: Vital Signs Temp 98.2 F 08/16/21 08:05 Pulse 140 H 08/16/21 12:24 Resp 18 08/16/21 12:24 BP 101/59 08/16/21 09:45 Pulse Ox 97 08/16/21 09:05 Intake & Output 08/15/21 08/16/21 08/16/21 18:59 06:59 18:59 Intake Total 1.667 Balance 1.667 Weight 97.976 kg 97.976 kg Intake: Intake, IV Titration 1.667 Amount Diltiazem 125 mg In 1.667 Sodium Chloride 0.9% 100 ml @ 5 MG/HR 5 mls/hr IV .Q24H [facility] Rx#:[id number] Other: Voiding Method Toilet - Labs CBC & Chem 7: 08/16/21 05:18 08/16/21 05:18 Labs: Abnormal Lab Results - Last 24 Hours (Table) 08/15/21 08/15/21 08/16/21 Range/Units 19:10 19:10 05:18 WBC 12.9 H 11.8 H (3.8-10.6) k/uL Lymphocytes # 5.0 H (1.0-4.8) k/uL Eosinophils # 0.8 H (0-0.7) k/uL Sodium 136 L (137-145) mmol/L Glucose (74-99) mg/dL 08/16/21 Range/Units 05:18 WBC (3.8-10.6) k/uL Lymphocytes # (1.0-4.8) k/uL Eosinophils # (0-0.7) k/uL Sodium (137-145) mmol/L Glucose 115 H (74-99) mg/dL
--- NOTE | 2021-08-17 11:00 | ECHOF ---
Referral Reason:tachycardia MEASUREMENTS -------- HEIGHT: 180.3 cm WEIGHT: 98.0 kg BP: RVIDd: 2.3 cm (< 3.3) IVSd: 1.1 cm (0.6 - 1.1) LVIDd: 4.5 cm (3.9 - 5.3) LVPWd: 1.3 cm (0.6 - 1.1) IVSs: 1.8 cm LVIDs: 2.9 cm LVPWs: 1.5 cm Ao Diam: 3.0 cm (2.0 - 3.7) AV Cusp: 2.1 cm (1.5 - 2.6) LA Diam: 3.0 cm (2.7 - 3.8) MV E Kerwin: 1.12 m/s MV DecT: 134 ms MV A Kerwin: 0.37 m/s MV E/A Ratio: 3.02 RAP: 5.00 mmHg RVSP: 14.31 mmHg FINDINGS -------- This was a technically difficult study with suboptimal views. The left ventricular size is normal. There is mild concentric left ventricular hypertrophy. Overa ll left ventricular systolic function is normal with, an EF between 55 - 60 %. The right ventricle is normal in size. The left atrial size is normal. The right atrial size is normal. xx ml of Lumason was utilized for enhancement of images. The aortic valve was not well visualized. The mitral valve was not well visualized. There is trace mitral regurgitation. The tricuspid valve was not well visualized. Trace tricuspid regurgitation present. Right ventric ular systolic pressure is normal at < 35 mmHg. The pulmonic valve was not well visualized. The aortic root size is normal. IVC Not well visulized. There is no pericardial effusion. CONCLUSIONS -------- 1. The left ventricular size is normal. 2. There is mild concentric left ventricular hypertrophy. 3. Overall left ventricular systolic function is normal with, an EF between 55 - 60 %. 4. There is trace mitral regurgitation. 5. Trace tricuspid regurgitation present. 6. There is no pericardial effusion. APPELLATE CONFEREE: Helen Ge RD
--- NOTE | 2021-08-17 21:55 | P.DS ---
Providers Date of admission: 08/15/21 20:45 Expected date of discharge: 08/17/21 Attending physician: Gaudencio Gardner Consults: 08/15/21 20:46 Consult Physician Urgent Consulting Provider: [facility] Consult Reason/Comments: afib with rvr Do you want consulting provider notified?: Yes 08/16/21 16:29 Consult Physician Routine Consulting Provider: Alf Munroe Consult Reason/Comments: Recurrent symptomatic SVT Do you want consulting provider notified?: Yes Primary care physician: [facility] Course: Chief Complaint: Heart racing History of presenting complaint This is a 66-year-old patient, follows with Dr. Miramontes. Chronic stable medical conditions include diabetes, osteoarthritis, hyperlipidemia, renal calculi, AWAIS D, COPD, CAD. 2020-coronary bypass. Had paroxysmal atrial fibrillation. Had to be cardioverted. Patient otherwise has been doing well. Patient presents with his recurrent episodes of /SVT. He feels a fluttering sensation across the chest. And feels like a panic attack. No chest pressure. No dizziness or lightheadedness. No shortness of breath. He was at his family doctors yesterday and had an episode SVT with a rapid ventricular rate.. Hence he was sent in here. Patient is put on a Cardizem drip. Patient was previously on amiodarone and was seen by pacs specialist and amiodarone was discontinued. Since presentation year patient is at least 2 or 3 episodes of being in and out. Symptomatic with the same.. August 17: Remains in sinus rhythm. Had episode of SVT yesterday 130s. Amiodarone [address] Munroe. Cleared by him to be discharged. He'll follow up outpatient for SVT/A. fib ablation. Consultation: Dr. Alf Munroe from electrophysiology and Dr. Alal Bee from cardiology Past medical history to include: hyperlipidemia, CAD with bypass, renal calculi, COPD, GERD, paroxysmal atrial fibrillation Social history: Smokes half a pack a day for close to 53 years. Stopped-April 2021 Alcohol occasionally. CBD Gummi's. 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 Family history: Reviewed, noncontributory to presentation Physical examination: VITAL SIGNS: 87.8, 60, 16, 1:30/71, 97% room air GENERAL: , reclining in a chair,, comfortable]. EYES: Pupils equal. Conjunctiva normal. HEENT: External appearance of nose and ears normal, oral cavity grossly normal. NECK: JVD not raised; masses not palpable. HEART: First and second heart sounds are normal; no edema. LUNGS: Respiratory rate normal; decreased breath sound. ABDOMEN: Soft, nontender, liver spleen not palpable, no masses palpable. PSYCH: Alert and oriented x3; mood and affect normal. MUSCULOSKELETAL:No Clubbing/cyanosis;muscles-grossly intact INVESTIGATIONS, reviewed in the clinical context: 2-D echocardiogram: EF 55-60% White count 11.8 hemoglobin 13.2 platelets 228 potassium 4.1 creatinine 0.98 Troponin I 3: Negative TSH 1.5 Coronavirus [PCR]: Not detected EKG tracing personally reviewed by me-ST-T wave changes., Junctional tachycardia Chest x-ray film personally reviewed by me-possible atelectasis Assessment and plan: -Paroxysmal SVT with rapid ventricular rate, recurrent, symptomatic. [Patient has been seen by pacs specialist as outpatient. Amiodarone was discontinued. Supposed to have EP study for the same.] Cardizem CD 180 mg daily. Lopressor 50 mg twice a day. Eliquis 5 mg twice a day. Dr. Alf Munroe consulted. Amiodarone 200 mg a day resumed. Outpatient follow-up for EP study -Paroxysmal atrial fibrillation currently sinus rhythm -CAD with coronary bypass in April 2021 Aspirin, Lipitor, Lopressor -Primary osteoarthritis Pain medications as needed -Hyperlipidemia Lipitor 40 mg daily -COPD in a current smoker anoro-ellipta GERD Protonix 40 mg twice a day -Chronic leukocytosis felt to be as from smoking worked up by hematology as an outpatient. -Obesity BMI 31 Weight loss measures Disposition: Home Plan - Discharge Summary Discharge Rx Participant: No New Discharge Prescriptions: New Amiodarone [Cordarone] 200 mg PO DAILY 30 Days #30 tab Continue Apixaban [Eliquis] 5 mg PO BID #60 tab Metoprolol Tartrate [Lopressor] 50 mg PO BID #60 tab Pantoprazole [Protonix] 40 mg PO AC-BID [place]-3 Fatty Acids [[place]-3] 1,000 mg PO HS Umeclidinium Brm/Vilanterol Tr [Anoro Ellipta 62.5-25 Mcg INH] 1 puff INHALATION RT-HS Diltiazem Cd [Cardizem CD] 180 mg PO DAILY #30 capsule Aspirin 81 mg PO DAILY #30 tab Rosuvastatin [Crestor] 10 mg PO HS Nitroglycerin Sl Tabs [Nitrostat] 0.4 mg SUBLINGUAL Q5M PRN PRN Reason: Chest Pain Acetaminophen Tab [Tylenol] 1,000 mg PO Q6HR PRN PRN Reason: Pain Or Fever > 100.5 Zolpidem [Ambien] 5 mg PO HS PRN PRN Reason: Insomnia Discontinued Ibuprofen [Motrin Ib] 800 mg PO Q8H PRN PRN Reason: Pain Or Fever > 100.5 No Action Super C Supplement 1 tab PO DAILY Discharge Medication List [place]-3 Fatty Acids [[place]-3] 1,000 mg PO HS 03/31/21 [History] Umeclidinium Brm/Vilanterol Tr [Anoro Ellipta 62.5-25 Mcg INH] 1 puff INHALATION RT-HS 05/06/21 [History] Apixaban [Eliquis] 5 mg PO BID #60 tab 05/16/21 [Rx] Aspirin 81 mg PO DAILY #30 tab 05/19/21 [Rx] Diltiazem Cd [Cardizem CD] 180 mg PO DAILY #30 capsule 05/19/21 [Rx] Metoprolol Tartrate [Lopressor] 50 mg PO BID #60 tab 05/19/21 [Rx] Acetaminophen Tab [Tylenol] 1,000 mg PO Q6HR PRN 06/21/21 [History] Nitroglycerin Sl Tabs [Nitrostat] 0.4 mg SUBLINGUAL Q5M PRN 06/21/21 [History] Pantoprazole [Protonix] 40 mg PO AC-BID 06/21/21 [History] Rosuvastatin [Crestor] 10 mg PO HS 06/21/21 [History] Super C Supplement 1 tab PO DAILY 06/21/21 [History] Zolpidem [Ambien] 5 mg PO HS PRN 06/21/21 [History] Amiodarone [Cordarone] 200 mg PO DAILY 30 Days #30 tab 08/17/21 [Rx] Follow up Appointment(s)/Referral(s): Obie Bojorquez MD [STAFF PHYSICIAN] - 02/25/22 3:15 pm Alfred Miramontes DO [Primary Care Provider] - 1-2 days Activity/Diet/Wound Care/Special Instructions: outpatient ablation with Dr Munroe Discharge Disposition: HOME SELF-CARE
--- NOTE | 2021-08-18 18:54 | P.EPPROC ---
- EP Procedure Note Electrophysiology Procedure Note: This is Dr. Munroe dictating a consult on this patient, electrical neurologic consultation for management of SVT and atrial fibrillation The patient was interviewed and examined IMPRESSION / ASSESSMENT: Paroxysmal atrial fibrillation RVR AV node reentrant tachycardia Status post coronary artery bypass grafting follow-up coronary artery disease with ARTEAGA and BERNIE Diabetes type 2, hypertension Experiencing episodes of SVT as well as A. fib with RVR despite Cardizem 180 mg daily and metoprolol 50 mg twice daily PLAN: Continue ELIQUIS Continue beta blockers and calcium channel blockers Low-dose amiodarone for now I would proceed with cryoablation the pulmonary veins first Subsequently stopped amiodarone and proceed with SVT ablation in the future HPI patient of Dr. Bojorquez Presented with palpitations the hospital and quite symptomatic. He had the same episode last week when he saw the CT surgeons and her to come to the office Carotid sinus massage was performed and the SVT was terminated. He was on metoprolol and Cardizem History of diabetes hypertension dyslipidemia peripheral vascular disease and two-vessel coronary artery disease Cardiac catheterization last year revealed LVEDP of 20-24 mmHg, calcified coronary arteries Chronically occluded RCA with collaterals from the left Moderate left main disease Significant stenosis of the LAD and left circumflex He underwent coronary artery bypass grafting In April 2021 and underwent TRINY and electrical cardioversion for management of atrial fibrillation He has a history of SVT ROS: No fever chills or rigors, no cough, phlegm or expectoration, no nausea, vomiting or diarrhea, no hematuria, dysuria, no musculoskeletal complaints, no strokes or seizures, no skin lesions. EXAMINATION: Pulse rate in the 60s afebrile Blood pressure 105/56 mmHg REVIEW OF LABS, ECG & MEDICAL DATA Twelve-lead EKG from 05/17/2021 shows atrial fibrillation with RVR 150 beats a minute twelve-lead EKG from first August shows SVT consistent with AV margaret reentrant tachycardia secondary ST-T changes
== END 2021-08-17 12:37 | disposition home or self-care (01) ==
LOC: EC 17:23 → 6NMEDSUR 20:45
PROVIDERS: ADMIT Hospitalist; ATTEND Hospitalist
DX: I47.1 Supraventricular tachycardia (principal); I48.0 Paroxysmal atrial fibrillation; D72.829 Elevated white blood cell count, unspecified; I25.10 Atherosclerotic heart disease of native coronary artery without angina pectoris; I10 Essential (primary) hypertension; E11.51 Type 2 diabetes mellitus with diabetic peripheral angiopathy without gangrene; J44.9 Chronic obstructive pulmonary disease, unspecified; K21.9 Gastro-esophageal reflux disease without esophagitis; M19.91 Primary osteoarthritis, unspecified site; E78.5 Hyperlipidemia, unspecified; I73.9 Peripheral vascular disease, unspecified; Z68.31 Body mass index [BMI] 31.0-31.9, adult; Z20.822 Contact with and (suspected) exposure to COVID-19; Z79.01 Long term (current) use of anticoagulants; Z79.82 Long term (current) use of aspirin; E66.9 Obesity, unspecified; Z79.899 Other long term (current) drug therapy; Z85.828 Personal history of other malignant neoplasm of skin; Z98.42 Cataract extraction status, left eye; Z98.41 Cataract extraction status, right eye; Z87.891 Personal history of nicotine dependence; Z87.442 Personal history of urinary calculi; Z87.440 Personal history of urinary (tract) infections; Z95.1 Presence of aortocoronary bypass graft; Z87.01 Personal history of pneumonia (recurrent); Z98.890 Other specified postprocedural states; Z82.0 Family history of epilepsy and other diseases of the nervous system
CPT/HCPCS: 96365; 96366; 99285; 36415; 94640; 93005; 80053; 80048; 84443 ×2; 83735; 84484 ×2; 85025 ×2; 85610; 85730; 87635; 71046; G0378 ×3; C8929; Q9950; 93306

== ENCOUNTER 2021-09-08 07:52 | Day surgery (SDC) | payer MEDICARE ==
[2021-09-06 14:51] VITALS: BMI 31.4
[~2021-09-08 07:52] MED LIST changes: -ALBUMIN HUMAN 25% 50 ML IV ONE; -ALBUMIN HUMAN 5% 500 ML IVPB ONE; -ASPIRIN 325 MG TAB PO ONE; -ATORVASTATIN 10 MG TAB PO ONE; -CALCIUM CHLORIDE 100 MG/ML 10 ML SYRINGE IV ONE; -CHLORHEXIDINE GLUCONATE 15 ML CUP MUCOUS MEM ONE; -CLEVIDIPINE BUTYRATE 25 MG in EMPTY BAG 1 BAG IV ONE; -DILTIAZEM 125 MG in SODIUM CHLORIDE 0.9% 100 ML IV ONE; -ELECTROLYTE-A SOLUTION 1,000 ML with POTASSIUM CHLORIDE 100 MEQ, MAGNESIUM SULFATE 16 M... IV ONE; -ELECTROLYTE-A SOLUTION 1,000 ML with POTASSIUM CHLORIDE 40 MEQ, MAGNESIUM SULFATE 16 ME... IV ONE; -HEPARIN SODIUM 1,000 UN/ML (10ML VL) IV ONE; -HEPARIN SODIUM,PORCINE 5,000 UNIT in SODIUM CHLORIDE 0.9% 500 ML 500 ML IV ONE; -INSULIN REGULAR 100 UNIT in SODIUM CHLORIDE 0.9% 100 ML IV ONE; -LACTATED RINGERS 1,000 ML IV ONE; +LACTATED RINGERS 1,000 ML IV SCH; -MAGNESIUM SULFATE 16.24 MEQ in EMPTY SYRINGE 1 SYR IV ONE; -MANNITOL 25% 12.5 GM/50 ML VIAL IV ONE; -METOPROLOL TARTRATE 12.5 MG TAB PO ONE; -NITROGLYCERIN SL TABS 0.4 MG TAB SUBLINGUAL ONE; -NITROGLYCERIN-D5W PMX 25 MG/250 ML BTL IV ONE; -NITROGLYCERIN-D5W PMX 50 MG in DEXTROSE/WATER 1 250ML.BAG IV ONE; -NOREPINEPHRINE 4 MG in SODIUM CHLORIDE 0.9% 250 ML IV ONE; -PAPAVERINE 360 MG in SODIUM CHLORIDE 0.9% 90 ML IV ONE; -PHENYLEPHRINE 10 MG/ML VIAL IV ONE; -PHENYLEPHRINE 40 MG in SODIUM CHLORIDE 0.9% 250 ML IV ONE; -PROTAMINE SULFATE 10 MG/ML 25 ML VIAL IV ONE; -PROTAMINE SULFATE 250 MG in EMPTY BAG 1 BAG IV ONE; -SODIUM BICARB 8.4% 50 ML SYR (1 MEQ/ML) IV ONE; -SODIUM CHLORIDE 0.9% 1,000 ML IV ONE; +SODIUM CHLORIDE 0.9% 1,000 ML IV SCH; -TRANEXAMIC ACID 2,000 MG in SODIUM CHLORIDE 0.9% 80 ML IV ONE; -ceFAZolin 1,000 MG in SODIUM CHLORIDE 0.9% IRRIGATIO 1,000 ML IRRIGATION ONE; -propofoL 1,000 MG/100 ML VIAL IV ONE
[2021-09-08] MEDS ORDERED: SODIUM CHLORIDE 0.9% 1,000 ML IV ONE (08:09)
[2021-09-08] MEDS ORDERED: HEPARIN SODIUM,PORCINE 10,000 UNIT/ML 1 ML VIAL ONE (11:45)
[2021-09-08] MEDS ORDERED: PROPOFOL 10 MG/ML 20 ML VIAL IV ONE (11:45)
[2021-09-08] MEDS ORDERED: MIDAZOLAM 2 MG/2 ML VIAL ONE (11:45)
[2021-09-08] MEDS ORDERED: PROTAMINE SULFATE 10 MG/ML 5 ML VIAL IV ONE (11:45)
[2021-09-08] MEDS ORDERED: LIDOCAINE 1% INJ 10MG/ML (20 ML MDV) ONE ×2 (11:45→12:28)
[2021-09-08] MEDS ORDERED: SUCCINYLCHOLINE CHLORIDE 100 MG/5 ML SYR IV ONE (11:45)
[2021-09-08] MEDS ORDERED: ePHEDrine 50 MG/ML 1 ML VIAL ONE (11:45)
[2021-09-08] MEDS ORDERED: fentaNYL (PF) 50 MCG/ML 2 ML AMP ONE (11:45)
[2021-09-08] MEDS ORDERED: LIDOCAINE 1% INJ 10MG/ML (20 ML MDV) SQ ONE (12:43)
[2021-09-08] MEDS ORDERED: HEPARIN SOD,PORK IN 0.45% NACL 25,000 UNIT in 0.45% NACL 1 250ML.BAG IV ONE (12:53)
[2021-09-08] MEDS ORDERED: IOPAMIDOL-370 100ML BTL INJ ONE (14:29)
[2021-09-08] MEDS ORDERED: ACETAMINOPHEN IV (For NPO) 1,000 MG in EMPTY BAG 1 BAG IVPB ONE (14:35)
[2021-09-08] MEDS ORDERED: ACETAMINOPHEN TAB 325 MG TAB PO PRN (14:35)
[2021-09-08 15:16] LABS: Glucose,Whole Blood 119 mg/dL (75-99)
--- NOTE | 2021-09-08 15:31 | P.EPPROC ---
- EP Procedure Note Electrophysiology Procedure Note: PROCEDURE A. fib ablation, PVI plus linear ablation in the left atrial septum and left atrial roof DIAGNOSIS Atrial fibrillation, symptomatic, refractory to therapy, paroxysmal RESULT Occluded MARTIN, postsurgical, on intracardiac echo, no pericardial effusion Normal LV and RV size and function Successful A. fib ablation/pulmonary vein isolation of all veins using cryo- ablation Complete entrance block in all 4 veins confirmed No evidence for phrenic nerve injury Esophageal deflection YES PROCEDURE DETAILS Patient was brought to the EP lab in a fasting state after obtaining written informed consent. Procedure performed under general anesthesia Esophagus was intubated. Esophageal temperature monitoring with circa catheter. Esophageal deflection with an endoscope to avoid hypothermia of the esophagus. After initial muscle relaxant use, muscle relaxants were not given thereafter in order to assess phrenic nerve during procedure. Patient prepped and draped as per protocol Cryo ablation-set up with standard preparation of the cryoablation tools done. Femoral Venous access obtained on the right and left groins and sheaths placed Diagnostic catheters for the high right atrium, phrenic nerve stimulation and pacing, His bundle, coronary sinus placed Intracardiac echo catheter placed. Long sheath placed in the right atrium Left and right transseptal catheterization performed under intracardiac echo guidance. Intravenous heparin with aCT above 300 Later, catheter positioning and balloon positioning in the left atrium and pulmonary veins, under intracardiac echo guidance Diagnostic EP study with coronary sinus pacing and recording Baseline measurements: Sinus cycle length normal at 1121 ms, QRS 82, NC interval 150 ms, QT interval 371 ms AH 67 and HV 58 ms Sinus recovery times at 605 100 ms were 1653 and 1462 ms AV node Wenckebach block 500 ms Evidence of slow pathway conduction Slow AV margaret reentrant tachycardia very easily inducible Transseptal catheterization performed RA pressure 16/10/13 LA pressure 25/4/15 Transseptal catheterization performed with standard sheath. The cryoablation sheath was then placed with an over the wire exchange without any acute complications. The cryoablation balloon was placed in the office of each pulmonary vein and all 4 pulmonary veins were isolated. IV dye was injected to confirm occlusion. Goal: achieve complete occlusion of the pulmonary vein, achieve -30 degrees C at 30 seconds and achieve -40 degrees C at 60 seconds and a time to effect of less than 60 seconds. If not, the balloon was repositioned to obtain this result After completion of Cryoblation with durations from 180-240 seconds, entrance block was confirmed with the Attain circular catheter in a roving fashion around the antrum of the pulmonary veins Phrenic nerve pacing was performed from the SVC, right innominate vein area and diaphragm voltage was monitored. Diaphragmatic contractions were also monitored manually for strength of contraction. Contiguous cryoablation lesions along the left atrial roof with the achieve catheter first in the left superior and then later in the right superior vein Linear ablation left atrial roof performed successfully Septal ablation in the posterior LA septum performed with the achieve catheter positioned for stability in the inferior branch of the right superior vein. Cryoablation of the right shira and posterior left atrial septum, behind the transseptal puncture performed successfully At the end of the procedure the Achieve catheter was once again used to check for entrance block and for electrograms along the roof and septum Phrenic nerve stimulation was performed to confirm diaphragmatic stimulation the end of the procedure Cine fluoroscopy was performed at the very end of the procedure to confirm movement of both diaphragms with inspiration and expiration At the end of the procedure the patient was extubated Venous sheaths were removed and hemostasis assured with a closure devices, Vascade and Perclose PROCEDURES PERFORMED Diagnostic EP study CS pacing and recording Left and right transseptal catheterization Catheter the mapping of the tachycardia Intracardiac echocardiography Pulmonary vein isolation with transseptal and comprehensive EPS, [id number] Left atrial roof line, +[id number] Linear ablation, left atrium, +[id number]
[2021-09-08 16:09] VITALS: RESP 18
[2021-09-08] MEDS ORDERED: ATORVASTATIN 20 MG TAB PO SCH (21:00)
[2021-09-08] MEDS: METOPROLOL TARTRATE 50 MG TAB PO SCH (21:26)
[2021-09-08] MEDS: APIXABAN 5 MG TAB PO SCH (21:26)
[2021-09-09] MEDS: METOPROLOL TARTRATE 50 MG TAB PO SCH (07:53)
[2021-09-09] MEDS: APIXABAN 5 MG TAB PO SCH (07:53)
[2021-09-09 08:31] VITALS: BP 121/49; PULSE 59; TEMP 98.6
[2021-09-09] MEDS ORDERED: DILTIAZEM CD 180 MG CAP.ER.24H PO SCH (09:00)
--- NOTE | 2021-09-12 21:01 | P.DS ---
Providers Attending physician: Alf Munroe Primary care physician: [facility] Course: Patient is doing well following A. fib ablation No chest discomfort he does have a sore throat No dizziness or lightheadedness Groins of healed well On examination blood pressure is normal Heart rates in the normal range to EKG is normal Heart sounds S1 and S2 normal no rub no murmurs or gallops Lungs are clear Impression Paroxysmal atrial fibrillation with RVR Status post successful A. fib ablation Plan We will get him back for AVNRT ablation about 6-8 weeks Continue current medications line stop amiodarone Continue anticoagulation Plan - Discharge Summary Discharge Rx Participant: Yes New Discharge Prescriptions: Continue Apixaban [Eliquis] 5 mg PO BID #60 tab Metoprolol Tartrate [Lopressor] 50 mg PO BID #60 tab [place]-3 Fatty Acids [[place]-3] 1,000 mg PO HS Diltiazem Cd [Cardizem CD] 180 mg PO DAILY #30 capsule Aspirin 81 mg PO DAILY #30 tab Rosuvastatin [Crestor] 10 mg PO HS Super C Supplement 1 tab PO DAILY Nitroglycerin Sl Tabs [Nitrostat] 0.4 mg SUBLINGUAL Q5M PRN PRN Reason: Chest Pain Acetaminophen Tab [Tylenol] 1,000 mg PO Q6HR PRN PRN Reason: Pain Or Fever > 100.5 Zolpidem [Ambien] 5 mg PO HS PRN PRN Reason: Insomnia Discontinued Amiodarone [Cordarone] 200 mg PO BID Discharge Medication List [place]-3 Fatty Acids [[place]-3] 1,000 mg PO HS 03/31/21 [History] Apixaban [Eliquis] 5 mg PO BID #60 tab 05/16/21 [Rx] Aspirin 81 mg PO DAILY #30 tab 05/19/21 [Rx] Diltiazem Cd [Cardizem CD] 180 mg PO DAILY #30 capsule 05/19/21 [Rx] Metoprolol Tartrate [Lopressor] 50 mg PO BID #60 tab 05/19/21 [Rx] Acetaminophen Tab [Tylenol] 1,000 mg PO Q6HR PRN 06/21/21 [History] Nitroglycerin Sl Tabs [Nitrostat] 0.4 mg SUBLINGUAL Q5M PRN 06/21/21 [History] Rosuvastatin [Crestor] 10 mg PO HS 06/21/21 [History] Super C Supplement 1 tab PO DAILY 06/21/21 [History] Zolpidem [Ambien] 5 mg PO HS PRN 06/21/21 [History] Follow up Appointment(s)/Referral(s): Obie Bojorquez MD [STAFF PHYSICIAN] - 09/16/21 10:30 am (Follow Dr. Bojorquez in 1 week) Patient Instructions/Handouts: Cardiac Ablation (GEN), Electrophysiology Study (GEN) Activity/Diet/Wound Care/Special Instructions: Post EP study - Ablation instructions 1. Keep access sites dry for 2 days. 2. No heavy lifting or straining for 2 days. 3. Avoid bending the hips repeatedly for 2 days. 4. You may go up and down stairs slowly Call if the following is noted 1. Bleeding, increasing swelling or pain at the access sites. 2. Increasing chest discomfort, especially upon taking a deep breath. 3. Increasing shortness of breath, at rest or with exertion. 4. Undue cough / phlegm 5. Difficulty or pain while swallowing. 6. Pain or change in color in the extremities. 7. Fever, chills, rigors. 8. Increasing headache or neurologic symptoms. 9. Dizziness, fainting, palpitations Discontinue amiodarone Continue all other medications including ELIQUIS 5 g twice daily Discharge Disposition: HOME SELF-CARE
== END 2021-09-09 11:12 | disposition home or self-care (01) ==
LOC: CATHEP 07:52 → 6NMEDSUR 15:37 → CATHEP 09-09 11:12
PROVIDERS: ATTEND Internal Medicine Clinical Cardiac Electrophysiology
DX: I48.0 Paroxysmal atrial fibrillation (principal); I25.10 Atherosclerotic heart disease of native coronary artery without angina pectoris; I10 Essential (primary) hypertension; E78.5 Hyperlipidemia, unspecified; K21.9 Gastro-esophageal reflux disease without esophagitis; E11.51 Type 2 diabetes mellitus with diabetic peripheral angiopathy without gangrene; K08.89 Other specified disorders of teeth and supporting structures; Z95.1 Presence of aortocoronary bypass graft; I47.1 Supraventricular tachycardia; Z87.891 Personal history of nicotine dependence; Z79.01 Long term (current) use of anticoagulants; Z79.82 Long term (current) use of aspirin; Z79.899 Other long term (current) drug therapy
CPT/HCPCS: 93656; 93657; C1894 ×2; C1769 ×4; C1760 ×2; C1730 ×2; C1759; C1893; C1733; C1766; J2250; J2720; J1644 ×2; J2001; J3010; J0131; J0330; J2704; Q9967

== ENCOUNTER → 2021-12-28 | Outpatient (CLI) | payer MEDICARE ==
--- NOTE | 2021-12-28 22:51 | CT ---
EXAMINATION TYPE: CT abdomen pelvis wo con DATE OF EXAM: 12/28/2021 COMPARISON: None available HISTORY: gross hematuria x [address] DLP: 974.40 mGycm Automated exposure control for dose reduction was used. TECHNIQUE: Helical acquisition of images was performed from the lung bases through the pelvis. FINDINGS: LUNG BASES: No significant abnormality is appreciated. LIVER/GB: Questionable tiny gallbladder calculus. Grossly unremarkable liver. PANCREAS: No significant abnormality is seen. SPLEEN: No significant abnormality is seen. ADRENALS: No significant abnormality is seen. KIDNEYS: Nonobstructing stone is seen at the lower pole of the left kidney measuring 13 x 17 mm. A mi d pole left renal stone measures 10 mm. Other scattered bilateral renal tiny calculi versus arterial calcifications. No hydroureter or hydronephrosis. Bilateral perinephric fat stranding, nonspecific. N o definite renal lesion by this unenhanced CT scan. FREE AIR: No free air is visualized RETROPERITONEAL ADENOPATHY: None visualized REPRODUCTIVE ORGANS: No significant abnormality is seen URINARY BLADDER: Incompletely distended. PELVIC ADENOPATHY: No pathologically enlarged lymph nodes. OSSEOUS STRUCTURES: T11 and L3 upper endplate depression, likely chronic, please correlate clinicall y. Sternotomy wire sutures. No gross aggressive bone lesion. BOWEL: No significant abnormality is seen. OTHER: Scattered arterial atherosclerotic calcifications. No sizable ascites. Small fat-containing in guinal hernias. Fat-containing umbilical hernia. IMPRESSION: Left nonobstructing renal calculi as described above. No hydroureter or hydronephrosis. Other inciden pili findings as described above.
== END | disposition home or self-care (01) ==
LOC: RADCTMAIN 14:39
PROVIDERS: ATTEND Urology
DX: N20.0 Calculus of kidney (principal)
CPT/HCPCS: 74176

== ENCOUNTER → 2022-01-12 | Outpatient (CLI) | payer MEDICARE ==
--- NOTE | 2022-01-13 08:51 | XR ---
EXAMINATION TYPE: XR KUB DATE OF EXAM: 01/12/2022 COMPARISON: 12/28/2021 HISTORY: Pain TECHNIQUE: One view abdominal series FINDINGS: The osseous structures are intact. The bowel gas pattern is nonspecific. Left kidney: Approximately 6 calcifications overlying the left renal outline the largest measuring 17 mm Right kidney: No definite suspicious calcification. Bowel content obscures portions of the Hypertrophic and degenerative changes of the spine. Calcifications pelvis appear vascular. Arthropath y. Metallic wire overlying the mediastinum IMPRESSION: 1. Stable left-sided nephrolithiasis
== END | disposition home or self-care (01) ==
LOC: RADXRMAIN 15:50
PROVIDERS: ATTEND Urology
DX: N20.0 Calculus of kidney (principal)
CPT/HCPCS: 74018

== ENCOUNTER → 2022-01-26 | Outpatient (CLI) | payer MEDICARE ==
[2022-01-26 23:36] LABS: Basophils # (A) 0.14 X 10*3/uL (0.00-0.10); Basophils % (A) 1.2 %; Eosinophils # (A) 0.45 X 10*3/uL (0.04-0.35); HCT 41.7 % (39.6-50.0); HGB 13.3 g/dL (13.0-17.0); Immature Grans, Automated 0.6 %; Lymphocytes # (A) 4.41 X 10*3/uL (0.90-5.00); Lymphocytes % (A) 38.8 %; MCH 29.1 pg (27.0-32.0); MCHC 31.9 g/dL (32.0-37.0); MCV 91.2 fL (80.0-97.0); Mean Platelet Volume 11.3 fL (9.5-12.2); Monocytes # (A) 1.39 X 10*3/uL (0.20-1.00); Monocytes % (A) 12.2 %; NRBC Per 100 WBC 0 /100 WBCS (0.0-0.0); Neutrophils # (A) 4.91 X 10*3/uL (1.80-7.70); Neutrophils % (A) 43.2 %; Platelet Count 219 X 10*3/uL (140-440); RBC 4.57 X 10*6/uL (4.40-5.60); RDW 14.5 % (11.5-14.5); WBC 11.37 X 10*3/uL (4.50-10.00)
[2022-01-27 00:06] LABS: African American GFR (CKD) 71.6 (60.0-200.0); BUN/Creat Ratio 11.42 Ratio (12.00-20.00); Blood Urea Nitrogen 13.7 mg/dL (9.0-27.0); Calcium 9.1 mg/dL (8.7-10.3); Non-African American GFR(CKD) 61.8 (60.0-200.0); Potassium 4.4 mmol/L (3.5-5.5)
== END | disposition home or self-care (01) ==
LOC: LABPAT 15:26
PROVIDERS: ATTEND Urology
DX: Z01.812 Encounter for preprocedural laboratory examination (principal); N20.0 Calculus of kidney
CPT/HCPCS: 36415; 80048; 85025

== ENCOUNTER 2022-02-03 08:04 | Day surgery (SDC) | payer MEDICARE ==
--- NOTE | 2022-02-03 06:41 | P.GSHP ---
History of Present Illness H&P Date: 02/03/22 Chief Complaint: Gross hematuria The patient is a 66-year-old white male who recently experienced gross hematuria associated with right flank pain. Urine cytology showed atypical cells. He has a history kidney stones. A CT scan of the abdomen and pelvis showed a 13 x 17 mm left lower pole renal calculus, along with a 1 cm left renal mid pole calculus. He was offered the options of percutaneous nephrolithotomy (PCNL) versus staged ureteroscopic procedures. He has chosen to undergo the latter. - Constitutional Constitutional: Denies chills, Denies fever - Gastrointestinal Gastrointestinal: Denies nausea, Denies vomiting - Genitourinary (Male) Genitourinary: Reports hematuria, Denies dysuria Past Medical History Past Medical History: Atrial Fibrillation, Cancer, Chest Pain / Angina, COPD, Diabetes Mellitus, GERD/Reflux, Hyperlipidemia, Hypertension, Osteoarthritis (OA), Vascular Disorder Additional Past Medical History / Comment(s): basal cell carcinoma-on nose removed, RENAL CALCULI, KIDNEY INFECTIONS, diet controlled diabetic History of Any Multi-Drug Resistant Organisms: None Reported Past Surgical History: Cardiac Ablation, Coronary Bypass/CABG, Heart Catheterization Additional Past Surgical History / Comment(s): skin cancer removed from nose, quad bypass 2020, cardiac ablation for a-fib, cardioversion,. sigifredo cataracts removed Past Anesthesia/Blood Transfusion Reactions: No Reported Reaction Smoking Status: Former smoker - Past Family History Mother Family Medical History: No Reported History Father History Unknown: Yes Family Medical History: No Reported History Medications and Allergies Home Medications Medication Instructions Recorded Confirmed Type Apixaban [Eliquis] 5 mg PO BID #60 tab 05/16/21 02/02/22 Rx Aspirin 81 mg PO DAILY #30 tab 05/19/21 02/02/22 Rx Metoprolol Tartrate [Lopressor] 50 mg PO BID #60 tab 05/19/21 02/02/22 Rx Rosuvastatin [Crestor] 10 mg PO HS 06/21/21 02/02/22 History Zolpidem [Ambien] 5 mg PO HS PRN 06/21/21 02/02/22 History Acetaminophen/Diphenhydramine 1 tab PO HS PRN 02/02/22 02/02/22 History [Tylenol PM 500-25mg] Diltiazem Cd [Cardizem CD] 180 mg PO DAILY 02/02/22 02/02/22 History Melatonin 5 mg PO HS 02/02/22 02/02/22 History Allergies Allergy/AdvReac Type Severity Reaction Status Date / Time No Known Allergies Allergy Verified 02/02/22 10:28 Surgical - Exam - General well developed, well nourished, no distress - Respiratory normal respiratory effort - Abdomen Abdomen: soft, non tender, no guarding, no rigid, no rebound - Genitourinary normal penis with no external lesions, testicles non-tender - Psychiatric oriented to time, oriented to person, oriented to place, speech is normal, memory intact Results - Imaging Abdominal x-ray: report reviewed, image reviewed CT scan - abdomen: report reviewed, image reviewed Assessment and Plan (1) Calculus of kidney Status: Acute Code(s): N20.0 - CALCULUS OF KIDNEY SNOMED Code(s): 86142725 Plan: Cystoscopy, left ureteroscopy with Holmium laser lithotripsy and possible stone basketing, left ureteral stent insertion. The procedure has been reviewed in detail with the patient. He has been made aware of potential risks, which include anesthesia, bleeding, infection, and ureteral injury. Given the stone burden, he has been scheduled to undergo a secondary procedure on March 02 to remove any residual calculi.
[~2022-02-03 08:04] MED LIST changes: +DEXAMETHASONE SOD PHOSPHATE 4 MG/ML 1 ML VIAL IV ONE; +HYDROmorphone 0.5 MG/0.5 ML SYRINGE IVP PRN; +LIDOCAINE 1% (10MG/ML) FOR IV START INTRADERMA PRN; +ONDANSETRON 4 MG/2 ML VIAL IVP ONE; -SODIUM CHLORIDE 0.9% 1,000 ML IV SCH
--- NOTE | 2022-02-03 08:40 | XR ---
KUB HISTORY: kidney stones, pain Correlation to prior KUB 01/12/2022, CT 12/26/2021 Multiple calcifications are again noted within the pelvis which are vascular. Calcifications are pres ent over the kidneys, largest at the lower pole the left kidney measures approximately 15 mm, partial staghorn, at the midpole calcification measures 12 mm, at the upper pole there are vascular calcific ations. Right-sided vascular calcifications are also present, punctate calcification at the lower lisa e the right kidney not as well seen. IMPRESSION: Bilateral nephrolithiasis.
[2022-02-03 08:45] LABS: Glucose,Whole Blood 119 mg/dL (70-110)
[2022-02-03] MEDS ORDERED: MIDAZOLAM 2 MG/2 ML VIAL ONE (08:50)
[2022-02-03] MEDS ORDERED: fentaNYL (PF) 50 MCG/ML 2 ML AMP ONE (08:50)
[2022-02-03] MEDS ORDERED: SUCCINYLCHOLINE CHLORIDE 100 MG/5 ML SYR IV ONE (08:50)
[2022-02-03] MEDS ORDERED: LIDOCAINE 2% INJ 20 MG/ML (2 ML VIAL) ONE (08:50)
[2022-02-03] MEDS ORDERED: ROCURONIUM 10 MG/ML (5 ML VIAL) IV ONE (08:50)
[2022-02-03] MEDS ORDERED: GLYCOPYRROLATE 0.2 MG/ML 2 ML VIAL ONE (08:50)
[2022-02-03] MEDS ORDERED: PHENYLEPHRINE-0.9% NACL SYG 1,000 MCG/10 ML SYRINGE ONE (08:50)
[2022-02-03] MEDS ORDERED: NEOSTIGMINE 1 MG/ML 10 ML VIAL ONE (08:50)
[2022-02-03] MEDS ORDERED: PROPOFOL 10 MG/ML 20 ML VIAL IV ONE (08:50)
[2022-02-03] MEDS ORDERED: HYDROmorphone (PF) 1 MG/ML ONE (08:50)
[2022-02-03 12:12] VITALS: TEMP 97
--- NOTE | 2022-02-03 12:20 | FL ---
Fluoroscopy HISTORY: Left renal calculi 37 seconds fluoroscopy time supplied to the referring clinician. 3 intraoperative C-arm images docum ent the procedure. See dictated report from urology.
--- NOTE | 2022-02-03 12:28 | P.OP ---
Date of Procedure: 02/03/22 Preoperative Diagnosis: Left renal calculi Postoperative Diagnosis: Same Procedure(s) Performed: Cystoscopy, left ureteroscopy with Holmium laser lithotripsy and stone basketing, left ureteral stent insertion Anesthesia: SELINA Surgeon: Santhosh Oliva Estimated Blood Loss (ml): 10 IV fluids (ml): 900 Pathology: other (Calculus fragments, sent for chemical analysis) Condition: stable Disposition: PACU Indications for Procedure: The patient is a 66-year-old white male who recently experienced gross hematuria associated with right flank pain. Urine cytology showed atypical cells. He has a history kidney stones. A CT scan of the abdomen and pelvis showed a 13 x 17 mm left lower pole renal calculus, along with a 1 cm left renal mid pole calculus. He was offered the options of percutaneous nephrolithotomy (PCNL) versus staged ureteroscopic procedures. He has chosen to undergo the latter. Operative Findings: Left mid pole calculus, fragmented and removed completely. Left lower pole renal calculus, fragmented into half. Description of Procedure: The patient was taken to the operating room and placed in the dorsolithotomy position, with legs supported in Juan stirrups. The external genitalia was prepped and draped sterilely. The 30 lens was used to introduce the 21-Bolivian Lester cystoscopic sheath through the urethra and into the bladder under direct vision. The prostatic urethra showed evidence of mild lateral lobe enlargement. The bladder was examined in its entirety. Both ureteral orifices were normal anatomic location and configuration, and clear urine effluxed from both. No tumors or foreign bodies were seen. A 0.038 inch Glidewire was passed through the cystoscope. The left ureteral orifice was cannulated, and the Glidewire was advanced up to the renal pelvis. The cystoscope was removed, and an 11/13- Bolivian ureteral access catheter was passed over the wire, up to the proximal ureter. The flexible ureteroscope was then passed through the ureteral access catheter sheath, up to the renal pelvis. Each calyx was examined. The 1 cm mid pole calyceal stone was identified. The 272 micron Holmium laser probe was passed through the ureteroscope, and lithotripsy was performed utilizing a combination of dusting and fragmenting. Ultimately, all fragments were removed using a 1.9-Bolivian nitinol basket. Attention was then paid to the lower pole calculus, which was very difficult to access with the ureteroscope. Attempts were made to basket the calculus and relocated into an upper pole calyx, but the calculus was too large to relocate. It was ultimately possible to fragment the calculus into 2 halves, each of which were partially fragmented. It became difficult to access either half due to deflection issues, and the procedure was terminated. The ureteroscope was removed. The Glidewire was passed through the ureteral access catheter sheath, which was removed. The Glidewire was backloaded into the cystoscope, which was passed into the bladder. A 26 cm, 6- Bolivian double-J silicone ureteral stent was placed over the wire. Proper stent positioning was verified fluoroscopically and endoscopically. The bladder was emptied and the cystoscope removed. The patient tolerated the procedure well and was taken to the recovery room in stable condition. [facility] [place]: Procedure Acuity: Elective Stone Size and Location: 1 cm, left mid pole. 13 x 17 mm, left lower pole. Ureteral Dilation: No Ureteral Access Sheath Used: Yes Stone Sent for Analysis: Yes All Stones/Fragments Were Removed with a Basket: No Complications: No Preoperative Antibiotics Given: Yes Stent Placed: Yes If Stent Placed, Was String Left Attached: No If Stent Placed, When is it to be Removed: 1 month Discharge Medications: Tamsulosin
[2022-02-03 14:37] VITALS: BP 115/67; PULSE 57; RESP 17
[2022-02-03] MEDS ORDERED: TAMSULOSIN 0.4 MG CAP.ER.24H PO STA (15:51)
[2022-02-03] MEDS ORDERED: TAMSULOSIN 0.4 MG CAP.ER.24H PO ONE (15:53)
== END 2022-02-03 15:45 | disposition home or self-care (01) ==
LOC: OR 08:04
PROVIDERS: ATTEND Urology
DX: N20.0 Calculus of kidney (principal); N40.0 Benign prostatic hyperplasia without lower urinary tract symptoms; I10 Essential (primary) hypertension; E78.5 Hyperlipidemia, unspecified; I48.91 Unspecified atrial fibrillation; J44.9 Chronic obstructive pulmonary disease, unspecified; K21.9 Gastro-esophageal reflux disease without esophagitis; M19.90 Unspecified osteoarthritis, unspecified site; Z85.828 Personal history of other malignant neoplasm of skin; Z95.1 Presence of aortocoronary bypass graft; Z79.899 Other long term (current) drug therapy; Z87.891 Personal history of nicotine dependence; Z79.01 Long term (current) use of anticoagulants; Z79.82 Long term (current) use of aspirin
CPT/HCPCS: 82365; 74018; 52356; C1769; J2250; J1100; J2710; J0690; J2405; J3010; J1170; J2370; J0330; J2704; J2001

== ENCOUNTER → 2022-02-22 | Outpatient (CLI) | payer MEDICARE ==
--- NOTE | 2022-02-22 15:40 | XR ---
EXAMINATION TYPE: XR KUB DATE OF EXAM: 02/22/2022 COMPARISON: 02/03/2022 HISTORY: Left renal stone and pain TECHNIQUE: One view abdominal series FINDINGS: The osseous structures are intact. The bowel gas pattern is nonspecific. A left-sided ureteral stent is seen. There are vascular calcifications and degenerative change of the spine with diffuse osteope philly. Bilateral hip arthropathy. Right kidney: There are 2-3 punctate calcifications measuring less than 5 mm overlying the mid right renal outline suspicious for calculi. Left kidney: There is a large suspected lower pole left renal calculus measuring 1.2 cm. There are ad ditional calcifications seen centrally overlying the gastric bubble which may lie outside the renal o utline. There is a calcification overlying the proximal double-J ureteral stents measuring 4 mm. IMPRESSION: 1. Suspect right sub-5 mm renal calculi. 2. Left ureteral stent with large calcification overlying the lower pole left kidney. This appears st able. Remaining additional calculi seen overlying the mid lateral left kidney is no longer seen. Punc vizcarra calcification seen centrally are stable. 3. Suspect a tiny 4 mm proximal left ureteral calculus overlying the stent.
== END | disposition home or self-care (01) ==
LOC: RADXRMAIN 14:49
PROVIDERS: ATTEND Urology
DX: N20.0 Calculus of kidney (principal); N28.89 Other specified disorders of kidney and ureter; Z96.0 Presence of urogenital implants
CPT/HCPCS: 74018

== ENCOUNTER → 2022-03-16 | Outpatient (CLI) | payer MEDICARE ==
[2022-03-17 01:52] LABS: HCT 42.7 % (39.6-50.0); HGB 13.8 g/dL (13.0-17.0); MCH 29.7 pg (27.0-32.0); MCHC 32.3 g/dL (32.0-37.0); Mean Platelet Volume 11.1 fL (9.5-12.2); NRBC Per 100 WBC 0 /100 WBCS (0.0-0.0); Platelet Count 268 X 10*3/uL (140-440); RBC 4.64 X 10*6/uL (4.40-5.60); RDW 13.6 % (11.5-14.5); WBC 12.67 X 10*3/uL (4.50-10.00)
[2022-03-17 02:36] LABS: Basophils # (A) 0.17 X 10*3/uL (0.00-0.10); Basophils % (A) 1.3 %; Eosinophils # (A) 0.33 X 10*3/uL (0.04-0.35); Eosinophils % (A) 2.6 %; Immature Grans, Automated 0.4 %; Lymphocytes # (A) 4.35 X 10*3/uL (0.90-5.00); Lymphocytes % (A) 34.3 %; Monocytes % (A) 12.6 %; Neutrophils # (A) 6.17 X 10*3/uL (1.80-7.70); Neutrophils % (A) 48.8 %
[2022-03-17 06:17] LABS: African American GFR (CKD) 79.5 (60.0-200.0); Anion Gap 7.3 mmol/L (10.00-18.00); BUN/Creat Ratio 15.73 Ratio (12.00-20.00); Blood Urea Nitrogen 17.3 mg/dL (9.0-27.0); Calcium 9.5 mg/dL (8.7-10.3); Carbon Dioxide 28.7 mmol/L (20.0-27.5); Non-African American GFR(CKD) 68.6 (60.0-200.0); Potassium 5.2 mmol/L (3.5-5.5)
[2022-03-17 10:13] LABS: Appearance,Urine Cloudy (Clear); Bilirubin,Urine Negative (Negative); Blood,Urine Moderate (Negative); Color,Urine Yellow (Yellow); Ketones,Urine Negative (Negative); Nitrite,Urine Negative (Negative); PH, Urine 5.5 (5.0-8.0); Urobilinogen,Urine 0.2 (0.2,1.0)
[2022-03-17 10:53] LABS: Bacteria,Urine None Seen /HPF (None Seen)
== END | disposition home or self-care (01) ==
LOC: LABPAT 15:22
PROVIDERS: ATTEND Urology
DX: Z01.812 Encounter for preprocedural laboratory examination (principal); N20.0 Calculus of kidney
CPT/HCPCS: 80048; 81001; 85025; 87086

== ENCOUNTER 2022-03-23 08:06 | Day surgery (SDC) | payer MEDICARE ==
--- NOTE | 2022-03-22 06:42 | P.GSHP ---
History of Present Illness H&P Date: 03/22/22 Chief Complaint: Hematuria The patient is a 66-year-old white male who recently experienced gross hematuria associated with right flank pain. Urine cytology showed atypical cells. He has a history kidney stones. A CT scan of the abdomen and pelvis showed a 13 x 17 mm left lower pole renal calculus, along with a 1 cm left renal mid pole calculus. He was offered the options of percutaneous nephrolithotomy (PCNL) versus staged ureteroscopic procedures. He chose to undergo the latter. The mid pole calculus was removed, but the lower pole calculus was difficult to access and was only partially fragmented. He subsequently underwent ESWL, which was unsuccessful. KUB x-ray now reveals a possible left proximal ureteral calculus in addition to the lower pole renal calculus. - Constitutional Constitutional: Denies chills, Denies fever - Gastrointestinal Gastrointestinal: Denies nausea, Denies vomiting - Genitourinary (Male) Genitourinary: Reports hematuria, Reports kidney stones, Denies flank pain Past Medical History Past Medical History: Cancer, Chest Pain / Angina, COPD, GERD/Reflux, Hyperlipidemia, Hypertension, Osteoarthritis (OA), Vascular Disorder Additional Past Medical History / Comment(s): basal cell carcinoma-on nose removed PAST HX: RENAL CALCULI, KIDNEY INFECTIONS History of Any Multi-Drug Resistant Organisms: None Reported Past Surgical History: No Surgical Hx Reported, Coronary Bypass/CABG Additional Past Surgical History / Comment(s): skin cancer removed from nose. sigifredo cataracts Past Anesthesia/Blood Transfusion Reactions: No Reported Reaction Past Psychological History: No Psychological Hx Reported Additional Psychological History / Comment(s): Pt resides alone. He is independent. Smoking Status: Former smoker Past Alcohol Use History: None Reported Additional Past Alcohol Use History / Comment(s): Pt started smoking in 1968 and quit in April 2021 Past Drug Use History: None Reported Additional Drug Use History / Comment(s): cbd gummies - Past Family History Mother Family Medical History: No Reported History Father History Unknown: Yes Family Medical History: No Reported History Medications and Allergies Home Medications Medication Instructions Recorded Confirmed Type Apixaban [Eliquis] 5 mg PO BID #60 tab 05/16/21 02/03/22 Rx Aspirin 81 mg PO DAILY #30 tab 05/19/21 02/03/22 Rx Metoprolol Tartrate [Lopressor] 50 mg PO BID #60 tab 05/19/21 02/03/22 Rx Rosuvastatin [Crestor] 10 mg PO HS 06/21/21 02/03/22 History Zolpidem [Ambien] 5 mg PO HS PRN 06/21/21 02/03/22 History Acetaminophen/Diphenhydramine 1 tab PO HS PRN 02/02/22 02/03/22 History [Tylenol PM 500-25mg] Diltiazem Cd [Cardizem CD] 180 mg PO DAILY 02/02/22 02/03/22 History Melatonin 5 mg PO HS 02/02/22 02/03/22 History Tamsulosin [Flomax] 0.4 mg PO DAILY #30 cap 02/03/22 Rx Allergies Allergy/AdvReac Type Severity Reaction Status Date / Time No Known Allergies Allergy Verified 02/03/22 08:31 Surgical - Exam - General well developed, well nourished, no distress - Respiratory normal respiratory effort - Abdomen Abdomen: soft, non tender, no guarding, no rigid, no rebound - Genitourinary normal penis with no external lesions, testicles non-tender - Psychiatric oriented to time, oriented to person, oriented to place, speech is normal, memory intact Results - Imaging CT scan - abdomen: report reviewed, image reviewed Assessment and Plan (1) Calculus of kidney Status: Acute Code(s): N20.0 - CALCULUS OF KIDNEY SNOMED Code(s): 12955567 Plan: Cystoscopy, left ureteral stent removal, left ureteroscopy with Holmium laser lithotripsy and possible stone basketing. The patient understands potential risks to include anesthesia, bleeding, infection, and ureteral injury. He is also aware of the possibility that the lower pole calculus cannot be removed in its entirety.
[2022-03-22 08:59] VITALS: BMI 32.1
[~2022-03-23 08:06] MED LIST changes: +MIDAZOLAM 2 MG/2 ML VIAL IV PRN
[2022-03-23 09:27] LABS: Glucose,Whole Blood 120 mg/dL (70-110)
[2022-03-23 10:30] LABS: ALT 13 U/L (4-49); AST 21 U/L (17-59)
[2022-03-23] MEDS ORDERED: PHENYLEPHRINE-0.9% NACL SYG 1,000 MCG/10 ML SYRINGE ONE (10:42)
[2022-03-23] MEDS ORDERED: fentaNYL (PF) 50 MCG/ML 2 ML AMP ONE (10:42)
[2022-03-23] MEDS ORDERED: PROPOFOL 10 MG/ML 20 ML VIAL IV ONE (10:42)
[2022-03-23] MEDS ORDERED: NEOSTIGMINE 1 MG/ML 10 ML VIAL ONE (10:42)
[2022-03-23] MEDS ORDERED: ePHEDrine 50 MG/ML 1 ML VIAL ONE (10:42)
[2022-03-23] MEDS ORDERED: GLYCOPYRROLATE 0.2 MG/ML 2 ML VIAL ONE (10:42)
[2022-03-23] MEDS ORDERED: ROCURONIUM 10 MG/ML (5 ML VIAL) IV ONE (10:42)
[2022-03-23] MEDS ORDERED: MIDAZOLAM 2 MG/2 ML VIAL ONE (10:42)
[2022-03-23] MEDS ORDERED: SUCCINYLCHOLINE CHLORIDE 200 MG/10 ML VIAL IV ONE (10:42)
[2022-03-23] MEDS ORDERED: LIDOCAINE 2% INJ 20 MG/ML (2 ML VIAL) ONE (10:42)
[2022-03-23 11:52] VITALS: RESP 16; TEMP 97
--- NOTE | 2022-03-23 12:06 | FL ---
Fluoroscopy HISTORY: Left renal stone 12 seconds fluoroscopy time supplied to the referring clinician. 3 intraoperative C-arm images docum ent the procedure. See dictated report from urology.
--- NOTE | 2022-03-23 12:13 | XR ---
KUB HISTORY: Kidney stones Frontal KUB and 2 images correlated prior exam 02/22/2022 There is no infiltrate change. Left-sided double-J stent is in place. Multiple calcifications over th e left kidney are showing similar appearance, there are calcifications overlying the right kidney whi ch is similar. Atherosclerotic vascular calcifications are noted incidentally. Degenerative disc laws ge noted in the visualized spine. impression: Stable exam.
[2022-03-23 12:47] VITALS: PULSE 57
[2022-03-23 13:00] VITALS: BP 164/67
--- NOTE | 2022-03-23 13:48 | P.OP ---
Date of Procedure: 03/23/22 Preoperative Diagnosis: Left renal calculus Postoperative Diagnosis: Same Procedure(s) Performed: Cystoscopy, left ureteral stent removal, left ureteroscopy. Anesthesia: GILLA Surgeon: Santhosh Oliva Estimated Blood Loss (ml): 0 IV fluids (ml): 400 Pathology: none sent Condition: stable Disposition: PACU Indications for Procedure: The patient is a 66-year-old white male who recently experienced gross hematuria associated with right flank pain. Urine cytology showed atypical cells. He has a history kidney stones. A CT scan of the abdomen and pelvis showed a 13 x 17 mm left lower pole renal calculus, along with a 1 cm left renal mid pole calculus. He was offered the options of percutaneous nephrolithotomy (PCNL) versus staged ureteroscopic procedures. He chose to undergo the latter. The mid pole calculus was removed, but the lower pole calculus was difficult to access and was only partially fragmented. He subsequently underwent ESWL, which was unsuccessful. KUB x-ray now reveals a possible left proximal ureteral calculus in addition to the lower pole renal calculus. Operative Findings: The left lower pole renal calculus could not be accessed. Description of Procedure: The patient was taken to the operating room and placed in the dorsolithotomy position, with legs supported in Juan stirrups. The external genitalia was prepped and draped sterilely. The 30 lens was used to introduce the 21-Rwand[place] Lester cystoscopic sheath through the urethra and into the bladder under direct vision. The prostatic urethra showed evidence of mild lateral lobe enlargement. The bladder was examined in its entirety. No abnormalities were seen. Grasping forceps were used to grasp the distal end of the left ureteral stent, which was removed along with the cystoscope. A 0.038 inch Glidewire was passed through the stent and up to the left renal pelvis, were coiled. The stent was removed, and the Lseter Intaccta flexible ureteroscope was advanced over the wire, up to the left renal pelvis. Each calyx was examined. Minimal debris was seen, too small to warrant basketing or laser treatment. The ureteroscope was advanced into the lower pole calyx where the edge of the calculus was identified. The calyx had a small opening, though it is not certain that this is a calyceal diverticulum. Access to this calyx was inadequate, and it was apparent that the calculus could not be treated with laser or stone basketing. The ureteroscope was slowly withdrawn under direct vision. There is no evidence of ureteral trauma. The patient tolerated the procedure well and was taken to the recovery room in stable condition.
[2022-03-23 19:01] LABS: Chol/HDL Ratio 3.41 Ratio; LDL Cholesterol,Calculated 88.3 mg/dL (0.0-131.0); VLDL Calculation 19.78 mg/dL (5.00-40.00)
== END 2022-03-23 13:28 | disposition home or self-care (01) ==
LOC: OR 08:06
PROVIDERS: ATTEND Urology
DX: N20.0 Calculus of kidney (principal); R07.9 Chest pain, unspecified; J44.9 Chronic obstructive pulmonary disease, unspecified; K21.9 Gastro-esophageal reflux disease without esophagitis; E78.5 Hyperlipidemia, unspecified; I10 Essential (primary) hypertension; M19.90 Unspecified osteoarthritis, unspecified site; I49.9 Cardiac arrhythmia, unspecified; I48.91 Unspecified atrial fibrillation; E11.9 Type 2 diabetes mellitus without complications; I25.10 Atherosclerotic heart disease of native coronary artery without angina pectoris; Z98.41 Cataract extraction status, right eye; Z98.42 Cataract extraction status, left eye; Z85.828 Personal history of other malignant neoplasm of skin; Z95.1 Presence of aortocoronary bypass graft; Z87.891 Personal history of nicotine dependence; Z79.82 Long term (current) use of aspirin; Z79.899 Other long term (current) drug therapy; Z98.52 Vasectomy status
CPT/HCPCS: 52310; 80061; 84450; 84460; 74018; C1758 ×3; C1769; C1894; J2250; J0330; J1100; J2710; J0690; J2405; J3010; J2370; J2704; J2001

== ENCOUNTER → 2023-12-04 | Outpatient (CLI) | payer MEDICARE ==
--- NOTE | 2023-12-05 06:52 | MR ---
EXAMINATION TYPE: MR brain wo/w con DATE OF EXAM: 12/04/2023 COMPARISON: NONE HISTORY: Disorder of skin subcutaneous tissue on nose, hx basal cell carcinoma with removal 2017. TECHNIQUE: Multiplanar, multisequence images of the brain and brainstem is performed without and with IV contras t, utilizing 9 mL intravenous Gadavist . Imaging focuses on the facial region. FINDINGS: Nasal region shows no new suspicious enhancing mass or skin thickening. Bilateral aphakia i s seen. [id number] mucosal thickening involving anterior ethmoid sinuses otherwise Paranasal si nuses are grossly clear. Visualized brain parenchyma shows no suspicious enhancement or enhancing mas ses. Mild ventricular and sulcal prominence is seen. Craniocervical junction is maintained. Abnormal fluid signal in the right mastoid air cells. Midline structures demonstrate normal morphology. IMPRESSION: No new enhancing nasal masses or enhancement to suggest neoplastic recurrence
== END | disposition home or self-care (01) ==
LOC: RADMRIMAIN 06:27
PROVIDERS: ATTEND Otolaryngology
DX: L98.9 Disorder of the skin and subcutaneous tissue, unspecified (principal)
CPT/HCPCS: 70553; A9585

== ENCOUNTER → 2024-06-03 | Outpatient (CLI) | payer MEDICARE ==
[2024-06-03 10:18] LABS: HCT 43.4 % (39.0-53.0); HGB 14.5 gm/dL (13.0-17.5); MCH 30.5 pg (25.0-35.0); MCHC 33.3 g/dL (31.0-37.0); MCV 91.6 fL (80.0-100.0); Mean Platelet Volume 8.3; Platelet Count 216 k/uL (150-450); RBC 4.74 m/uL (4.30-5.90); RDW 13.2 % (11.5-15.5); WBC 10.2 k/uL (3.8-10.6)
[2024-06-03 10:26] LABS: ALT 14 U/L (4-49); AST 20 U/L (17-59); African American GFR (CKD) >90 (>60 ml/min/1.73 sqM); Albumin 3.9 g/dL (3.5-5.0); Albumin/Globulin Ratio 1.3; Alkaline Phosphatase 60 U/L (38-126); Anion Gap 3 mmol/L; Blood Urea Nitrogen 13 mg/dL (9-20); Carbon Dioxide 31 mmol/L (22-30); Chloride 102 mmol/L (98-107); Globulin 2.9 g/dL; Glucose 139 mg/dL (74-99); Non-African American GFR(CKD) 85 (>60 ml/min/1.73 sqM); Potassium 4.6 mmol/L (3.5-5.1); Sodium 136 mmol/L (137-145); Total Bilirubin 0.6 mg/dL (0.2-1.3); Total Protein 6.8 g/dL (6.3-8.2)
--- NOTE | 2024-06-03 11:23 | CT ---
EXAMINATION TYPE: CT angio neck CT DLP: 453 mGycm, Automated exposure control for dose reduction was used. DATE OF EXAM: 06/03/2024 11:00 AM COMPARISON: Carotid ultrasound 04/05/2021, MRI brain 12/04/2023. CLINICAL INDICATION:Male, 68 years old with history of I65.29 carotid stenosis; PHH, carotid stenosis TECHNIQUE: Axially acquired helical CT angiogram of the neck was obtained with contrast utilizing 75 cc of Isovue-370 administered intravenously. Axial images are supplemented with 3D reconstructions wh ich were post-processed at an independent workstation. NASCET criteria used. FINDINGS: CTA NECK: Right Carotid System: The common carotid artery and external carotid artery are patent. Mild retropharyngeal course of the common carotid artery. Approximately 70% stenosis at the origin of the right internal carotid artery secondary to calcified and noncalcified plaque. Moderate stenosis involving the cavernous portion of the internal carotid artery secondary to calcified plaque. Left Carotid System: The common carotid artery and external carotid artery are patent. Mild retropharyngeal course of the common carotid artery. Approximately 40% stenosis at the origin of the internal carotid artery second kieran to calcified and noncalcified plaque. Moderate stenosis involving the cavernous portion of the in ternal carotid artery secondary to calcified plaque. Vertebral arteries are patent without evidence hemodynamically significant stenosis. There is a four-vessel aortic arch. The origins of the great vessels are patent. At least mild stenos is at the origin of the right subclavian artery secondary to calcified plaque. Bilateral aphakia. Thickening soft tissue appearance of the left cheek extending to the nodes measuri ng up to 1.2 cm in thickness. This is similar thickness to prior MR. Median sternotomy wires. Post-CA BG changes. Centrilobular emphysematous changes. Mild multilevel degenerative disc disease. IMPRESSION: 1. Approximately 70% stenosis at the origin the right internal carotid artery secondary to calcified and noncalcified plaque. Moderate stenosis involving the cavernous portion of the internal carotid ar juan carlos secondary to calcified plaque. 2. Approximately 40 % stenosis at the origin the left internal carotid artery secondary to calcified and noncalcified plaque. Moderate stenosis involving the cavernous portion of the internal carotid ar juan carlos secondary to calcified plaque. 3. Left cheek/nose soft tissue thickening which is grossly similar to prior MR related to known basal cell carcinoma surgery. [facility], , 06/03/2024 11:21 AM
[2024-06-03 15:24] LABS: LDL Cholesterol,Calculated 54.8 mg/dL (0.0-131.0)
== END | disposition home or self-care (01) ==
LOC: RADCTMAIN 09:19
PROVIDERS: ATTEND Surgery
DX: I65.23 Occlusion and stenosis of bilateral carotid arteries (principal); Z85.828 Personal history of other malignant neoplasm of skin
CPT/HCPCS: 84153; 80061; 80053; 85027; 83036; 70498; 36415; Q9967

== ENCOUNTER 2024-06-27 19:27 | Inpatient (IN) | payer MEDICARE ==
--- NOTE | 2024-06-27 19:55 | ED ---
Chest Pain HPI - General Chief Complaint: Chest Pain Stated Complaint: High Heart Rate Time Seen by Provider: 06/27/24 19:52 Source: patient Mode of arrival: ambulatory Limitations: no limitations - History of Present Illness Initial Comments: This patient is a 68-year-old man who presents here to have evaluation because he has noted that his heart rate has been elevated since the morning, since shortly after he woke up. The patient has history of previous coronary bypass surgery. He states that after that he also developed atrial fibrillation and he has had episodes of congestive heart failure. He had not been noticing any chest pain or dyspnea. He currently continues to deny chest pain. No associated symptoms no diaphoresis, nausea, vomiting. MD Complaint: other (Palpitations) Onset/Timin -: hour(s) Onset: during rest Pain Radiation: none Severity scale (1-10): 0 Consistency: constant Improves With: nothing Worsens With: nothing Other Symptoms: palpitations Treatments Prior to Arrival: none - Related Data Home Medications Medication Instructions Recorded Confirmed Rosuvastatin [Crestor] 10 mg PO HS 06/21/21 06/27/24 Ezetimibe [Zetia] 10 mg PO DAILY 06/27/24 06/27/24 metFORMIN HCL ER [Glucophage XR] 500 mg PO DAILY 06/27/24 06/27/24 Previous Rx's Medication Instructions Recorded Apixaban [Eliquis] 5 mg PO BID #60 tab 05/16/21 Aspirin 81 mg PO DAILY #30 tab 05/19/21 Metoprolol Tartrate [Lopressor] 50 mg PO BID #60 tab 05/19/21 Diltiazem Oral [Cardizem*] 30 mg PO BID #60 tab 06/29/24 Doxycycline [Vibramycin] 100 mg PO BID #10 capsule 06/29/24 Metoprolol Tartrate [Lopressor] 100 mg PO BID #60 tablet 06/29/24 Allergies Allergy/AdvReac Type Severity Reaction Status Date / Time No Known Allergies Allergy Verified 06/27/24 20:08 Review of Systems ROS Statement: Those systems with pertinent positive or pertinent negative responses have been documented in the HPI. ROS Other: All systems not noted in ROS Statement are negative. Constitutional: Denies: fever, chills Respiratory: Denies: cough, dyspnea Cardiovascular: Reports: palpitations. Denies: chest pain, orthopnea, edema, syncope Gastrointestinal: Denies: abdominal pain, nausea, vomiting, diarrhea Genitourinary: Denies: dysuria, hematuria Musculoskeletal: Denies: back pain Skin: Denies: rash Neurological: Denies: headache, weakness EKG Findings - EKG Results: EKG shows: tachycardia, atrial fibrillation (Rhythm appears to be atrial flutter with a rate of 116 bpm) - Blocks, [place], Hypertrophy, ST Abn: AV and intraventricular conduction: right bundle branch block (fixed/intermittent, complete/incomplete) (Incomplete right bundle branch block pattern) Repolarization changes or abnormalities: nonspecific abnormality, ST segment, and/or T wave Past Medical History Past Medical History: Atrial Fibrillation, Cancer, Chest Pain / Angina, COPD, GERD/Reflux, Hyperlipidemia, Hypertension, Osteoarthritis (OA), Vascular Diso rder Additional Past Medical History / Comment(s): basal cell carcinoma-on nose removed PAST HX: RENAL CALCULI, KIDNEY INFECTIONS History of Any Multi-Drug Resistant Organisms: None Reported Past Surgical History: No Surgical Hx Reported, Coronary Bypass/CABG Additional Past Surgical History / Comment(s): skin cancer removed from nose. sigifredo cataracts Past Anesthesia/Blood Transfusion Reactions: No Reported Reaction Past Psychological History: No Psychological Hx Reported Smoking Status: Former smoker Past Alcohol Use History: None Reported Past Drug Use History: None Reported - Past Family History Mother Family Medical History: No Reported History Father History Unknown: Yes Family Medical History: No Reported History General Exam Limitations: no limitations General appearance: alert, in no apparent distress Head exam: Present: atraumatic, normocephalic Eye exam: Present: normal appearance. Absent: scleral icterus, conjunctival in jection ENT exam: Present: normal oropharynx Neck exam: Present: normal inspection Respiratory exam: Present: normal lung sounds bilaterally. Absent: respiratory distress, wheezes, rales, rhonchi, stridor Cardiovascular Exam: Present: tachycardia. Absent: systolic murmur, diastolic murmur, rubs, gallop GI/Abdominal exam: Present: soft. Absent: distended, tenderness, guarding, rebound, rigid, mass Extremities exam: Present: normal inspection, normal capillary refill. Absent: pedal edema, calf tenderness Back exam: Present: normal inspection. Absent: CVA tenderness (R), CVA tenderness (L) Neurological exam: Present: alert Skin exam: Present: warm, dry, intact, normal color. Absent: rash Course Vital Signs 06/27/24 06/27/24 06/27/24 19:33 19:58 20:24 Temperature 98.3 F Pulse Rate 116 H 115 H Pulse Rate [ 115 H Machine Records Units Supervisor ] Respiratory 20 18 Rate Blood Pressure 120/64 133/70 O2 Sat by Pulse 96 97 Oximetry 06/27/24 06/27/24 21:00 22:00 Temperature Pulse Rate 101 H 99 Pulse Rate [ Machine Records Units Supervisor ] Respiratory 18 18 Rate Blood Pressure 103/61 126/89 O2 Sat by Pulse 96 96 Oximetry Chest Pain MDM - MDM The patient had chest x-ray that I interpreted as negative for acute infiltrate, no pneumothorax. There is mild vascular congestion. Was pt. sent in by a medical professional or institution (, PA, WIRE THREADER, urgent care, hospital, or skilled nursing...) When possible be specific @ -[No] Did you speak to anyone other than the patient for history (EMS, parent, family, police, friend...)? What history was obtained from this source @ -[No] Did you review nursing and triage notes (agree or disagree)? Why? @ -[I reviewed and agree with nursing and triage notes] Were old charts reviewed (outside hosp., previous admission, EMS record, old EKG, old radiological studies, urgent care reports/EKG's, skilled nursing records)? Report findings @ -[No old charts were reviewed] Differential Diagnosis (chest pain, altered mental status, abdominal pain women, abdominal pain men, vaginal bleeding, weakness, fever, dyspnea, syncope, headache, dizziness, GI bleed, back pain, seizure, CVA, palpatations, mental health, musculoskeletal)? @ -[Differential Chest Pain: Stable Angina, Unstable Angina, STEMI, NSTEMI Aortic Dissection, Pneumothorax, Musculoskeletal, Esophageal Spasm GERD, Cholecystitis, Pancreatitis, Zoster, this is not meant to be an all-inclusive list. EKG interpreted by me (3pts min.). @ -[I interpreted as above X-rays interpreted by me (1pt min.). @ -[I interpreted as above CT interpreted by me (1pt min.). @ -[None done] U/S interpreted by me (1pt. min.). @ -[None done] What testing was considered but not performed or refused? (CT, X-rays, U/S, labs)? Why? @ -[None] What meds were considered but not given or refused? Why? @ -[None] Did you discuss the management of the patient with other professionals (professionals i.e. , PA, WIRE THREADER, lab, RT, psych nurse, social media analyst, cable respooler, teacher, disability hearing officer, family independence case manager)? Give summary @ -[No] Was smoking cessation discussed for >3mins.? @ -[No] Was critical care preformed (if so, how long)? @ -[No] Were there social determinants of health that impacted care today? How? (Homelessness, low income, unemployed, alcoholism, drug addiction, transportation, low edu. Level, literacy, decrease access to med. care, shelter, rehab)? @ -[No] Was there de-escalation of care discussed even if they declined (Discuss DNR or withdrawal of care, Hospice)? DNR status @ -[No] What co-morbidities impacted this encounter? (DM, HTN, Smoking, COPD, CAD, Cancer, CVA, ARF, Chemo, Hep., AIDS, mental health diagnosis, sleep apnea, morbid obesity)? @ -[None] Was patient admitted / discharged? Hospital course, mention meds given and route, prescriptions, significant lab abnormalities, going to OR and other pertinent info. @ -[This patient is 68-year-old man presenting with chest pain. His initial workup is unremarkable but given risk factors will admit to have serial cardiac enzymes, telemetry monitoring, cardiology consultation. Undiagnosed new problem with uncertain prognosis? @ -[No] Drug Therapy requiring intensive monitoring for toxicity (Heparin, Nitro, Insulin, Cardizem)? @ -[No] Were any procedures done? @ -[No] Diagnosis/symptom? @ -[Acute chest pain Acute, or Chronic, or Acute on Chronic? @ -[Acute Uncomplicated (without systemic symptoms) or Complicated (systemic symptoms)? @ -[Uncomplicated Side effects of treatment? @ -[No] Exacerbation, Progression, or Severe Exacerbation? @ -[No] Poses a threat to life or bodily function? How? (Chest pain, [place], [place], pneumonia, PE, COPD, DKA, ARF, appy, cholecystitis, CVA, Diverticulitis, Homicidal, Suicidal, threat to staff... and all critical care pts) @ -[There is further cardiology evaluation Disposition Clinical Impression: Atrial flutter with rapid ventricular response Disposition: ADMITTED IP TO THIS HOSP Is patient prescribed a controlled substance at d/c from ED?: No
[2024-06-27] MEDS: ASPIRIN 81 MG PO STA (20:10)
[2024-06-27] MEDS: SODIUM CHLORIDE 0.9% 500 ML 500 ML IV STA (20:11)
[2024-06-27 20:16] LABS: Basophils # (A) 0.1 k/uL (0-0.2); Basophils % (A) 1 %; Eosinophils # (A) 0.5 k/uL (0-0.7); Eosinophils % (A) 4 %; HCT 44.5 % (39.0-53.0); HGB 14.8 gm/dL (13.0-17.5); Lymphocytes # (A) 3.8 k/uL (1.0-4.8); Lymphocytes % (A) 29 %; MCH 29.9 pg (25.0-35.0); MCHC 33.2 g/dL (31.0-37.0); MCV 89.9 fL (80.0-100.0); Mean Platelet Volume 8.4; Monocytes % (A) 8 %; Neutrophils # (A) 7.3 k/uL (1.3-7.7); Neutrophils % (A) 56 %; Platelet Count 234 k/uL (150-450); RBC 4.95 m/uL (4.30-5.90); RDW 13.7 % (11.5-15.5); WBC 13.1 k/uL (3.8-10.6)
[2024-06-27] MEDS: DILTIAZEM DRIP BOLUS FROM BAG 1 MG SOLN IV ONE (20:25)
[2024-06-27] MEDS: DILTIAZEM 125 MG in SODIUM CHLORIDE 0.9% 100 ML IV SCH (20:25)
[2024-06-27 20:28] LABS: ALT 14 U/L (4-49); AST 19 U/L (17-59); African American GFR (CKD) >90 (>60 ml/min/1.73 sqM); Alkaline Phosphatase 72 U/L (38-126); Anion Gap 10 mmol/L; Blood Urea Nitrogen 14 mg/dL (9-20); Carbon Dioxide 24 mmol/L (22-30); Chloride 103 mmol/L (98-107); Glucose 196 mg/dL (74-99); Non-African American GFR(CKD) 88 (>60 ml/min/1.73 sqM); Potassium 4.1 mmol/L (3.5-5.1); Sodium 137 mmol/L (137-145); Total Bilirubin 0.4 mg/dL (0.2-1.3); Total Protein 6.8 g/dL (6.3-8.2)
[2024-06-27 20:33] LABS: INR 0.9 (<1.2); Partial Thromboplastin Time 24.5 sec (22.0-30.0); Prothrombin Time 9.8 sec (10.0-12.5)
--- NOTE | 2024-06-27 20:33 | XR ---
EXAMINATION TYPE: XR chest 1V portable DATE OF EXAM: 06/27/2024 8:24 PM COMPARISON: Chest radiographs from 08/15/2021 CLINICAL INDICATION: Male, 68 years old with history of chest pain; TECHNIQUE: XR chest 1V portable Frontal view of the chest. FINDINGS: Lungs/Pleura: There is no evidence of pleural effusion, focal consolidation, or pneumothorax. Pulmonary vascularity: Pulmonary vascular congestion. Heart/mediastinum: Cardiomediastinal silhouette is enlarged. Left atrial appendage occlusion device i s present. Musculoskeletal: No acute osseous pathology. Midline sternotomy wires are noted. Other findings: None IMPRESSION: Cardiomegaly and mild pulmonary vascular congestion. Correlate with BNP for congestive heart failure. [facility], , 06/27/2024 8:31 PM
[2024-06-27 20:35] LABS: NT-Pro-B-Type Natriuretic Pept 1780 pg/mL
[2024-06-27] MEDS ORDERED: NITROGLYCERIN SL TABS 0.4 MG TAB SUBLINGUAL PRN (21:22)
[2024-06-28 05:50] LABS: Glucose,Whole Blood 130 mg/dL (70-110)
--- NOTE | 2024-06-28 08:46 | P.CRDCN ---
History of Present Illness Consult date: 06/28/24 Reason for Consult (text): Atrial Tachycardia History of present illness: This is Alexis Del Rio NP, I'm dictating on behalf of Dr. Munroe's H&P and A&P The patient was interviewed and examined. HPI: Patient is a pleasant 68-year-old male with a past medical history that includes atrial fibrillation, basal cell carcinoma, angina, COPD, GERD, hyperlipidemia, hypertension, osteoarthritis, and kidney infections who presents to the hospital with complaints of an elevated heart rate. Patient reports yesterday morning his heart rate had been elevated shortly after he woke up. He reports that after coronary artery bypass surgery he developed atrial fibrillation and has had on and off episodes, including episodes of congestive heart failure. He denies chest pain or any shortness of breath. Patient was found in the emergency department to have a atrial tachycardia with a heart rate 116. This morning the patient reports that he is feeling okay. He is unable to feel his elevated heart rate, but continues to run between 110 and 117. Patient is not on anticoagulation secondary to a left atrial clip. ROS: [No fever, chills, or rigors] [no cough, phlegm, or expectoration] [no nausea, vomiting, or diarrhea] [no hematuria, dysuria] [no musculoskelatal complaints] [no strokes or seizures] [no skin lesions] EXAMINATION: GENERAL: Well-appearing, well-nourished and in no acute distress. NECK: Supple without JVD or thyromegaly. LUNGS: Breath sounds clear to auscultation bilaterally. Respiration equal and unlabored. No wheezes, rales or rhonchi. HEART: Elevated rate and regular rhythm without murmurs, rubs or gallops. S1 and S2 heard. EXTREMITIES: Normal range of motion, no edema. No clubbing or cyanosis. Per ipheral pulses intact and strong. REVIEW OF LABS, ECG & MEDICAL DATA: LABS: White count 13.1, hemoglobin 14.8, platelets 234, sodium 137, potassium 4.1, BUN 14, creatinine 0.86, calcium 9, magnesium 2, troponin-less than 0.012 x 3, BNP 1780 EKG: Atrial tachycardia, heart rate 116 IMAGING: Chest x-ray dated 06/27/2024 demonstrates cardiomegaly and mild pulmonary vascular congestion, correlate with BNP for congestive heart failure. VITALS: Temp 98.4, heart rate 117, respirations 16, blood pressure 116/63, O2 saturation 94% on room air IMPRESSION: 1. Atrial tachycardia 2. History CABG 3. History A-fib 4. History congestive heart failure PLAN: Stop lisinopril. Increase metoprolol to 150 mg twice daily. TSH. Patient will likely need EP study to map the origin of the atrial tachycardia. Goal right now will be to control heart rate. Further recommendations based on patient's clinical course. Thank you for the consult and allowing us to participate in the care of this patient. Past Medical History Past Medical History: Atrial Fibrillation, Cancer, Chest Pain / Angina, COPD, GERD/Reflux, Hyperlipidemia, Hypertension, Osteoarthritis (OA), Vascular Disorder Additional Past Medical History / Comment(s): basal cell carcinoma-on nose removed PAST HX: RENAL CALCULI, KIDNEY INFECTIONS History of Any Multi-Drug Resistant Organisms: None Reported Past Surgical History: No Surgical Hx Reported, Coronary Bypass/CABG Additional Past Surgical History / Comment(s): skin cancer removed from nose. sigifredo cataracts Past Anesthesia/Blood Transfusion Reactions: No Reported Reaction Past Psychological History: No Psychological Hx Reported Additional Psychological History / Comment(s): Pt resides alone. He is independent. Smoking Status: Former smoker Past Alcohol Use History: None Reported Additional Past Alcohol Use History / Comment(s): Pt started smoking in 1968 and quit in April 2021 Past Drug Use History: None Reported Additional Drug Use History / Comment(s): cbd gummies - Past Family History Mother Family Medical History: No Reported History Father History Unknown: Yes Family Medical History: No Reported History Medications and Allergies Home Medications Medication Instructions Recorded Confirmed Type Apixaban [Eliquis] 5 mg PO BID #60 tab 05/16/21 06/27/24 Rx Aspirin 81 mg PO DAILY #30 tab 05/19/21 06/27/24 Rx Metoprolol Tartrate [Lopressor] 50 mg PO BID #60 tab 05/19/21 06/27/24 Rx Rosuvastatin [Crestor] 10 mg PO HS 06/21/21 06/27/24 History Diltiazem Cd [Cardizem CD] 180 mg PO DAILY 02/02/22 06/27/24 History Ezetimibe [Zetia] 10 mg PO DAILY 06/27/24 06/27/24 History lisinopriL [Zestril] 2.5 mg PO HS 06/27/24 06/27/24 History metFORMIN HCL ER [Glucophage XR] 500 mg PO DAILY 06/27/24 06/27/24 History Allergies Allergy/AdvReac Type Severity Reaction Status Date / Time No Known Allergies Allergy Verified 06/27/24 20:08 Physical Exam Vitals: Vital Signs Temp Pulse Pulse Pulse Resp BP BP 06/28/24 07:00 98.4 F 117 H 16 116/63 06/28/24 01:44 98.4 F 114 H 18 113/63 06/28/24 01:07 115 H 114 H 18 06/27/24 23:58 115 H 114 H 18 06/27/24 23:32 97.9 F 114 H 18 138/76 06/27/24 23:29 97 F L 115 H 18 138/76 06/27/24 23:13 98.3 F 92 18 116/60 06/27/24 22:00 99 18 126/89 06/27/24 21:00 101 H 18 103/61 06/27/24 20:24 115 H 18 133/70 06/27/24 19:58 115 H 06/27/24 19:33 98.3 F 116 H 20 120/64 Pulse Ox 06/28/24 07:00 94 L 06/28/24 01:44 98 06/28/24 01:07 06/27/24 23:58 06/27/24 23:32 97 06/27/24 23:29 97 06/27/24 23:13 96 06/27/24 22:00 96 06/27/24 21:00 96 06/27/24 20:24 97 06/27/24 19:58 06/27/24 19:33 96 Intake and Output 06/27/24 06/28/24 06/28/24 22:59 06:59 14:59 Other: # Voids 2 Weight 107.048 kg 107.048 kg Results 06/27/24 20:07 06/27/24 20:07 Cardiac Enzymes 06/27/24 06/27/24 06/28/24 Range/Units 20:07 20:07 00:01 AST 19 (17-59) U/L Troponin I <0.012 <0.012 (0.000-0.034) ng/mL 06/28/24 Range/Units 04:20 AST (17-59) U/L Troponin I <0.012 (0.000-0.034) ng/mL Coagulation 06/27/24 Range/Units 20:07 PT 9.8 L (10.0-12.5) sec APTT 24.5 (22.0-30.0) sec CBC 06/27/24 Range/Units 20:07 WBC 13.1 H (3.8-10.6) k/uL RBC 4.95 (4.30-5.90) m/uL Hgb 14.8 (13.0-17.5) gm/dL Hct 44.5 (39.0-53.0) % Plt Count 234 (150-450) k/uL Comprehensive Metabolic Panel 06/27/24 Range/Units 20:07 Sodium 137 (137-145) mmol/L Potassium 4.1 (3.5-5.1) mmol/L Chloride 103 (98-107) mmol/L Carbon Dioxide 24 (22-30) mmol/L BUN 14 (9-20) mg/dL Creatinine 0.86 (0.66-1.25) mg/dL Glucose 196 H (74-99) mg/dL Calcium 9.0 (8.4-10.2) mg/dL AST 19 (17-59) U/L ALT 14 (4-49) U/L Alkaline Phosphatase 72 (38-126) U/L Total Protein 6.8 (6.3-8.2) g/dL Albumin 4.0 (3.5-5.0) g/dL Current Medications Generic Name Dose Route Start Last Admin Trade Name Freq PRN Reason Stop Dose Admin Apixaban 5 mg 06/28/24 09:00 Apixaban 5 Mg Tab PO BID [facility] Protocol Aspirin 81 mg 06/28/24 09:00 Aspirin 81 Mg PO DAILY [facility] Atorvastatin Calcium 20 mg 06/28/24 21:00 Atorvastatin 20 Mg Tab PO HS [facility] Ezetimibe 10 mg 06/28/24 09:00 Ezetimibe 10 Mg Tab PO DAILY [facility] Diltiazem HCl 125 mg/ Sodium 125 mls @ 5 mls/hr 06/27/24 20:15 06/27/24 20:25 Chloride IV 5 mg/hr .Q24H MARISA 5 mls/hr Administration 5 MG/HR Metformin HCl 250 mg 06/28/24 07:30 Metformin 500 Mg Tab PO BID-W/MEALS MARISA Metoprolol Tartrate 150 mg 06/28/24 09:00 Metoprolol Tartrate 50 Mg Tab PO BID MARISA Nitroglycerin 0.4 mg 06/27/24 21:22 Nitroglycerin Sl Tabs 0.4 Mg Tab SUBLINGUAL Q5M PRN Chest Pain Sodium Chloride 10 ml 06/28/24 09:00 Sodium Chloride 0.9% Flush 10 Ml Syringe IV BID MARISA Intake and Output 06/27/24 06/28/24 06/28/24 22:59 06:59 14:59 Other: # Voids 2 Weight 107.048 kg 107.048 kg 06/27/24 20:07 06/27/24 20:07
[2024-06-28] MEDS ORDERED: ASPIRIN 325 MG TAB PO SCH (09:00)
[2024-06-28] MEDS ORDERED: METOPROLOL TARTRATE 50 MG TAB PO SCH (09:00)
[2024-06-28] MEDS: EZETIMIBE 10 MG TAB PO SCH (09:18)
[2024-06-28] MEDS: ASPIRIN 81 MG PO SCH (09:18)
[2024-06-28] MEDS: metFORMIN 500 MG TAB PO SCH (09:18)
[2024-06-28] MEDS: APIXABAN 5 MG TAB PO SCH (09:19)
[2024-06-28] MEDS: METOPROLOL TARTRATE 50 MG TAB PO SCH (09:19)
[2024-06-28 09:42] LABS: LDL Cholesterol,Calculated 43.2 mg/dL (0.0-131.0)
[2024-06-28 11:48] LABS: Glucose,Whole Blood 216 mg/dL (70-110)
--- NOTE | 2024-06-28 17:16 | P.HPIM ---
History of Present Illness H&P Date: 06/28/24 Chief Complaint: Increased heart rate This is a 68-year-old patient, follows with Dr. Miramontes. Chronic stable medical conditions include diabetes, osteoarthritis, hyperlipidemia, renal calculi, GERD, COPD, CAD. 2020 -coronary bypass. paroxysmal atrial fibrillation. - card ioverted. Patient was routine checked his heart rate yesterday morning. For the heart rate would be high. Decided to come in. No chest pain palpitation dizziness. In the ER discovered to be in atrial flutter tachycardia. Put on IV Cardizem drip. Which she is on this morning. Review of systems: GEN.: None EYES: None HEENT: None NECK: None RESPIRATORY: None CARDIOVASCULAR: As above GASTROINTESTINAL: None GENITOURINARY: None MUSCULOSKELETAL: None LYMPHATICS: None HEMATOLOGICAL: None PSYCHIATRY: None NEUROLOGICAL: None Past medical history to include: hyperlipidemia, CAD with bypass, renal calculi, COPD, GERD, paroxysmal atrial fibrillation Social history: Smoked half a pack a day for close to 53 years. Stopped-April 2021 Alcohol occasionally. [employer]. Retired from [employer] and [employer]. Lives alone Physical examination: VITAL SIGNS: 98.3, 116, 20, 120 x 64, 96% room air upon presentation GENERAL: Sitting up in a chair comfortable]. EYES: Pupils equal. Conjunctiva normal. HEENT: External appearance of nose and ears normal, oral cavity grossly normal. NECK: JVD not raised; masses not palpable. HEART: Heart sounds irregular l; no edema. LUNGS: Respiratory rate normal; decreased breath sound. ABDOMEN: Soft, nontender, liver spleen not palpable, no masses palpable. PSYCH: Alert and oriented x3; mood and affect normal. MUSCULOSKELETAL:No Clubbing/cyanosis;muscles-grossly intact NEUROLOGICAL: Cranial nerves grossly intact; no facial asymmetry, power and sensation grossly intact. LYMPHATICS: No lymph nodes palpable in the axilla and neck INVESTIGATIONS, reviewed in the clinical context: June 27: White count 13.1 hemoglobin 14.8 platelets 234 sodium 137 potassium 4.1 creatinine 0.86 Troponin I less than 0.012 x 3 LDL 43.2 TSH 0.723 EKG tracing personally reviewed by me-atrial flutter/tachycardia Assessment and plan: -Atrial tachycardia/atrial flutter rate uncontrolled Started on IV Cardizem drip in the ER -Diabetes mellitus type 2 on oral hypoglycemic Glucophage. Follow Accu-Cheks sliding scale -Essential hypertension Zestril. Lopressor. Cardizem -Paroxysmal atrial fibrillation currently sinus rhythm -CAD with coronary bypass in April 2021 Aspirin, Lipitor, Lopressor -Primary osteoarthritis Pain medications as needed -Hyperlipidemia Zetia, Crestor -COPD in a previous smoker Albuterol as needed -Chronic leukocytosis felt to be as from smoking worked up by hematology as an outpatient. -Obesity BMI 33.9 Weight loss measures Patient was put on IV Cardizem drip in the ER. Cardiology consulted. Discussed with patient. Given the complexity and severity of patient's condition expect the patient to be in the hospital at least for 2 overnights Past Medical History Past Medical History: Atrial Fibrillation, Cancer, Chest Pain / Angina, COPD, GERD/Reflux, Hyperlipidemia, Hypertension, Osteoarthritis (OA), Vascular Disorder Additional Past Medical History / Comment(s): basal cell carcinoma-on nose removed PAST HX: RENAL CALCULI, KIDNEY INFECTIONS History of Any Multi-Drug Resistant Organisms: None Reported Past Surgical History: No Surgical Hx Reported, Coronary Bypass/CABG Additional Past Surgical History / Comment(s): skin cancer removed from nose. b [place] cataracts Past Anesthesia/Blood Transfusion Reactions: No Reported Reaction Past Psychological History: No Psychological Hx Reported Additional Psychological History / Comment(s): Pt resides alone. He is independent. Smoking Status: Former smoker Past Alcohol Use History: None Reported Additional Past Alcohol Use History / Comment(s): Pt started smoking in 1968 and quit in April 2021 Past Drug Use History: None Reported Additional Drug Use History / Comment(s): cbd gummies - Past Family History Mother Family Medical History: No Reported History Father History Unknown: Yes Family Medical History: No Reported History Medications and Allergies Home Medications Medication Instructions Recorded Confirmed Type Apixaban [Eliquis] 5 mg PO BID #60 tab 05/16/21 06/27/24 Rx Aspirin 81 mg PO DAILY #30 tab 05/19/21 06/27/24 Rx Metoprolol Tartrate [Lopressor] 50 mg PO BID #60 tab 05/19/21 06/27/24 Rx Rosuvastatin [Crestor] 10 mg PO HS 06/21/21 06/27/24 History Diltiazem Cd [Cardizem CD] 180 mg PO DAILY 02/02/22 06/27/24 History Ezetimibe [Zetia] 10 mg PO DAILY 06/27/24 06/27/24 History lisinopriL [Zestril] 2.5 mg PO HS 06/27/24 06/27/24 History metFORMIN HCL ER [Glucophage XR] 500 mg PO DAILY 06/27/24 06/27/24 History Allergies Allergy/AdvReac Type Severity Reaction Status Date / Time No Known Allergies Allergy Verified 06/27/24 20:08 Physical Exam Vitals: Vital Signs Temp Pulse Pulse Pulse Resp BP BP 06/28/24 11:29 73 06/28/24 07:00 98.4 F 117 H 16 116/63 06/28/24 01:44 98.4 F 114 H 18 113/63 06/28/24 01:07 115 H 114 H 18 06/27/24 23:58 115 H 114 H 18 06/27/24 23:32 97.9 F 114 H 18 138/76 06/27/24 23:29 97 F L 115 H 18 138/76 06/27/24 23:13 98.3 F 92 18 116/60 06/27/24 22:00 99 18 126/89 06/27/24 21:00 101 H 18 103/61 06/27/24 20:24 115 H 18 133/70 06/27/24 19:58 115 H 06/27/24 19:33 98.3 F 116 H 20 120/64 Pulse Ox 06/28/24 11:29 06/28/24 07:00 94 L 06/28/24 01:44 98 06/28/24 01:07 06/27/24 23:58 06/27/24 23:32 97 06/27/24 23:29 97 06/27/24 23:13 96 06/27/24 22:00 96 06/27/24 21:00 96 06/27/24 20:24 97 06/27/24 19:58 06/27/24 19:33 96 Intake and Output 06/27/24 06/28/24 06/28/24 22:59 06:59 14:59 Other: # Voids 2 Weight 107.048 kg 107.048 kg Results CBC & Chem 7: 06/27/24 20:07 06/27/24 20:07 Labs: Abnormal Lab Results - Last 24 Hours (Table) 06/27/24 06/27/24 06/27/24 Range/Units 20:07 20:07 20:07 WBC 13.1 H (3.8-10.6) k/uL PT 9.8 L (10.0-12.5) sec Glucose 196 H (74-99) mg/dL POC Glucose (mg/dL) (70-110) mg/dL HDL Cholesterol (40.00-60.00) mg/dL 06/28/24 06/28/24 Range/Units 04:20 05:48 WBC (3.8-10.6) k/uL PT (10.0-12.5) sec Glucose (74-99) mg/dL POC Glucose (mg/dL) 130 H (70-110) mg/dL HDL Cholesterol 34.80 L (40.00-60.00) mg/dL Thrombosis Risk Factor Assmnt - Choose All That Apply Any of the Below Risk Factors Present?: Yes Each Factor Represents 1 point: Obesity (BMI >25) Other Risk Factors: Yes Each Risk Factor Represents 2 Points: Age 61-74 years Other congenital or acquired thrombophilia - If yes, enter type in comment: No Thrombosis Risk Factor Assessment Total Risk Factor Score: 3 Thrombosis Risk Factor Assessment Level: Moderate Risk
[2024-06-28 17:24] LABS: Glucose,Whole Blood 123 mg/dL (70-110)
[2024-06-28] MEDS: ATORVASTATIN 20 MG TAB PO SCH (19:52)
[2024-06-28 20:40] LABS: Glucose,Whole Blood 132 mg/dL (70-110)
[2024-06-29 06:03] LABS: Glucose,Whole Blood 127 mg/dL (70-110)
--- NOTE | 2024-06-29 09:21 | P.PN ---
Subjective Progress Note Date: 06/29/24 This is Alexis Del Rio NP, I'm dictating on behalf of Dr. Munroe's H&P and A&P. Patient was interviewed and examined. Patient is a pleasant 68-year-old male who presented to the hospital with atrial tachycardia. Patient is doing well. He is asymptomatic at this time, and denies chest pain, heart palpitations, dizziness, lightheadedness, and shortness of breath. Patient's heart rates have been mildly controlled with increase in metoprolol, however due to the atrial tachycardia this will be very difficult to control with medications. Patient will need a atrial tachycardia ablation in t he near future. GENERAL: Well-appearing, well-nourished and in no acute distress. NECK: Supple without JVD or thyromegaly. LUNGS: Breath sounds clear to auscultation bilaterally. Respiration equal and unlabored. No wheezes, rales or rhonchi. HEART: Regular rate and rhythm without murmurs, rubs or gallops. S1 and S2 heard. EXTREMITIES: Normal range of motion, no edema. No clubbing or cyanosis. Peripheral pulses intact and strong. VITALS: Temp 98.5, pulse 118, respirations 15, blood pressure 122/66, O2 saturation 95% on room air TELEMETRY: Atrial tachycardia LABS: No new labs since 06/27/2024 IMPRESSION: 1. Atrial tachycardia 2. History CABG 3. History A-fib 4. History congestive heart failure PLAN: Continue metoprolol 150 mg twice daily. Start Cardizem 30 mg twice daily. Patient can be discharged from a cardiology standpoint. Patient will be scheduled for a atrial tachycardia ablation in early July. Patient should not undergo any cardioversion, as we will need him to be in the atrial tachycardia in order to map it. Objective - Vital Signs Vital signs: Vital Signs Temp 98.5 F 06/29/24 07:00 Pulse 118 H 06/29/24 07:00 Resp 15 06/29/24 07:00 BP 122/66 06/29/24 07:00 Pulse Ox 95 06/29/24 07:00 FiO2 Intake & Output 06/28/24 06/29/24 06/29/24 18:59 06:59 18:59 Intake Total 236 Balance 236 Intake: Oral 236 Other: # Voids 4 0 - Labs CBC & Chem 7: 06/27/24 20:07 06/27/24 20:07 Labs: Abnormal Lab Results - Last 24 Hours (Table) 06/28/24 06/28/24 06/28/24 Range/Units 04:20 11:46 17:23 POC Glucose (mg/dL) 216 H 123 H (70-110) mg/dL HDL Cholesterol 34.80 L (40.00-60.00) mg/dL 06/28/24 06/29/24 Range/Units 20:39 06:02 POC Glucose (mg/dL) 132 H 127 H (70-110) mg/dL HDL Cholesterol (40.00-60.00) mg/dL
[2024-06-29] MEDS: DILTIAZEM ORAL 30 MG TAB PO SCH (10:33)
[2024-06-29 12:00] LABS: Glucose,Whole Blood 146 mg/dL (70-110)
[2024-06-29 13:45] VITALS: BP 92/59; PULSE 74; RESP 16; TEMP 98
--- NOTE | 2024-06-30 15:01 | P.DS ---
Providers Date of admission: 06/27/24 21:24 Expected date of discharge: 06/29/24 Attending physician: Gaudencio Gardner Consults: 06/27/24 21:22 Consult Physician Routine Consulting Provider: Obie Bojorquez Consult Reason/Comments: Atrial flutter with rapid ventricular rate Do you want consulting provider notified?: Yes Primary care physician: [facility] Course: Chief Complaint: Increased heart rate This is a 68-year-old patient, follows with Dr. Miramontes. Chronic stable medical conditions include diabetes, osteoarthritis, hyperlipidemia, renal calculi, GERD, COPD, CAD. 2020 -coronary bypass. paroxysmal atrial fibrillation. - cardioverted. Patient was routine checked his heart rate yesterday morning. For the heart rate would be high. Decided to come in. No chest pain palpitation dizziness. In the ER discovered to be in atrial flutter tachycardia. Put on IV Cardizem drip. Which she is on this morning. June 30: Patient seen by Dr. Greyson Munroe. Medication adjusted to Cardizem 30 mg twice daily. Patient scheduled for atrial tachycardia ablation in early July. Expected heart rate to be up sometimes. Discussed with patient . Will follow-up with his adjunct psychology professor Dr. Bojorquez/and Dr. Greyson Munroe. Patient started coughing up sputum light brown. A bit congested. Acute bronchitis- doxycycline 100 g twice daily for 5 days Past medical history to include: hyperlipidemia, CAD with bypass, renal calculi, COPD, GERD, paroxysmal atrial fibrillation Social history: Smoked half a pack a day for close to 53 years. Stopped-April 2021 Alcohol occasionally. CBD [employer]. 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 EYES: Pupils equal. Conjunctiva normal. HEENT: External appearance of nose and ears normal, oral cavity grossly normal. NECK: JVD not raised; masses not palpable. HEART: Heart sounds irregular l; no edema. LUNGS: Respiratory rate normal; decreased breath sound. ABDOMEN: Soft, nontender, liver spleen not palpable, no masses palpable. PSYCH: Alert and oriented x3; mood and affect normal. MUSCULOSKELETAL:No Clubbing/cyanosis;muscles-grossly intact NEUROLOGICAL: Cranial nerves grossly intact; no facial asymmetry, power and sensation grossly intact. LYMPHATICS: No lymph nodes palpable in the axilla and neck INVESTIGATIONS, reviewed in the clinical context: June 27: White count 13.1 hemoglobin 14.8 platelets 234 sodium 137 potassium 4.1 creatinine 0.86 Troponin I less than 0.012 x 3 LDL 43.2 TSH 0.723 EKG tracing personally reviewed by me-atrial flutter/tachycardia Assessment and plan: -Atrial tachycardia/atrial flutter rate uncontrolled on presentation and Started on IV Cardizem drip and sleep. Discharged on metoprolol 100 mg twice daily, Cardizem 30 mg twice daily -Acute bronchitis Doxycycline for 5 days -Diabetes mellitus type 2 on oral hypoglycemic Glucophage. Follow Accu-Cheks sliding scale -Essential hypertension Zestril. Lopressor. Cardizem -Paroxysmal atrial fibrillation currently sinus rhythm -CAD with coronary bypass in April 2021 Aspirin, Lipitor, Lopressor -Primary osteoarthritis Pain medications as needed -Hyperlipidemia Zetia, Crestor -COPD in a previous smoker Albuterol as needed -Chronic leukocytosis felt to be as from smoking worked up by hematology as an outpatient. -Obesity BMI 33.9 Weight loss measures Disposition: Home Past Medical History Past Medical History: Atrial Fibrillation, Cancer, Chest Pain / Angina, COPD, GERD/Reflux, Hyperlipidemia, Hypertension, Osteoarthritis (OA), Vascular Disorder Additional Past Medical History / Comment(s): basal cell carcinoma-on nose removed PAST HX: RENAL CALCULI, KIDNEY INFECTIONS History of Any Multi-Drug Resistant Organisms: None Reported Past Surgical History: No Surgical Hx Reported, Coronary Bypass/CABG Additional Past Surgical History / Comment(s): skin cancer removed from nose. b il cataracts Past Anesthesia/Blood Transfusion Reactions: No Reported Reaction Past Psychological History: No Psychological Hx Reported Additional Psychological History / Comment(s): Pt resides alone. He is independent. Smoking Status: Former smoker Past Alcohol Use History: None Reported Additional Past Alcohol Use History / Comment(s): Pt started smoking in 1968 and quit in April 2021 Past Drug Use History: None Reported Additional Drug Use History / Comment(s): cbd gummies Plan - Discharge Summary Discharge Rx Participant: Yes New Discharge Prescriptions: New Metoprolol Tartrate [Lopressor] 100 mg PO BID #60 tablet Diltiazem Oral [Cardizem*] 30 mg PO BID #60 tab Doxycycline [Vibramycin] 100 mg PO BID #10 capsule Continue Apixaban [Eliquis] 5 mg PO BID #60 tab Metoprolol Tartrate [Lopressor] 50 mg PO BID #60 tab metFORMIN HCL ER [Glucophage XR] 500 mg PO DAILY Ezetimibe [Zetia] 10 mg PO DAILY Aspirin 81 mg PO DAILY #30 tab Rosuvastatin [Crestor] 10 mg PO HS Discontinued Diltiazem Cd [Cardizem CD] 180 mg PO DAILY lisinopriL [Zestril] 2.5 mg PO HS Discharge Medication List Apixaban [Eliquis] 5 mg PO BID #60 tab 05/16/21 [Rx] Aspirin 81 mg PO DAILY #30 tab 05/19/21 [Rx] Metoprolol Tartrate [Lopressor] 50 mg PO BID #60 tab 05/19/21 [Rx] Rosuvastatin [Crestor] 10 mg PO HS 06/21/21 [History] Ezetimibe [Zetia] 10 mg PO DAILY 06/27/24 [History] metFORMIN HCL ER [Glucophage XR] 500 mg PO DAILY 06/27/24 [History] Diltiazem Oral [Cardizem*] 30 mg PO BID #60 tab 06/29/24 [Rx] Doxycycline [Vibramycin] 100 mg PO BID #10 capsule 06/29/24 [Rx] Metoprolol Tartrate [Lopressor] 100 mg PO BID #60 tablet 06/29/24 [Rx] Follow up Appointment(s)/Referral(s): Obie Bojorquez MD [STAFF PHYSICIAN] - 1 Week Alfred Miramontes DO [Primary Care Provider] - 1-2 days Discharge Disposition: HOME SELF-CARE
== END 2024-06-29 14:15 | disposition home or self-care (01) | DRG 309 ==
LOC: EC 19:27 → 6NMEDSUR 21:24 → OBSVTOIN 06-28 11:44
PROVIDERS: ADMIT Hospitalist; ATTEND Hospitalist
PROC: 3E033RZ Introduction of Antiarrhythmic into Peripheral Vein, Percutaneous Approach (ICD-10-PCS; principal; 2024-06-27)
DX: I48.92 Unspecified atrial flutter (principal); J44.0 Chronic obstructive pulmonary disease with (acute) lower respiratory infection; I11.0 Hypertensive heart disease with heart failure; E11.9 Type 2 diabetes mellitus without complications; D72.829 Elevated white blood cell count, unspecified; E66.9 Obesity, unspecified; I50.9 Heart failure, unspecified; I48.0 Paroxysmal atrial fibrillation; J20.9 Acute bronchitis, unspecified; Z68.33 Body mass index [BMI] 33.0-33.9, adult; I25.10 Atherosclerotic heart disease of native coronary artery without angina pectoris; I47.19 Other supraventricular tachycardia; E78.5 Hyperlipidemia, unspecified; M19.91 Primary osteoarthritis, unspecified site; K21.9 Gastro-esophageal reflux disease without esophagitis; Z95.1 Presence of aortocoronary bypass graft; Z79.01 Long term (current) use of anticoagulants; Z79.82 Long term (current) use of aspirin; Z79.84 Long term (current) use of oral hypoglycemic drugs; Z79.899 Other long term (current) drug therapy; Z87.891 Personal history of nicotine dependence; Z85.828 Personal history of other malignant neoplasm of skin; Z71.3 Dietary counseling and surveillance
CPT/HCPCS: 36415; 71045; 80053; 80061; 83735; 83880; 84443; 84484; 85025; 85610; 85730; 93005; 96365; 96366; 99285

== ENCOUNTER → 2024-07-21 | Outpatient (CLI) | payer MEDICARE ==
--- NOTE | 2024-07-22 08:37 | US ---
EXAMINATION TYPE: US kidneys/renal and bladder DATE OF EXAM: 07/21/2024 COMPARISON: CT(12/28/2021) CLINICAL INDICATION: Male, 69 years old with history of R31.29 MICROSCOPIC HEMATURIA; software consultant not es: known stones seen in prior CT (12/28/21) TECHNIQUE: Grayscale imaging of the bilateral kidneys and urinary bladder: FINDINGS: EXAM MEASUREMENTS: Right Kidney: 12.2x6.4x6.1cm Left Kidney: 13.0x5.8x5.1cm No hydronephrosis on either side. Right Kidney: multiple echogenic foci seen: Largest: 1: 0.7cm, 2: 0.9cm Left Kidney: multiple echogenic foci seen: Largest: 1: 1.3cm, 2: 0.8cm Bladder: wnl Bilateral Jets seen: Yes IMPRESSION: 1. Bilateral nephrolithiasis measuring up to 1.3 cm on the left and 9 mm on the right. 2. No hydronephrosis on either side. [facility], Workstation: [email or web address], 07/22/2024 8:35 AM
== END | disposition home or self-care (01) ==
LOC: RADUSWWP 15:15
PROVIDERS: ATTEND Family Medicine
DX: N20.0 Calculus of kidney (principal); R31.29 Other microscopic hematuria
CPT/HCPCS: 76770

== ENCOUNTER → 2024-08-08 | Outpatient (CLI) | payer MEDICARE ==
[2024-08-08 15:39] LABS: HCT 46.6 % (39.6-50.0); HGB 15.2 g/dL (13.0-17.0); MCHC 32.6 g/dL (32.0-37.0); MCV 88.9 FL (80.0-97.0); Mean Platelet Volume 10.7 FL (9.5-12.2); NRBC Per 100 WBC 0 X 10*3/uL (0.00-0.01); Platelet Count 276 X 10*3/uL (140-440); RBC 5.24 X 10*6/uL (4.40-5.60); RDW 13.9 % (11.5-14.5); WBC 12.29 X 10*3/uL (4.50-10.00)
[2024-08-08 15:55] LABS: Blood Urea Nitrogen 13.5 mg/dL (9.0-27.0); Carbon Dioxide 27.8 mmol/L (21.6-31.8); Chloride 102 mmol/L (96-109); Potassium 5.2 mmol/L (3.5-5.5); Sodium 141 mmol/L (135-145)
== END | disposition home or self-care (01) ==
LOC: LABPAT 10:54
PROVIDERS: ATTEND Internal Medicine Clinical Cardiac Electrophysiology
DX: Z01.812 Encounter for preprocedural laboratory examination (principal); I48.0 Paroxysmal atrial fibrillation
CPT/HCPCS: 80051; 82565; 84520; 85027